=== PATIENT | female | born 1975 | race Two or more races ===

== ENCOUNTER 2020-09-28 00:28 | Emergency (ER) | payer MEDICAID, OTHER, SELFPAY ==
[2020-09-28 00:32] VITALS: BP 135/81; PULSE 57; RESP 18; TEMP 36; O2SAT 100; BMI 37.4
--- NOTE | 2020-09-28 00:41 | ED.ABDPAIN ---
HPI - Abdominal Pain General Chief Complaint: Abdominal Pain Stated Complaint: Abd pain Time Seen by Provider: 09/28/20 00:29 Source: patient Mode of arrival: ambulatory Limitations: no limitations History of Present Illness MD elicited complaint: abdominal pain Pertinent past history: none Onset (ago): day(s) (started yesterday) Location: epigastric Severity: severe Quality: stabbing Radiation: none Migration to: no migration Exacerbating factors: eating Relieving factors: nothing Associated symptoms: nausea Related Data Previous Rx's Medication Instructions Recorded dicyclomine 20 mg PO TID PRN #30 tab 09/28/20 famotidine [Pepcid] 20 mg PO DAILY PRN #30 tab 09/28/20 Allergies Allergy/AdvReac Type Severity Reaction Status Date / Time No Known Allergies Allergy Verified 09/28/20 00:32 [No Known Allergies*] Review of Systems Review of Systems Constitutional : No Weight loss, No Fever, No Chills ENT/Mouth : No sore throat, No Rhinorrhea Eyes: No Swelling, No Redness Cardiovascular : No Chest Pain, No SOB, NoEdema Respiratory : No Cough, No Sputum, No Wheezing Gastrointestinal : Positive Nausea, no Vomiting, no Diarrhea, positive abdominal Pain, No Hematochezia, No Melena Genitourinary : No Dysuria, No Urinary Frequency, No Hematuria, No Urgency Musculoskeletal : No joint pain, No Myalgias, No Joint Swelling Skin : No Skin Lesions, No rash Neuro : No Weakness, No Numbness, No Dizziness, No Headache Psych : No Anxiety/Panic, No Depression All other systems reviewed and are negative. Physical Exam Vital Signs: Vital Signs: Last Vital Signs Temp 96.8 F 09/28/20 00:32 Pulse 68 09/28/20 02:39 Resp 16 09/28/20 02:39 BP 105/50 L 09/28/20 02:39 Pulse Ox 100 09/28/20 02:39 Body Mass Index 37.4 Appearance: Alert. Oriented X3. No acute distress. Eyes: Pupils equal, round and reactive to light. ENT: Pharynx normal. Neck: Normal inspection. Neck supple. CVS: Normal heart rate and rhythm. Pulses normal. Respiratory: No respiratory distress. Breath sounds normal. Abdomen: Soft and moderate epigastric pain, neg Wong's sign, no rebound or guarding Skin: Skin warm and dry. Normal skin color. Normal skin turgor. Extremities: No lower extremity edema. No calf ttp Neuro: Oriented X 3. No motor deficit. No sensory deficit. Course Course Course Narrative: labs unremarkable, CT scan negative, at this time no acute findings stable for DC MDM - Abdominal Pain MDM Narrative Medical decision making narrative: 44 yo femle with HTN, migraines, palpitations comes in with 1 day of epigastric pain and nausea - no prior surgeries, at this time will need labs, CT scan to evaluate pancreas, has no wong's sign, IVF, IV Toradol and morphine for pain Lab Data Result diagrams: 09/28/20 00:53 09/28/20 00:53 Labs: Lab Results 09/28/20 09/28/20 09/28/20 Range/Units 00:52 00:53 00:53 WBC 7.0 (4.8-10.8) X10*3/uL RBC 3.81 L (4.20-5.50) X10*6/uL Hgb 11.1 L (12.0-16.0) g/dl Hct 33.6 L (37-47) % MCV 88.2 (80-98) fL MCH 29.1 (27.0-33.0) pg MCHC 33.0 (31.0-35.0) g/dl RDW 13.5 (11.0-16.0) % Plt Count 177 (160-400) X10*3/uL MPV 11.1 (9.4-12.3) fL Immature Gran % (Auto) 0.1 (0.0-0.4) % Neut % (Auto) 32.9 L (45-73) % Lymph % (Auto) 57.8 H (20-40) % [place] % (Auto) 7.3 (2-11) % Eos % (Auto) 1.6 (0-4) % Baso % (Auto) 0.3 (0-2) % Lymph # (Auto) 4.1 (1.2-4.9) X10*3/uL [place] # (Auto) 0.5 (0.1-1.2) X10*3/uL Eos # (Auto) 0.1 (0.0-0.4) X10*3/uL Baso # (Auto) 0.0 (0.0-0.2) X10*3/uL Abs Immat Gran (auto) 0.01 (0.00-0.03) X10*3/uL Absolute Neuts (auto) 2.3 (2.0-8.3) X10*3/uL Absolute Nucleated RBC 0.000 (0.0-0.012) X10*3/uL Nucleated RBC % (auto) 0.0 (0.0-0.2) /100WBC Hold Blue Top SEE NOTE Sodium (135-145) mmol/L Potassium (3.3-5.1) mmol/l Chloride (96-108) mmol/L Carbon Dioxide (22-29) mmol/L Anion Gap (12-20) BUN (9-16) mg/dL Creatinine (0.5-1.4) mg/dL Estim Creat Clear Calc Estimated GFR Random Glucose (60-115) mg/dL Calcium (8.4-10.2) mg/dL Total Bilirubin (0.0-1.0) mg/dL Direct Bilirubin (0.0-0.5) mg/dL AST (5-31) U/L ALT (0-31) U/L Alkaline Phosphatase (39-117) U/L Total Protein (6.5-8.0) g/dL Albumin (3.5-5.0) g/dL Lipase (8-78) U/L Urine Color YELLOW Urine Appearance CLEAR Urine pH 6.0 (5.0-8.0) Ur Specific [place] >= 1.030 H (1.005-1.025) Urine Protein NEG (NEG-TRACE) MG/DL Urine Glucose (UA) NEG (NEG) MG/DL Urine Ketones NEG (NEG) MG/DL Urine Blood 1+ H (NEG) Urine Nitrite NEG (NEG) Ur Leukocyte Esterase NEG (NEG) Urine RBC 1-4 (0) /HPF Urine WBC 1-4 (0-4) /HPF Ur Squamous Epith Cells 2+ /LPF Urine Bacteria 3+ /LPF Urine Test NEGATIVE (NEGATIVE) 09/28/20 09/28/20 Range/Units 00:53 00:53 WBC (4.8-10.8) X10*3/uL RBC (4.20-5.50) X10*6/uL Hgb (12.0-16.0) g/dl Hct (37-47) % MCV (80-98) fL MCH (27.0-33.0) pg MCHC (31.0-35.0) g/dl RDW (11.0-16.0) % Plt Count (160-400) X10*3/uL MPV (9.4-12.3) fL Immature Gran % (Auto) (0.0-0.4) % Neut % (Auto) (45-73) % Lymph % (Auto) (20-40) % [place] % (Auto) (2-11) % Eos % (Auto) (0-4) % Baso % (Auto) (0-2) % Lymph # (Auto) (1.2-4.9) X10*3/uL [place] # (Auto) (0.1-1.2) X10*3/uL Eos # (Auto) (0.0-0.4) X10*3/uL Baso # (Auto) (0.0-0.2) X10*3/uL Abs Immat Gran (auto) (0.00-0.03) X10*3/uL Absolute Neuts (auto) (2.0-8.3) X10*3/uL Absolute Nucleated RBC (0.0-0.012) X10*3/uL Nucleated RBC % (auto) (0.0-0.2) /100WBC Hold Blue Top Sodium 139 (135-145) mmol/L Potassium 4.4 (3.3-5.1) mmol/l Chloride 108 (96-108) mmol/L Carbon Dioxide 23 (22-29) mmol/L Anion Gap 12 (12-20) BUN 15 (9-16) mg/dL Creatinine 0.71 (0.5-1.4) mg/dL Estim Creat Clear Calc 114.2 Estimated GFR > 60 Random Glucose 100 (60-115) mg/dL Calcium 8.8 (8.4-10.2) mg/dL Total Bilirubin < 0.2 (0.0-1.0) mg/dL Direct Bilirubin < 0.2 (0.0-0.5) mg/dL AST 23 (5-31) U/L ALT 19 (0-31) U/L Alkaline Phosphatase 95 (39-117) U/L Total Protein 6.8 (6.5-8.0) g/dL Albumin 3.8 (3.5-5.0) g/dL Lipase 64 (8-78) U/L Urine Color Urine Appearance Urine pH (5.0-8.0) Ur Specific [place] (1.005-1.025) Urine Protein (NEG-TRACE) MG/DL Urine Glucose (UA) (NEG) MG/DL Urine Ketones (NEG) MG/DL Urine Blood (NEG) Urine Nitrite (NEG) Ur Leukocyte Esterase (NEG) Urine RBC (0) /HPF Urine WBC (0-4) /HPF Ur Squamous Epith Cells /LPF Urine Bacteria /LPF Urine Test (NEGATIVE) Discharge Plan Discharge Clinical Impression: Abdominal pain Qualifiers: Abdominal location: epigastric Qualified Code(s): R10.13 - Epigastric pain Patient Disposition: Home, Self-Care Instructions: Abdominal Pain (ED) Additional Instructions: return to ED for any worsening symptoms or concerns Prescriptions: New famotidine [Pepcid] 20 mg tablet 20 mg PO DAILY PRN (Reason: pain, moderate) Qty: 30 RF: 0 dicyclomine 20 mg tablet 20 mg PO TID PRN (Reason: pain, moderate) Qty: 30 RF: 0 Referrals: Zoe Cabrera DO [Primary Care Provider] - 2 days (if not better) Print Language: Micronesian [facility] Past Medical History Attestation statement: The following information was validated with the patient. Medical History Heart problem HTN (hypertension) Migraine Vertigo Social History Social History (Updated 09/28/20 @ 00:54 by Catrina Correa DO) Alcohol intake: never Smoking Status: Never smoker Advance Directives: No Advance Directives Information Provided: No
--- NOTE | 2020-09-28 00:51 | CT_ITS ---
EXAMINATION: CT ABDOMEN AND PELVIS WITH CONTRAST CLINICAL INFORMATION: Epigastric pain COMPARISON: 10/13/2019 TECHNIQUE: Multidetector volumetric images were obtained from the superior aspect of the liver through the pubic symphysis following administration 85 mL of Omnipaque 350 intravenous contrast. Sagittal and coronal reformatted images were obtained on the technologist's workstation. Oral contrast: No This CT examination was performed using dose optimization techniques as appropriate, variously including the following: *Automated exposure control *Adjustment of mA and/or kV according to patient size (this includes techniques or standardized protocols for targeted exams where dose is matched to indication/reason for exam; i.e. extremities or head) *Use of iterative reconstruction technique DLP: 902 mGy-cm FINDINGS: Suboptimal assessment due to patient motion artifact. LUNG BASES: The visualized lung bases are unremarkable. LIVER, GALLBLADDER, AND BILIARY TREE: The liver is normal in size, shape, and attenuation. No focal hepatic lesion or biliary ductal dilatation is present. The gallbladder is unremarkable. PANCREAS: Unremarkable. SPLEEN: Unremarkable. ADRENAL GLANDS: Unremarkable. KIDNEYS AND URETERS: The kidneys are normal in size, shape, and attenuation. No hydronephrosis, hydroureter, or obstructing calculi seen. No perinephric stranding. BLADDER: Unremarkable. GASTROINTESTINAL TRACT: The small and large bowel are unremarkable. The appendix is unremarkable. No free fluid or free air is seen. ABDOMINAL WALL: No significant hernia is appreciated. LYMPH NODES: Normal. VASCULAR: Unremarkable. PELVIC VISCERA: Unremarkable. OSSEOUS STRUCTURES: There is degenerative disc disease of the lower lumbar spine. CT/CT abdomen pelvis w con IMPRESSION: No acute findings identified in the abdomen/pelvis. Partially limited assessment due to patient motion artifact.
[2020-09-28] MEDS: Morphine Sulfate 4 MG/ML CARTRIDGE IVPUSH (00:55)
[2020-09-28] MEDS: ondansetron HCL 4 MG/2 ML VIAL IVPUSH (00:55)
[2020-09-28] MEDS: 0.9 % Sodium Chloride 1,000 ML 999 ML IVCONT (00:56)
[2020-09-28] MEDS: Ketorolac Tromethamine 30 MG/ML VIAL IVPUSH (00:56)
[2020-09-28 01:03] LABS: Basophils Percent Auto 0.3 % (0-2); Eosinophils Absolute Auto 0.1 X10*3/uL (0.0-0.4); Eosinophils Percent Auto 1.6 % (0-4); Hematocrit 33.6 % (37-47); Hemoglobin 11.1 g/dl (12.0-16.0); Imm Gran Abs Auto 0.01 X10*3/uL (0.00-0.03); Imm Gran Pct Auto 0.1 % (0.0-0.4); Lymphocytes Absolute Auto 4.1 X10*3/uL (1.2-4.9); Lymphocytes Percent Auto 57.8 % (20-40); Mean Corpuscular Hemoglobin 29.1 pg (27.0-33.0); Mean Corpuscular Volume 88.2 fL (80-98); Mean Platelet Volume 11.1 fL (9.4-12.3); Monocytes Absolute Auto 0.5 X10*3/uL (0.1-1.2); Monocytes Percent Auto 7.3 % (2-11); Neutrophils Absolute Auto 2.3 X10*3/uL (2.0-8.3); Neutrophils Percent Auto 32.9 % (45-73); Platelet Count 177 X10*3/uL (160-400); Red Blood Count 3.81 X10*6/uL (4.20-5.50); Red Cell Distribution Width 13.5 % (11.0-16.0)
--- NOTE | 2020-09-28 01:05 | PC.NURSE ---
Pt ambulating from the waiting room into room 17 with a suarez/steady gait. MD at bedside for primary eval. IV established, labs and UA obtained and sent. Pt medicated per EMAR, aware of plan of care, awaiting CT. Continue to monitor.
[2020-09-28 01:06] LABS: MANUAL DIFF FLAG NO
[2020-09-28 01:27] LABS: Anion Gap 12 (12-20); Blood Urea Nitrogen 15 mg/dL (9-16); Calcium 8.8 mg/dL (8.4-10.2); Carbon Dioxide 23 mmol/L (22-29); Chloride 108 mmol/L (96-108); Creatinine Clr Calc Pharmacy 114.2; Estimated Glomerular Filt Rate > 60; Glucose Random 100 mg/dL (60-115); Lipase 64 U/L (8-78); Potassium 4.4 mmol/l (3.3-5.1); Sodium 139 mmol/L (135-145)
[2020-09-28 01:31] LABS: Alanine Aminotransferase 19 U/L (0-31); Albumin Level 3.8 g/dL (3.5-5.0); Alkaline Phosphatase 95 U/L (39-117); Aspartate Amino Transferase 23 U/L (5-31); Bilirubin Direct < 0.2 mg/dL (0.0-0.5); Bilirubin Total < 0.2 mg/dL (0.0-1.0); Total Protein 6.8 g/dL (6.5-8.0)
--- NOTE | 2020-09-28 01:41 | PC.NURSE ---
Pt sleeping in bed at this time, IVF infusing per EMAR. Pt awaiting CT. This RN calling the lab inquiring about the UA that was sent, per lab, urine was received and is processing.
[2020-09-28 01:55] LABS: UPreg QC Valid YES; Urine Pregnancy NEGATIVE (NEGATIVE)
[2020-09-28 01:56] LABS: Appearance Urine CLEAR; Color Urine YELLOW; Glucose Urine UA NEG (NEG); Leukocyte Esterase Urine NEG (NEG); Nitrite Urine NEG (NEG); Specific Gravity - Urine >= 1.030 (1.005-1.025); Urine Blood 1+ (NEG); Urine Ketones NEG (NEG); Urine Protein NEG (NEG-TRACE)
[2020-09-28 02:00] LABS: Bacteria Urine 3+ /LPF; Squamous Epithelial Cell Urine 2+ /LPF
--- NOTE | 2020-09-28 02:03 | PC.NURSE ---
Pt off to CT on hospital bed.
--- NOTE | 2020-09-28 02:36 | PC.NURSE ---
Pt returns from CT on hospital bed without incident.
[2020-09-28] MEDS: iohexoL 350 MG/ML 100 ML INFUS..BTL IV (02:38)
[2020-09-28 02:39] VITALS: BP 105/50; PULSE 68; RESP 16; O2SAT 100
[2020-09-28] MEDS: Magnesium Hydrox/Alum Hydrox 30 ML ORAL.SUSP 15 ML PO (02:53)
[2020-09-28] MEDS: Lidocaine HCl Viscous 2 % 15 ML SOLUTION MUCOUS MEM (02:53)
--- NOTE | 2020-09-28 02:54 | PC.NURSE ---
Pt medicated per EMAR. Awaiting CT results.
--- NOTE | 2020-09-28 03:06 | PC.NURSE ---
MD at bedside explaining results and plan of care.
== END 2020-09-28 03:14 | disposition home or self-care (01) ==
PROVIDERS: Emergency Provider Emergency Medicine; PCP Family Medicine
DX: R10.13 Epigastric pain (principal); Z79.899 Other long term (current) drug therapy
CPT/HCPCS: 36415; 74177; 80048; 80076; 81001; 81025; 83690; 85025; 96361; 96374; 96375; 99284; J1885; J2270; J2405; Q9967

== ENCOUNTER 2020-11-08 22:36 | Emergency (ER) | payer MEDICAID, OTHER, SELFPAY ==
--- NOTE | 2020-11-08 | ECG_ITS ---
Test Reason : CHEST PAIN Blood Pressure : / mmHG Vent. Rate : 094 BPM Atrial Rate : 094 BPM P-R Int : 142 ms QRS Dur : 080 ms QT Int : 356 ms P-R-T Axes : 028 000 020 degrees QTc Int : 445 ms Normal sinus rhythm Normal ECG No significant changes when compared with the previous EKG of 24 mar 2019 Referred By: Generic ED Physician Electronically Signed By:EHSAN TMEPLE
[2020-11-08 22:39] VITALS: BMI 36.0
--- NOTE | 2020-11-08 22:47 | XR_ITS ---
EXAMINATION: XR CHEST CLINICAL INFORMATION: Chest pain. COMPARISON: Most recent chest radiograph dated 03/24/2019. TECHNIQUE: Frontal view of the chest was obtained. FINDINGS: The lungs are clear. The cardiomediastinal silhouette is normal in size. There is no pleural effusion or pneumothorax. No acute osseous abnormality. XR/XR chest 1V IMPRESSION: No acute cardiopulmonary findings.
--- NOTE | 2020-11-08 23:02 | ED_ITS ---
HPI - Chest Pain General Stated Complaint: Chest pain Time Seen by Provider: 11/08/20 22:47 Source: patient Mode of arrival: ambulatory Limitations: no limitations History of Present Illness MD complaint: chest pain and other (out of her metoprolol and fleicanide for 3 days very anxious about it the [facility] pharmacy is closed) Pertinent past history: other (dysrhythmia, has had frequent bouts of chest pain ) Onset (ago): day(s) (3) Timing of current episode: constant Onset: during rest Pain location: left chest Pain radiation: left arm Severity: moderate Quality: tightness and heaviness Relieving factors: nothing Exacerbating factors: other (out of her medications) Associated symptoms: dyspnea Treatment prior to arrival: none Related Data Previous Rx's Medication Instructions Recorded dicyclomine 20 mg PO TID PRN #30 tab 09/28/20 famotidine [Pepcid] 20 mg PO DAILY PRN #30 tab 09/28/20 Allergies Allergy/AdvReac Type Severity Reaction Status Date / Time No Known Allergies Allergy Verified 09/28/20 00:32 [No Known Allergies*] Review of Systems Review of Systems: Constitutional : No Weight loss, No Fever, No Chills ENT/Mouth : No sore throat, No Rhinorrhea Eyes: No Eye Pain, No Swelling Cardiovascular : pos Chest Pain, pos SOB, no Dyspnea on Exertion, No Orthopnea, No Edema, No Palpitations Respiratory : No Cough, No Sputum Gastrointestinal : no Nausea, No Vomiting, No Diarrhea, No abdominal Pain, No Hematochezia, No Melena Genitourinary : No Dysuria, No Urinary Frequency Musculoskeletal : No joint pain, No Myalgias, No Joint Swelling Skin : No Skin Lesions, No rash Neuro : No Weakness, No Numbness, No Dizziness, No Headache Psych : pos Anxiety/Panic, No Depression Heme/Lymph: No Bruising, No Lymphadenopathy Endocrine : No Polyuria, No Polydipsia All other systems reviewed and are negative [facility] Past Medical History Attestation statement: The following information was validated with the patient. Medical History Heart problem HTN (hypertension) Migraine Vertigo Social History Social History Alcohol intake: never Smoking Status: Never smoker Smoked in Last 30 Days: No Use of substances other than those prescribed or required for medical reasons: No Advance Directives: No Advance Directives Information Provided: No Physical Exam Vital Signs: Vital Signs: Last Vital Signs Temp 98.1 F 11/09/20 00:00 Pulse 87 11/09/20 00:00 Resp 20 11/09/20 00:00 BP 144/82 H 11/09/20 00:00 Pulse Ox 98 11/09/20 00:00 Body Mass Index 87.0 Appearance: Alert. Oriented X3. No acute distress. Anxious Eyes: Pupils equal, round and reactive to light. ENT: Pharynx normal. Neck: Normal inspection. Neck supple. CVS: Normal heart rate and rhythm. Pulses normal. Respiratory: No respiratory distress. Breath sounds normal. Abdomen: Soft and non-tender. Skin: Skin warm and dry. Normal skin color. Normal skin turgor. Extremities: No lower extremity edema. No calf ttp Neuro: Oriented X 3. No motor deficit. No sensory deficit. Course Course Course Narrative: negative EKG given her medications unfortunately I cannot dispense her the medications, she has had a negative troponin with 3 days of symptoms, hx of frequent visits for the same, stable for DC MDM - Chest Pain MDM Narrative Medical decision making narrative: 45 yo femald with hx of arrhythmia on flecainie and metoprolol but out of it x 3 days here with anxiety and chest pain - her chest pain has been present for 3 days, she is PERC negative, it seems related to her medications, will dose with metoprolol and her fleicanide obtain troponin x 1, labs, CXR, EKG dispo per results and findings. Lab Data Result diagrams: 11/09/20 00:12 11/09/20 00:13 Labs: Lab Results 11/09/20 11/09/20 11/09/20 Range/Units 00:12 00:12 00:12 WBC 6.6 (4.8-10.8) X10*3/uL RBC 4.01 L (4.20-5.50) X10*6/uL Hgb 11.7 L (12.0-16.0) g/dl Hct 35.4 L (37-47) % MCV 88.3 (80-98) fL MCH 29.2 (27.0-33.0) pg MCHC 33.1 (31.0-35.0) g/dl RDW 13.2 (11.0-16.0) % Plt Count 173 (160-400) X10*3/uL MPV 11.0 (9.4-12.3) fL Immature Gran % (Auto) 0.2 (0.0-0.4) % Neut % (Auto) 48.1 (45-73) % Lymph % (Auto) 42.9 H (20-40) % [place] % (Auto) 6.6 (2-11) % Eos % (Auto) 2.0 (0-4) % Baso % (Auto) 0.2 (0-2) % Lymph # (Auto) 2.8 (1.2-4.9) X10*3/uL [place] # (Auto) 0.4 (0.1-1.2) X10*3/uL Eos # (Auto) 0.1 (0.0-0.4) X10*3/uL Baso # (Auto) 0.0 (0.0-0.2) X10*3/uL Abs Immat Gran (auto) 0.01 (0.00-0.03) X10*3/uL Absolute Neuts (auto) 3.2 (2.0-8.3) X10*3/uL Absolute Nucleated RBC 0.000 (0.0-0.012) X10*3/uL Nucleated RBC % (auto) 0.0 (0.0-0.2) /100WBC Hold Blue Top SEE NOTE Sodium (135-145) mmol/L Potassium (3.3-5.1) mmol/l Chloride (96-108) mmol/L Carbon Dioxide (22-29) mmol/L Anion Gap (12-20) BUN (9-16) mg/dL Creatinine (0.5-1.4) mg/dL Estim Creat Clear Calc Estimated GFR Random Glucose (60-115) mg/dL Calcium (8.4-10.2) mg/dL Magnesium (1.6-2.6) mg/dL Total Bilirubin (0.0-1.0) mg/dL Direct Bilirubin (0.0-0.5) mg/dL AST (5-31) U/L ALT (0-31) U/L Alkaline Phosphatase (39-117) U/L Troponin I High Sens < 3.5 (<3.5-17.0) ng/L Total Protein (6.5-8.0) g/dL Albumin (3.5-5.0) g/dL Lipase (8-78) U/L 11/09/20 11/09/20 Range/Units 00:13 00:13 WBC (4.8-10.8) X10*3/uL RBC (4.20-5.50) X10*6/uL Hgb (12.0-16.0) g/dl Hct (37-47) % MCV (80-98) fL MCH (27.0-33.0) pg MCHC (31.0-35.0) g/dl RDW (11.0-16.0) % Plt Count (160-400) X10*3/uL MPV (9.4-12.3) fL Immature Gran % (Auto) (0.0-0.4) % Neut % (Auto) (45-73) % Lymph % (Auto) (20-40) % [place] % (Auto) (2-11) % Eos % (Auto) (0-4) % Baso % (Auto) (0-2) % Lymph # (Auto) (1.2-4.9) X10*3/uL [place] # (Auto) (0.1-1.2) X10*3/uL Eos # (Auto) (0.0-0.4) X10*3/uL Baso # (Auto) (0.0-0.2) X10*3/uL Abs Immat Gran (auto) (0.00-0.03) X10*3/uL Absolute Neuts (auto) (2.0-8.3) X10*3/uL Absolute Nucleated RBC (0.0-0.012) X10*3/uL Nucleated RBC % (auto) (0.0-0.2) /100WBC Hold Blue Top Sodium 138 (135-145) mmol/L Potassium 4.0 (3.3-5.1) mmol/l Chloride 107 (96-108) mmol/L Carbon Dioxide 24 (22-29) mmol/L Anion Gap 11 L (12-20) BUN 17 H (9-16) mg/dL Creatinine 0.78 (0.5-1.4) mg/dL Estim Creat Clear Calc 177.6 Estimated GFR > 60 Random Glucose 111 (60-115) mg/dL Calcium 8.3 L (8.4-10.2) mg/dL Magnesium 2.0 Cancelled (1.6-2.6) mg/dL Total Bilirubin < 0.2 Cancelled (0.0-1.0) mg/dL Direct Bilirubin < 0.2 Cancelled (0.0-0.5) mg/dL AST 22 Cancelled (5-31) U/L ALT 20 Cancelled (0-31) U/L Alkaline Phosphatase 113 Cancelled (39-117) U/L Troponin I High Sens (<3.5-17.0) ng/L Total Protein 6.8 Cancelled (6.5-8.0) g/dL Albumin 3.9 Cancelled (3.5-5.0) g/dL Lipase 74 Cancelled (8-78) U/L ECG Data ECG #1: Attestation: I personally reviewed and interpreted this ECG as follows: ECG interpretation date: 11/08/20 ECG interpretation time: 23:53 Interpretation: Rate: 94 Rhythm: NSR [place]: normal Normal P waves. Normal [place]AR[place]. Normal QRS complex. ST T wave : normal no JAMARCUS qTC: normal prior studies: no acute ischemia The study has been interpreted contemporaneously by me. . Discharge Plan Discharge Clinical Impression: Atypical chest pain Patient Disposition: Home, Self-Care Instructions: Chest Pain (ED) Additional Instructions: return to ED for any worsening symptoms or concerns Prescriptions: No Action famotidine [Pepcid] 20 mg tablet 20 mg PO DAILY PRN (Reason: pain, moderate) Qty: 30 RF: 0 dicyclomine 20 mg tablet 20 mg PO TID PRN (Reason: pain, moderate) Qty: 30 RF: 0 Referrals: Zoe Cabrera DO [Primary Care Provider] - 2 days (if not better)
[2020-11-08 23:08] VITALS: BP 166/99; PULSE 86; RESP 22; TEMP 36.8; O2SAT 100; BMI 87.0
[2020-11-08 23:14] VITALS: PULSE 80
[2020-11-08 23:24] VITALS: BP 134/57; PULSE 80
[2020-11-08] MEDS: Metoprolol Tartrate 50 MG TABLET PO (23:24)
[2020-11-08 23:57] VITALS: BP 144/82; PULSE 80
[2020-11-08] MEDS: Flecainide Acetate 50 MG TABLET PO (23:57)
[2020-11-09] VITALS: BP 144/82; PULSE 87; RESP 20; TEMP 36.7; O2SAT 98
--- NOTE | 2020-11-09 00:03 | PC.NURSE ---
Medicated with missed medications. Pending EKG. Pt states pain radiating down left arm. NSR 80's on tele
[2020-11-09 00:23] LABS: MANUAL DIFF FLAG NO
[2020-11-09 00:25] LABS: Basophils Percent Auto 0.2 % (0-2); Eosinophils Absolute Auto 0.1 X10*3/uL (0.0-0.4); Hematocrit 35.4 % (37-47); Hemoglobin 11.7 g/dl (12.0-16.0); Imm Gran Abs Auto 0.01 X10*3/uL (0.00-0.03); Imm Gran Pct Auto 0.2 % (0.0-0.4); Lymphocytes Absolute Auto 2.8 X10*3/uL (1.2-4.9); Lymphocytes Percent Auto 42.9 % (20-40); Mean Corpuscular HGB Conc 33.1 g/dl (31.0-35.0); Mean Corpuscular Hemoglobin 29.2 pg (27.0-33.0); Mean Corpuscular Volume 88.3 fL (80-98); Monocytes Absolute Auto 0.4 X10*3/uL (0.1-1.2); Monocytes Percent Auto 6.6 % (2-11); Neutrophils Absolute Auto 3.2 X10*3/uL (2.0-8.3); Neutrophils Percent Auto 48.1 % (45-73); Platelet Count 173 X10*3/uL (160-400); Red Blood Count 4.01 X10*6/uL (4.20-5.50); Red Cell Distribution Width 13.2 % (11.0-16.0); White Blood Count 6.6 X10*3/uL (4.8-10.8)
[2020-11-09 00:59] LABS: Alanine Aminotransferase 20 U/L (0-31); Albumin Level 3.9 g/dL (3.5-5.0); Alkaline Phosphatase 113 U/L (39-117); Anion Gap 11 (12-20); Aspartate Amino Transferase 22 U/L (5-31); Bilirubin Direct < 0.2 mg/dL (0.0-0.5); Bilirubin Total < 0.2 mg/dL (0.0-1.0); Blood Urea Nitrogen 17 mg/dL (9-16); Calcium 8.3 mg/dL (8.4-10.2); Carbon Dioxide 24 mmol/L (22-29); Chloride 107 mmol/L (96-108); Creatinine Clr Calc Pharmacy 177.6; Estimated Glomerular Filt Rate > 60; Glucose Random 111 mg/dL (60-115); Lipase 74 U/L (8-78); Sodium 138 mmol/L (135-145); Total Protein 6.8 g/dL (6.5-8.0)
[2020-11-09 01:17] LABS: Troponin-I High Sensitivity < 3.5 ng/L (<3.5-17.0)
[2020-11-09] MEDS: Morphine Sulfate 4 MG/ML CARTRIDGE IVPUSH (01:33)
[2020-11-09] MEDS: ondansetron HCL 4 MG/2 ML VIAL IVPUSH (01:33)
[2020-11-09 01:46] VITALS: BP 107/51; PULSE 70; RESP 18; TEMP 36.7; O2SAT 100
--- NOTE | 2020-11-09 01:50 | PC.NURSE ---
Patient medicated for pain and nausea via IM per MD arnold. Plan for BP recheck and discharge, pt calling for ride.
[2020-11-09 02:13] LABS: Prothrombin Time 11.3 SEC (10.8-13.0)
[2020-11-09 02:15] LABS: Partial Thromboplastin Time 46.5 SEC (24.1-38.0)
[2020-11-09 02:44] VITALS: BP 117/54
== END 2020-11-09 02:57 | disposition home or self-care (01) ==
PROVIDERS: Emergency Provider Emergency Medicine; PCP Family Medicine
DX: R07.89 Other chest pain (principal); I10 Essential (primary) hypertension
CPT/HCPCS: 36415; 71045; 80048; 80076; 83690; 83735; 84484; 85025; 85610; 85730; 93005; 96374; 96375; 99284; J2270; J2405

== ENCOUNTER 2020-11-22 16:14 | Emergency (ER) | payer MEDICAID, OTHER, SELFPAY ==
[2020-11-22 17:25] VITALS: BP 132/65; PULSE 81; RESP 16; TEMP 36.7; O2SAT 99; BMI 39.4
--- NOTE | 2020-11-22 18:09 | XR_ITS ---
EXAMINATION: XR CERVICAL SPINE CLINICAL INFORMATION: Left-sided neck pain. Cervical radiculopathy. COMPARISON: None TECHNIQUE: 6 views of the cervical spine were obtained. FINDINGS: There is no acute abnormality. There is no fracture. There is no dislocation. The alignment of vertebrae is normal. There is cervical disc height narrowing C3-C4. The remainder of the cervical disc heights are normal. The facet joints are normal. Neural foramina are open bilateral. There is no soft tissue abnormality. XR/XR cervical spine 4V IMPRESSION: 1. No acute abnormality. 2. Degenerative disc height narrowing C3-C4.
--- NOTE | 2020-11-22 18:37 | ED.EXTPRO ---
HPI - Extremity Problem General Chief complaint: Extremity Injury, Upper Stated complaint: neck, upper backpain Time Seen by Provider: 11/22/20 18:04 Source: patient Mode of arrival: ambulatory Limitations: language barrier History of Present Illness HPI Narrative: 46 y/o female with history of cardiac arrhythmia, atypical chest pain who presents with 2 weeks of non-traumatic neck pain that radiates down to her left posterior shoulder and down her left arm. She states there is some tingling sensation at times. Worse with movement and palpation. Has not been taking anything for the pain. She denies numbness, weakness, chest pain, SOB. MD Complaint: extremity pain and other (neck pain) Onset (ago): week(s) (2) Pain Consistency: constant Location: left Severity scale (1-10): 8 Quality: burning, sharp and constant Radiation: distal Relieving factors: nothing Exacerbating factors: range of motion and palpation Associated symptoms: denies other symptoms Related Data Previous Rx's Medication Instructions Recorded dicyclomine 20 mg PO TID PRN #30 tab 09/28/20 famotidine [Pepcid] 20 mg PO DAILY PRN #30 tab 09/28/20 cyclobenzaprine 10 mg PO TID PRN #12 tab 11/22/20 lidocaine [Lidoderm] 1 patch TOPICAL DAILY #15 ea 11/22/20 naproxen 500 mg PO BID PRN #20 tab 11/22/20 Allergies Allergy/AdvReac Type Severity Reaction Status Date / Time No Known Allergies Allergy Verified 09/28/20 00:32 [No Known Allergies*] Review of Systems Review of Systems: Constitutional: No Fever, No Chills ENT/Mouth: No sore throat Cardiovascular: No Chest Pain, No SOB Respiratory: No Cough, No Sputum, No Wheezing, No dyspnea Gastrointestinal: No Nausea, No Vomiting, No Diarrhea, No abdominal Pain Musculoskeletal: + joint pain, + Myalgias Skin: No Skin Lesions, No rash Neuro: No Weakness, No Numbness, No Dizziness, +Headache Heme/Lymph: No Bruising, No Lymphadenopathy PMFSH Past Medical History Attestation statement: The following information was validated with the patient. Medical History Heart problem HTN (hypertension) Migraine Vertigo Social History Social History Alcohol intake: never Smoking Status: Never smoker Advance Directives: No Advance Directives Information Provided: No Physical Exam Vital Signs: Vital Signs: Last Vital Signs Temp 98.0 F 11/22/20 17:25 Pulse 81 11/22/20 17:25 Resp 16 11/22/20 17:25 BP 132/65 11/22/20 17:25 Pulse Ox 99 11/22/20 17:25 Body Mass Index 39.4 Appearance: Alert. Oriented X3. No acute distress. HEENT: normal inspection. cervical spinal tenderness throughout with left sided soft tissue tenderness, worse when turning head to the left CVS: Normal heart rate and rhythm. Pulses normal. Respiratory: No respiratory distress. Skin: Skin warm and dry. Normal skin color. Normal skin turgor. No rashes. Extremities: left shoulder soft tissue tenderness of upper trapezius and medial to scapula, palpable spasm. normal ROM or shoulder, elbow. Normal strength. Neuro: Oriented X 3. No motor deficit. No sensory deficit. Course Course Course Narrative: 45 y/o female presenting with neck, shoulder and arm pain x2 weeks. No deficits on exam. Worse with axial loading consistent with cervical radiculopathy. XR neck showing disc height narrowing at C3-C4. Will treat with muscle relaxer and NSAID. Used hourly sign language interpreter to discuss results and further management. She will f/u with her doctor next week. Discharge Plan Discharge Clinical Impression: Cervical disc disorder with radiculopathy Patient Disposition: Home, Self-Care Instructions: Cervical Radiculopathy (ED) Additional Instructions: Your x-ray today showed a disc in your neck is narrowing, it may be related to your pain. Your muscles are very tight and in spasm. Recommend using a heating pad for 20 minutes at a time several times per day. You can try gentle massage. Take Tylenol every 6 hours for pain. You should follow up with your doctor for follow up and possibly further imaging in the future. Take the prescribed medications for pain. If you develop worsening pain, numbness, tingling or loss of function of your arm come back to the ER for further evaluation. Prescriptions: New cyclobenzaprine 10 mg tablet 10 mg PO TID PRN (Reason: muscle spasm) Qty: 12 RF: 0 lidocaine [Lidoderm] 5 % adhesive patch,medicated 1 patch topical DAILY Qty: 15 RF: 0 naproxen 500 mg tablet 500 mg PO BID PRN (Reason: pain) Qty: 20 RF: 0 No Action famotidine [Pepcid] 20 mg tablet 20 mg PO DAILY PRN (Reason: pain, moderate) Qty: 30 RF: 0 dicyclomine 20 mg tablet 20 mg PO TID PRN (Reason: pain, moderate) Qty: 30 RF: 0
[2020-11-22] MEDS: Ketorolac Tromethamine 30 MG/ML VIAL IM (18:59)
[2020-11-22] MEDS: Cyclobenzaprine HCl 10 MG TABLET PO (19:01)
== END 2020-11-22 19:48 | disposition home or self-care (01) ==
PROVIDERS: Emergency Provider Emergency Medicine; PCP Family Medicine
DX: M54.12 Radiculopathy, cervical region (principal); M54.2 Cervicalgia; M54.5 Low back pain; Z79.899 Other long term (current) drug therapy
CPT/HCPCS: 72050; 96372; 99284; J1885

== ENCOUNTER 2020-12-31 08:09 | Outpatient (REF) | payer MEDICAID, OTHER, SELFPAY ==
[2020-12-31 08:59] LABS: Urine Cytology See Pathology rpt
[2020-12-31 09:08] LABS: Glucose Urine UA NEG (NEG); Leukocyte Esterase Urine NEG (NEG); Nitrite Urine NEG (NEG); Urine Blood NEG (NEG); Urine Ketones NEG (NEG); Urine Protein NEG (NEG-TRACE)
[2020-12-31 09:10] LABS: Appearance Urine CLEAR; Color Urine YELLOW
== END 2020-12-31 08:10 | disposition home or self-care (01) ==
LOC: HO.LAB 08:09
PROVIDERS: PCP Family Medicine; Visit Provider Family Medicine
DX: R31.29 Other microscopic hematuria (principal)
CPT/HCPCS: 81003; 88112

== ENCOUNTER 2021-01-01 15:23 | Emergency (ER) | payer MEDICAID, OTHER, SELFPAY ==
--- NOTE | ~2021-01-01 | US_ITS ---
EXAMINATION: PELVIC ULTRASOUND CLINICAL INFORMATION: Pelvic pain with question of ovarian torsion COMPARISON: CT abdomen pelvis 09/28/2020 and pelvic ultrasound 03/30/2016 TECHNIQUE: Both transabdominal and endovaginal scanning was performed. FINDINGS: An anteverted anteflexed uterus is present measuring 6.9 x 4.9 x 5.8 cm. A small 6 mm intramural fibroid is noted near the fundus. The endometrium appears normal measuring 0.7 cm. A tiny echogenic focus is noted in the cervix. The right ovary measures 2.1 x 1.7 x 1.3 cm for a volume of 2.4 mL and appears unremarkable. Left ovary measures 2.6 x 1.7 x 2.0 cm for a volume of 4.6 mL and appears normal. Bilateral ovarian arterial and venous Doppler flow is seen. US/US transvaginal IMPRESSION: 1. No evidence of ovarian torsion. 2. Tiny uterine fibroid
--- NOTE | ~2021-01-01 | CT_ITS ---
EXAMINATION: CT ABDOMEN AND PELVIS WITH CONTRAST CLINICAL INFORMATION: Right lower quadrant and pelvic pain COMPARISON: CT abdomen pelvis 10/12/2019 and 09/28/2020 TECHNIQUE: Multidetector volumetric images were obtained from the superior aspect of the liver through the pubic symphysis following administration 85 mL of Omnipaque 350 intravenous contrast. Sagittal and coronal reformatted images were obtained on the technologist's workstation. Oral contrast: No This CT examination was performed using dose optimization techniques as appropriate, variously including the following: *Automated exposure control *Adjustment of mA and/or kV according to patient size (this includes techniques or standardized protocols for targeted exams where dose is matched to indication/reason for exam; i.e. extremities or head) *Use of iterative reconstruction technique DLP: 854 mGy-cm FINDINGS: LUNG BASES: The visualized lung bases are unremarkable. No significant lung masses or pleural effusions are seen. LIVER, GALLBLADDER, AND BILIARY TREE: The liver is normal in size, shape, and attenuation. No focal hepatic lesion or biliary ductal dilatation is present. The gallbladder is contracted but otherwise unremarkable with no evidence of radiopaque gallstones, gallbladder wall thickening, or obvious pericholecystic inflammatory changes. PANCREAS: Unremarkable. SPLEEN: Unremarkable. ADRENAL GLANDS: Unremarkable. KIDNEYS AND URETERS: The kidneys are normal in size, shape, and attenuation. No hydronephrosis, hydroureter, or calculi seen. No perinephric stranding. BLADDER: Unremarkable. GASTROINTESTINAL TRACT: The small and large bowel are unremarkable. The appendix is unremarkable. ABDOMINAL WALL: No significant hernia is appreciated. LYMPH NODES: No retroperitoneal lymphadenopathy. VASCULAR: Unremarkable. PELVIC VISCERA: An anteverted uterus is present. An abnormal adnexal mass or free intraperitoneal fluid is not seen. OSSEOUS STRUCTURES: Degenerative changes present in the spine most marked from L3 through L5. CT/CT abdomen pelvis w con IMPRESSION: A cause for the patient's right lower quadrant and pelvic pain has not been found. A significant abnormality is not detected.
--- NOTE | ~2021-01-01 | US_ITS ---
EXAMINATION: PELVIC ULTRASOUND CLINICAL INFORMATION: Pelvic pain with question of ovarian torsion COMPARISON: CT abdomen pelvis 09/28/2020 and pelvic ultrasound 03/30/2016 TECHNIQUE: Both transabdominal and endovaginal scanning was performed. FINDINGS: An anteverted anteflexed uterus is present measuring 6.9 x 4.9 x 5.8 cm. A small 6 mm intramural fibroid is noted near the fundus. The endometrium appears normal measuring 0.7 cm. A tiny echogenic focus is noted in the cervix. The right ovary measures 2.1 x 1.7 x 1.3 cm for a volume of 2.4 mL and appears unremarkable. Left ovary measures 2.6 x 1.7 x 2.0 cm for a volume of 4.6 mL and appears normal. Bilateral ovarian arterial and venous Doppler flow is seen. US/US pelvic complete IMPRESSION: 1. No evidence of ovarian torsion. 2. Tiny uterine fibroid
--- NOTE | ~2021-01-01 | US_ITS ---
EXAMINATION: PELVIC ULTRASOUND CLINICAL INFORMATION: Pelvic pain with question of ovarian torsion COMPARISON: CT abdomen pelvis 09/28/2020 and pelvic ultrasound 03/30/2016 TECHNIQUE: Both transabdominal and endovaginal scanning was performed. FINDINGS: An anteverted anteflexed uterus is present measuring 6.9 x 4.9 x 5.8 cm. A small 6 mm intramural fibroid is noted near the fundus. The endometrium appears normal measuring 0.7 cm. A tiny echogenic focus is noted in the cervix. The right ovary measures 2.1 x 1.7 x 1.3 cm for a volume of 2.4 mL and appears unremarkable. Left ovary measures 2.6 x 1.7 x 2.0 cm for a volume of 4.6 mL and appears normal. Bilateral ovarian arterial and venous Doppler flow is seen. US/US pelvic ovarian doppler IMPRESSION: 1. No evidence of ovarian torsion. 2. Tiny uterine fibroid
[2021-01-01 15:34] VITALS: BP 128/75; PULSE 68; RESP 18; TEMP 37; O2SAT 99; BMI 41.1
[2021-01-01 16:18] LABS: Glucose Urine UA NEG (NEG); Leukocyte Esterase Urine NEG (NEG); Nitrite Urine NEG (NEG); Specific Gravity - Urine >= 1.030 (1.005-1.025); Urine Blood NEG (NEG); Urine Ketones NEG (NEG); Urine Protein NEG (NEG-TRACE)
[2021-01-01 16:23] LABS: Appearance Urine CLEAR; Color Urine YELLOW
[2021-01-01 16:37] LABS: MANUAL DIFF FLAG NO
[2021-01-01 16:40] LABS: Basophils Percent Auto 0.3 % (0-2); Eosinophils Absolute Auto 0.2 X10*3/uL (0.0-0.4); Eosinophils Percent Auto 2.4 % (0-4); Hematocrit 35.3 % (37-47); Hemoglobin 11.6 g/dl (12.0-16.0); Imm Gran Abs Auto 0.02 X10*3/uL (0.00-0.03); Imm Gran Pct Auto 0.3 % (0.0-0.4); Lymphocytes Percent Auto 42.6 % (20-40); Mean Corpuscular HGB Conc 32.9 g/dl (31.0-35.0); Mean Corpuscular Hemoglobin 28.6 pg (27.0-33.0); Mean Corpuscular Volume 87.2 fL (80-98); Monocytes Absolute Auto 0.4 X10*3/uL (0.1-1.2); Monocytes Percent Auto 5.5 % (2-11); Neutrophils Absolute Auto 3.5 X10*3/uL (2.0-8.3); Neutrophils Percent Auto 48.9 % (45-73); Platelet Count 190 X10*3/uL (160-400); Red Blood Count 4.05 X10*6/uL (4.20-5.50); Red Cell Distribution Width 13.6 % (11.0-16.0); White Blood Count 7.1 X10*3/uL (4.8-10.8)
[2021-01-01 17:04] LABS: Anion Gap 14 (12-20); Blood Urea Nitrogen 17 mg/dL (9-16); Calcium 9.1 mg/dL (8.4-10.2); Carbon Dioxide 23 mmol/L (22-29); Chloride 106 mmol/L (96-108); Estimated Glomerular Filt Rate > 60; Glucose Random 126 mg/dL (60-115); Potassium 3.8 mmol/L (3.3-5.1); Sodium 139 mmol/L (135-145)
--- NOTE | 2021-01-01 18:38 | ED.FEMALEGU ---
HPI - Female Genitourinary General Chief complaint: Urogenital-Female Stated complaint: ?Uti/?kidney stones Time Seen by Provider: 01/01/21 18:38 Source: patient Mode of arrival: ambulatory Limitations: language barrier (swimming instructor present for all interactions) History of Present Illness HPI Narrative: Pleasant primarily [place]-speaking female with history of cardiac arrhythmia, hypertension, migraine headache and vertigo who denies any surgical history presents ambulatory via triage with complaint of right-sided pelvic/suprapubic abdominal pain ongoing for past two days states that she saw her primary care thought to be UTI she was given antibiotics 2 days ago and had a serious of imagings order which she is to have next week however given the continued and progression of pain on the right lower quadrant/suprapubic area she was advised by her primary care doctor today to come to emergency room for further evaluation. She denies any vaginal discharge or dysuria. No fever. No vaginal rash. Does report some mild right-sided flank pain which she is not sure is any relation. There is some associated nausea but no vomiting. No fever. She denies any concern for STI. MD elicited complaint: pelvic pain Onset (ago): day(s) Location of symptoms: RLQ and pelvis Severity: moderate Exacerbating factors: none Relieving factors: none Treatment prior to arrival: other (Started on antibiotic by her primary care doctor) Sexual activity: Yes Patient : No Related Data Previous Rx's Medication Instructions Recorded dicyclomine 20 mg PO TID PRN #30 tab 09/28/20 famotidine [Pepcid] 20 mg PO DAILY PRN #30 tab 09/28/20 cyclobenzaprine 10 mg PO TID PRN #12 tab 11/22/20 lidocaine [Lidoderm] 1 patch TOPICAL DAILY #15 ea 11/22/20 naproxen 500 mg PO BID PRN #20 tab 11/22/20 Allergies Allergy/AdvReac Type Severity Reaction Status Date / Time No Known Allergies Allergy Verified 09/28/20 00:32 [No Known Allergies*] Review of Systems Review of Systems: Constitutional: No Weight loss, No Fever, No Chills, No Night Sweats, No Fatigue, No Malaise ENT/Mouth: No Hearing loss, No Ear Pain, No Nasal Congestion, No Sinus Pain, No Hoarseness, No sore throat, No Rhinorrhea, No Swallowing Difficulty Eyes: No Eye Pain, No Swelling, No Redness, No Foreign Body, No Discharge, No Vision Changes Cardiovascular: No Chest Pain, No SOB, No Dyspnea on Exertion, No Orthopnea, No Edema, No Palpitations Respiratory: No Cough, No Sputum, No Wheezing, No Dyspnea Gastrointestinal: No Nausea, No Vomiting, No Diarrhea, No Constipation, + abdominal Pain, No Hematochezia, No Melena Genitourinary: no irregular bleeding, No Dysuria, No Urinary Frequency, No Hematuria, No Urinary Incontinence, No Urgency, No Flank Pain, No Urinary Flow Changes, No Hesitancy Musculoskeletal: No joint pain, No Myalgias, No Joint Swelling Skin: No Skin Lesions, No rash Neuro: No Weakness, No Numbness, No Paresthesias, No Loss of Consciousness, No Dizziness, No Headache Psych: No Social Issues Heme/Lymph: No Bruising, No Bleeding,No Lymphadenopathy Endocrine: No Polyuria, No Polydipsia, No Temperature Intolerance Yes all other systems are reviewed and are negative [facility] Past Medical History Medical History Heart problem HTN (hypertension) Migraine Vertigo Social History Social History Alcohol intake: never Smoking Status: Never smoker Use of substances other than those prescribed or required for medical reasons: No Advance Directives: No Advance Directives Information Provided: Yes Physical Exam Vital Signs: Vital Signs: Last Vital Signs Temp 98 F 01/01/21 21:12 Pulse 66 01/01/21 21:12 Resp 18 01/01/21 21:12 BP 132/55 L 01/01/21 21:12 Pulse Ox 99 01/01/21 21:12 Body Mass Index 41.1 Reviewed Const: General: cooperative and healthy appearing; No acute distress or intoxicated appearing Nutritional Appearance: average body habitus Orientation/consciousness: patient oriented x3 HENMT: Head: Yes normal to inspection Ears: hearing grossly normal bilaterally Eyes: General: appearance normal, both eyes and all related structures Visual Farias: normal visual farias by confrontation Neck: Neck: Yes normal visual inspection, No positive Brudzinski's sign, No positive Kernig's sign and No tender Thyroid: Thyroid normal Chest: Chest palpation & inspection: normal inspection of the chest Resp: Effort & Inspection: normal respiratory effort Auscultation: clear to auscultation bilaterally Cardio: Jugular venous distension: no JVD Rhythm: regular rhythm Heart sounds: S1 normal heart sound present and S2 normal heart sound present GI: Inspection: Yes normal to inspection Palpation (GI): Soft to palpation and Tenderness to palpation present (GI) in the RLQ and suprapubicly Percussion: Yes normal to percussion Auscultation: normal bowel sounds : Other: Tech present for unscrambler Zoe General: Yes Bimanual renal exam normal bilaterally and Yes no CVA tenderness External Female Exam: normal external appearance Speculum Exam - Vagina: normal appearance of the vagina, normal palpation, vaginal discharge abnormal, normal vaginal discharge, no cysts, no foreign bodies, no lesions, No vaginal bleeding, No tissue present in vagina and nontender Speculum Exam - Cervix: normal appearance of the cervix, no masses and nontender Bimanual exam- vagina & uterus: normal palpation and No Cervical tenderness present OB/external & speculum: no foreign bodies, no tissue noted in vagina and vaginal bleeding Back/Spine/Pelvis: Back: no CVA tenderness Skin: General skin exam: no rashes or lesions noted Neuro: General: patient oriented x3 Extrem: General: Yes normal to inspection Course Course Course Narrative: Labs overall stable UA not consistent with UTI however she is on antibiotics so false-negative is a possibility, abdominal/pelvic CT with IV contrast without evidence of appendicitis or calculi or obstructive pathology. Pelvic ultrasound without evidence of ovarian torsion or cyst but there is tiny uterine fibroid. 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 Well nontoxic appearing. Feels comfortable plan. Stable for discharge. MDM - Female Genitourinary MDM Narrative Medical decision making narrative: Labs including UA, pelvic/ovarian ultrasound rule out torsion/cyst, a normal pelvis CT with IV contrast rule out appendicitis. Pelvic exam not suggestive of PID. Differential Diagnosis Differential diagnosis: Likely urinary tract infection (Renal calculi, appendicitis), ovarian cyst and ruptured ovarian cyst; Unlikely bacterial vaginosis, trichomoniasis, cervicitis, vaginitis, cyst of Bartholin's gland, cystitis and dysmenorrhea Medical Records Attestation: I reviewed the patient's medical records. Lab Data Attestation: I reviewed the patient's lab results. Result diagrams: 01/01/21 16:27 01/01/21 16:27 Labs: Lab Results 01/01/21 01/01/21 01/01/21 Range/Units 15:54 15:54 16:27 WBC 7.1 (4.8-10.8) X10*3/uL RBC 4.05 L (4.20-5.50) X10*6/uL Hgb 11.6 L (12.0-16.0) g/dl Hct 35.3 L (37-47) % MCV 87.2 (80-98) fL MCH 28.6 (27.0-33.0) pg MCHC 32.9 (31.0-35.0) g/dl RDW 13.6 (11.0-16.0) % Plt Count 190 (160-400) X10*3/uL MPV 11.0 (9.4-12.3) fL Immature Gran % (Auto) 0.3 (0.0-0.4) % Neut % (Auto) 48.9 (45-73) % Lymph % (Auto) 42.6 H (20-40) % [place] % (Auto) 5.5 (2-11) % Eos % (Auto) 2.4 (0-4) % Baso % (Auto) 0.3 (0-2) % Lymph # (Auto) 3.0 (1.2-4.9) X10*3/uL [place] # (Auto) 0.4 (0.1-1.2) X10*3/uL Eos # (Auto) 0.2 (0.0-0.4) X10*3/uL Baso # (Auto) 0.0 (0.0-0.2) X10*3/uL Abs Immat Gran (auto) 0.02 (0.00-0.03) X10*3/uL Absolute Neuts (auto) 3.5 (2.0-8.3) X10*3/uL Absolute Nucleated RBC 0.000 (0.0-0.012) X10*3/uL Nucleated RBC % (auto) 0.0 (0.0-0.2) /100WBC Hold Blue Top Sodium (135-145) mmol/L Potassium (3.3-5.1) mmol/L Chloride (96-108) mmol/L Carbon Dioxide (22-29) mmol/L Anion Gap (12-20) BUN (9-16) mg/dL Creatinine (0.5-1.4) mg/dL Estim Creat Clear Calc Estimated GFR Random Glucose (60-115) mg/dL Calcium (8.4-10.2) mg/dL Urine Color YELLOW Urine Appearance CLEAR Urine pH 6.0 (5.0-8.0) Ur Specific [place] >= 1.030 H (1.005-1.025) Urine Protein NEG (NEG-TRACE) MG/DL Urine Glucose (UA) NEG (NEG) MG/DL Urine Ketones NEG (NEG) MG/DL Urine Blood NEG (NEG) Urine Nitrite NEG (NEG) Ur Leukocyte Esterase NEG (NEG) Urine RBC 0-2 (0) /HPF Urine WBC 0 (0-4) /HPF Ur Squamous Epith Cells 1+ /LPF Urine Bacteria TRACE /LPF Waxy Casts 0-2 /LPF Urine Mucus TRACE /LPF Urine Test NEGATIVE (NEGATIVE) 01/01/21 01/01/21 Range/Units 16:27 16:27 WBC (4.8-10.8) X10*3/uL RBC (4.20-5.50) X10*6/uL Hgb (12.0-16.0) g/dl Hct (37-47) % MCV (80-98) fL MCH (27.0-33.0) pg MCHC (31.0-35.0) g/dl RDW (11.0-16.0) % Plt Count (160-400) X10*3/uL MPV (9.4-12.3) fL Immature Gran % (Auto) (0.0-0.4) % Neut % (Auto) (45-73) % Lymph % (Auto) (20-40) % [place] % (Auto) (2-11) % Eos % (Auto) (0-4) % Baso % (Auto) (0-2) % Lymph # (Auto) (1.2-4.9) X10*3/uL [place] # (Auto) (0.1-1.2) X10*3/uL Eos # (Auto) (0.0-0.4) X10*3/uL Baso # (Auto) (0.0-0.2) X10*3/uL Abs Immat Gran (auto) (0.00-0.03) X10*3/uL Absolute Neuts (auto) (2.0-8.3) X10*3/uL Absolute Nucleated RBC (0.0-0.012) X10*3/uL Nucleated RBC % (auto) (0.0-0.2) /100WBC Hold Blue Top SEE NOTE Sodium 139 (135-145) mmol/L Potassium 3.8 (3.3-5.1) mmol/L Chloride 106 (96-108) mmol/L Carbon Dioxide 23 (22-29) mmol/L Anion Gap 14 (12-20) BUN 17 H (9-16) mg/dL Creatinine 0.73 (0.5-1.4) mg/dL Estim Creat Clear Calc 116.0 Estimated GFR > 60 Random Glucose 126 H (60-115) mg/dL Calcium 9.1 D (8.4-10.2) mg/dL Urine Color Urine Appearance Urine pH (5.0-8.0) Ur Specific [place] (1.005-1.025) Urine Protein (NEG-TRACE) MG/DL Urine Glucose (UA) (NEG) MG/DL Urine Ketones (NEG) MG/DL Urine Blood (NEG) Urine Nitrite (NEG) Ur Leukocyte Esterase (NEG) Urine RBC (0) /HPF Urine WBC (0-4) /HPF Ur Squamous Epith Cells /LPF Urine Bacteria /LPF Waxy Casts /LPF Urine Mucus /LPF Urine Test (NEGATIVE) Imaging Data Pelvic ultrasound/Doppler study: Radiologist's impression: [address] [id number] ReportSigned Patient: Radha MartinezMR#: [id number]: [id number]:[id number]/Sex: 45 / FADM Date: 01/01/21Loc: [address] Dr: Ordering Physician: Demar Lozada NP Date of Service: 01/01/21 Procedure(s): US transvaginal Accession Number(s): [id number] cc: Demar Lozada UPHOLSTERY CLEANER~ EXAMINATION: PELVIC ULTRASOUND CLINICAL INFORMATION: Pelvic pain with question of ovarian torsion COMPARISON: CT abdomen pelvis 09/28/2020 and pelvic ultrasound 03/30/2016 TECHNIQUE: Both transabdominal and endovaginal scanning was performed. FINDINGS: An anteverted anteflexed uterus is present measuring 6.9 x 4.9 x 5.8 cm. A small 6 mm intramural fibroid is noted near the fundus. The endometrium appears normal measuring 0.7 cm. A tiny echogenic focus is noted in the cervix. The right ovary measures 2.1 x 1.7 x 1.3 cm for a volume of 2.4 mL and appears unremarkable. Left ovary measures 2.6 x 1.7 x 2.0 cm for a volume of 4.6 mL and appears normal. Bilateral ovarian arterial and venous Doppler flow is seen. US/US transvaginal IMPRESSION: 1. No evidence of ovarian torsion. 2. Tiny uterine fibroid Dictated By:JENNIFER WOODARD MDSigned By:<Electronically signed by JENNIFER WOODARD MD in OV>01/01/212035 DD/ 51TD/TT: Shovel Handle Assembler: Discharge Plan Discharge Clinical Impression: Abdominal pain Patient Disposition: Home, Self-Care Instructions: Abdominal Pain (ED) Additional Instructions: Finish the course of medications prescribed by her doctor The exact cause of the right-sided lower pelvic/abdominal pain has not been identified Your blood work as well as the ultrasound of your ovaries and pelvic was within normal limits CT scan of your abdomen pelvis did not show any signs of infection specifically appendicitis or obstruction Urine test signs of overt infection however this can be altered given the fact that you are antibiotics Please follow-up with your primary care doctor at the [facility] and inspector water pollution control as discussed Return if any concerns or worsening symptoms Thank you Prescriptions: No Action famotidine [Pepcid] 20 mg tablet 20 mg PO DAILY PRN (Reason: pain, moderate) Qty: 30 RF: 0 dicyclomine 20 mg tablet 20 mg PO TID PRN (Reason: pain, moderate) Qty: 30 RF: 0 cyclobenzaprine 10 mg tablet 10 mg PO TID PRN (Reason: muscle spasm) Qty: 12 RF: 0 lidocaine [Lidoderm] 5 % adhesive patch,medicated 1 patch topical DAILY Qty: 15 RF: 0 naproxen 500 mg tablet 500 mg PO BID PRN (Reason: pain) Qty: 20 RF: 0 Referrals: ED Physician,Generic [Physician] - 2 days ([facility]) Stand Alone Forms: Work/School Release Interventions: ED Discharge Assessment Last Done: 01/01/21 22:17 Discharge Date/Time: 01/01/21 22:19
[2021-01-01 18:47] VITALS: BP 126/56; PULSE 61; RESP 16; O2SAT 97
[2021-01-01 18:59] LABS: UPreg QC Valid YES; Urine Pregnancy NEGATIVE (NEGATIVE)
[2021-01-01] MEDS: iohexoL 350 MG/ML 100 ML INFUS..BTL IV (20:11)
[2021-01-01 21:12] VITALS: BP 132/55; PULSE 66; RESP 18; TEMP 36.6; O2SAT 99
[2021-01-01 21:33] LABS: Bacteria Urine TRACE /LPF; RBC Urine 0-2 /HPF (0); Squamous Epithelial Cell Urine 1+ /LPF; WBC Urine 0 /HPF (0-4)
[2021-01-01 21:34] LABS: Mucus Urine TRACE /LPF; Waxy Casts Urine 0-2 /LPF
== END 2021-01-01 22:19 | disposition home or self-care (01) ==
PROVIDERS: Nurse Practitioner Primary Care; Emergency Provider Internal Medicine
DX: R10.31 Right lower quadrant pain (principal); I10 Essential (primary) hypertension
CPT/HCPCS: 36415; 74177; 76830; 76856; 80048; 81003; 81025; 85025; 93975; 99284; Q9967

== ENCOUNTER 2021-07-16 16:59 | Emergency (ER) | payer MEDICAID, OTHER, SELFPAY ==
--- NOTE | ~2021-07-16 | XR_ITS ---
EXAMINATION: XR CHEST CLINICAL INFORMATION: Chest pain. COMPARISON: Chest 11/08/2020 TECHNIQUE: Frontal view of the chest was obtained. FINDINGS: The lungs are well-expanded and clear. The heart size and pulmonary vascularity is normal. No gross bony abnormality seen. XR/XR chest 1V IMPRESSION: Unremarkable chest exam.
[2021-07-16 17:42] VITALS: BP 160/73; PULSE 60; RESP 16; TEMP 37.1; O2SAT 98; BMI 42.4
--- NOTE | 2021-07-16 17:47 | ECG_ITS ---
Test Reason : CHEST PAIN Blood Pressure : / mmHG Vent. Rate : 055 BPM Atrial Rate : 055 BPM P-R Int : 152 ms QRS Dur : 080 ms QT Int : 448 ms P-R-T Axes : 027 001 005 degrees QTc Int : 428 ms Sinus bradycardia Possible Inferior infarct , age undetermined Abnormal ECG When compared with ECG of 08-NOV-2020 22:46, Heart rate has decreased Referred By: Generic ED Physician Electronically Signed By:UMESH SMITH
--- NOTE | 2021-07-16 20:14 | ED_ITS ---
HPI - Headache General Chief Complaint: Headache Stated Complaint: migraine Time Seen by Provider: 07/16/21 20:06 Source: patient and old records reviewed History of Present Illness HPI Narrative: Patient states for the past 3 days she has had a migraine headache. She has a history of migraines and this is the same. She has been taking [id number] medications without effect. Positive nausea without vomiting. Positive photophobia. She states she has been to the emergency department in the past for migraines like this. They gave her injections and she feels better and goes home. No weakness numbness paresthesias. No fevers or chills. She states she had a cough last week but denies exposure to COVID-19. She has been vaccinated against COVID-19 Related Data Previous Rx's Medication Instructions Recorded dicyclomine 20 mg tablet 20 mg PO TID PRN #30 tab 09/28/20 famotidine 20 mg tablet (Pepcid) 20 mg PO DAILY PRN #30 tab 09/28/20 cyclobenzaprine 10 mg tablet 10 mg PO TID PRN #12 tab 11/22/20 lidocaine 5 % topical patch 1 patch TOPICAL DAILY #15 ea 11/22/20 (Lidoderm) naproxen 500 mg tablet 500 mg PO BID PRN #20 tab 11/22/20 metoclopramide HCl 10 mg tablet 10 mg PO Q6H PRN #10 tab 07/16/21 Allergies Allergy/AdvReac Type Severity Reaction Status Date / Time No Known Allergies Allergy Verified 09/28/20 00:32 [No Known Allergies*] Review of Systems Constitutional: Constitutional: Denies fever(s) Eyes: Comments: Photophobia Cardiovascular: Cardiovascular: Reports chest pain Comments: Sharp anterior chest pain with coughing. Respiratory: Comments: Recent cough which is improved. She states this is secondary to allergies and has a chronically Gastrointestinal: Comments: No abdominal pain. Positive nausea without vomiting Neurologic: Comments: No weakness numbness or paresthesias PMFSH Past Medical History Medical History Heart problem HTN (hypertension) Migraine Vertigo Social History Social History Alcohol intake: never Advance Directives: No Advance Directives Information Provided: No Physical Exam Vital Signs: Vital Signs: Last Vital Signs Temp 97.6 F 07/16/21 21:51 Pulse 70 07/16/21 21:51 Resp 17 07/16/21 21:51 BP 103/37 L 07/16/21 21:51 Pulse Ox 100 07/16/21 21:51 Body Mass Index 42.4 Const: Other: Patient ambulating in the room upon arrival General: cooperative and healthy appearing Orientation/consciousness: patient oriented x3 HENMT: Other: Normocephalic atraumatic Eyes: Other: Pupils equal round reactive to light normal funduscopic exam. Some photophobia vision appears grossly intact per patient Neck: Other: No meningismus Resp: Other: Clear and equal bilaterally Cardio: Other: Regular rate and rhythm without murmurs rubs or gallops GI: Other: Abdomen soft nontender nondistended normoactive bowel sounds Skin: Other: Warm pink and dry Neuro: Other: Ambulates without difficulty. Periodontist equal bilaterally. No facial droop. No aphasia General: patient oriented x3 Course Course Course Narrative: Migraine headache No evidence of intracranial hemorrhage or infection. Will treat with IV fluids, IV Toradol, IV Reglan. 10:01 p.m.. Chest x-ray is unremarkable. Patient is feeling much better and requesting discharge home. Will discharge home with metoclopramide Discharge Plan Discharge Clinical Impression: Migraine Patient Disposition: Home, Self-Care Instructions: Migraine Headache (ED) Prescriptions: New metoclopramide HCl 10 mg tablet 10 mg PO Q6H PRN (Reason: headache) Qty: 10 RF: 0 No Action famotidine [Pepcid] 20 mg tablet 20 mg PO DAILY PRN (Reason: pain, moderate) Qty: 30 RF: 0 dicyclomine 20 mg tablet 20 mg PO TID PRN (Reason: pain, moderate) Qty: 30 RF: 0 cyclobenzaprine 10 mg tablet 10 mg PO TID PRN (Reason: muscle spasm) Qty: 12 RF: 0 lidocaine [Lidoderm] 5 % adhesive patch,medicated 1 patch topical DAILY Qty: 15 RF: 0 naproxen 500 mg tablet 500 mg PO BID PRN (Reason: pain) Qty: 20 RF: 0
[2021-07-16 20:15] VITALS: BP 123/54; PULSE 60; RESP 18; TEMP 36.4; O2SAT 100
[2021-07-16] MEDS: Ketorolac Tromethamine 15 MG/ML VIAL 30 MG IVPUSH (20:37)
[2021-07-16] MEDS: Metoclopramide HCl 10 MG/2 ML VIAL IVPUSH (20:37)
[2021-07-16] MEDS: 0.9 % Sodium Chloride 1,000 ML 999 ML IV (20:38)
--- NOTE | 2021-07-16 20:54 | PC.NURSE ---
Pt resting on stretcher in NAD, breathing with ease on RA, speaking in full complete clear sentences. Pt aaox4, reports 08/16 headache. This RN medicates pt for pain per JAN. Pt tolerating meds well at this time. Pt offers no additional complaints at this time. Stretcher in low locked position, rails raised, call deluna and personal belongings within reach of pt.
[2021-07-16 21:51] VITALS: BP 103/37; PULSE 70; RESP 17; TEMP 36.4; O2SAT 100
--- NOTE | 2021-07-16 21:53 | PC.NURSE ---
Pt reports 0/10 pain, requesting DC home. This RN to notify provider. Pt stretcher remains in lowest locked position, rails raised, call deluna within reach.
== END 2021-07-16 22:32 | disposition home or self-care (01) ==
PROVIDERS: Emergency Provider Emergency Medicine; PCP Family Medicine
DX: G43.909 Migraine, unspecified, not intractable, without status migrainosus (principal); I10 Essential (primary) hypertension
CPT/HCPCS: 71045; 93005; 96361; 96374; 96375; 99284; J1885; J2765

== ENCOUNTER 2021-10-07 18:39 | Emergency (ER) | payer MEDICAID, OTHER, SELFPAY ==
--- NOTE | ~2021-10-07 | US_ITS ---
EXAMINATION: US ABDOMEN LIMITED CLINICAL INFORMATION: Right upper quadrant epigastric pain. COMPARISON: CT 01/01/2021 TECHNIQUE: Real-time imaging of the right upper quadrant abdominal viscera. FINDINGS: PANCREAS: Normal. LIVER: Normal. The liver is normal in size. The liver contour is normal. Parenchymal echogenicity is normal. No focal hepatic lesion. There is no intrahepatic biliary duct dilatation seen. GALLBLADDER: Normal. The gallbladder is physiologically distended without evidence of stones, sludge, polyps, wall thickening or pericholecystic fluid. COMMON BILE DUCT: Normal in caliber measuring 0.3 cm in diameter. RIGHT KIDNEY: Normal. No hydronephrosis. No renal calculi or focal parenchymal lesions. The kidney measures 10.3 cm in maximum dimension. FREE FLUID: None. US/US abdomen limited IMPRESSION: Normal ultrasound. No etiology for right upper quadrant or epigastric pain identified.
[2021-10-07 20:38] VITALS: BP 142/66; PULSE 68; RESP 14; TEMP 36.9; O2SAT 99; BMI 40.3
--- NOTE | 2021-10-07 20:56 | ED.ABDPAIN ---
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 Mode of arrival: ambulatory Limitations: no limitations History of Present Illness MD elicited complaint: abdominal pain Pertinent past history: gastritis Onset (ago): day(s) (since 10/02) Pain Consistency: constant Location: epigastric Severity: moderate Quality: stabbing Radiation: none Migration to: no migration Exacerbating factors: eating Relieving factors: nothing Context: history of similar episodes Associated symptoms: nausea and vomiting Related Data Previous Rx's Medication Instructions Recorded dicyclomine 20 mg tablet 20 mg PO TID PRN #30 tab 09/28/20 famotidine 20 mg tablet (Pepcid) 20 mg PO DAILY PRN #30 tab 09/28/20 cyclobenzaprine 10 mg tablet 10 mg PO TID PRN #12 tab 11/22/20 lidocaine 5 % topical patch 1 patch TOPICAL DAILY #15 ea 11/22/20 (Lidoderm) naproxen 500 mg tablet 500 mg PO BID PRN #20 tab 11/22/20 metoclopramide HCl 10 mg tablet 10 mg PO Q6H PRN #10 tab 07/16/21 omeprazole 20 mg capsule,delayed 20 mg PO DAILY 14 Days #14 cap 10/07/21 release ondansetron 4 mg disintegrating 4 mg PO Q8H PRN #20 tab 10/07/21 tablet Allergies Allergy/AdvReac Type Severity Reaction Status Date / Time No Known Allergies Allergy Verified 09/28/20 00:32 [No Known Allergies*] Review of Systems Review of Systems Constitutional : No Weight loss, No Fever, No Chills ENT/Mouth : No sore throat, No Rhinorrhea Eyes: No Swelling, No Redness Cardiovascular : No Chest Pain, No SOB, NoEdema Respiratory : No Cough, No Sputum, No Wheezing Gastrointestinal : Positive Nausea, Positive Vomiting, no Diarrhea, positive abdominal Pain, No Hematochezia, No Melena Genitourinary : No Dysuria, No Urinary Frequency, No Hematuria, No Urgency Musculoskeletal : No joint pain, No Myalgias, No Joint Swelling Skin : No Skin Lesions, No rash Neuro : No Weakness, No Numbness, No Dizziness, No Headache Psych : No Anxiety/Panic, No Depression Heme/Lymph: No Bruising, No Lymphadenopathy Endocrine : No Polyuria, No Polydipsia All other systems reviewed and are negative. Physical Exam Vital Signs: Vital Signs: Last Vital Signs Temp 98.4 F 10/07/21 20:38 Pulse 68 10/07/21 20:38 Resp 14 10/07/21 20:38 BP 142/66 H 10/07/21 20:38 Pulse Ox 99 10/07/21 20:38 BMI result Body Mass Index 40.3 Appearance: Alert. Oriented X3. No acute distress. Eyes: Pupils equal, round and reactive to light. ENT: Pharynx normal. Neck: Normal inspection. Neck supple. CVS: Normal heart rate and rhythm. Pulses normal. Respiratory: No respiratory distress. Breath sounds normal. Abdomen: Soft and mild RUQ and epigastric pain no rebound Skin: Skin warm and dry. Normal skin color. Normal skin turgor. Extremities: No lower extremity edema. No calf ttp Neuro: Oriented X 3. No motor deficit. No sensory deficit. Course Course Course Narrative: patient feels much better - hx of gastritis in past not on any medications will trial PPI for 2 weeks MDM - Abdominal Pain MDM Narrative Medical decision making narrative: 46 yo female with hx of epigastric pain HTN tachycardia comes to ED with vomiting and epigastric pain since 10/02 at this time labs, US to evaluate GB ordered - has had [address] scans in the past x 2 years. Dispo per results and findings. Differential Diagnosis Differential diagnosis: Likely abdominal pain, gastritis and pancreatitis; Unlikely acute appendicitis, bowel perforation, calculus of kidney, constipation, diverticulitis, mesenteric ischemia, renal colic or small bowel obstruction Lab Data Result diagrams: 10/07/21 21:22 10/07/21 21:22 Labs: Lab Results 10/07/21 10/07/21 10/07/21 Range/Units 20:55 20:55 21:22 WBC 6.1 (4.8-10.8) X10*3/uL RBC 4.03 L (4.20-5.50) X10*6/uL Hgb 11.5 L (12.0-16.0) g/dl Hct 35.4 L (37.0-47.0) % MCV 87.8 (80.0-98.0) fL MCH 28.5 (27.0-33.0) pg MCHC 32.5 (31.0-35.0) g/dl RDW 13.5 (11.0-16.0) % Plt Count 170 (160-400) X10*3/uL MPV 11.3 (9.4-12.3) fL Immature Gran % (Auto) 0.2 (0.0-0.4) % Neut % (Auto) 37.6 L (45-73) % Lymph % (Auto) 51.5 H (20-40) % Hockley % (Auto) 7.4 (2-11) % Eos % (Auto) 3.0 (0-4) % Baso % (Auto) 0.3 (0-2) % Lymph # (Auto) 3.1 (1.2-4.9) X10*3/uL Hockley # (Auto) 0.5 (0.1-1.2) X10*3/uL Eos # (Auto) 0.2 (0.0-0.4) X10*3/uL Baso # (Auto) 0.0 (0.0-0.2) X10*3/uL Abs Immat Gran (auto) 0.01 (0.00-0.03) X10*3/uL Absolute Neuts (auto) 2.3 (2.0-8.3) x10*3/uL Absolute Nucleated RBC 0.000 (0.0-0.012) X10*3/uL Nucleated RBC % (auto) 0.0 (0.0-0.2) /100WBC Sodium (135-145) mmol/L Potassium (3.3-5.1) mmol/L Chloride (96-108) mmol/L Carbon Dioxide (22-29) mmol/L Anion Gap (12-20) BUN (9-16) mg/dL Creatinine (0.5-1.4) mg/dL Estim Creat Clear Calc Estimated GFR Random Glucose (60-115) mg/dL Calcium (8.4-10.2) mg/dL Magnesium (1.6-2.6) mg/dL Total Bilirubin (0.0-1.0) mg/dL Direct Bilirubin (0.0-0.5) mg/dL AST (5-31) U/L ALT (0-31) U/L Alkaline Phosphatase (39-117) U/L Total Protein (6.5-8.0) g/dL Albumin (3.5-5.0) g/dL Lipase (8-78) U/L Urine Color YELLOW Urine Appearance HAZY Urine pH 6.0 (5.0-8.0) Ur Specific Gilliam >= 1.030 H (1.005-1.025) Urine Protein NEG (NEG-TRACE) MG/DL Urine Glucose (UA) NEG (NEG) MG/DL Urine Ketones NEG (NEG) MG/DL Urine Blood NEG (NEG) Urine Nitrite NEG (NEG) Ur Leukocyte Esterase NEG (NEG) Urine Test NEGATIVE (NEGATIVE) COVID-19 (NICOLE) (Negative) COVID-19 Clin Com 10/07/21 10/07/21 Range/Units 21:22 21:22 WBC (4.8-10.8) X10*3/uL RBC (4.20-5.50) X10*6/uL Hgb (12.0-16.0) g/dl Hct (37.0-47.0) % MCV (80.0-98.0) fL MCH (27.0-33.0) pg MCHC (31.0-35.0) g/dl RDW (11.0-16.0) % Plt Count (160-400) X10*3/uL MPV (9.4-12.3) fL Immature Gran % (Auto) (0.0-0.4) % Neut % (Auto) (45-73) % Lymph % (Auto) (20-40) % Hockley % (Auto) (2-11) % Eos % (Auto) (0-4) % Baso % (Auto) (0-2) % Lymph # (Auto) (1.2-4.9) X10*3/uL [place] # (Auto) (0.1-1.2) X10*3/uL Eos # (Auto) (0.0-0.4) X10*3/uL Baso # (Auto) (0.0-0.2) X10*3/uL Abs Immat Gran (auto) (0.00-0.03) X10*3/uL Absolute Neuts (auto) (2.0-8.3) x10*3/uL Absolute Nucleated RBC (0.0-0.012) X10*3/uL Nucleated RBC % (auto) (0.0-0.2) /100WBC Sodium 139 (135-145) mmol/L Potassium 4.0 (3.3-5.1) mmol/L Chloride 107 (96-108) mmol/L Carbon Dioxide 28 (22-29) mmol/L Anion Gap 8 L (12-20) BUN 8 L (9-16) mg/dL Creatinine 0.72 (0.5-1.4) mg/dL Estim Creat Clear Calc 115.0 Estimated GFR > 60 Random Glucose 103 (60-115) mg/dL Calcium 9.0 (8.4-10.2) mg/dL Magnesium 1.9 (1.6-2.6) mg/dL Total Bilirubin 0.2 (0.0-1.0) mg/dL Direct Bilirubin < 0.2 (0.0-0.5) mg/dL AST 20 (5-31) U/L ALT 18 (0-31) U/L Alkaline Phosphatase 97 (39-117) U/L Total Protein 6.8 (6.5-8.0) g/dL Albumin 3.9 (3.5-5.0) g/dL Lipase 48 (8-78) U/L Urine Color Urine Appearance Urine pH (5.0-8.0) Ur Specific Gilliam (1.005-1.025) Urine Protein (NEG-TRACE) MG/DL Urine Glucose (UA) (NEG) MG/DL Urine Ketones (NEG) MG/DL Urine Blood (NEG) Urine Nitrite (NEG) Ur Leukocyte Esterase (NEG) Urine Test (NEGATIVE) COVID-19 (NICOLE) Negative (Negative) COVID-19 Clin Com See Note Discharge Plan Discharge Clinical Impression: Gastritis Qualifiers: Gastritis type: unspecified gastritis Chronicity: acute Gastritis bleeding: without bleeding Qualified Code(s): K29.00 - Acute gastritis without bleeding Patient Disposition: Home, Self-Care Instructions: Gastritis (ED) Additional Instructions: return to ED for any worsening symptoms or concerns Prescriptions: New omeprazole 20 mg capsule,delayed release(DR/EC) 20 mg PO DAILY 14 Days Qty: 14 RF: 0 ondansetron 4 mg tablet,disintegrating 4 mg PO Q8H PRN (Reason: nausea and vomiting) Qty: 20 RF: 0 No Action famotidine [Pepcid] 20 mg tablet 20 mg PO DAILY PRN (Reason: pain, moderate) Qty: 30 RF: 0 dicyclomine 20 mg tablet 20 mg PO TID PRN (Reason: pain, moderate) Qty: 30 RF: 0 cyclobenzaprine 10 mg tablet 10 mg PO TID PRN (Reason: muscle spasm) Qty: 12 RF: 0 lidocaine [Lidoderm] 5 % adhesive patch,medicated 1 patch topical DAILY Qty: 15 RF: 0 naproxen 500 mg tablet 500 mg PO BID PRN (Reason: pain) Qty: 20 RF: 0 metoclopramide HCl 10 mg tablet 10 mg PO Q6H PRN (Reason: headache) Qty: 10 RF: 0 Referrals: Zoe Cabrera DO [Primary Care Provider] - 2 days (if not better) Print Language: Yakut [facility] Past Medical History Attestation statement: The following information was validated with the patient. Medical History Heart problem HTN (hypertension) Migraine Vertigo Social History Social History Alcohol intake: current Alcohol intake frequency: holidays/special occasions only Patient Tobacco Use Status: Never used Tobacco Use of substances other than those prescribed or required for medical reasons: No Advance Directives: No Advance Directives Information Provided: Yes
[2021-10-07 21:05] LABS: Appearance Urine HAZY; Color Urine YELLOW; Glucose Urine UA NEG (NEG); Leukocyte Esterase Urine NEG (NEG); Nitrite Urine NEG (NEG); Specific Gravity - Urine >= 1.030 (1.005-1.025); UPreg QC Valid YES; Urine Blood NEG (NEG); Urine Ketones NEG (NEG); Urine Pregnancy NEGATIVE (NEGATIVE); Urine Protein NEG (NEG-TRACE)
[2021-10-07 21:27] LABS: MANUAL DIFF FLAG NO
[2021-10-07] MEDS: Morphine Sulfate 4 MG/ML CARTRIDGE IVPUSH (21:28)
[2021-10-07 21:30] LABS: Basophils Percent Auto 0.3 % (0-2); Eosinophils Absolute Auto 0.2 X10*3/uL (0.0-0.4); Hematocrit 35.4 % (37.0-47.0); Hemoglobin 11.5 g/dl (12.0-16.0); Imm Gran Abs Auto 0.01 X10*3/uL (0.00-0.03); Imm Gran Pct Auto 0.2 % (0.0-0.4); Lymphocytes Absolute Auto 3.1 X10*3/uL (1.2-4.9); Lymphocytes Percent Auto 51.5 % (20-40); Mean Corpuscular HGB Conc 32.5 g/dl (31.0-35.0); Mean Corpuscular Hemoglobin 28.5 pg (27.0-33.0); Mean Corpuscular Volume 87.8 fL (80.0-98.0); Mean Platelet Volume 11.3 fL (9.4-12.3); Monocytes Absolute Auto 0.5 X10*3/uL (0.1-1.2); Monocytes Percent Auto 7.4 % (2-11); Neutrophils Absolute Auto 2.3 x10*3/uL (2.0-8.3); Neutrophils Percent Auto 37.6 % (45-73); Platelet Count 170 X10*3/uL (160-400); Red Blood Count 4.03 X10*6/uL (4.20-5.50); Red Cell Distribution Width 13.5 % (11.0-16.0); White Blood Count 6.1 X10*3/uL (4.8-10.8)
[2021-10-07] MEDS: ondansetron HCL 4 MG/2 ML VIAL IVPUSH (21:31)
[2021-10-07] MEDS: 0.9 % Sodium Chloride 1,000 ML 999 ML IVCONT (21:31)
[2021-10-07 21:46] LABS: COVID-19 Test Negative (Negative)
[2021-10-07 21:54] LABS: Alanine Aminotransferase 18 U/L (0-31); Albumin Level 3.9 g/dL (3.5-5.0); Alkaline Phosphatase 97 U/L (39-117); Anion Gap 8 (12-20); Aspartate Amino Transferase 20 U/L (5-31); Bilirubin Direct < 0.2 mg/dL (0.0-0.5); Bilirubin Total 0.2 mg/dL (0.0-1.0); Blood Urea Nitrogen 8 mg/dL (9-16); Carbon Dioxide 28 mmol/L (22-29); Chloride 107 mmol/L (96-108); Estimated Glomerular Filt Rate > 60; Glucose Random 103 mg/dL (60-115); Lipase 48 U/L (8-78); Magnesium 1.9 mg/dL (1.6-2.6); Sodium 139 mmol/L (135-145); Total Protein 6.8 g/dL (6.5-8.0)
== END 2021-10-07 22:30 | disposition home or self-care (01) ==
PROVIDERS: Emergency Provider Emergency Medicine; PCP Family Medicine
DX: K29.00 Acute gastritis without bleeding (principal); Z79.899 Other long term (current) drug therapy; Z20.822 Contact with and (suspected) exposure to COVID-19
CPT/HCPCS: 36415; 76705; 80048; 80076; 81003; 81025; 83690; 83735; 85025; 87635; 96361; 96374; 96375; 99284; J2270; J2405

== ENCOUNTER 2021-12-25 12:00 | Emergency (ER) | payer MEDICAID, OTHER, SELFPAY ==
[2021-12-25 12:08] VITALS: BP 152/59; PULSE 63; RESP 18; TEMP 36.3; O2SAT 99; BMI 35.2
--- NOTE | 2021-12-25 17:12 | ED_ITS ---
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 Mode of arrival: ambulatory Limitations: no limitations History of Present Illness MD elicited complaint: headache and migraine Pertinent past history: migraines Onset (ago): day(s) (6) Onset description: gradually Location: right, frontal, temporal and facial Severity: moderate Quality & Timing: throbbing, constant, pressure, progressively worsening and similar to previous headaches Exacerbating factors: light and noise Relieving factors: NSAIDs, dark room and sleep Context: occurred at rest Associated symptoms: nausea, photophobia and other (R sinus pressure and feels face is swollen) Treatments prior to arrival: other (advil 9am) Related Data Previous Rx's Medication Instructions Recorded dicyclomine 20 mg tablet 20 mg PO TID PRN #30 tab 09/28/20 famotidine 20 mg tablet (Pepcid) 20 mg PO DAILY PRN #30 tab 09/28/20 cyclobenzaprine 10 mg tablet 10 mg PO TID PRN #12 tab 11/22/20 lidocaine 5 % topical patch 1 patch TOPICAL DAILY #15 ea 11/22/20 (Lidoderm) naproxen 500 mg tablet 500 mg PO BID PRN #20 tab 11/22/20 metoclopramide HCl 10 mg tablet 10 mg PO Q6H PRN #10 tab 07/16/21 omeprazole 20 mg capsule,delayed 20 mg PO DAILY 14 Days #14 cap 10/07/21 release ondansetron 4 mg disintegrating 4 mg PO Q8H PRN #20 tab 10/07/21 tablet amoxicillin 875 mg-potassium 1 tab PO BID #14 tab 12/25/21 clavulanate 125 mg tablet Allergies Allergy/AdvReac Type Severity Reaction Status Date / Time No Known Allergies Allergy Verified 09/28/20 00:32 [No Known Allergies*] Review of Systems Review of Systems: Constitutional : No Fever, No Chills, No Fatigue ENT/Mouth : No sore throat, No Rhinorrhea, pos nasal congestion, pos sinus pressure Eyes: No Eye Pain, No Swelling, No Redness Cardiovascular : No Chest Pain, No SOB, No Dyspnea on Exertion Respiratory : No Cough, No Sputum Gastrointestinal : pos Nausea, No Vomiting, No Diarrhea, No abdominal Pain Genitourinary : No Dysuria, No Urinary Frequency, No Hematuria, Musculoskeletal : No joint pain, No Myalgias, No Joint Swelling Skin : No Skin Lesions, No rash Neuro : No Weakness, No Numbness, No Dizziness, positive Headache Psych : No Anxiety/Panic, No Depression Heme/Lymph: No Bruising, No Bleeding,No Lymphadenopathy Endocrine : No Polyuria, No Polydipsia All other systems reviewed and are negative [facility] Past Medical History Attestation statement: The following information was validated with the patient. Medical History Heart problem HTN (hypertension) Migraine Vertigo Social History Social History Alcohol intake: current Alcohol intake frequency: holidays/special occasions only Patient Tobacco Use Status: Never used Tobacco Physical Exam Vital Signs: Vital Signs: Last Vital Signs Temp 97.4 F 12/25/21 17:46 Pulse 60 12/25/21 17:46 Resp 16 12/25/21 17:46 BP 149/76 H 12/25/21 17:46 Pulse Ox 100 12/25/21 17:46 BMI result Body Mass Index 35.2 Appearance: Alert. Oriented X3. No acute distress. Eyes: Pupils equal, round and reactive to light. ENT: Pharynx normal. R sinus ttp mild swelling Neck: Normal inspection. Neck supple. no meningeal signs CVS: Normal heart rate and rhythm. Pulses normal. Respiratory: No respiratory distress. Breath sounds normal. Abdomen: Soft and non-tender. Skin: Skin warm and dry. Normal skin color. Normal skin turgor. Extremities: No lower extremity edema. No calf ttp Neuro: Oriented X 3. No motor deficit. No sensory deficit. Course Course Course Narrative: feels better stable for DC MDM - Headache MDM Narrative Medical decision making narrative: 46 yo female with hx of migraines no oral anticoagulants here with c/o typical migraine no fevers, normal neuro exam - gradual onset. I do not suspect SAH or [employer] infection. Will treat migraine symptoms. She also likely has a sinus infection - will start on augmentin Discharge Plan Discharge Clinical Impression: Migraine Qualifiers: Migraine type: without aura Status migrainosus presence: without status migrainosus Intractability: not intractable Qualified Code(s): G43.009 - Migraine without aura, not intractable, without status migrainosus Sinusitis Qualifiers: Sinusitis location: maxillary Chronicity: acute Recurrence: non-recurrent Qualified Code(s): J01.00 - Acute maxillary sinusitis, unspecified Patient Disposition: Home, Self-Care Instructions: Sinusitis (ED), Migraine Headache (ED) Additional Instructions: return to ED for any worsening symptoms or concerns Prescriptions: New amoxicillin-pot clavulanate 875-125 mg tablet 1 tab PO BID Qty: 14 0RF No Action famotidine [Pepcid] 20 mg tablet 20 mg PO DAILY PRN (Reason: pain, moderate) Qty: 30 0RF dicyclomine 20 mg tablet 20 mg PO TID PRN (Reason: pain, moderate) Qty: 30 0RF cyclobenzaprine 10 mg tablet 10 mg PO TID PRN (Reason: muscle spasm) Qty: 12 0RF lidocaine [Lidoderm] 5 % adhesive patch,medicated 1 patch topical DAILY Qty: 15 0RF Rx Instructions: leave on most painful area for up to 12 hrs naproxen 500 mg tablet 500 mg PO BID PRN (Reason: pain) Qty: 20 0RF metoclopramide HCl 10 mg tablet 10 mg PO Q6H PRN (Reason: headache) Qty: 10 0RF omeprazole 20 mg capsule,delayed release(DR/EC) 20 mg PO DAILY 14 Days Qty: 14 0RF ondansetron 4 mg tablet,disintegrating 4 mg PO Q8H PRN (Reason: nausea and vomiting) Qty: 20 0RF Stand Alone Forms: Work/School Release
[2021-12-25 17:46] VITALS: BP 149/76; PULSE 60; RESP 16; TEMP 36.3; O2SAT 100
[2021-12-25] MEDS: Ketorolac Tromethamine 30 MG/ML VIAL IVPUSH (17:52)
[2021-12-25] MEDS: diphenhydrAMINE HCL 50 MG/ML VIAL 25 MG IVPUSH (17:52)
[2021-12-25] MEDS: Metoclopramide HCl 10 MG/2 ML VIAL 5 MG IVPUSH (17:52)
[2021-12-25] MEDS: dexAMETHasone sod phosphate 4 MG/ML VIAL 6 MG IVPUSH (17:52)
[2021-12-25] MEDS: Amoxicillin/Potassium Clav 875 MG TABLET PO (17:53)
[2021-12-25] MEDS: Magnesium Sulfate/H2O 2 GM/50 ML PIGGYBACK IV (17:53)
[2021-12-25 18:33] VITALS: BP 126/58; PULSE 59; RESP 19; O2SAT 100
[2021-12-25 20:23] VITALS: BP 149/82; PULSE 69; RESP 18; TEMP 36.9; O2SAT 99
== END 2021-12-25 20:40 | disposition home or self-care (01) ==
PROVIDERS: Emergency Provider Emergency Medicine; PCP Family Medicine
DX: G43.009 Migraine without aura, not intractable, without status migrainosus (principal); J01.00 Acute maxillary sinusitis, unspecified; I10 Essential (primary) hypertension
CPT/HCPCS: 96365; 96366; 96375; 99284; J1100; J1200; J1885; J2765; J3475

== ENCOUNTER 2022-02-20 22:52 | Emergency (ER) | payer MEDICAID, OTHER, SELFPAY ==
--- NOTE | 2022-02-20 | ECG_ITS ---
Test Reason : chest pain Blood Pressure : / mmHG Vent. Rate : 073 BPM Atrial Rate : 073 BPM P-R Int : 168 ms QRS Dur : 080 ms QT Int : 384 ms P-R-T Axes : 042 011 017 degrees QTc Int : 423 ms Normal sinus rhythm Normal ECG When compared with ECG of 16-JUL-2021 19:10, Nonspecific T wave abnormality no longer evident in Anterior leads Referred By: Generic ED Physician Electronically Signed By:Claus Hennessy
--- NOTE | ~2022-02-20 | XR_ITS ---
EXAMINATION: XR CHEST CLINICAL INFORMATION: Chest pain COMPARISON: 07/16/2021 TECHNIQUE: 2 views of the chest were obtained. FINDINGS: No significant abnormality is noted involving the heart, lungs, mediastinum, bony thorax or soft tissues. XR/XR chest 2V IMPRESSION: Unremarkable examination.
[2022-02-20 23:00] VITALS: BP 156/86; PULSE 104; RESP 16; TEMP 36.7; O2SAT 99; BMI 40.3
[2022-02-20 23:49] LABS: Basophils Percent Auto 0.1 % (0-2); Eosinophils Absolute Auto 0.2 X10*3/uL (0.0-0.4); Eosinophils Percent Auto 2.4 % (0-4); Hematocrit 37.3 % (37.0-47.0); Imm Gran Abs Auto 0.02 X10*3/uL (0.00-0.03); Imm Gran Pct Auto 0.3 % (0.0-0.4); Lymphocytes Absolute Auto 3.8 X10*3/uL (1.2-4.9); Lymphocytes Percent Auto 48.5 % (20-40); MANUAL DIFF FLAG NO; Mean Corpuscular HGB Conc 32.2 g/dl (31.0-35.0); Mean Corpuscular Hemoglobin 28.3 pg (27.0-33.0); Mean Platelet Volume 11.1 fL (9.4-12.3); Monocytes Absolute Auto 0.7 X10*3/uL (0.1-1.2); Monocytes Percent Auto 8.6 % (2-11); Neutrophils Absolute Auto 3.2 x10*3/uL (2.0-8.3); Neutrophils Percent Auto 40.1 % (45-73); Platelet Count 198 X10*3/uL (160-400); Red Blood Count 4.24 X10*6/uL (4.20-5.50); White Blood Count 7.9 X10*3/uL (4.8-10.8)
[2022-02-20 23:51] VITALS: BP 146/69; PULSE 62; RESP 18; O2SAT 98
[2022-02-21 00:05] LABS: Alanine Aminotransferase 21 U/L (0-31); Alkaline Phosphatase 113 U/L (39-117); Anion Gap 13 (12-20); Aspartate Amino Transferase 23 U/L (5-31); Bilirubin Total 0.3 mg/dL (0.0-1.0); Blood Urea Nitrogen 14 mg/dL (9-16); Calcium 9.1 mg/dL (8.4-10.2); Carbon Dioxide 21 mmol/L (22-29); Chloride 107 mmol/L (96-108); Creatinine Clr Calc Pharmacy 118.3; Estimated Glomerular Filt Rate > 60; Glucose Random 105 mg/dL (60-115); Potassium 4.2 mmol/L (3.3-5.1); Sodium 137 mmol/L (135-145); Total Protein 7.2 g/dL (6.5-8.0)
--- NOTE | 2022-02-21 00:05 | PC.NURSE ---
Patient assessment done with assistance of Press Brake Operator
[2022-02-21 00:09] LABS: Troponin-I High Sensitivity < 3.5 ng/L (<3.5-17.0)
--- NOTE | 2022-02-21 00:21 | ED.CHESTPAIN ---
HPI - Chest Pain General Chief Complaint: Chest Pain Stated Complaint: chest pain Time Seen by Provider: 02/21/22 00:04 Source: patient Mode of arrival: ambulatory Limitations: language barrier ( Malay speaking only, government relations director used) History of Present Illness HPI narrative: 46-year-old female who presents emergency department for evaluation of chest pain, shortness of breath and fatigue. The patient states that she was in gnosticism when she had a gradual onset of chest pain. She points to her left chest when asked to localize the pain. She describes the pain as a constant,pressure sensation which is constant and is 10/10. The pain started at 20:30 hours ( 3 hours prior to evaluation). she states that she felt short of breath, the pain did not radiate to her neck, jaw or arms. She states that she has had similar pain in the past and was told that she has arrhythmias. She states she has felt very fatigued over the past 2-3 days. she denied fever, chills, chest pain, shortness of breath, nausea, vomiting, abdominal pain, change in bowel movements. Related Data Previous Rx's Medication Instructions Recorded dicyclomine 20 mg tablet 20 mg PO TID PRN #30 tab 09/28/20 famotidine 20 mg tablet (Pepcid) 20 mg PO DAILY PRN #30 tab 09/28/20 cyclobenzaprine 10 mg tablet 10 mg PO TID PRN #12 tab 11/22/20 lidocaine 5 % topical patch 1 patch TOPICAL DAILY #15 ea 11/22/20 (Lidoderm) naproxen 500 mg tablet 500 mg PO BID PRN #20 tab 11/22/20 metoclopramide HCl 10 mg tablet 10 mg PO Q6H PRN #10 tab 07/16/21 omeprazole 20 mg capsule,delayed 20 mg PO DAILY 14 Days #14 cap 10/07/21 release ondansetron 4 mg disintegrating 4 mg PO Q8H PRN #20 tab 10/07/21 tablet amoxicillin 875 mg-potassium 1 tab PO BID #14 tab 12/25/21 clavulanate 125 mg tablet Allergies Allergy/AdvReac Type Severity Reaction Status Date / Time No Known Allergies Allergy Verified 09/28/20 00:32 [No Known Allergies*] Review of Systems Review of Systems: Yes all other systems are reviewed and are negative [facility] Past Medical History [facility] Narrative: past medical history: Heart arrhythmia. Past surgical history: and tonsillectomy. Social history: She denies tobacco alcohol and drug use. Medical History Heart problem HTN (hypertension) Migraine Vertigo Social History Social History Alcohol intake: current Alcohol intake frequency: holidays/special occasions only Patient Tobacco Use Status: Never used Tobacco Advance Directives: No Advance Directives Information Provided: No Physical Exam Vital Signs: Vital Signs: Last Vital Signs Temp 98.1 F 02/20/22 23:00 Pulse 62 02/20/22 23:51 Resp 18 02/20/22 23:51 BP 146/69 H 02/20/22 23:51 Pulse Ox 98 02/20/22 23:51 BMI result Body Mass Index 40.3 Const: Other: Awake, alert, female patient, pleasant cooperative, in no distress, elevated BMI of 40.3. HEENT: Head: Yes normal to inspection, Yes normocephalic and Yes atraumatic Ears: external ears normal General nose exam: Normal external nose present Face and sinus: Yes normal facial exam Mouth: Normal oral and palatal mucosa present Throat: Yes posterior oropharynx normal Eyes: General: appearance normal, both eyes and all related structures Pupils: Equal, round and reactive pupils present Neck: Neck: Yes normal visual inspection, Yes no lymphadenopathy, Yes trachea midline and Yes supple Chest: Chest palpation & inspection: normal inspection of the chest and tenderness costochondral junction ( Left) Resp: Effort & Inspection: normal respiratory effort and able to speak in complete sentences Auscultation: clear to auscultation bilaterally Cardio: Rate: regular rate Rhythm: regular rhythm Heart sounds: S1 normal heart sound present, S2 normal heart sound present and no murmurs GI: Inspection: Yes normal to inspection Palpation (GI): Soft to palpation, nontender and no guarding Auscultation: normal bowel sounds : General: Yes no CVA tenderness Back/Spine/Pelvis: Back: no CVA tenderness Skin: General skin exam: no rashes or lesions noted Neuro: Cranial nerves: Yes CN's II-XII intact bilaterally and Yes Equal, round and reactive pupils present Cognition (Neuro): normal cognition Motor exam (neuro): 5/5 motor strength present throughout Extrem: General: Yes normal to inspection Psych: Appearance: grossly normal Speech and movement: Normal speech and movement present Affect: normal affect Attitude: cooperative Thought process: Normal thought process present Thought content: Normal thought content present Course Course Course Narrative: 46-year-old female who presents emergency department for evaluation of gradual onset of pressure-like anterior chest pain which began at 20:30 hours while she was in gnosticism. The patient vital signs did reveal an elevated blood pressure of 156/86 and tachycardia with a pulse of 104, O2 saturation was normal at 99% on room air. Physical examination did reveal significant left anterior chest wall tenderness over the costochondral joints. laboratory evaluation, chest x-ray and EKG were ordered. Pain was treated with Toradol 15 mg IV, she was also given Ativan 1 mg IV for her anxiety. 0032 : Laboratory evaluation: CBC, CMP and High sensitive troponin were normal. Twelve EKG was unremarkable. Radiology evaluation: Chest x-ray revealed no acute disease and was unremarkable exam with the radiologist. Patient's presentation, laboratory evaluation findings are consistent with acute costochondritis. 0149: The patient states that her chest pain is resolved and she is feeling significantly better after the above treatment. The patient was discharged home. She was advised to take Tylenol and ibuprofen for pain. MDM - Chest Pain Lab Data Result diagrams: 02/20/22 23:44 02/20/22 23:44 Labs: Lab Results 02/20/22 02/20/22 02/20/22 Range/Units 23:44 23:44 23:44 WBC 7.9 (4.8-10.8) X10*3/uL RBC 4.24 (4.20-5.50) X10*6/uL Hgb 12.0 (12.0-16.0) g/dl Hct 37.3 (37.0-47.0) % MCV 88.0 (80.0-98.0) fL MCH 28.3 (27.0-33.0) pg MCHC 32.2 (31.0-35.0) g/dl RDW 14.0 (11.0-16.0) % Plt Count 198 (160-400) X10*3/uL MPV 11.1 (9.4-12.3) fL Immature Gran % (Auto) 0.3 (0.0-0.4) % Neut % (Auto) 40.1 L (45-73) % Lymph % (Auto) 48.5 H (20-40) % [place] % (Auto) 8.6 (2-11) % Eos % (Auto) 2.4 (0-4) % Baso % (Auto) 0.1 (0-2) % Lymph # (Auto) 3.8 (1.2-4.9) X10*3/uL [place] # (Auto) 0.7 (0.1-1.2) X10*3/uL Eos # (Auto) 0.2 (0.0-0.4) X10*3/uL Baso # (Auto) 0.0 (0.0-0.2) X10*3/uL Abs Immat Gran (auto) 0.02 (0.00-0.03) X10*3/uL Absolute Neuts (auto) 3.2 (2.0-8.3) x10*3/uL Absolute Nucleated RBC 0.000 (0.0-0.012) X10*3/uL Nucleated RBC % (auto) 0.0 (0.0-0.2) /100WBC Sodium 137 (135-145) mmol/L Potassium 4.2 (3.3-5.1) mmol/L Chloride 107 (96-108) mmol/L Carbon Dioxide 21 L (22-29) mmol/L Anion Gap 13 (12-20) BUN 14 D (9-16) mg/dL Creatinine 0.70 (0.5-1.4) mg/dL Estim Creat Clear Calc 118.3 Estimated GFR > 60 Random Glucose 105 (60-115) mg/dL Calcium 9.1 (8.4-10.2) mg/dL Total Bilirubin 0.3 (0.0-1.0) mg/dL AST 23 (5-31) U/L ALT 21 (0-31) U/L Alkaline Phosphatase 113 (39-117) U/L Troponin I High Sens < 3.5 (<3.5-17.0) ng/L Total Protein 7.2 (6.5-8.0) g/dL Albumin 4.0 (3.5-5.0) g/dL ECG Data ECG #1: Attestation: I personally reviewed and interpreted this ECG as follows: Interpretation: 2252: Normal sinus rhythm with a rate of 73, normal OR, QRS and QTC intervals, no ST segment elevation, no ST segment depression, inverted T-waves V1, no PACs, no PVCs. This is a normal EKG. Discharge Plan Discharge Clinical Impression: Costalchondritis, Anxiety Patient Disposition: Home, Self-Care Instructions: Costochondritis (ED) Additional Instructions: Your laboratory evaluation was unremarkable. Your EKG was normal. Your chest x-ray was normal. On your exam did have tenderness palpation over the joints of your left chest, this is most likely caused by inflammation of these joints, this is called costochondritis. You were treated with an anti-inflammatory medication called Toradol and antianxiety medicine called Ativan which improved her pain Take ibuprofen 200 mg pills, 3 pills every 6 hours as needed for pain. Take Tylenol (acetaminophen) 500 mg pills, 2 pills every 4 to 6 hours as needed for pain. Follow-up with your doctor in 2 days. Please return to the emergency department if your symptoms get worse or if you develop any symptoms that are concerning to you. Prescriptions: No Action famotidine [Pepcid] 20 mg tablet 20 mg PO DAILY PRN (Reason: pain, moderate) Qty: 30 0RF dicyclomine 20 mg tablet 20 mg PO TID PRN (Reason: pain, moderate) Qty: 30 0RF cyclobenzaprine 10 mg tablet 10 mg PO TID PRN (Reason: muscle spasm) Qty: 12 0RF lidocaine [Lidoderm] 5 % adhesive patch,medicated 1 patch topical DAILY Qty: 15 0RF Rx Instructions: leave on most painful area for up to 12 hrs naproxen 500 mg tablet 500 mg PO BID PRN (Reason: pain) Qty: 20 0RF metoclopramide HCl 10 mg tablet 10 mg PO Q6H PRN (Reason: headache) Qty: 10 0RF omeprazole 20 mg capsule,delayed release(DR/EC) 20 mg PO DAILY 14 Days Qty: 14 0RF ondansetron 4 mg tablet,disintegrating 4 mg PO Q8H PRN (Reason: nausea and vomiting) Qty: 20 0RF amoxicillin-pot clavulanate 875-125 mg tablet 1 tab PO BID Qty: 14 0RF
[2022-02-21] MEDS: Ketorolac Tromethamine 15 MG/ML VIAL IVPUSH (00:31)
[2022-02-21] MEDS: LORazepam 2 MG/ML VIAL 1 MG IVPUSH (00:32)
[2022-02-21 02:00] VITALS: BP 122/52; PULSE 64; RESP 17; O2SAT 97
== END 2022-02-21 02:26 | disposition home or self-care (01) ==
PROVIDERS: Emergency Provider Emergency Medicine Emergency Medical Services; PCP Family Medicine
DX: M94.0 Chondrocostal junction syndrome [Tietze] (principal); F41.9 Anxiety disorder, unspecified; I10 Essential (primary) hypertension
CPT/HCPCS: 36415; 71046; 80053; 84484; 85025; 93005; 96374; 96375; 99284; 99285; J1885; J2060

== ENCOUNTER 2022-04-09 09:21 | Outpatient (REF) | payer MEDICAID, OTHER, SELFPAY ==
--- NOTE | ~2022-04-09 | CT_ITS ---
EXAMINATION: CT HEAD WITHOUT CONTRAST CLINICAL INFORMATION: Amnesia. COMPARISON: None TECHNIQUE: Contiguous axial imaging was performed from the skull base to vertex without intravenous administration of contrast. This CT examination was performed using dose optimization techniques as appropriate, variously including the following: *Automated exposure control *Adjustment of mA and/or kV according to patient size (this includes techniques or standardized protocols for targeted exams where dose is matched to indication/reason for exam; i.e. extremities or head) *Use of iterative reconstruction technique DLP: 843 mGy-cm FINDINGS: There is no evidence of acute intracranial hemorrhage or territorial infarction. No abnormal mass effect or midline shift is seen. Menezes to white matter differentiation is well preserved. No extra-axial fluid collections are identified. The ventricles are normal in size. There is no abnormal attenuation within the brain parenchyma. The osseous structures and soft tissues are normal. The mastoid air cells and visualized portions of the paranasal sinuses are well aerated. CT/CT head/brain wo con IMPRESSION: No acute intracranial process seen.
== END 2022-04-09 09:22 | disposition home or self-care (01) ==
LOC: HO.CT 09:21
PROVIDERS: PCP Family Medicine; Visit Provider Family Medicine
DX: R41.3 Other amnesia (principal); R68.89 Other general symptoms and signs
CPT/HCPCS: 70450

== ENCOUNTER 2022-04-29 08:32 | Emergency (ER) | payer MEDICAID, OTHER, SELFPAY ==
--- NOTE | ~2022-04-29 | CT_ITS ---
EXAMINATION: CT ABDOMEN AND PELVIS WITHOUT CONTRAST CLINICAL INFORMATION: Abdominal pain. COMPARISON: 01/01/2021 CT scan of the abdomen and pelvis. TECHNIQUE: Multidetector volumetric imaging was performed from the superior aspect of the liver through the pubic symphysis. Sagittal and coronal reformatted images were obtained on the technologist's workstation. Lack of intravenous and oral contrast limits visceral evaluation. This CT examination was performed using dose optimization techniques as appropriate, variously including the following: *Automated exposure control *Adjustment of mA and/or kV according to patient size (this includes techniques or standardized protocols for targeted exams where dose is matched to indication/reason for exam; i.e. extremities or head) *Use of iterative reconstruction technique DLP: 1041 mGy-cm FINDINGS: LUNG BASES: The visualized lung bases are unremarkable. LIVER, GALLBLADDER, AND BILIARY TREE: Unremarkable. PANCREAS: Unremarkable. SPLEEN: Unremarkable. ADRENAL GLANDS: Unremarkable. KIDNEYS AND URETERS: The kidneys are normal in size, shape, and attenuation. No hydronephrosis, hydroureter, or calculi seen. No perinephric stranding. BLADDER: Mildly distended showing mild diffuse mural thickening without focal abnormality or significant perivesicular infiltrative changes. No intraluminal abnormality. GASTROINTESTINAL TRACT: The stomach, small bowel and appendix are unremarkable. The colon and rectum are unremarkable. ABDOMINAL WALL: No significant hernia is appreciated. LYMPH NODES: No lymphadenopathy. VASCULAR: Unremarkable. PELVIC VISCERA: Unremarkable. OSSEOUS STRUCTURES: Mild to moderate degenerative disc disease at L4-L5 and L5-S1. No acute abnormality. CT/CT abdomen pelvis wo con IMPRESSION: 1. Mild mural thickening and urinary bladder may be secondary to incomplete distention, but increased from the previous study. This could be secondary to chronic changes. A mild infectious/inflammatory cystitis cannot be completely excluded given the interval change. Correlate with urine output and symptoms. If the patient is experiencing urinary symptoms, pre and post void urinary bladder ultrasound may be of value. No other significant intra-abdominal/pelvic abnormality. Fleischner guidelines were followed.
[2022-04-29 09:17] VITALS: BP 110/90; PULSE 55; RESP 18; TEMP 36.4; O2SAT 98; BMI 42.4
--- NOTE | 2022-04-29 10:03 | ED.GENADULT ---
HPI - General Adult General Chief complaint: Abdominal Pain Stated complaint: lower abd pain Time Seen by Provider: 04/29/22 10:03 Source: patient and spanish medical interpreter Mode of arrival: ambulatory Limitations: language barrier History of Present Illness HPI narrative: Patient is a 46 year old female presenting to the emergency department today with lower abdominal pain. Patient states that since yesterday, she has had right lower quadrant abdominal pain and has been nauseous. Patient states that she still has her appendix. Patient denies any dizziness, lightheadedness, vomiting, fever, chills, blurry vision, double vision, loss of vision, chest pain, difficulty breathing, shortness of breath, back pain, night sweats, pain with urination, increased urinary frequency, increased urinary urgency, blood in her urine or stool, vaginal bleeding, vaginal discharge, syncope or a near syncopal episode, recent trauma or falls, bowel incontinence, bladder incontinence, bowel retention, bladder retention, or any other complaints at this time. Onset (ago): day(s) (1) Radiation: non-radiation Severity: mild Severity scale (1-10): 3 Quality: dull Pain Consistency: constant Relieving factors: none Exacerbating factors: none Associated symptoms: nausea/vomiting Treatments prior to arrival: none Related Data Previous Rx's Medication Instructions Recorded dicyclomine 20 mg tablet 20 mg PO TID PRN pain, moderate 09/28/20 #30 tabs famotidine 20 mg tablet (Pepcid) 20 mg PO DAILY PRN pain, moderate 09/28/20 #30 tabs cyclobenzaprine 10 mg tablet 10 mg PO TID PRN muscle spasm #12 11/22/20 tabs lidocaine 5 % topical patch 1 patch topical DAILY #15 ea 11/22/20 (Lidoderm) naproxen 500 mg tablet 500 mg PO BID PRN pain #20 tabs 11/22/20 metoclopramide HCl 10 mg tablet 10 mg PO Q6H PRN headache #10 tabs 07/16/21 omeprazole 20 mg capsule,delayed 20 mg PO DAILY 14 days #14 caps 10/07/21 release ondansetron 4 mg disintegrating 4 mg PO Q8H PRN nausea and 10/07/21 tablet vomiting #20 tabs amoxicillin 875 mg-potassium 1 tab PO BID #14 tabs 12/25/21 clavulanate 125 mg tablet Allergies Allergy/AdvReac Type Severity Reaction Status Date / Time No Known Allergies Allergy Verified 09/28/20 00:32 [No Known Allergies*] Review of Systems Constitutional: Constitutional: Reports no additional constitutional complaints, Denies chills, Denies fever(s) and Denies night sweats Eyes: Eyes: Reports no additional eye complaints, Denies blurry vision, Denies change in vision, Denies diplopia, Denies eye discharge, Denies loss of vision and Denies eye pain ENT: Denies dizziness Cardiovascular: Cardiovascular: Reports no additional cardiovascular complaints, Denies chest pain, Denies lightheadedness, Denies Loss of Consciousness and Denies dyspnea Respiratory: Respiratory: Reports no additional respiratory complaints and Denies dyspnea Gastrointestinal: Gastrointestinal: Reports no additional gastrointestinal complaints, Reports abdominal pain, Denies melena, Denies hematochezia, Denies change in bowel habits, Denies change in stool character and Reports nausea Genitourinary: Genitourinary: Denies hematuria, Denies urinary frequency, Denies dysuria, Denies urinary incontinence, Denies urinary hesitancy and Denies urinary urgency Musculoskeletal: Musculoskeletal: Reports no additional musculoskeletal complaints, Denies numbness and Denies tingling Neurologic: Denies dizziness, Denies loss of vision, Denies numbness and Denies tingling Psychiatric: Psychiatric: Reports no additional psychiatric complaints Endocrine: Endocrine: Reports no additional endocrine complaints Hematologic/Lymphatic: Hematologic/Lymphatic: Reports no additional hematologic/lymphatic complaints Allergic/Immunologic: Allergic/Immunologic: Reports no additional allergic/immunologic complaints PMFSH Past Medical History Attestation statement: The following information was validated with the patient. Source: old records reviewed Medical History Heart problem HTN (hypertension) Migraine Vertigo Social History Social History Alcohol intake: current Alcohol intake frequency: holidays/special occasions only Patient Tobacco Use Status: Never used Tobacco Advance Directives: No Advance Directives Information Provided: Yes Physical Exam ED Vital Signs: Vital Signs - 24 hr 04/29/22 09:17 04/29/22 10:20 04/29/22 11:09 Temperature 97.6 F Pulse Rate 55 56 63 Respiratory Rate 18 16 16 Blood Pressure 110/90 H 137/64 144/79 H Pulse Oximetry 98 100 100 Oxygen Delivery Method Room Air Room Air Room Air 04/29/22 14:10 Temperature Pulse Rate 52 Respiratory Rate 14 Blood Pressure 121/51 L Pulse Oximetry 97 Oxygen Delivery Method Room Air BMI result Body Mass Index 42.4 Const General: cooperative, no acute distress, alert and awake Nutritional Appearance: well nourished Orientation/consciousness: patient oriented x3 Limitations: no limitations HENMT Head: Yes normal to inspection and Yes atraumatic Ears: hearing grossly normal bilaterally and external ears normal General nose exam: Normal external nose present, no nasal discharge noted and no epistaxis Face and sinus: Yes normal facial exam, No abrasion and No laceration Mouth: Normal oral and palatal mucosa present, no drooling and no muffled voice Eyes General: appearance normal, both eyes and all related structures Periorbital: periorbital findings normal Eyelids: Yes eyelids normal Conjunctivae: conjunctivae normal Pupils: Equal, round and reactive pupils present EOM: EOMs intact bilaterally Neck Neck: Yes normal visual inspection, Yes full ROM and Yes no lymphadenopathy Chest Chest palpation & inspection: normal inspection of the chest Resp Effort & Inspection: normal respiratory effort and able to speak in complete sentences Auscultation: clear to auscultation bilaterally Cardio Rate: regular rate Rhythm: regular rhythm GI Inspection: Yes normal to inspection Palpation (GI): Soft to palpation, not firm, nontender and no guarding Neuro General: patient oriented x3 and moves all extremities Cranial nerves: Yes Equal, round and reactive pupils present Cognition (Neuro): normal cognition Motor exam (neuro): 5/5 motor strength present throughout Sensory Exam: Normal double simultaneous stimulation for sensation Coordination: [id number] test normal Extrem General: Yes normal to inspection, Yes full ROM and Yes capillary refill normal Psych Appearance: grossly normal Mental Status: mental status grossly normal Affect: normal affect Attitude: cooperative Thought process: Normal thought process present Thought content: Normal thought content present Insight: Good insight present (Psych) Medical Decision Making MDM Narrative Medical decision making narrative: Patient is a 46 year old female presenting to the emergency department today with abdominal pain. Patient's physical exam was unremarkable. Patient's blood work was unremarkable. Patient's urine showed no acute process. Patient's abdominal CT showed no acute process. I explained my physical exam findings as well as all test results to the patient. I answered all questions asked by the patient. I stressed the importance of the patient taking her medication as prescribed. I stressed the importance of the patient following up with her primary care provider and a urologist. I stressed the importance of the patient returning to the emergency department immediately if her symptoms were to worsen or if she were to develop any dizziness, shortness of breath, difficulty breathing, chest pain, blurry vision, loss of vision, nausea, vomiting, abdominal pain, fever, chills, back pain, or any other complaints. Patient verbalized agreement and understanding with this treatment plan and discharge. Differential Diagnosis Differential Diagnosis: abdominal pain Medical Records Medical records reviewed: Yes I reviewed the patient's medical records. Lab Data Lab results reviewed: Yes I reviewed the patient's lab results. Result diagrams: 04/29/22 10:35 04/29/22 Unknown Labs: Lab Results 04/29/22 04/29/22 04/29/22 Range/Units 10:35 10:35 10:35 WBC 4.8 (4.8-10.8) X10*3/uL RBC 4.37 (4.20-5.50) X10*6/uL Hgb 12.5 (12.0-16.0) g/dl Hct 37.8 (37.0-47.0) % MCV 86.5 (80.0-98.0) fL MCH 28.6 (27.0-33.0) pg MCHC 33.1 (31.0-35.0) g/dl RDW 13.3 (11.0-16.0) % Plt Count 202 (160-400) X10*3/uL MPV 11.3 (9.4-12.3) fL Immature Gran % (Auto) 0.4 (0.0-0.4) % Neut % (Auto) 36.9 L (45-73) % Lymph % (Auto) 52.0 H (20-40) % [place] % (Auto) 6.5 (2-11) % Eos % (Auto) 3.8 (0-4) % Baso % (Auto) 0.4 (0-2) % Lymph # (Auto) 2.5 (1.2-4.9) X10*3/uL [place] # (Auto) 0.3 (0.1-1.2) X10*3/uL Eos # (Auto) 0.2 (0.0-0.4) X10*3/uL Baso # (Auto) 0.0 (0.0-0.2) X10*3/uL Abs Immat Gran (auto) 0.02 (0.00-0.03) X10*3/uL Absolute Neuts (auto) 1.8 L (2.0-8.3) x10*3/uL Absolute Nucleated RBC 0.000 (0.0-0.012) X10*3/uL Nucleated RBC % (auto) 0.0 (0.0-0.2) /100WBC Sodium (135-145) mmol/L Potassium (3.3-5.1) mmol/L Chloride (96-108) mmol/L Carbon Dioxide (22-29) mmol/L Anion Gap (12-20) BUN (9-16) mg/dL Creatinine (0.5-1.4) mg/dL Estim Creat Clear Calc Estimated GFR Random Glucose (60-115) mg/dL Calcium (8.4-10.2) mg/dL Magnesium (1.6-2.6) mg/dL Total Bilirubin (0.0-1.0) mg/dL AST (5-31) U/L ALT (0-31) U/L Alkaline Phosphatase (39-117) U/L Troponin I High Sens < 3.5 (<3.5-17.0) ng/L Total Protein (6.5-8.0) g/dL Albumin (3.5-5.0) g/dL Urine Color Urine Appearance Urine pH (5.0-8.0) Ur Specific [place] (1.005-1.025) Urine Protein (NEG-TRACE) MG/DL Urine Glucose (UA) (NEG) MG/DL Urine Ketones (NEG) MG/DL Urine Blood (NEG) Urine Nitrite (NEG) Ur Leukocyte Esterase (NEG) COVID-19 (NICOLE) (Negative) COVID-19 Clin Com Influenza Type A (MELY) Negative (Negative) Influenza Type B (MELY) Negative (Negative) Influenza A & B Note See Note 04/29/22 04/29/22 04/29/22 Range/Units 10:35 Unknown Unknown WBC (4.8-10.8) X10*3/uL RBC (4.20-5.50) X10*6/uL Hgb (12.0-16.0) g/dl Hct (37.0-47.0) % MCV (80.0-98.0) fL MCH (27.0-33.0) pg MCHC (31.0-35.0) g/dl RDW (11.0-16.0) % Plt Count (160-400) X10*3/uL MPV (9.4-12.3) fL Immature Gran % (Auto) (0.0-0.4) % Neut % (Auto) (45-73) % Lymph % (Auto) (20-40) % [place] % (Auto) (2-11) % Eos % (Auto) (0-4) % Baso % (Auto) (0-2) % Lymph # (Auto) (1.2-4.9) X10*3/uL [place] # (Auto) (0.1-1.2) X10*3/uL Eos # (Auto) (0.0-0.4) X10*3/uL Baso # (Auto) (0.0-0.2) X10*3/uL Abs Immat Gran (auto) (0.00-0.03) X10*3/uL Absolute Neuts (auto) (2.0-8.3) x10*3/uL Absolute Nucleated RBC (0.0-0.012) X10*3/uL Nucleated RBC % (auto) (0.0-0.2) /100WBC Sodium 137 (135-145) mmol/L Potassium 4.2 (3.3-5.1) mmol/L Chloride 108 (96-108) mmol/L Carbon Dioxide 22 (22-29) mmol/L Anion Gap 11 L (12-20) BUN 10 (9-16) mg/dL Creatinine 0.72 (0.5-1.4) mg/dL Estim Creat Clear Calc 118.3 Estimated GFR > 60 Random Glucose 81 (60-115) mg/dL Calcium 8.7 (8.4-10.2) mg/dL Magnesium 2.1 (1.6-2.6) mg/dL Total Bilirubin 0.3 (0.0-1.0) mg/dL AST 21 (5-31) U/L ALT 16 (0-31) U/L Alkaline Phosphatase 93 (39-117) U/L Troponin I High Sens (<3.5-17.0) ng/L Total Protein 6.8 (6.5-8.0) g/dL Albumin 3.8 (3.5-5.0) g/dL Urine Color YELLOW Urine Appearance CLEAR Urine pH 7.5 (5.0-8.0) Ur Specific [place] 1.010 (1.005-1.025) Urine Protein NEG (NEG-TRACE) MG/DL Urine Glucose (UA) NEG (NEG) MG/DL Urine Ketones NEG (NEG) MG/DL Urine Blood NEG (NEG) Urine Nitrite NEG (NEG) Ur Leukocyte Esterase NEG (NEG) COVID-19 (NICOLE) Negative (Negative) COVID-19 Clin Com See Note Influenza Type A (MELY) (Negative) Influenza Type B (MELY) (Negative) Influenza A & B Note Imaging Data CT scan - abdomen: Attestation: I personally reviewed and interpreted this imaging study as follows: My impression: No acute process. Radiologist's impression: EXAMINATION: CT ABDOMEN AND PELVIS WITHOUT CONTRAST? CLINICAL INFORMATION: Abdominal pain.? COMPARISON: 01/01/2021 CT scan of the abdomen and pelvis.? TECHNIQUE: Multidetector volumetric imaging was performed from the superior aspect of the liver through the pubic symphysis. Sagittal and coronal reformatted images were obtained on the technologist's workstation. Lack of intravenous and oral contrast limits visceral evaluation. This CT examination was performed using dose optimization techniques as appropriate, variously including the following: *Automated exposure control *Adjustment of mA and/or kV according to patient size (this includes techniques or standardized protocols for targeted exams where dose is matched to indication/reason for exam; i.e. extremities or head) *Use of iterative reconstruction technique DLP: 1041 mGy-cm FINDINGS: LUNG BASES: The visualized lung bases are unremarkable.? LIVER, GALLBLADDER, AND BILIARY TREE: Unremarkable. PANCREAS: Unremarkable.? SPLEEN: Unremarkable.? ADRENAL GLANDS: Unremarkable.? KIDNEYS AND URETERS: The kidneys are normal in size, shape, and attenuation. No hydronephrosis, hydroureter, or calculi seen. No perinephric stranding. ? BLADDER: Mildly distended showing mild diffuse mural thickening without focal abnormality or significant perivesicular infiltrative changes. No intraluminal abnormality.? GASTROINTESTINAL TRACT: The stomach, small bowel and appendix are unremarkable. The colon and rectum are unremarkable.? ABDOMINAL WALL: No significant hernia is appreciated.? LYMPH NODES: No lymphadenopathy. VASCULAR: Unremarkable. PELVIC VISCERA: Unremarkable.? OSSEOUS STRUCTURES: Mild to moderate degenerative disc disease at L4-L5 and L5-S1. No acute abnormality.? CT/CT abdomen pelvis wo con IMPRESSION: 1. Mild mural thickening and urinary bladder may be secondary to incomplete distention, but increased from the previous study. This could be secondary to chronic changes. A mild infectious/inflammatory cystitis cannot be completely excluded given the interval change. Correlate with urine output and symptoms. If the patient is experiencing urinary symptoms, pre and post void urinary bladder ultrasound may be of value. No other significant intra-abdominal/pelvic abnormality. ? Fleischner guidelines were followed. Dictated By: Ld Silva MD Signed By: Electronically signed by Ld Silva MD 04/29/22 1213 ECG Data Attestation: I personally reviewed and interpreted this ECG as follows: Prior ECG tracings: available for review Interpretation: Vent. Rate: 055 BPM ? ? Atrial Rate: 055 BPM P-R Int: 164 ms? QRS Dur: 080 ms QT Int: 430 ms ? ? P-R-T Axes: 032 018 018 degrees QTc Int: 411 ms ? Sinus bradycardia with sinus arrhythmia Low voltage QRS Borderline ECG When compared with ECG of 20-FEB-2022 22:52, No significant change was found ? Referred By: Chelita Nichols ? Electronically Signed By:WILL MOULTON MD Dictated By: Will Moulton MD Signed By: Electronically signed by Will Moulton MD 04/29/22 1526 Discharge Plan Discharge Clinical Impression: Abdominal pain, Acute urinary retention Patient Disposition: Home, Self-Care Instructions: Acute Urinary Retention in Women (ED), Abdominal Pain (ED) Additional Instructions: Follow up with your primary care provider. Return to the emergency department immediately if your symptoms worsen or if you develop any dizziness, shortness of breath, difficulty breathing, chest pain, blurry vision, loss of vision, nausea, vomiting, abdominal pain, fever, chills, back pain, or any other complaints. Prescriptions: No Action famotidine [Pepcid] 20 mg tablet 20 mg PO DAILY PRN (Reason: pain, moderate) Qty: 30 0RF dicyclomine 20 mg tablet 20 mg PO TID PRN (Reason: pain, moderate) Qty: 30 0RF cyclobenzaprine 10 mg tablet 10 mg PO TID PRN (Reason: muscle spasm) Qty: 12 0RF lidocaine [Lidoderm] 5 % adhesive patch,medicated 1 patch topical DAILY Qty: 15 0RF Rx Instructions: leave on most painful area for up to 12 hrs naproxen 500 mg tablet 500 mg PO BID PRN (Reason: pain) Qty: 20 0RF metoclopramide HCl 10 mg tablet 10 mg PO Q6H PRN (Reason: headache) Qty: 10 0RF omeprazole 20 mg capsule,delayed release(DR/EC) 20 mg PO DAILY 14 Days Qty: 14 0RF ondansetron 4 mg tablet,disintegrating 4 mg PO Q8H PRN (Reason: nausea and vomiting) Qty: 20 0RF amoxicillin-pot clavulanate 875-125 mg tablet 1 tab PO BID Qty: 14 0RF Referrals: Anil Skinner MD [Physician] - Zoe Cabrera DO [Primary Care Provider] - Interventions: ED Discharge Assessment Last Done: 04/29/22 14:41 Discharge Date/Time: 04/29/22 14:42 Print Language: Bengali
--- NOTE | 2022-04-29 10:15 | ECG_ITS ---
Test Reason : abd pain Blood Pressure : / mmHG Vent. Rate : 055 BPM Atrial Rate : 055 BPM P-R Int : 164 ms QRS Dur : 080 ms QT Int : 430 ms P-R-T Axes : 032 018 018 degrees QTc Int : 411 ms Sinus bradycardia with sinus arrhythmia Low voltage QRS Borderline ECG When compared with ECG of 20-FEB-2022 22:52, No significant change was found Referred By: Chelita Nichols Electronically Signed By:BRETT MOULTON MD
[2022-04-29 10:20] VITALS: BP 137/64; PULSE 56; RESP 16; O2SAT 100
[2022-04-29 10:41] LABS: MANUAL DIFF FLAG NO
[2022-04-29 10:46] LABS: Basophils Percent Auto 0.4 % (0-2); Eosinophils Absolute Auto 0.2 X10*3/uL (0.0-0.4); Eosinophils Percent Auto 3.8 % (0-4); Hematocrit 37.8 % (37.0-47.0); Hemoglobin 12.5 g/dl (12.0-16.0); Imm Gran Abs Auto 0.02 X10*3/uL (0.00-0.03); Imm Gran Pct Auto 0.4 % (0.0-0.4); Lymphocytes Absolute Auto 2.5 X10*3/uL (1.2-4.9); Mean Corpuscular HGB Conc 33.1 g/dl (31.0-35.0); Mean Corpuscular Hemoglobin 28.6 pg (27.0-33.0); Mean Corpuscular Volume 86.5 fL (80.0-98.0); Mean Platelet Volume 11.3 fL (9.4-12.3); Monocytes Absolute Auto 0.3 X10*3/uL (0.1-1.2); Monocytes Percent Auto 6.5 % (2-11); Neutrophils Absolute Auto 1.8 x10*3/uL (2.0-8.3); Neutrophils Percent Auto 36.9 % (45-73); Platelet Count 202 X10*3/uL (160-400); Red Blood Count 4.37 X10*6/uL (4.20-5.50); Red Cell Distribution Width 13.3 % (11.0-16.0); White Blood Count 4.8 X10*3/uL (4.8-10.8)
[2022-04-29 11:05] LABS: Troponin-I High Sensitivity < 3.5 ng/L (<3.5-17.0)
[2022-04-29] MEDS: ondansetron HCL 4 MG/2 ML VIAL IVPUSH (11:05)
[2022-04-29] MEDS: Morphine Sulfate 4 MG/ML CARTRIDGE IVPUSH (11:07)
[2022-04-29 11:09] VITALS: BP 144/79; PULSE 63; RESP 16; O2SAT 100
[2022-04-29 11:10] LABS: Influenza A Negative (Negative); Influenza B2 Negative (Negative)
[2022-04-29 11:11] LABS: COVID-19 Test Negative (Negative); IDNOW Serial# 16C4AD1C
[2022-04-29 11:49] LABS: Appearance Urine CLEAR; Color Urine YELLOW; Glucose Urine UA NEG (NEG); Leukocyte Esterase Urine NEG (NEG); Nitrite Urine NEG (NEG); PH 7.5 (5.0-8.0); Urine Blood NEG (NEG); Urine Ketones NEG (NEG); Urine Protein NEG (NEG-TRACE)
[2022-04-29 12:08] LABS: Alanine Aminotransferase 16 U/L (0-31); Albumin Level 3.8 g/dL (3.5-5.0); Alkaline Phosphatase 93 U/L (39-117); Anion Gap 11 (12-20); Aspartate Amino Transferase 21 U/L (5-31); Bilirubin Total 0.3 mg/dL (0.0-1.0); Blood Urea Nitrogen 10 mg/dL (9-16); Calcium 8.7 mg/dL (8.4-10.2); Carbon Dioxide 22 mmol/L (22-29); Chloride 108 mmol/L (96-108); Creatinine Clr Calc Pharmacy 118.3; Estimated Glomerular Filt Rate > 60; Glucose Random 81 mg/dL (60-115); Magnesium 2.1 mg/dL (1.6-2.6); Potassium 4.2 mmol/L (3.3-5.1); Sodium 137 mmol/L (135-145); Total Protein 6.8 g/dL (6.5-8.0)
[2022-04-29 14:10] VITALS: BP 121/51; PULSE 52; RESP 14; O2SAT 97
== END 2022-04-29 14:42 | disposition home or self-care (01) ==
PROVIDERS: Physician Assistant Medical; Emergency Provider Student in an Organized Health Care Education/Training Program; PCP Family Medicine
DX: R10.31 Right lower quadrant pain (principal); R33.9 Retention of urine, unspecified; Z20.822 Contact with and (suspected) exposure to COVID-19; I10 Essential (primary) hypertension
CPT/HCPCS: 51798; 74176; 80053; 81003; 83735; 84484; 85025; 87502; 87635; 93005; 96374; 96375; 99284; J2270; J2405

== ENCOUNTER 2022-09-11 08:48 | Emergency (ER) | payer MEDICAID, OTHER, SELFPAY ==
--- NOTE | ~2022-09-11 | CT_ITS ---
EXAMINATION: CT HEAD WITHOUT CONTRAST CLINICAL INFORMATION: Dizziness. COMPARISON: Head CT's dating between 06/14/2020 and 02/13/2016. TECHNIQUE: Contiguous axial imaging was performed from the skull base to vertex without intravenous administration of contrast. This CT examination was performed using dose optimization techniques as appropriate, variously including the following: *Automated exposure control *Adjustment of mA and/or kV according to patient size (this includes techniques or standardized protocols for targeted exams where dose is matched to indication/reason for exam; i.e. extremities or head) *Use of iterative reconstruction technique DLP: 717 mGy-cm FINDINGS: No intracranial hemorrhage, large infarction, or mass lesion is seen. No extra-axial collection is appreciated. The ventricles are normal in size and configuration without evidence of hydrocephalus. The visualized paranasal sinuses and mastoid air cells are clear. CT/CT head/brain wo IV con IMPRESSION: No acute intracranial finding.
[2022-09-11 09:03] VITALS: BP 124/68; PULSE 70; RESP 20; TEMP 35.9; O2SAT 98; BMI 48.9
--- NOTE | 2022-09-11 09:16 | ECG_ITS ---
Test Reason : DIZZINESS Blood Pressure : / mmHG Vent. Rate : 063 BPM Atrial Rate : 063 BPM P-R Int : 168 ms QRS Dur : 078 ms QT Int : 398 ms P-R-T Axes : 026 004 009 degrees QTc Int : 407 ms Normal sinus rhythm Normal ECG When compared with ECG of 29-APR-2022 10:34, No significant change was found Referred By: Generic ED Physician Electronically Signed By:MIGUEL CHEN MD
[2022-09-11 09:42] LABS: MANUAL DIFF FLAG NO
[2022-09-11 09:44] LABS: Basophils Percent Auto 0.4 % (0-2); Eosinophils Absolute Auto 0.1 X10*3/uL (0.0-0.4); Eosinophils Percent Auto 1.8 % (0-4); Hematocrit 37.5 % (37.0-47.0); Hemoglobin 12.4 g/dl (12.0-16.0); Imm Gran Abs Auto 0.01 X10*3/uL (0.00-0.03); Imm Gran Pct Auto 0.2 % (0.0-0.4); Lymphocytes Absolute Auto 2.6 X10*3/uL (1.2-4.9); Lymphocytes Percent Auto 44.8 % (20-40); Mean Corpuscular HGB Conc 33.1 g/dl (31.0-35.0); Mean Corpuscular Hemoglobin 28.2 pg (27.0-33.0); Mean Corpuscular Volume 85.2 fL (80.0-98.0); Mean Platelet Volume 10.9 fL (9.4-12.3); Monocytes Absolute Auto 0.4 X10*3/uL (0.1-1.2); Monocytes Percent Auto 6.3 % (2-11); Neutrophils Absolute Auto 2.7 x10*3/uL (2.0-8.3); Neutrophils Percent Auto 46.5 % (45-73); Platelet Count 190 X10*3/uL (160-400); Red Cell Distribution Width 13.5 % (11.0-16.0); White Blood Count 5.7 X10*3/uL (4.8-10.8)
[2022-09-11 10:02] LABS: Alanine Aminotransferase 18 U/L (0-31); Albumin Level 4.2 g/dL (3.5-5.0); Alkaline Phosphatase 104 U/L (39-117); Anion Gap 16 (12-20); Aspartate Amino Transferase 20 U/L (5-31); Bilirubin Direct < 0.2 mg/dL (0.0-0.5); Bilirubin Total 0.4 mg/dL (0.0-1.0); Blood Urea Nitrogen 13 mg/dL (9-16); Calcium 9.5 mg/dL (8.4-10.2); Carbon Dioxide 23 mmol/L (22-29); Chloride 105 mmol/L (96-108); Creatinine Clr Calc Pharmacy 122.1; Estimated Glomerular Filt Rate > 60; Glucose Random 124 mg/dL (60-115); Lipase 51 U/L (8-78); Potassium 3.8 mmol/L (3.3-5.1); Sodium 140 mmol/L (135-145); Total Protein 7.4 g/dL (6.5-8.0)
--- NOTE | 2022-09-11 10:40 | ED_ITS ---
HPI - Dizziness General Chief Complaint: Dizziness Stated Complaint: vertigo Time Seen by Provider: 09/11/22 10:16 Source: patient Mode of arrival: ambulatory Limitations: no limitations History of Present Illness HPI Narrative: This is a 46 years old female presented with a chief complaint of dizziness at x2 days also complaining of ears pain. The patient is fully ambulatory to the emergency department. She denies any chest pain shortness of breath, also denies fever vomiting. She states that she had vertigo in the past. MD elicited complaint: dizziness Onset (ago): day(s) (2) Description: sense of movement History of similar symptoms: Yes Exacerbating factors: movement/ambulation Relieving factors: nothing Associated symptoms: denies other symptoms Related Data Previous Rx's Medication Instructions Recorded dicyclomine 20 mg tablet 20 mg PO TID PRN pain, moderate 09/28/20 #30 tabs famotidine 20 mg tablet (Pepcid) 20 mg PO DAILY PRN pain, moderate 09/28/20 #30 tabs cyclobenzaprine 10 mg tablet 10 mg PO TID PRN muscle spasm #12 11/22/20 tabs lidocaine 5 % topical patch 1 patch topical DAILY #15 ea 11/22/20 (Lidoderm) naproxen 500 mg tablet 500 mg PO BID PRN pain #20 tabs 11/22/20 metoclopramide HCl 10 mg tablet 10 mg PO Q6H PRN headache #10 tabs 07/16/21 omeprazole 20 mg capsule,delayed 20 mg PO DAILY 14 days #14 caps 10/07/21 release ondansetron 4 mg disintegrating 4 mg PO Q8H PRN nausea and 10/07/21 tablet vomiting #20 tabs amoxicillin 875 mg-potassium 1 tab PO BID #14 tabs 12/25/21 clavulanate 125 mg tablet amoxicillin 500 mg capsule 500 mg PO TID #30 caps 09/11/22 meclizine 25 mg tablet 25 mg PO TID PRN dizziness #15 tabs 09/11/22 Allergies Allergy/AdvReac Type Severity Reaction Status Date / Time No Known Allergies Allergy Verified 09/28/20 00:32 [No Known Allergies*] Review of Systems Constitutional: Constitutional: Reports no additional constitutional compla ints ENT: Reports system reviewed and no additional complaints, except as documented Respiratory: Respiratory: Reports no additional respiratory complaints Gastrointestinal: Gastrointestinal: Reports no additional gastrointestinal complaints [facility] Past Medical History Medical History Heart problem HTN (hypertension) Migraine Vertigo Social History Social History Alcohol intake: current Alcohol intake frequency: does not drink Patient Tobacco Use Status: Never used Tobacco Smoked in Last 30 Days: No Use of substances other than those prescribed or required for medical reasons: No Advance Directives: No Advance Directives Information Provided: Yes Patient : No Physical Exam Vital Signs: Vital Signs: Last Vital Signs Temp 96.7 F L 09/11/22 09:03 Pulse 51 09/11/22 13:36 Resp 16 09/11/22 13:36 BP 148/75 H 09/11/22 13:36 Pulse Ox 98 09/11/22 13:36 O2 Del Method 09/11/22 13:36 BMI result Body Mass Index 48.9 Const: General: cooperative Nutritional Appearance: well nourished Orientation/consciousness: patient oriented x3 HEENT: Head: Yes normal to inspection Ears: hearing grossly normal bilaterally and other (Left TM red) Face and sinus: Yes normal facial exam Mouth: Normal oral and palatal mucosa present Throat: Yes posterior oropharynx normal Neck: Neck: Yes normal visual inspection and Yes full ROM Chest: Chest palpation & inspection: normal inspection of the chest Resp: Effort & Inspection: normal respiratory effort Auscultation: clear to auscultation bilaterally Cardio: Jugular venous distension: no JVD Rate: regular rate Rhythm: regular rhythm GI: Inspection: Yes normal to inspection Palpation (GI): Soft to palpation, not firm and nontender Percussion: Yes normal to percussion Skin: General skin exam: no rashes or lesions noted and elasticity normal Neuro: General: patient oriented x3 Gait exam (Neuro): Normal gait present Course Reevaluation(s) Reevaluation #1: Dizzness gone feels much better w/u negative MDM - Dizziness Lab Data Result diagrams: 09/11/22 09:36 09/11/22 09:36 Labs: Lab Results 09/11/22 09/11/22 Range/Units 09:36 09:36 WBC 5.7 (4.8-10.8) X10*3/uL RBC 4.40 (4.20-5.50) X10*6/uL Hgb 12.4 (12.0-16.0) g/dl Hct 37.5 (37.0-47.0) % MCV 85.2 (80.0-98.0) fL MCH 28.2 (27.0-33.0) pg MCHC 33.1 (31.0-35.0) g/dl RDW 13.5 (11.0-16.0) % Plt Count 190 (160-400) X10*3/uL MPV 10.9 (9.4-12.3) fL Immature Gran % (Auto) 0.2 (0.0-0.4) % Neut % (Auto) 46.5 (45-73) % Lymph % (Auto) 44.8 H (20-40) % [place] % (Auto) 6.3 (2-11) % Eos % (Auto) 1.8 (0-4) % Baso % (Auto) 0.4 (0-2) % Lymph # (Auto) 2.6 (1.2-4.9) X10*3/uL [place] # (Auto) 0.4 (0.1-1.2) X10*3/uL Eos # (Auto) 0.1 (0.0-0.4) X10*3/uL Baso # (Auto) 0.0 (0.0-0.2) X10*3/uL Abs Immat Gran (auto) 0.01 (0.00-0.03) X10*3/uL Absolute Neuts (auto) 2.7 (2.0-8.3) x10*3/uL Absolute Nucleated RBC 0.000 (0.0-0.012) X10*3/uL Nucleated RBC % (auto) 0.0 (0.0-0.2) /100WBC Sodium 140 (135-145) mmol/L Potassium 3.8 (3.3-5.1) mmol/L Chloride 105 (96-108) mmol/L Carbon Dioxide 23 (22-29) mmol/L Anion Gap 16 (12-20) BUN 13 (9-16) mg/dL Creatinine 0.76 (0.5-1.4) mg/dL Estim Creat Clear Calc 122.1 Estimated GFR > 60 Random Glucose 124 H (60-115) mg/dL Calcium 9.5 D (8.4-10.2) mg/dL Total Bilirubin 0.4 (0.0-1.0) mg/dL Direct Bilirubin < 0.2 (0.0-0.5) mg/dL AST 20 (5-31) U/L ALT 18 (0-31) U/L Alkaline Phosphatase 104 (39-117) U/L Total Protein 7.4 (6.5-8.0) g/dL Albumin 4.2 (3.5-5.0) g/dL Lipase 51 (8-78) U/L Discharge Plan Discharge Clinical Impression: Dizziness, Otitis media Patient Disposition: Home, Self-Care Instructions: Dizziness (ED) Prescriptions: New meclizine 25 mg tablet 25 mg PO TID PRN (Reason: dizziness) Qty: 15 0RF amoxicillin 500 mg capsule 500 mg PO TID Qty: 30 0RF No Action famotidine [Pepcid] 20 mg tablet 20 mg PO DAILY PRN (Reason: pain, moderate) Qty: 30 0RF dicyclomine 20 mg tablet 20 mg PO TID PRN (Reason: pain, moderate) Qty: 30 0RF cyclobenzaprine 10 mg tablet 10 mg PO TID PRN (Reason: muscle spasm) Qty: 12 0RF lidocaine [Lidoderm] 5 % adhesive patch,medicated 1 patch topical DAILY Qty: 15 0RF Rx Instructions: leave on most painful area for up to 12 hrs naproxen 500 mg tablet 500 mg PO BID PRN (Reason: pain) Qty: 20 0RF metoclopramide HCl 10 mg tablet 10 mg PO Q6H PRN (Reason: headache) Qty: 10 0RF omeprazole 20 mg capsule,delayed release(DR/EC) 20 mg PO DAILY 14 Days Qty: 14 0RF ondansetron 4 mg tablet,disintegrating 4 mg PO Q8H PRN (Reason: nausea and vomiting) Qty: 20 0RF amoxicillin-pot clavulanate 875-125 mg tablet 1 tab PO BID Qty: 14 0RF Referrals: Zoe Cabrera DO [Primary Care Provider] - 09/11/22 2:26 pm Interventions: ED Discharge Assessment Last Done: 09/11/22 14:43 Discharge Date/Time: 09/11/22 14:44
[2022-09-11 10:55] VITALS: BP 153/88; PULSE 62; RESP 18; O2SAT 99
[2022-09-11] MEDS: oxyCODONE HCl Immed Release 5 MG TABLET PO (11:17)
[2022-09-11] MEDS: Meclizine HCl 25 MG TABLET PO (13:34)
[2022-09-11] MEDS: diazePAM 2 MG TABLET PO (13:34)
[2022-09-11 13:36] VITALS: BP 148/75; PULSE 51; RESP 16; O2SAT 98
== END 2022-09-11 14:44 | disposition home or self-care (01) ==
PROVIDERS: Emergency Provider Emergency Medicine; PCP Family Medicine
DX: R42 Dizziness and giddiness (principal); H66.92 Otitis media, unspecified, left ear; I10 Essential (primary) hypertension; Z79.899 Other long term (current) drug therapy
CPT/HCPCS: 36415; 70450; 80048; 80076; 83690; 85025; 93005; 99284

== ENCOUNTER 2023-03-30 08:06 | Outpatient (REF) | payer MEDICAID, OTHER, SELFPAY ==
--- NOTE | ~2023-03-30 | MM_ITS ---
EXAMINATION: MM SCREENING DIGITAL BREAST TOMOSYNTHESIS, BILATERAL CLINICAL INFORMATION: Screening. Asymptomatic. The lifetime risk of breast cancer based on the Tyrer-Cuzick Model is 10.5%. COMPARISON: Mammography: September 16, 2018 and studies dating back to January 27, 2015 TECHNIQUE: Digital breast tomosynthesis is performed in both the craniocaudal and mediolateral oblique views along with computer-aided detection (CAD). Synthesized 2D images are generated from the tomosynthesis. FINDINGS: There are scattered areas of fibroglandular density (ACR BI-RADS breast composition Category b). There are no new significant masses, abnormal calcifications, or other abnormalities. MM/MM tomosynthesis screening BI IMPRESSION: No significant changes ASSESSMENT: BI-RADS 1: Negative RECOMMENDATION: Routine annual mammography screening. This patient's information was entered into a reminder system with a target due date for their next mammogram.
== END 2023-03-30 08:07 | disposition home or self-care (01) ==
LOC: HO.MAMMO 08:06
PROVIDERS: PCP Family Medicine; Visit Provider Family Medicine
DX: Z12.31 Encounter for screening mammogram for malignant neoplasm of breast (principal)
CPT/HCPCS: 77063; 77067

== ENCOUNTER 2023-05-23 02:26 | Emergency (ER) | payer MEDICAID, OTHER, SELFPAY ==
--- NOTE | ~2023-05-23 | XR_ITS ---
EXAMINATION: XR CHEST CLINICAL INFORMATION: Question allergic reaction COMPARISON: 02/21/2022 TECHNIQUE: Frontal view of the chest was obtained. FINDINGS: Lung volumes are symmetric. No focal consolidation is seen. No evidence of pneumothorax, significant pleural effusion, or overt pulmonary edema. The cardiomediastinal contour is unremarkable. No acute osseous findings are seen. XR/XR chest 1V IMPRESSION: No acute cardiopulmonary findings.
[2023-05-23 02:39] VITALS: BP 132/76; PULSE 70; RESP 20; TEMP 36.3; O2SAT 97; BMI 40.7
[2023-05-23 03:20] VITALS: BP 132/72; PULSE 62
[2023-05-23] MEDS: EPINEPHrine 1 MG/ML VIAL 0.3 MG IM (03:20)
[2023-05-23] MEDS: methylPREDNISolone Sod Succ 125 MG/2 ML VIAL IVPUSH (03:23)
[2023-05-23] MEDS: diphenhydrAMINE HCL 50 MG/ML VIAL IVPUSH (03:23)
[2023-05-23] MEDS: Famotidine/PF 20 MG/2 ML VIAL IVPUSH (03:23)
--- NOTE | 2023-05-23 03:25 | ED_ITS ---
HPI - Allergic Reaction General Chief complaint: Allergic Reaction Stated complaint: allergic reaction Time Seen by Provider: 05/23/23 03:15 Source: patient Mode of arrival: ambulatory Limitations: no limitations History of Present Illness HPI narrative: Patient comes to the emergency room complaining of a possible allergic reaction. Patient states that she was sleeping, suddenly in the middle of the night she w sushil up with significant shortness of breath, cough, chest tightness and burning sensation in her throat with itchiness feeling like her throat was closing. Patient states that she feels burning sensation in her skin on the chest, no rash. Patient denies any known allergies. Patient states that approximately 7 hours ago she ate [place] but has never had any issue with seafood in the past Related Data Previous Rx's Medication Instructions Recorded dicyclomine 20 mg tablet 20 mg PO TID PRN pain, moderate 09/28/20 #30 tabs famotidine 20 mg tablet (Pepcid) 20 mg PO DAILY PRN pain, moderate 09/28/20 #30 tabs cyclobenzaprine 10 mg tablet 10 mg PO TID PRN muscle spasm #12 11/22/20 tabs lidocaine 5 % topical patch 1 patch topical DAILY #15 ea 11/22/20 (Lidoderm) naproxen 500 mg tablet 500 mg PO BID PRN pain #20 tabs 11/22/20 metoclopramide HCl 10 mg tablet 10 mg PO Q6H PRN headache #10 tabs 07/16/21 omeprazole 20 mg capsule,delayed 20 mg PO DAILY 14 days #14 caps 10/07/21 release ondansetron 4 mg disintegrating 4 mg PO Q8H PRN nausea and 10/07/21 tablet vomiting #20 tabs amoxicillin 875 mg-potassium 1 tab PO BID #14 tabs 12/25/21 clavulanate 125 mg tablet amoxicillin 500 mg capsule 500 mg PO TID #30 caps 09/11/22 meclizine 25 mg tablet 25 mg PO TID PRN dizziness #15 tabs 09/11/22 epinephrine 0.3 mg/0.3 mL 0.3 mg (0.3 mL) IM Q4H PRN 05/23/23 injection, auto-injector (EpiPen) anaphylaxis #2 ea Allergies Allergy/AdvReac Type Severity Reaction Status Date / Time No Known Allergies Allergy Verified 09/28/20 00:32 [No Known Allergies*] Review of Systems Review of Systems: Constitutional : No Weight loss, No Fever, No Chills, No Night Sweats, No Fatigue, No Malaise ENT/Mouth : No Hearing loss, No Ear Pain, No Nasal Congestion, No Sinus Pain, No Hoarseness, No sore throat, No Rhinorrhea, No Swallowing Difficulty Eyes: No Eye Pain, No Swelling, No Redness, No Foreign Body, No Discharge, No Vision Changes Cardiovascular : No Chest Pain, No SOB, No Dyspnea on Exertion, No Orthopnea, No Edema, No Palpitations Respiratory : Complaining of cough, wheezing, shortness of breath Gastrointestinal : No Nausea, No Vomiting, No Diarrhea, No Constipation, No abdominal Pain, No Hematochezia, No Melena Genitourinary : no irregular bleeding, No Dysuria, No Urinary Frequency, No Hematuria, No Urinary Incontinence, No Urgency, No Flank Pain, No Urinary Flow Changes, No Hesitancy Musculoskeletal : No joint pain, No Myalgias, No Joint Swelling Skin : No Skin Lesions, No rash Neuro : No Weakness, No Numbness, No Paresthesias, No Loss of Consciousness, No Dizziness, No Headache Psych : No Anxiety/Panic, No Depression, No SI/HI/AH/VH, No Social Issues, Heme/Lymph: No Bruising, No Bleeding,No Lymphadenopathy Endocrine : No Polyuria, No Polydipsia, No Temperature Intolerance [facility] Past Medical History Medical History Heart problem HTN (hypertension) Migraine Vertigo Social History Social History Alcohol intake: current Alcohol intake frequency: does not drink Patient Tobacco Use Status: Never used Tobacco Advance Directives: No Advance Directives Information Provided: No Physical Exam ED Vital Signs: Vital Signs - 24 hr 05/23/23 02:39 05/23/23 03:20 05/23/23 03:28 Temperature 97.3 F Pulse Rate 70 62 70 Respiratory Rate 20 22 H Blood Pressure 132/76 132/72 Pulse Oximetry 97 Oxygen Delivery Method Room Air 05/23/23 05:54 Temperature Pulse Rate 78 Respiratory Rate 16 Blood Pressure Pulse Oximetry 100 Oxygen Delivery Method Room Air BMI result Body Mass Index 40.7 Const Other: Appearance: Alert. Oriented X3. No acute distress. Eyes: Pupils equal, round and reactive to light. ENT: Pharynx normal. Neck: Normal inspection. Neck supple. No lymph nodes noted. No crepitus CVS: Normal heart rate and rhythm. Pulses normal. Normal S1 and S2 Respiratory: No respiratory distress, bilateral wheezing, no crackles or rales, oxygen saturation 97% on room air Abdomen: Soft and nontender. No rigidity. No distention. Skin: Skin warm and dry. Normal skin color. Normal skin turgor. Extremities: No lower extremity edema. No Lacerations. No Rash Neuro: Oriented X 3. No motor deficit. No sensory deficit. Moving all extremities. No slurred speech. CN 2 through 12 grossly intact Psych: calm, cooperative, normal affect Course Course Course Narrative: -patient states that she has history of childhood asthma but has never had an exacerbation as an adult. Patient has a known history of allergens. -patient complaining of itchy throat sensation that is closing. Patient does not have any angioedema or oropharyngeal swelling. Patient given IM epinephrine, Solu-Medrol, Pepcid and Benadryl. Also, patient receiving an albuterol treatment. Medications Administered Discontinued Medications Generic Name Dose Route Start Last Admin Trade Name Freq PRN Reason Stop Dose Admin Albuterol Sulfate 10 mg 05/23/23 03:15 05/23/23 03:26 Albuterol Sulfate (0.083%) 2.5 Mg/3 Ml Vial.Neb INHALE 05/23/23 03:16 10 mg ONCE ONE Administration Diphenhydramine HCl 50 mg 05/23/23 03:14 05/23/23 03:23 Diphenhydramine Hcl 50 Mg/Ml Vial IVPUSH 05/23/23 03:15 50 mg ONCE ONE Administration Epinephrine 0.3 mg 05/23/23 03:14 05/23/23 03:20 Epinephrine 1 Mg/Ml Vial IM 05/23/23 03:15 0.3 mg STAT STA Administration Famotidine 20 mg 05/23/23 03:14 05/23/23 03:23 Famotidine/Pf 20 Mg/2 Ml Vial IVPUSH 05/23/23 03:15 20 mg ONCE ONE Administration Methylprednisolone Sodium Succinate 125 mg 05/23/23 03:14 05/23/23 03:23 Methylprednisolone Sod Succ 125 Mg/2 Ml Vial IVPUSH 05/23/23 03:15 125 mg ONCE ONE Administration Medical Decision Making Medical Decision Making [facility] Narrative: -patient came in wheezing, having an allergic reaction versus asthma exacerbation, admission was considered -my interpretation of chest x-ray, no acute abnormalities -after the IV treatment, patient asymptomatic, no angioedema, no foreign body sensation in throat, no shortness of breath, no wheezing Differential Diagnosis Differential Diagnoses: The differential diagnosis associated with the presentation includes (Allergic reaction, asthma exacerbation, anxiety) Admission/Observation Consideration of admission/observation: Escalation of care including admission/observation considered Independent Interpretation I performed an independent interpretation of an: Plain X-Ray Radiology Impression Discussion of test interpretation with radiology: I have reviewed the radiologist's reading. Radiologist Impression: FINDINGS: Lung volumes are symmetric. No focal consolidation is seen. No evidence of pneumothorax, significant pleural effusion, or overt pulmonary edema. The cardiomediastinal contour is unremarkable. No acute osseous findings are seen. XR/XR chest 1V IMPRESSION: No acute cardiopulmonary findings. Independent Historian Clinical information obtained from an independent historian. History obtained from or confirmed by: Spouse Critical Care Time Critical Care Time Critical Care Time: Yes Total Critical Care Time: 60 Attestation: I have personally provided critical care time. Time includes review of lab data, radiology results, discussion with consultants, and monitoring for potential decompensation. Intervention performed as documented. Discharge Plan Discharge Clinical Impression: Allergic reaction Patient Disposition: Home, Self-Care Instructions: General Allergic Reaction (ED) Additional Instructions: Please follow-up with your primary care physician tomorrow. If you have any worsening or new symptoms, please return to the emergency room or call 911 Prescriptions: New epinephrine [EpiPen] 0.3 mg/0.3 mL auto-injector 0.3 mg IM Q4H PRN (Reason: anaphylaxis) Qty: 2 0RF No Action famotidine [Pepcid] 20 mg tablet 20 mg PO DAILY PRN (Reason: pain, moderate) Qty: 30 0RF dicyclomine 20 mg tablet 20 mg PO TID PRN (Reason: pain, moderate) Qty: 30 0RF cyclobenzaprine 10 mg tablet 10 mg PO TID PRN (Reason: muscle spasm) Qty: 12 0RF lidocaine [Lidoderm] 5 % adhesive patch,medicated 1 patch topical DAILY Qty: 15 0RF Rx Instructions: leave on most painful area for up to 12 hrs naproxen 500 mg tablet 500 mg PO BID PRN (Reason: pain) Qty: 20 0RF metoclopramide HCl 10 mg tablet 10 mg PO Q6H PRN (Reason: headache) Qty: 10 0RF meclizine 25 mg tablet 25 mg PO TID PRN (Reason: dizziness) Qty: 15 0RF amoxicillin 500 mg capsule 500 mg PO TID Qty: 30 0RF omeprazole 20 mg capsule,delayed release(DR/EC) 20 mg PO DAILY 14 Days Qty: 14 0RF ondansetron 4 mg tablet,disintegrating 4 mg PO Q8H PRN (Reason: nausea and vomiting) Qty: 20 0RF amoxicillin-pot clavulanate 875-125 mg tablet 1 tab PO BID Qty: 14 0RF
[2023-05-23] MEDS: Albuterol Sulfate (0.083%) 2.5 MG/3 ML VIAL.NEB 10 MG INHALE (03:26)
[2023-05-23 03:28] VITALS: PULSE 70; RESP 22; O2SAT 98
--- NOTE | 2023-05-23 05:00 | PC.NURSE ---
pt ambulatory to and from bathroom with steady gait no apparent distress
[2023-05-23 05:54] VITALS: PULSE 78; RESP 16; O2SAT 100
--- NOTE | 2023-05-23 05:54 | PC.NURSE ---
pt looks and sounds much better than when she came in - no audible wheezing, no respiratory distress and no cough. vital signs stable O2 100% RA. pt able to speak clear full sentences with no apparent distress. pt states she is ready to go home. provider aware
== END 2023-05-23 06:31 | disposition home or self-care (01) ==
PROVIDERS: Emergency Provider Emergency Medicine
DX: R06.02 Shortness of breath (principal); T78.40XA Allergy, unspecified, initial encounter; X58.XXXA Exposure to other specified factors, initial encounter
CPT/HCPCS: 71045; 94640; 96372; 96374; 96375; 99283; 99284; J0171; J1200; J2930

== ENCOUNTER 2023-07-26 09:44 | Outpatient (REF) | payer MEDICAID, OTHER, SELFPAY ==
[2023-07-26 11:17] LABS: MANUAL DIFF FLAG NO
[2023-07-26 11:43] LABS: Basophils Percent Auto 0.4 % (0-2); Eosinophils Absolute Auto 0.1 X10*3/uL (0.0-0.4); Eosinophils Percent Auto 2.1 % (0-4); Hematocrit 36.9 % (37.0-47.0); Imm Gran Abs Auto 0.01 X10*3/uL (0.00-0.03); Imm Gran Pct Auto 0.2 % (0.0-0.4); Lymphocytes Absolute Auto 2.5 X10*3/uL (1.2-4.9); Lymphocytes Percent Auto 44.6 % (20-40); Mean Corpuscular HGB Conc 32.5 g/dl (31.0-35.0); Mean Corpuscular Hemoglobin 28.2 pg (27.0-33.0); Mean Corpuscular Volume 86.8 fL (80.0-98.0); Monocytes Absolute Auto 0.4 X10*3/uL (0.1-1.2); Monocytes Percent Auto 7.9 % (2-11); Neutrophils Absolute Auto 2.5 x10*3/uL (2.0-8.3); Neutrophils Percent Auto 44.8 % (45-73); Platelet Count 195 X10*3/uL (160-400); Red Blood Count 4.25 X10*6/uL (4.20-5.50); Red Cell Distribution Width 13.9 % (11.0-16.0); White Blood Count 5.6 X10*3/uL (4.8-10.8)
[2023-07-26 12:06] LABS: Alanine Aminotransferase 19 U/L (0-31); Albumin Level 3.8 g/dL (3.5-5.0); Alkaline Phosphatase 94 U/L (39-117); Anion Gap 12 (12-20); Aspartate Amino Transferase 22 U/L (5-31); Bilirubin Direct < 0.2 mg/dL (0.0-0.5); Bilirubin Total 0.2 mg/dL (0.0-1.0); Blood Urea Nitrogen 13 mg/dL (9-16); Carbon Dioxide 27 mmol/L (22-29); Chloride 105 mmol/L (96-108); Cholesterol 182 mg/dL (<200); Estimated Glomerular Filt Rate > 60; Glucose Random 99 mg/dL (60-115); HDL Cholesterol 42 mg/dL (>40); LDL Cholesterol Calculated 121 mg/dL (<100); Potassium 3.8 mmol/L (3.3-5.1); Sodium 140 mmol/L (135-145); Triglycerides 95 mg/dL (<150)
[2023-07-26 12:10] LABS: Free T4 (Free Thyroxine) 0.88 ng/dL (0.71-1.85); Thyroid Stimulating Hormone 1.33 uIU/mL (0.32-4.0)
[2023-07-26 12:11] LABS: Estimated Average Glucose 105 mg/dL; Hemoglobin A1c % 5.3 % (<6.0)
== END 2023-07-26 09:45 | disposition home or self-care (01) ==
LOC: HO.HHCL 09:44
PROVIDERS: Visit Provider Family Medicine
DX: I10 Essential (primary) hypertension (principal)
CPT/HCPCS: 36415; 80048; 80061; 80076; 82306; 83036; 84439; 84443; 85025

== ENCOUNTER 2024-02-02 20:14 | Emergency (ER) | payer MEDICAID, OTHER, SELFPAY ==
--- NOTE | 2024-02-02 20:19 | ECG_ITS ---
Test Reason : CHEST PAIN Blood Pressure : / mmHG Vent. Rate : 067 BPM Atrial Rate : 067 BPM P-R Int : 160 ms QRS Dur : 078 ms QT Int : 402 ms P-R-T Axes : 033 007 016 degrees QTc Int : 424 ms Normal sinus rhythm Normal ECG When compared with ECG of 11-SEP-2022 09:27, No significant change was found Referred By: Pearl Jensen Electronically Signed By:Claus Hennessy
[2024-02-02 20:29] VITALS: BP 119/62; PULSE 62; RESP 18; TEMP 36.6; O2SAT 100; BMI 42.5
--- NOTE | 2024-02-02 20:34 | ED_ITS ---
HPI - General Adult General Chief complaint: Chest Pain Stated complaint: chest pain, numbness L Body Time Seen by Provider: 02/03/24 04:17 Source: patient Mode of arrival: ambulatory Limitations: no limitations History of Present Illness HPI narrative: Patient comes to the emergency room complaining of an episode of vertigo today. Patient states that she was in spiritism, had an episode of vertigo. Patient states that she has had this before. According to the patient, usually she gets migraines before and then she gets vertigo. Patient states that a few days ago she had a migraine and she was expecting to get vertigo which it happened. Patient states she takes meclizine with minimal relief. Patient denies any chest pain or shortness of breath. Patient states that earlier today she had whole-body discomfort along with the vertigo. At this time, patient feeling better. Related Data Previous Rx's Medication Instructions Recorded dicyclomine 20 mg tablet 20 mg PO TID PRN pain, moderate 09/28/20 #30 tabs famotidine 20 mg tablet (Pepcid) 20 mg PO DAILY PRN pain, moderate 09/28/20 #30 tabs cyclobenzaprine 10 mg tablet 10 mg PO TID PRN muscle spasm #12 11/22/20 tabs lidocaine 5 % topical patch 1 patch topical DAILY #15 ea 11/22/20 (Lidoderm) naproxen 500 mg tablet 500 mg PO BID PRN pain #20 tabs 11/22/20 metoclopramide HCl 10 mg tablet 10 mg PO Q6H PRN headache #10 tabs 07/16/21 omeprazole 20 mg capsule,delayed 20 mg PO DAILY 14 days #14 caps 10/07/21 release ondansetron 4 mg disintegrating 4 mg PO Q8H PRN nausea and 10/07/21 tablet vomiting #20 tabs amoxicillin 875 mg-potassium 1 tab PO BID #14 tabs 12/25/21 clavulanate 125 mg tablet amoxicillin 500 mg capsule 500 mg PO TID #30 caps 09/11/22 meclizine 25 mg tablet 25 mg PO TID PRN dizziness #15 tabs 09/11/22 epinephrine 0.3 mg/0.3 mL 0.3 mg (0.3 mL) IM Q4H PRN 05/23/23 injection, auto-injector (EpiPen) anaphylaxis #2 ea Allergies Allergy/AdvReac Type Severity Reaction Status Date / Time No Known Allergies Allergy Verified 09/28/20 00:32 [No Known Allergies*] Review of Systems 2 Review of Systems: Constitutional : No Weight loss, No Fever, No Chills, No Night Sweats, No Fatigue, No Malaise ENT/Mouth : No Hearing loss, No Ear Pain, No Nasal Congestion, No Sinus Pain, No Hoarseness, No sore throat, No Rhinorrhea, No Swallowing Difficulty Eyes: No Eye Pain, No Swelling, No Redness, No Foreign Body, No Discharge, No Vision Changes Cardiovascular : No Chest Pain, No SOB, No Dyspnea on Exertion, No Orthopnea, No Edema, No Palpitations Respiratory : No Cough, No Sputum, No Wheezing, No Smoke Exposure, No Dyspnea Gastrointestinal : No Nausea, No Vomiting, No Diarrhea, No Constipation, No abdominal Pain, No Hematochezia, No Melena Genitourinary : no irregular bleeding, No Dysuria, No Urinary Frequency, No Hematuria, No Urinary Incontinence, No Urgency, No Flank Pain, No Urinary Flow Changes, No Hesitancy Musculoskeletal : No joint pain, No Myalgias, No Joint Swelling Skin : No Skin Lesions, No rash Neuro : No Weakness, No Numbness, No Paresthesias, No Loss of Consciousness, complaining of vertigo, no headache at this time Psych : No Anxiety/Panic, No Depression, No SI/HI/AH/VH, No Social Issues, Heme/Lymph: No Bruising, No Bleeding,No Lymphadenopathy Endocrine : No Polyuria, No Polydipsia, No Temperature Intolerance PMFSH Past Medical History Medical History Migraine Vertigo HTN (hypertension) Heart problem Social History Social History Alcohol intake: current Alcohol intake frequency: does not drink Patient Tobacco Use Status: Never used Tobacco Smoked in Last 30 Days: No Use of substances other than those prescribed or required for medical reasons: No Advance Directives: No Advance Directives Information Provided: No Patient : No Physical Exam ED Vital Signs: Vital Signs - 24 hr 02/02/24 20:29 02/03/24 00:48 02/03/24 05:37 Temperature 97.9 F 97.5 F 98.7 F Pulse Rate 62 60 56 Respiratory Rate 18 18 16 Blood Pressure 119/62 129/52 L 130/69 Pulse Oximetry 100 100 100 Oxygen Delivery Method Room Air Room Air Room Air BMI result Body Mass Index 42.5 Const Other: Appearance: Alert. Oriented X3. No acute distress. Eyes: Pupils equal, round and reactive to light. No nystagmus ENT: Pharynx normal. Neck: Normal inspection. Neck supple. No lymph nodes noted. No crepitus CVS: Normal heart rate and rhythm. Pulses normal. Normal S1 and S2 Respiratory: No respiratory distress. Breath sounds normal. No Wheezing. No rales Abdomen: Soft and nontender. No rigidity. No distention. Skin: Skin warm and dry. Normal skin color. Normal skin turgor. Extremities: No lower extremity edema. No Lacerations. No Rash Neuro: Oriented X 3. No motor deficit. No sensory deficit. Moving all extremities. No slurred speech. CN 2 through 12 grossly intact Psych: calm, cooperative, normal affect Course Course Course Narrative: RME:?48 yo greek speaking female hx of HTN here for eval of bilateral LE numbness, tongue numbness, and chest pain that began acutely while at spiritism 2 hours ago. no trauma/injury. no hx of VTE. she is wondering if this could be her vertigo. vitals wnl. exam nonfocal. ambulating w/ steady gait. no pronator drift. no facial droop. ambulating w/ steady gait. rrr. lungs cta b/l. strength intact throughout. labs, ekg, trop ordered +/- head imaging Full HPI, ROS and PE to be performed by the primary ED provider. Medications Administered Discontinued Medications Generic Name Dose Route Start Last Admin Trade Name Arashq PRN Reason Stop Dose Admin Diazepam 2 mg 02/03/24 04:25 02/03/24 04:40 Diazepam 2 Mg Tablet PO 02/03/24 04:26 2 mg ONCE ONE Administration Meclizine HCl 50 mg 02/03/24 04:25 02/03/24 04:40 Meclizine Hcl 25 Mg Tablet PO 02/03/24 04:26 50 mg ONCE ONE Administration Metoclopramide HCl 10 mg 02/03/24 04:25 02/03/24 04:40 Metoclopramide Hcl 10 Mg Tablet PO 02/03/24 04:26 10 mg ONCE ONE Administration Medical Decision Making Medical Decision Making [facility] Narrative: -my interpretation of labs: Normal hematology, chemistry and trop -patient denies headache at this time, patient states she has still a bit dizzy, room spinning. Patient reports steady gait if needed to walk. Patient given p.o. lorazepam, meclizine, Reglan -patient states she feels much better, steady gait, no longer dizzy My interpretation of EKG: Normal sinus rhythm, heart rate 67, no ST segment depression or elevation, nonspecific T-wave inversion in lead 3, QTC 424 -patient has good truncal stability, normal gait, CVA not suspected. Differential Diagnosis Differential Diagnoses: The differential diagnosis associated with the presentation includes (Vertigo, BPPV) Lab Data [facility] Lab Attestation statement: I reviewed the patient's lab results. 02/02/24 21:17 02/02/24 21:17 Labs: Lab Results 02/02/24 Range/Units 21:17 WBC 6.7 (4.8-10.8) X10*3/uL RBC 4.11 L (4.20-5.50) X10*6/uL Hgb 11.9 L (12.0-16.0) g/dl Hct 35.9 L (37.0-47.0) % MCV 87.3 (80.0-98.0) fL MCH 29.0 (27.0-33.0) pg MCHC 33.1 (31.0-35.0) g/dl RDW 13.3 (11.0-16.0) % Plt Count 169 (160-400) X10*3/uL MPV 10.8 (9.4-12.3) fL Immature Gran % (Auto) 0.3 (0.0-0.4) % Neut % (Auto) 37.1 L (45-73) % Lymph % (Auto) 50.8 H (20-40) % [place] % (Auto) 8.2 (2-11) % Eos % (Auto) 3.3 (0-4) % Baso % (Auto) 0.3 (0-2) % Lymph # (Auto) 3.4 (1.2-4.9) X10*3/uL [place] # (Auto) 0.6 (0.1-1.2) X10*3/uL Eos # (Auto) 0.2 (0.0-0.4) X10*3/uL Baso # (Auto) 0.0 (0.0-0.2) X10*3/uL Abs Immat Gran (auto) 0.02 (0.00-0.03) X10*3/uL Absolute Neuts (auto) 2.5 (2.0-8.3) x10*3/uL Absolute Nucleated RBC 0.000 (0.0-0.012) X10*3/uL Nucleated RBC % (auto) 0.0 (0.0-0.2) /100WBC Sodium 137 (135-145) mmol/L Potassium 3.9 (3.3-5.1) mmol/L Chloride 105 (96-108) mmol/L Carbon Dioxide 22 (22-29) mmol/L Anion Gap 14 (12-20) BUN 16 (9-16) mg/dL Creatinine 0.64 (0.5-1.4) mg/dL Estim Creat Clear Calc 130.5 Estimated GFR > 60 Random Glucose 113 (60-115) mg/dL Calcium 9.1 (8.4-10.2) mg/dL Total Bilirubin 0.2 (0.0-1.0) mg/dL AST 22 (5-31) U/L ALT 21 (0-31) U/L Alkaline Phosphatase 103 (39-117) U/L Troponin I High Sens < 2.7 (<3.5-17.0) ng/L Total Protein 7.3 (6.5-8.0) g/dL Albumin 3.9 (3.5-5.0) g/dL Independent Interpretation I performed an independent interpretation of an: EKG Discharge Plan Discharge Clinical Impression: Vertigo Patient Disposition: Home, Self-Care Instructions: Vertigo (ED) Additional Instructions: Please follow-up with your primary care physician tomorrow. If you have any worsening or new symptoms, please return to the emergency room or call 911 Prescriptions: No Action famotidine [Pepcid] 20 mg tablet 20 mg PO DAILY PRN (Reason: pain, moderate) Qty: 30 0RF dicyclomine 20 mg tablet 20 mg PO TID PRN (Reason: pain, moderate) Qty: 30 0RF cyclobenzaprine 10 mg tablet 10 mg PO TID PRN (Reason: muscle spasm) Qty: 12 0RF lidocaine [Lidoderm] 5 % adhesive patch,medicated 1 patch topical DAILY Qty: 15 0RF Rx Instructions: leave on most painful area for up to 12 hrs naproxen 500 mg tablet 500 mg PO BID PRN (Reason: pain) Qty: 20 0RF metoclopramide HCl 10 mg tablet 10 mg PO Q6H PRN (Reason: headache) Qty: 10 0RF meclizine 25 mg tablet 25 mg PO TID PRN (Reason: dizziness) Qty: 15 0RF amoxicillin 500 mg capsule 500 mg PO TID Qty: 30 0RF omeprazole 20 mg capsule,delayed release(DR/EC) 20 mg PO DAILY 14 Days Qty: 14 0RF ondansetron 4 mg tablet,disintegrating 4 mg PO Q8H PRN (Reason: nausea and vomiting) Qty: 20 0RF amoxicillin-pot clavulanate 875-125 mg tablet 1 tab PO BID Qty: 14 0RF epinephrine [EpiPen] 0.3 mg/0.3 mL auto-injector 0.3 mg IM Q4H PRN (Reason: anaphylaxis) Qty: 2 0RF
[2024-02-02 21:22] LABS: MANUAL DIFF FLAG NO
[2024-02-02 21:27] LABS: Basophils Percent Auto 0.3 % (0-2); Eosinophils Absolute Auto 0.2 X10*3/uL (0.0-0.4); Eosinophils Percent Auto 3.3 % (0-4); Hematocrit 35.9 % (37.0-47.0); Hemoglobin 11.9 g/dl (12.0-16.0); Imm Gran Abs Auto 0.02 X10*3/uL (0.00-0.03); Imm Gran Pct Auto 0.3 % (0.0-0.4); Lymphocytes Absolute Auto 3.4 X10*3/uL (1.2-4.9); Lymphocytes Percent Auto 50.8 % (20-40); Mean Corpuscular HGB Conc 33.1 g/dl (31.0-35.0); Mean Corpuscular Volume 87.3 fL (80.0-98.0); Mean Platelet Volume 10.8 fL (9.4-12.3); Monocytes Absolute Auto 0.6 X10*3/uL (0.1-1.2); Monocytes Percent Auto 8.2 % (2-11); Neutrophils Absolute Auto 2.5 x10*3/uL (2.0-8.3); Neutrophils Percent Auto 37.1 % (45-73); Platelet Count 169 X10*3/uL (160-400); Red Blood Count 4.11 X10*6/uL (4.20-5.50); Red Cell Distribution Width 13.3 % (11.0-16.0); White Blood Count 6.7 X10*3/uL (4.8-10.8)
[2024-02-02 21:43] LABS: Alanine Aminotransferase 21 U/L (0-31); Albumin Level 3.9 g/dL (3.5-5.0); Alkaline Phosphatase 103 U/L (39-117); Anion Gap 14 (12-20); Aspartate Amino Transferase 22 U/L (5-31); Bilirubin Total 0.2 mg/dL (0.0-1.0); Blood Urea Nitrogen 16 mg/dL (9-16); Calcium 9.1 mg/dL (8.4-10.2); Carbon Dioxide 22 mmol/L (22-29); Chloride 105 mmol/L (96-108); Creatinine Clr Calc Pharmacy 130.5; Estimated Glomerular Filt Rate > 60; Glucose Random 113 mg/dL (60-115); Potassium 3.9 mmol/L (3.3-5.1); Sodium 137 mmol/L (135-145); Total Protein 7.3 g/dL (6.5-8.0)
[2024-02-02 21:50] LABS: Troponin-I High Sensitivity < 2.7 ng/L (<3.5-17.0)
[2024-02-03 00:48] VITALS: BP 129/52; PULSE 60; RESP 18; TEMP 36.4; O2SAT 100
[2024-02-03] MEDS: Metoclopramide HCl 10 MG TABLET PO (04:40)
[2024-02-03] MEDS: Meclizine HCl 25 MG TABLET 50 MG PO (04:40)
[2024-02-03] MEDS: diazePAM 2 MG TABLET PO (04:40)
[2024-02-03 05:37] VITALS: BP 130/69; PULSE 56; RESP 16; TEMP 37.1; O2SAT 100
[2024-02-03 06:50] VITALS: BP 123/72; PULSE 67; RESP 16; TEMP 36.1
== END 2024-02-03 06:51 | disposition home or self-care (01) ==
PROVIDERS: Physician Assistant Medical; Emergency Provider Emergency Medicine; PCP Family Medicine
DX: R42 Dizziness and giddiness (principal); I10 Essential (primary) hypertension; R07.9 Chest pain, unspecified; R20.0 Anesthesia of skin
CPT/HCPCS: 36415; 80053; 84484; 85025; 93005; 99284; 99285

== ENCOUNTER → 2024-02-02 20:19 | Outpatient (BNV) | payer MEDICAID, SELFPAY | PROVIDERS: Emergency Provider Emergency Medicine; PCP Family Medicine; Visit Provider Internal Medicine Cardiovascular Disease | DX: R07.9 Chest pain, unspecified (principal) | CPT/HCPCS: 93010 ==

== ENCOUNTER 2024-02-06 18:28 | Emergency (ER) | payer MEDICAID, OTHER, SELFPAY ==
--- NOTE | ~2024-02-06 | CT_ITS ---
EXAMINATION: CT HEAD WITHOUT CONTRAST CLINICAL INFORMATION: Altered mental status. COMPARISON: Head CT dated 09/11/2022. TECHNIQUE: Contiguous axial imaging was performed from the skullbase to vertex without intravenous administration of contrast. This CT examination was performed using dose optimization techniques as appropriate, variously including the following: *Automated exposure control *Adjustment of mA and/or kV according to patient size (this includes techniques or standardized protocols for targeted exams where dose is matched to indication/reason for exam; i.e. extremities or head) *Use of iterative reconstruction technique DLP: 723 mGy-cm. FINDINGS: There is no evidence of acute intracranial hemorrhage or territorial infarction. No abnormal mass effect or midline shift is seen. Menezes to white matter differentiation is well preserved. No extra-axial fluid collections are identified. The ventricles are normal in size. There is no abnormal attenuation within the brain parenchyma. The osseous structures and soft tissues are normal. The mastoid air cells and visualized portions of the paranasal sinuses are well aerated. CT/CT head/brain wo IV con IMPRESSION: No acute intracranial pathology.
[2024-02-06] MEDS: LORazepam 2 MG/ML VIAL 1 MG IVPUSH (18:36)
[2024-02-06 18:39] LABS: Glucose, Whole Blood 94 mg/dL (60-115)
--- NOTE | 2024-02-06 18:40 | ECG_ITS ---
Test Reason : WEAKNESS Blood Pressure : / mmHG Vent. Rate : 078 BPM Atrial Rate : 078 BPM P-R Int : 146 ms QRS Dur : 078 ms QT Int : 408 ms P-R-T Axes : 042 018 041 degrees QTc Int : 465 ms Normal sinus rhythm Normal ECG When compared with ECG of 02-FEB-2024 20:19, No significant change was found Referred By: Sarah Ny Electronically Signed By:BRETT MOULTON MD
[2024-02-06 18:41] VITALS: BP 132/77; PULSE 63; RESP 20; O2SAT 99; BMI 34.3
[2024-02-06] MEDS: 0.9 % Sodium Chloride 1,000 ML 999 ML IV (18:47)
--- NOTE | 2024-02-06 18:50 | ED.GENADULT ---
HPI - General Adult General Chief complaint: General Medical Stated complaint: loss of consiousness Time Seen by Provider: 02/06/24 18:36 History of Present Illness HPI narrative: Patient is a 48-year-old female presented today with having an acute episode of altered mental status. Became unresponsive. Has a history of dizziness. History of palpitations. History of hypertension. Lots of stressors in life patient's father 2 days ago. Patient is from home. There has no fever no chills. No coughing or congestion or upper respiratory symptoms. No diaphoresis. Patient is from home. Related Data Previous Rx's Medication Instructions Recorded dicyclomine 20 mg tablet 20 mg PO TID PRN pain, moderate 09/28/20 #30 tabs famotidine 20 mg tablet (Pepcid) 20 mg PO DAILY PRN pain, moderate 09/28/20 #30 tabs cyclobenzaprine 10 mg tablet 10 mg PO TID PRN muscle spasm #12 11/22/20 tabs lidocaine 5 % topical patch 1 patch topical DAILY #15 ea 11/22/20 (Lidoderm) naproxen 500 mg tablet 500 mg PO BID PRN pain #20 tabs 11/22/20 metoclopramide HCl 10 mg tablet 10 mg PO Q6H PRN headache #10 tabs 07/16/21 omeprazole 20 mg capsule,delayed 20 mg PO DAILY 14 days #14 caps 10/07/21 release ondansetron 4 mg disintegrating 4 mg PO Q8H PRN nausea and 10/07/21 tablet vomiting #20 tabs amoxicillin 875 mg-potassium 1 tab PO BID #14 tabs 12/25/21 clavulanate 125 mg tablet amoxicillin 500 mg capsule 500 mg PO TID #30 caps 09/11/22 meclizine 25 mg tablet 25 mg PO TID PRN dizziness #15 tabs 09/11/22 epinephrine 0.3 mg/0.3 mL 0.3 mg (0.3 mL) IM Q4H PRN 05/23/23 injection, auto-injector (EpiPen) anaphylaxis #2 ea Allergies Allergy/AdvReac Type Severity Reaction Status Date / Time No Known Allergies Allergy Verified 09/28/20 00:32 [No Known Allergies*] Review of Systems Review of Systems: Unable to obtain patient's review of systems secondary to mental status Yes Unobtainable due to mental status PMFSH Past Medical History Source: unable to obtain Medical History Migraine Vertigo HTN (hypertension) Heart problem Social History Social History Alcohol intake: current Alcohol intake frequency: does not drink Patient Tobacco Use Status: Never used Tobacco Advance Directives: No Advance Directives Information Provided: No Physical Exam ED Vital Signs: Vital Signs - 24 hr 02/06/24 18:41 02/06/24 21:13 Temperature 97.8 F Pulse Rate 63 72 Respiratory Rate 20 16 Blood Pressure 132/77 111/51 L Pulse Oximetry 99 96 Oxygen Delivery Method Room Air Room Air BMI result Body Mass Index 34.3 Appearance: Extremely lethargic grimaces to pain localizes the pain. Mumbles Eyes: Pupils equal, round and reactive to light. ENT: Pharynx normal. Neck: Normal inspection. Neck supple. No lymph nodes noted. No crepitus CVS: Normal heart rate and rhythm. Pulses normal. Normal S1 and S2 Respiratory: No respiratory distress. Breath sounds normal. No Wheezing. No rales Abdomen: Soft and nontender. No rigidity. No distention. good BS x4 Skin: Skin warm and dry. Normal skin color. Normal skin turgor. Extremities: No lower extremity edema. Neurovascular intact to all extremities. No Lacerations. No Rash Neuro: Able to move extremities on painful stimuli Medications Administered Discontinued Medications Generic Name Dose Route Start Last Admin Trade Name Freq PRN Reason Stop Dose Admin Sodium Chloride 1,000 mls @ 999 mls/hr 02/06/24 18:45 02/06/24 18:47 Ns IV 02/06/24 19:45 999 mls/hr .Q1H1M DOROTHEA Administration Lorazepam 1 mg 02/06/24 18:39 02/06/24 18:36 Lorazepam 2 Mg/Ml Vial IVPUSH 02/06/24 18:40 1 mg ONCE ONE Administration Medical Decision Making Medical Decision Making [facility] Narrative: Patient's sugar is running 100 there has no evidence for hypoglycemia. Pupils are equal reactive patient's breathing with an elevated respiratory rate not consistent with having an opiate overdose. An EKG was done my interpretation showed a sinus rhythm heart rate is 78 NV QRS QTC normal there is no acute ST segment elevation there is diffuse T-wave flattening noted. No signs of STEMI. Patient was given a non-rebreather mass along with Ativan which made her more awake alert. Symptomatically feels much improved patient is now able to speak. She is able to recall her name. Will monitor carefully. Additional labs and radiology was ordered. Patient's electrolytes are unremarkable. Sugar was over 100 there is no evidence of hypoglycemia. Patient's symptoms not consistent with having narcotic overdose. VBG showed no CO2 retention. Patient was given a dose of Ativan for possible anxiety. Symptomatically improved after sleeping. Patient's CT scan of the head was grossly negative for any acute evidence of bleeding. No fracture. Patient's hCG did come back at 5. Patient did not report any risk for . With nevertheless have patient follow-up with urogynaecologist on an outpatient basis. Currently in stable condition. Will also have patient follow-up with her primary. Reaction question secondary to stress. Differential Diagnosis Differential Diagnoses: The differential diagnosis associated with the presentation includes Hypoglycemia, intracranial bleed, anxiety, CO2 retention, anemia, narcotic use Admission/Observation Consideration of admission/observation: Escalation of care including admission/observation considered However patient's symptom improved dramatically Consult Healthcare Provider Management of the patient was discussed with: Power Shovel Operator Helper (XANDER) Lab Data MDM Lab Attestation statement: I reviewed the patient's lab results. 02/06/24 18:45 02/06/24 18:45 Labs: Lab Results 02/06/24 02/06/24 02/06/24 Range/Units 18:33 18:45 18:45 WBC 10.1 (4.8-10.8) X10*3/uL RBC 4.34 (4.20-5.50) X10*6/uL Hgb 12.6 (12.0-16.0) g/dl Hct 37.8 (37.0-47.0) % MCV 87.1 (80.0-98.0) fL MCH 29.0 (27.0-33.0) pg MCHC 33.3 (31.0-35.0) g/dl RDW 13.2 (11.0-16.0) % Plt Count 210 (160-400) X10*3/uL MPV 11.6 (9.4-12.3) fL Immature Gran % (Auto) 0.2 (0.0-0.4) % Neut % (Auto) 29.8 L (45-73) % Lymph % (Auto) 61.3 H (20-40) % Whiteside % (Auto) 6.2 (2-11) % Eos % (Auto) 2.1 (0-4) % Baso % (Auto) 0.4 (0-2) % Lymph # (Auto) 6.2 H (1.2-4.9) X10*3/uL Whiteside # (Auto) 0.6 (0.1-1.2) X10*3/uL Eos # (Auto) 0.2 (0.0-0.4) X10*3/uL Baso # (Auto) 0.0 (0.0-0.2) X10*3/uL Abs Immat Gran (auto) 0.02 (0.00-0.03) X10*3/uL Absolute Neuts (auto) 3.0 (2.0-8.3) x10*3/uL Absolute Nucleated RBC 0.000 (0.0-0.012) X10*3/uL Nucleated RBC % (auto) 0.0 (0.0-0.2) /100WBC Smear Tech's Comments VERIFIED Hold Purple Top SEE NOTE VBG pH (7.32-7.43) VBG pCO2 mmHg VBG pO2 mmHg VBG HCO3 (22-26) mmol/L VBG O2 Saturation % VBG Base Excess mmol/L Sodium Cancelled 139 Potassium Cancelled Chloride Carbon Dioxide Anion Gap BUN Creatinine Estim Creat Clear Calc Estimated GFR POC Glucose 94 (60-115) mg/dL Random Glucose Calcium Total Bilirubin Direct Bilirubin AST ALT Alkaline Phosphatase Troponin I High Sens (<3.5-17.0) ng/L Total Protein Albumin Beta HCG, Quant mIU/mL Urine Opiates Screen (Not Detect) Urine Fentanyl Screen (Not Detect) Ur Barbiturates Screen (Not Detect) Ur Phencyclidine Scrn (Not Detect) Ur Amphetamines Screen (Not Detect) U Benzodiazepines Scrn (Not Detect) Urine Cocaine Screen (Not Detect) U Marijuana (THC) Screen (Not Detect) Ethyl Alcohol 02/06/24 02/06/24 02/06/24 Range/Units 18:45 18:45 18:45 WBC (4.8-10.8) X10*3/uL RBC (4.20-5.50) X10*6/uL Hgb (12.0-16.0) g/dl Hct (37.0-47.0) % MCV (80.0-98.0) fL MCH (27.0-33.0) pg MCHC (31.0-35.0) g/dl RDW (11.0-16.0) % Plt Count (160-400) X10*3/uL MPV (9.4-12.3) fL Immature Gran % (Auto) (0.0-0.4) % Neut % (Auto) (45-73) % Lymph % (Auto) (20-40) % Whiteside % (Auto) (2-11) % Eos % (Auto) (0-4) % Baso % (Auto) (0-2) % Lymph # (Auto) (1.2-4.9) X10*3/uL Whiteside # (Auto) (0.1-1.2) X10*3/uL Eos # (Auto) (0.0-0.4) X10*3/uL Baso # (Auto) (0.0-0.2) X10*3/uL Abs Immat Gran (auto) (0.00-0.03) X10*3/uL Absolute Neuts (auto) (2.0-8.3) x10*3/uL Absolute Nucleated RBC (0.0-0.012) X10*3/uL Nucleated RBC % (auto) (0.0-0.2) /100WBC Smear Tech's Comments Hold Purple Top VBG pH (7.32-7.43) VBG pCO2 mmHg VBG pO2 mmHg VBG HCO3 (22-26) mmol/L VBG O2 Saturation % VBG Base Excess mmol/L Sodium Potassium 3.9 Chloride Cancelled 107 Carbon Dioxide Cancelled 17 L Anion Gap Cancelled BUN Creatinine Estim Creat Clear Calc Estimated GFR POC Glucose (60-115) mg/dL Random Glucose Calcium Total Bilirubin Direct Bilirubin AST ALT Alkaline Phosphatase Troponin I High Sens (<3.5-17.0) ng/L Total Protein Albumin Beta HCG, Quant mIU/mL Urine Opiates Screen (Not Detect) Urine Fentanyl Screen (Not Detect) Ur Barbiturates Screen (Not Detect) Ur Phencyclidine Scrn (Not Detect) Ur Amphetamines Screen (Not Detect) U Benzodiazepines Scrn (Not Detect) Urine Cocaine Screen (Not Detect) U Marijuana (THC) Screen (Not Detect) Ethyl Alcohol 02/06/24 02/06/24 02/06/24 Range/Units 18:45 18:45 18:45 WBC (4.8-10.8) X10*3/uL RBC (4.20-5.50) X10*6/uL Hgb (12.0-16.0) g/dl Hct (37.0-47.0) % MCV (80.0-98.0) fL MCH (27.0-33.0) pg MCHC (31.0-35.0) g/dl RDW (11.0-16.0) % Plt Count (160-400) X10*3/uL MPV (9.4-12.3) fL Immature Gran % (Auto) (0.0-0.4) % Neut % (Auto) (45-73) % Lymph % (Auto) (20-40) % Whiteside % (Auto) (2-11) % Eos % (Auto) (0-4) % Baso % (Auto) (0-2) % Lymph # (Auto) (1.2-4.9) X10*3/uL Whiteside # (Auto) (0.1-1.2) X10*3/uL Eos # (Auto) (0.0-0.4) X10*3/uL Baso # (Auto) (0.0-0.2) X10*3/uL Abs Immat Gran (auto) (0.00-0.03) X10*3/uL Absolute Neuts (auto) (2.0-8.3) x10*3/uL Absolute Nucleated RBC (0.0-0.012) X10*3/uL Nucleated RBC % (auto) (0.0-0.2) /100WBC Smear Tech's Comments Hold Purple Top VBG pH (7.32-7.43) VBG pCO2 mmHg VBG pO2 mmHg VBG HCO3 (22-26) mmol/L VBG O2 Saturation % VBG Base Excess mmol/L Sodium Potassium Chloride Carbon Dioxide Anion Gap 19 BUN Cancelled 11 Creatinine Cancelled 0.79 Estim Creat Clear Calc Cancelled Estimated GFR POC Glucose (60-115) mg/dL Random Glucose Calcium Total Bilirubin Direct Bilirubin AST ALT Alkaline Phosphatase Troponin I High Sens (<3.5-17.0) ng/L Total Protein Albumin Beta HCG, Quant mIU/mL Urine Opiates Screen (Not Detect) Urine Fentanyl Screen (Not Detect) Ur Barbiturates Screen (Not Detect) Ur Phencyclidine Scrn (Not Detect) Ur Amphetamines Screen (Not Detect) U Benzodiazepines Scrn (Not Detect) Urine Cocaine Screen (Not Detect) U Marijuana (THC) Screen (Not Detect) Ethyl Alcohol 02/06/24 02/06/24 02/06/24 Range/Units 18:45 18:45 18:45 WBC (4.8-10.8) X10*3/uL RBC (4.20-5.50) X10*6/uL Hgb (12.0-16.0) g/dl Hct (37.0-47.0) % MCV (80.0-98.0) fL MCH (27.0-33.0) pg MCHC (31.0-35.0) g/dl RDW (11.0-16.0) % Plt Count (160-400) X10*3/uL MPV (9.4-12.3) fL Immature Gran % (Auto) (0.0-0.4) % Neut % (Auto) (45-73) % Lymph % (Auto) (20-40) % Whiteside % (Auto) (2-11) % Eos % (Auto) (0-4) % Baso % (Auto) (0-2) % Lymph # (Auto) (1.2-4.9) X10*3/uL Whiteside # (Auto) (0.1-1.2) X10*3/uL Eos # (Auto) (0.0-0.4) X10*3/uL Baso # (Auto) (0.0-0.2) X10*3/uL Abs Immat Gran (auto) (0.00-0.03) X10*3/uL Absolute Neuts (auto) (2.0-8.3) x10*3/uL Absolute Nucleated RBC (0.0-0.012) X10*3/uL Nucleated RBC % (auto) (0.0-0.2) /100WBC Smear Tech's Comments Hold Purple Top VBG pH (7.32-7.43) VBG pCO2 mmHg VBG pO2 mmHg VBG HCO3 (22-26) mmol/L VBG O2 Saturation % VBG Base Excess mmol/L Sodium Potassium Chloride Carbon Dioxide Anion Gap BUN Creatinine Estim Creat Clear Calc 93.9 Estimated GFR Cancelled > 60 POC Glucose (60-115) mg/dL Random Glucose Cancelled 102 Calcium Cancelled Total Bilirubin Direct Bilirubin AST ALT Alkaline Phosphatase Troponin I High Sens (<3.5-17.0) ng/L Total Protein Albumin Beta HCG, Quant mIU/mL Urine Opiates Screen (Not Detect) Urine Fentanyl Screen (Not Detect) Ur Barbiturates Screen (Not Detect) Ur Phencyclidine Scrn (Not Detect) Ur Amphetamines Screen (Not Detect) U Benzodiazepines Scrn (Not Detect) Urine Cocaine Screen (Not Detect) U Marijuana (THC) Screen (Not Detect) Ethyl Alcohol 02/06/24 02/06/24 02/06/24 Range/Units 18:45 18:45 18:45 WBC (4.8-10.8) X10*3/uL RBC (4.20-5.50) X10*6/uL Hgb (12.0-16.0) g/dl Hct (37.0-47.0) % MCV (80.0-98.0) fL MCH (27.0-33.0) pg MCHC (31.0-35.0) g/dl RDW (11.0-16.0) % Plt Count (160-400) X10*3/uL MPV (9.4-12.3) fL Immature Gran % (Auto) (0.0-0.4) % Neut % (Auto) (45-73) % Lymph % (Auto) (20-40) % Whiteside % (Auto) (2-11) % Eos % (Auto) (0-4) % Baso % (Auto) (0-2) % Lymph # (Auto) (1.2-4.9) X10*3/uL Whiteside # (Auto) (0.1-1.2) X10*3/uL Eos # (Auto) (0.0-0.4) X10*3/uL Baso # (Auto) (0.0-0.2) X10*3/uL Abs Immat Gran (auto) (0.00-0.03) X10*3/uL Absolute Neuts (auto) (2.0-8.3) x10*3/uL Absolute Nucleated RBC (0.0-0.012) X10*3/uL Nucleated RBC % (auto) (0.0-0.2) /100WBC Smear Tech's Comments Hold Purple Top VBG pH (7.32-7.43) VBG pCO2 mmHg VBG pO2 mmHg VBG HCO3 (22-26) mmol/L VBG O2 Saturation % VBG Base Excess mmol/L Sodium Potassium Chloride Carbon Dioxide Anion Gap BUN Creatinine Estim Creat Clear Calc Estimated GFR POC Glucose (60-115) mg/dL Random Glucose Calcium 9.8 D Total Bilirubin Cancelled 0.3 Direct Bilirubin Cancelled 0.1 AST Cancelled ALT Alkaline Phosphatase Troponin I High Sens (<3.5-17.0) ng/L Total Protein Albumin Beta HCG, Quant mIU/mL Urine Opiates Screen (Not Detect) Urine Fentanyl Screen (Not Detect) Ur Barbiturates Screen (Not Detect) Ur Phencyclidine Scrn (Not Detect) Ur Amphetamines Screen (Not Detect) U Benzodiazepines Scrn (Not Detect) Urine Cocaine Screen (Not Detect) U Marijuana (THC) Screen (Not Detect) Ethyl Alcohol 02/06/24 02/06/24 02/06/24 Range/Units 18:45 18:45 18:45 WBC (4.8-10.8) X10*3/uL RBC (4.20-5.50) X10*6/uL Hgb (12.0-16.0) g/dl Hct (37.0-47.0) % MCV (80.0-98.0) fL MCH (27.0-33.0) pg MCHC (31.0-35.0) g/dl RDW (11.0-16.0) % Plt Count (160-400) X10*3/uL MPV (9.4-12.3) fL Immature Gran % (Auto) (0.0-0.4) % Neut % (Auto) (45-73) % Lymph % (Auto) (20-40) % Whiteside % (Auto) (2-11) % Eos % (Auto) (0-4) % Baso % (Auto) (0-2) % Lymph # (Auto) (1.2-4.9) X10*3/uL Whiteside # (Auto) (0.1-1.2) X10*3/uL Eos # (Auto) (0.0-0.4) X10*3/uL Baso # (Auto) (0.0-0.2) X10*3/uL Abs Immat Gran (auto) (0.00-0.03) X10*3/uL Absolute Neuts (auto) (2.0-8.3) x10*3/uL Absolute Nucleated RBC (0.0-0.012) X10*3/uL Nucleated RBC % (auto) (0.0-0.2) /100WBC Smear Tech's Comments Hold Purple Top VBG pH (7.32-7.43) VBG pCO2 mmHg VBG pO2 mmHg VBG HCO3 (22-26) mmol/L VBG O2 Saturation % VBG Base Excess mmol/L Sodium Potassium Chloride Carbon Dioxide Anion Gap BUN Creatinine Estim Creat Clear Calc Estimated GFR POC Glucose (60-115) mg/dL Random Glucose Calcium Total Bilirubin Direct Bilirubin AST 29 ALT Cancelled 20 Alkaline Phosphatase Cancelled 107 Troponin I High Sens < 2.7 (<3.5-17.0) ng/L Total Protein Cancelled Albumin Beta HCG, Quant mIU/mL Urine Opiates Screen (Not Detect) Urine Fentanyl Screen (Not Detect) Ur Barbiturates Screen (Not Detect) Ur Phencyclidine Scrn (Not Detect) Ur Amphetamines Screen (Not Detect) U Benzodiazepines Scrn (Not Detect) Urine Cocaine Screen (Not Detect) U Marijuana (THC) Screen (Not Detect) Ethyl Alcohol 02/06/24 02/06/24 02/06/24 Range/Units 18:45 18:45 18:45 WBC (4.8-10.8) X10*3/uL RBC (4.20-5.50) X10*6/uL Hgb (12.0-16.0) g/dl Hct (37.0-47.0) % MCV (80.0-98.0) fL MCH (27.0-33.0) pg MCHC (31.0-35.0) g/dl RDW (11.0-16.0) % Plt Count (160-400) X10*3/uL MPV (9.4-12.3) fL Immature Gran % (Auto) (0.0-0.4) % Neut % (Auto) (45-73) % Lymph % (Auto) (20-40) % Whiteside % (Auto) (2-11) % Eos % (Auto) (0-4) % Baso % (Auto) (0-2) % Lymph # (Auto) (1.2-4.9) X10*3/uL Whiteside # (Auto) (0.1-1.2) X10*3/uL Eos # (Auto) (0.0-0.4) X10*3/uL Baso # (Auto) (0.0-0.2) X10*3/uL Abs Immat Gran (auto) (0.00-0.03) X10*3/uL Absolute Neuts (auto) (2.0-8.3) x10*3/uL Absolute Nucleated RBC (0.0-0.012) X10*3/uL Nucleated RBC % (auto) (0.0-0.2) /100WBC Smear Tech's Comments Hold Purple Top VBG pH (7.32-7.43) VBG pCO2 mmHg VBG pO2 mmHg VBG HCO3 (22-26) mmol/L VBG O2 Saturation % VBG Base Excess mmol/L Sodium Potassium Chloride Carbon Dioxide Anion Gap BUN Creatinine Estim Creat Clear Calc Estimated GFR POC Glucose (60-115) mg/dL Random Glucose Calcium Total Bilirubin Direct Bilirubin AST ALT Alkaline Phosphatase Troponin I High Sens (<3.5-17.0) ng/L Total Protein 8.5 H Albumin Cancelled 4.2 Beta HCG, Quant 5 mIU/mL Urine Opiates Screen (Not Detect) Urine Fentanyl Screen (Not Detect) Ur Barbiturates Screen (Not Detect) Ur Phencyclidine Scrn (Not Detect) Ur Amphetamines Screen (Not Detect) U Benzodiazepines Scrn (Not Detect) Urine Cocaine Screen (Not Detect) U Marijuana (THC) Screen (Not Detect) Ethyl Alcohol Cancelled 45 02/06/24 02/06/24 Range/Units 18:59 20:10 WBC (4.8-10.8) X10*3/uL RBC (4.20-5.50) X10*6/uL Hgb (12.0-16.0) g/dl Hct (37.0-47.0) % MCV (80.0-98.0) fL MCH (27.0-33.0) pg MCHC (31.0-35.0) g/dl RDW (11.0-16.0) % Plt Count (160-400) X10*3/uL MPV (9.4-12.3) fL Immature Gran % (Auto) (0.0-0.4) % Neut % (Auto) (45-73) % Lymph % (Auto) (20-40) % Whiteside % (Auto) (2-11) % Eos % (Auto) (0-4) % Baso % (Auto) (0-2) % Lymph # (Auto) (1.2-4.9) X10*3/uL Whiteside # (Auto) (0.1-1.2) X10*3/uL Eos # (Auto) (0.0-0.4) X10*3/uL Baso # (Auto) (0.0-0.2) X10*3/uL Abs Immat Gran (auto) (0.00-0.03) X10*3/uL Absolute Neuts (auto) (2.0-8.3) x10*3/uL Absolute Nucleated RBC (0.0-0.012) X10*3/uL Nucleated RBC % (auto) (0.0-0.2) /100WBC Smear Tech's Comments Hold Purple Top VBG pH 7.41 (7.32-7.43) VBG pCO2 34 mmHg VBG pO2 32 mmHg VBG HCO3 22 (22-26) mmol/L VBG O2 Saturation 48.0 % VBG Base Excess -1.5 mmol/L Sodium Potassium Chloride Carbon Dioxide Anion Gap BUN Creatinine Estim Creat Clear Calc Estimated GFR POC Glucose (60-115) mg/dL Random Glucose Calcium Total Bilirubin Direct Bilirubin AST ALT Alkaline Phosphatase Troponin I High Sens (<3.5-17.0) ng/L Total Protein Albumin Beta HCG, Quant mIU/mL Urine Opiates Screen Not Detected (Not Detect) Urine Fentanyl Screen Not Detected (Not Detect) Ur Barbiturates Screen Not Detected (Not Detect) Ur Phencyclidine Scrn Not Detected (Not Detect) Ur Amphetamines Screen Not Detected (Not Detect) U Benzodiazepines Scrn Not Detected (Not Detect) Urine Cocaine Screen Not Detected (Not Detect) U Marijuana (THC) Screen Not Detected (Not Detect) Ethyl Alcohol ABG Data Attestation ABG: I personally reviewed and interpreted this ABG as follows: Interpretation: Normal pH no CO2 retention Independent Interpretation I performed an independent interpretation of an: EKG (My interpretation of patient's EKG showed a sinus rhythm heart rate is 80 NV QRS QTC normal there is no acute ST segment elevation noted.) and CT Scan (No gross evidence of bleeding) Radiology Impression Discussion of test interpretation with radiology: I have reviewed the radiologist's reading. Independent Historian Clinical information obtained from an independent historian. History obtained from or confirmed by: Other (Amylase) Chronic Conditions Anxiety Social Determinants Patient?s care significantly limited by Social Determinants of Health including: Problems related to primary support group Critical Care Time Critical Care Time Critical Care Time: Yes Total Critical Care Time: 40 Attestation: I have personally provided 40 minutes of critical care time exclusive of time spent on separately billable procedures. ?Time includes review of lab data, radiology results, discussion with consultants, and monitoring for potential decompensation. ?Interventions were performed as documented above Discharge Plan Discharge Clinical Impression: Anxiety Patient Disposition: Home, Self-Care Instructions: Anxiety (ED) Prescriptions: No Action famotidine [Pepcid] 20 mg tablet 20 mg PO DAILY PRN (Reason: pain, moderate) Qty: 30 0RF dicyclomine 20 mg tablet 20 mg PO TID PRN (Reason: pain, moderate) Qty: 30 0RF cyclobenzaprine 10 mg tablet 10 mg PO TID PRN (Reason: muscle spasm) Qty: 12 0RF lidocaine [Lidoderm] 5 % adhesive patch,medicated 1 patch topical DAILY Qty: 15 0RF Rx Instructions: leave on most painful area for up to 12 hrs naproxen 500 mg tablet 500 mg PO BID PRN (Reason: pain) Qty: 20 0RF metoclopramide HCl 10 mg tablet 10 mg PO Q6H PRN (Reason: headache) Qty: 10 0RF meclizine 25 mg tablet 25 mg PO TID PRN (Reason: dizziness) Qty: 15 0RF amoxicillin 500 mg capsule 500 mg PO TID Qty: 30 0RF omeprazole 20 mg capsule,delayed release(DR/EC) 20 mg PO DAILY 14 Days Qty: 14 0RF ondansetron 4 mg tablet,disintegrating 4 mg PO Q8H PRN (Reason: nausea and vomiting) Qty: 20 0RF amoxicillin-pot clavulanate 875-125 mg tablet 1 tab PO BID Qty: 14 0RF epinephrine [EpiPen] 0.3 mg/0.3 mL auto-injector 0.3 mg IM Q4H PRN (Reason: anaphylaxis) Qty: 2 0RF Referrals: Mariaa Galindo [Emergency Nurse] - 02/08/24 Dhruv Smith MD [Physician] - 2 days (Your quantitative test came back barely positive. Will need follow-up on an outpatient basis with OBGYN.)
[2024-02-06 19:01] LABS: Basophils Percent Auto 0.4 % (0-2); Eosinophils Absolute Auto 0.2 X10*3/uL (0.0-0.4); Eosinophils Percent Auto 2.1 % (0-4); Hematocrit 37.8 % (37.0-47.0); Hemoglobin 12.6 g/dl (12.0-16.0); Imm Gran Abs Auto 0.02 X10*3/uL (0.00-0.03); Imm Gran Pct Auto 0.2 % (0.0-0.4); Lymphocytes Percent Auto 61.3 % (20-40); MANUAL DIFF FLAG SCAN; Mean Corpuscular HGB Conc 33.3 g/dl (31.0-35.0); Mean Corpuscular Volume 87.1 fL (80.0-98.0); Mean Platelet Volume 11.6 fL (9.4-12.3); Monocytes Absolute Auto 0.6 X10*3/uL (0.1-1.2); Monocytes Percent Auto 6.2 % (2-11); Neutrophils Percent Auto 29.8 % (45-73); Platelet Count 210 X10*3/uL (160-400); Red Blood Count 4.34 X10*6/uL (4.20-5.50); Red Cell Distribution Width 13.2 % (11.0-16.0); SCAN SMEAR FLAG 1; White Blood Count 10.1 X10*3/uL (4.8-10.8)
[2024-02-06 19:06] LABS: VBG Base Excess -1.5 mmol/L; VBG HCO3 22 mmol/L (22-26); VBG pCO2 34 mmHg; VBG pH 7.41 (7.32-7.43); VBG pO2 32 mmHg
[2024-02-06 19:06] LABS: Venous Blood Gas Refer to POC result
[2024-02-06 19:24] LABS: Alanine Aminotransferase 20 U/L (0-31); Albumin Level 4.2 g/dL (3.5-5.0); Alkaline Phosphatase 107 U/L (39-117); Anion Gap 19 (12-20); Aspartate Amino Transferase 29 U/L (5-31); Bilirubin Direct 0.1 mg/dL (0.0-0.5); Bilirubin Total 0.3 mg/dL (0.0-1.0); Blood Urea Nitrogen 11 mg/dL (9-16); Calcium 9.8 mg/dL (8.4-10.2); Carbon Dioxide 17 mmol/L (22-29); Chloride 107 mmol/L (96-108); Creatinine Clr Calc Pharmacy 93.9; Estimated Glomerular Filt Rate > 60; Ethanol 45 mg/dL; Glucose Random 102 mg/dL (60-115); HCG Quantitative 5 mIU/mL; Potassium 3.9 mmol/L (3.3-5.1); Sodium 139 mmol/L (135-145); Total Protein 8.5 g/dL (6.5-8.0); Troponin-I High Sensitivity < 2.7 ng/L (<3.5-17.0)
[2024-02-06 19:28] LABS: Lymphocytes Absolute Auto 6.2 X10*3/uL (1.2-4.9)
[2024-02-06 19:29] LABS: SLIDE REVIEW VERIFIED
[2024-02-06 20:24] LABS: Amphetamine Screen Urine Not Detected (Not Detect); Barbiturates, Urine Not Detected (Not Detect); Benzodiazepines Screen Urine Not Detected (Not Detect); Cannabinoid Screen Urine Not Detected (Not Detect); Cocaine Screen Urine Not Detected (Not Detect); Fentanyl, urine Not Detected (Not Detect); Opiate Screen Urine Not Detected (Not Detect); Phencyclidine Screen Urine Not Detected (Not Detect)
[2024-02-06 21:13] VITALS: BP 111/51; PULSE 72; RESP 16; TEMP 36.6; O2SAT 96
[2024-02-06 22:46] VITALS: BP 111/57; PULSE 72; RESP 16; TEMP 36.6; O2SAT 96
== END 2024-02-06 22:47 | disposition home or self-care (01) ==
PROVIDERS: Emergency Provider Emergency Medicine Emergency Medical Services
DX: F41.1 Generalized anxiety disorder (principal); F43.0 Acute stress reaction; R55 Syncope and collapse; R42 Dizziness and giddiness; R00.2 Palpitations; Z79.899 Other long term (current) drug therapy
CPT/HCPCS: 36415; 70450; 80048; 80076; 80307; 82803; 82947; 84484; 84702; 85025; 93005; 96361; 96374; 99285; J2060

== ENCOUNTER → 2024-02-06 18:40 | Outpatient (BNV) | payer SELFPAY | PROVIDERS: Emergency Provider Emergency Medicine Emergency Medical Services; Visit Provider Internal Medicine Cardiovascular Disease | DX: R53.1 Weakness (principal) | CPT/HCPCS: 93010 ==

== ENCOUNTER 2024-02-09 08:10 | Outpatient (REF) | payer MEDICAID, OTHER, SELFPAY ==
[2024-02-09 08:45] LABS: HCG Quantitative 5 mIU/mL
== END 2024-02-09 08:11 | disposition home or self-care (01) ==
LOC: HO.LAB 08:10
PROVIDERS: PCP Family Medicine; Visit Provider Obstetrics & Gynecology
DX: R79.89 Other specified abnormal findings of blood chemistry (principal); N91.2 Amenorrhea, unspecified
CPT/HCPCS: 36415; 84702; 99202

== ENCOUNTER 2024-02-09 09:52 | Outpatient (AMB) | payer SELFPAY ==
[2024-02-09 10:21] VITALS: BP 118/74; BMI 42.0
--- NOTE | 2024-02-09 10:21 | A.OFFVIS_ITS ---
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 The patient has amenorrhea for the last 5 years. HCG repeated today still 5 PFSH Medical History Migraine Vertigo HTN (hypertension) Heart problem Surgical History Hx of section Hx of tonsillectomy Family History Mother Diabetes Father HTN (hypertension) Heart disease Sister Diabetes Social History Housing: Apartment Alcohol intake: current Alcohol intake frequency: does not drink Patient Tobacco Use Status: Never used Tobacco Current occupational status: unemployed Sexual orientation: Straight/Heterosexual Gender identity: Female Female Reproductive History Menstrual Menopause type: natural Total pregnancies: 1 Full term: 1 Number of Living Children: 1 Review of Systems Const All systems reviewed & are unremarkable except as noted in HPI and below Reports as per HPI and Reports no additional complaints GI Reports no additional complaints Reports no additional complaints Physical Exam Vital Signs: BMI result Body Mass Index 42.0 Assessment & Plan Assessment & Plan (1) Elevated serum hCG: Code(s): R79.89 - Other specified abnormal findings of blood chemistry Plan: discussed with the patient the possible cause of elevated hCG including elevated but not limited to LH related to menopause. Will repeat hCG, FSH/ LH in a week. Instructions given the patient to call in case of pelvic pain and or bleeding and schedule a 1 week follow-up appointment. All questions answered, the patient verbalized understanding Orders: Orders Follicle Stimulating Hormone Today N91.2 - Amenorrhea, unspecified HCG Quantitative Today N91.2 - Amenorrhea, unspecified Lutenizing Hormone Today N91.2 - Amenorrhea, unspecified Medications: Discontinued dicyclomine Discontinued Reason: Stopped on Transfer 20 mg PO TID PRN 30 tabs 0RF pain, moderate cyclobenzaprine Discontinued Reason: Patient no longer taking 10 mg PO TID PRN 12 tabs 0RF muscle spasm naproxen Discontinued Reason: Patient no longer taking 500 mg PO BID PRN 20 tabs 0RF pain metoclopramide HCl Discontinued Reason: Patient Completed Course 10 mg PO Q6H PRN 10 tabs 0RF headache famotidine (Pepcid) Discontinued Reason: Patient no longer taking 20 mg PO DAILY PRN 30 tabs 0RF pain, moderate lidocaine 5% (Lidoderm) leave on most painful area for up to 12 hrs Discontinued Reason: Patient no longer taking 1 patch topical DAILY 15 ea 0RF amoxicillin Discontinued Reason: Patient Completed Course 500 mg PO TID 30 caps 0RF amoxicillin-pot clavulanate 875-125 mg Discontinued Reason: Patient Completed Course 1 tab PO BID 14 tabs 0RF Coding Level of Care Code New Pt Level 3 (96944) Diagnoses Elevated serum hCG R79.89
== END 2024-02-09 11:18 | disposition home or self-care (01) ==
PROVIDERS: Visit Provider Obstetrics & Gynecology
DX: R79.89 Other specified abnormal findings of blood chemistry (principal)
CPT/HCPCS: 99203

== ENCOUNTER 2024-02-17 13:25 | Outpatient (REF) | payer MEDICAID, OTHER, SELFPAY ==
[2024-02-17 14:06] LABS: HCG Quantitative 4 mIU/mL
[2024-02-18 07:48] LABS: Follicle Stimulating Hormone 80.3 mIU/mL; Lutenizing Hormone 28.9 mIU/mL
== END 2024-02-17 13:26 | disposition home or self-care (01) ==
LOC: HO.LAB 13:25
PROVIDERS: PCP Family Medicine; Visit Provider Obstetrics & Gynecology
DX: N91.2 Amenorrhea, unspecified (principal)
CPT/HCPCS: 36415; 83001; 83002; 84702

== ENCOUNTER 2024-02-21 11:32 | Outpatient (AMB) | payer SELFPAY ==
--- NOTE | 2024-02-21 11:33 | A.OFFVIS_ITS ---
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 HCG on 02/08 was 5, repeated in 02/16 was 4, FSH/LH on 02/16 was 80.3/28.9 PFSH Medical History Migraine Vertigo HTN (hypertension) Heart problem Surgical History Hx of section Hx of tonsillectomy Family History Mother Diabetes Father HTN (hypertension) Heart disease Sister Diabetes Social History Housing: Apartment Alcohol intake: current Alcohol intake frequency: does not drink Patient Tobacco Use Status: Never used Tobacco Current occupational status: unemployed Sexual orientation: Straight/Heterosexual Gender identity: Female Review of Systems Const All systems reviewed & are unremarkable except as noted in HPI and below Reports as per HPI and Reports no additional complaints GI Reports no additional complaints Reports no additional complaints Assessment & Plan Assessment & Plan (1) Elevated serum hCG: Code(s): R79.89 - Other specified abnormal findings of blood chemistry Plan: Discussed with the patient the results of hCG at 4 without evidence of significant increase associated with elevated LH, the elevated hCG is explained by elevated LH due to menopause. Instructions given the patient to call in case of vaginal bleeding. All questions answered, the patient verbalized understanding. I spent a total of 20 minutes reviewing the chart, talking to the patient via video and documenting in the medical record. Telehealth Telehealth Location of provider rendering services: practice address Location of patient: address on file Patient Identification confirmed using: Name, : Yes Telehealth method: video Patient verbally consented to treatment: Yes Patient verbally consented to billing insurance company: Yes Patient informed of any privacy concerns related to visit: Yes Coding Level of Care Code Tele Est Pt Level 1 (00592) Diagnoses Elevated serum hCG R79.89
== END 2024-02-21 18:19 ==
PROVIDERS: PCP Family Medicine; Visit Provider Obstetrics & Gynecology
DX: R79.89 Other specified abnormal findings of blood chemistry (principal)
CPT/HCPCS: 99211

== ENCOUNTER → 2024-02-21 11:32 | Outpatient (BNVA) | payer MEDICAID, OTHER, SELFPAY | PROVIDERS: PCP Family Medicine; Visit Provider Obstetrics & Gynecology ==

== ENCOUNTER 2024-04-04 08:21 | Outpatient (REF) | payer MEDICAID, OTHER, SELFPAY | END 2024-04-04 08:22 | disposition home or self-care (01) | LOC: HO.MAMMO 08:21 | PROVIDERS: PCP Family Medicine; Visit Provider Family Medicine | DX: Z12.31 Encounter for screening mammogram for malignant neoplasm of breast (principal) | CPT/HCPCS: 77063; 77067 ==

== ENCOUNTER → 2024-04-04 08:30 | Outpatient (BNV) | payer SELFPAY | PROVIDERS: PCP Family Medicine; Visit Provider Radiology Diagnostic Radiology | DX: Z12.31 Encounter for screening mammogram for malignant neoplasm of breast (principal) | CPT/HCPCS: 77063; 77067 ==

== ENCOUNTER 2024-06-22 12:32 | Outpatient (REF) | payer SELFPAY ==
[2024-06-22 13:38] LABS: Hematocrit 39.4 % (37.0-47.0); Hemoglobin 13.1 g/dl (12.0-16.0); Mean Corpuscular HGB Conc 33.2 g/dl (31.0-35.0); Mean Corpuscular Hemoglobin 28.6 pg (27.0-33.0); Mean Platelet Volume 11.3 fL (9.4-12.3); Platelet Count 207 X10*3/uL (160-400); Red Blood Count 4.58 X10*6/uL (4.20-5.50); Red Cell Distribution Width 14.1 % (11.0-16.0); White Blood Count 6.4 X10*3/uL (4.8-10.8)
[2024-06-22 14:14] LABS: Estimated Average Glucose 108 mg/dL; Hemoglobin A1c % 5.4 % (<6.0)
[2024-06-22 14:29] LABS: Alanine Aminotransferase 18 U/L (0-31); Alkaline Phosphatase 109 U/L (39-117); Anion Gap 12 (12-20); Aspartate Amino Transferase 23 U/L (5-31); Bilirubin Direct 0.1 mg/dL (0.0-0.5); Bilirubin Total 0.3 mg/dL (0.0-1.0); Blood Urea Nitrogen 16 mg/dL (9-16); Calcium 9.5 mg/dL (8.4-10.2); Carbon Dioxide 25 mmol/L (22-29); Chloride 105 mmol/L (96-108); Cholesterol 215 mg/dL (<200); Estimated Glomerular Filt Rate > 60; Glucose Random 87 mg/dL (60-115); HDL Cholesterol 51 mg/dL (>40); LDL Cholesterol Calculated 139 mg/dL (<100); Potassium 4.2 mmol/L (3.3-5.1); Sodium 138 mmol/L (135-145); Total Protein 7.6 g/dL (6.5-8.0); Triglycerides 128 mg/dL (<150)
[2024-06-22 14:32] LABS: Creatinine Urine 80.33 mg/dL; Microalbumin Urine < 5.0 mg/L
[2024-06-22 14:46] LABS: Free T4 (Free Thyroxine) 0.85 ng/dL (0.71-1.85); Vitamin D 25-OH Total 34.9 ng/mL (>30)
[2024-06-22 14:51] LABS: CT PCR NOT DETECTED (Not Detect.); NG PCR NOT DETECTED (Not Detect.)
[2024-06-23 04:36] LABS: HBS Num1 > 1000.00 mIU/mL (0-7.99); HBsAGNum1 0.26 S/CO (0.00-0.99); HIV AB/AG Nonreactive (Nonreactive); HIV Num 1 0.05 S/CO (0.00-0.99); Hepatitis B Surface Antigen Negative (Negative); ~Hepatitis B Surface Antibody REACTIVE (Nonreactive); ~Hepatitis C Antibody Nonreactive (Nonreactive)
[2024-06-25 09:44] LABS: RPR Rapid Plasma Reagin NON-REACTIVE (NON-REACTIVE)
== END 2024-06-22 12:33 | disposition home or self-care (01) ==
LOC: HO.HHCL 12:32
PROVIDERS: Visit Provider Family Medicine
DX: Z00.00 Encounter for general adult medical examination without abnormal findings (principal); I10 Essential (primary) hypertension; I48.0 Paroxysmal atrial fibrillation; R73.03 Prediabetes; J45.20 Mild intermittent asthma, uncomplicated; K21.9 Gastro-esophageal reflux disease without esophagitis; G43.909 Migraine, unspecified, not intractable, without status migrainosus; R31.29 Other microscopic hematuria; R23.2 Flushing; G47.00 Insomnia, unspecified
CPT/HCPCS: 36415; 80048; 80061; 80076; 82043; 82306; 82570; 83036; 84439; 84443; 85027; 86592; 86706; 86803; 87340; 87389; 87491; 87591

== ENCOUNTER 2024-07-19 15:57 | Outpatient (REF) | payer MEDICAID, OTHER, SELFPAY ==
--- NOTE | ~2024-07-19 | US_ITS ---
EXAMINATION: US RETROPERITONEAL COMPLETE (RENAL) CLINICAL INFORMATION: Microscopic hematuria. COMPARISON: CT abdomen and pelvis 04/29/2022. Ultrasound abdomen limited 10/07/2021. TECHNIQUE: Real-time imaging of the kidneys and bladder. FINDINGS: RIGHT KIDNEY: 11.1 x 4.5 x 4.3 cm (SAG x AP x TRV). The kidney is normal in size, contour, and echogenicity. Renal cortical thickness is normal. No calculi or focal parenchymal lesions. No hydronephrosis. LEFT KIDNEY: 10.7 x 4.8 x 4.6 cm (SAG x AP x TRV). The kidney is normal in size, contour, and echogenicity. Renal cortical thickness is normal. No calculi or focal parenchymal lesions. No hydronephrosis. BLADDER: Well distended and normal. Bilateral ureteral jets are demonstrated. Prevoid bladder volume is 276 mL. Postvoid bladder volume is 76 mL. US/US retroperitoneal comp IMPRESSION: Normal-appearing kidneys. A 76 mL post void residual is present. Electronically signed by: Logan Ferrer MD 07/25/2024 03:09 PM EDT
== END 2024-07-19 15:58 | disposition home or self-care (01) ==
LOC: HO.US 15:57
PROVIDERS: PCP Family Medicine; Visit Provider Family Medicine
DX: R31.29 Other microscopic hematuria (principal)
CPT/HCPCS: 76770

== ENCOUNTER 2024-08-23 09:57 | Emergency (ER) | payer MEDICAID, OTHER, SELFPAY ==
[2024-08-23 10:26] VITALS: BP 95/61; PULSE 75; RESP 16; TEMP 36.4; O2SAT 95; BMI 42.0
--- NOTE | 2024-08-23 12:12 | ED_ITS ---
HPI - Ear Problem General Chief complaint: Ear Problems Stated complaint: ear pain Time Seen by Provider: 08/23/24 12:03 Source: patient Mode of arrival: ambulatory Limitations: no limitations History of Present Illness ED Provider: GERDA JOSEPH PA-C HPI Narrative: 48 year old female presents to the ED today for evaluation of bilateral ear pain x7 days. She was seen at for this 2 days ago and was told I have a hole in my right ear . She was prescribed an antibiotic that she has been taking as prescribed without improvement in pain. Denies recent swimming or plane flight. Denies hearing changes, drainage from the ear, fever/chills, jaw pain, ear swelling, neck pain. Denies FB. Related Data Home Medications ?Medication ?Instructions ?Recorded ?Confirmed dulaglutide 0.75 mg/0.5 mL mg subcut QWEEK 02/09/24 subcutaneous pen injector (Trulicity) flecainide 50 mg tablet 50 mg PO Q12H 02/09/24 fluticasone propionate 50 2 spray intranasal QAM 02/09/24 mcg/actuation nasal spray,suspension metoprolol tartrate 50 mg tablet 50 mg PO BID 02/09/24 sumatriptan succinate 25 mg tablet mg PO 02/09/24 topiramate 25 mg tablet 25 mg PO BEDTIME 02/09/24 venlafaxine 75 mg capsule,extended 75 mg PO QAM 02/09/24 release 24 hr Previous Rx's ?Medication ?Instructions ?Recorded omeprazole 20 mg capsule,delayed 20 mg PO DAILY 14 days #14 caps 10/07/21 release ondansetron 4 mg disintegrating 4 mg PO Q8H PRN nausea and 10/07/21 tablet vomiting #20 tabs meclizine 25 mg tablet 25 mg PO TID PRN dizziness #15 tabs 09/11/22 epinephrine 0.3 mg/0.3 mL 0.3 mg (0.3 mL) IM Q4H PRN 05/23/23 injection, auto-injector (EpiPen) anaphylaxis #2 ea ciprofloxacin 0.3 %-dexamethasone 4 drp otic (ears) BID 7 days #7.5 08/23/24 0.1 % ear drops,suspension mL naproxen 500 mg tablet 500 mg PO Q12H PRN pain (scale 08/23/24 score 4-6) #20 tabs Allergies Allergy/AdvReac Type Severity Reaction Status Date / Time No Known Allergies Allergy Verified 08/23/24 10:28 [No Known Allergies*] Review of Systems Review of Systems: Constitutional: No fever, chills, fatigue, night sweats, weight changes ENT/Mouth: No hearing loss, nasal congestion, sinus pain, rhinorrhea, sore throat, +ear pain Eyes: No eye pain, swelling, redness, vision changes, discharge Cardio: No chest pain, palpitations, DESAI, orthopnea, peripheral edema Pulm: No SOB, cough, sputum, wheezing, dyspnea, hemoptysis GI: No nausea, vomiting, hematemesis, abdominal pain, diarrhea, constipation, hematochezia, melena : No irregular bleeding, dysuria, frequency, urgency, hesitancy, hematuria, flank pain, urinary flow changes, urinary incontinence or retention MSK: No back pain, neck pain, joint pain, myalgias Skin: No lesions, rashes Neuro: No weakness, numbness, paresthesias, LOC, dizziness, headache Psych: No anxiety/panic, depression, SI/HI, AH/VH All other systems reviewed and are negative. [facility] Past Medical History Attestation statement: The following information was validated with the patient. Source: old records reviewed and nursing notes reviewed Medical History Migraine Vertigo HTN (hypertension) Heart problem Surgical History Hx of section Hx of tonsillectomy Family History Family History Mother Diabetes Father HTN (hypertension) Heart disease Sister Diabetes Social History Social History Housing: Apartment Alcohol intake: current Alcohol intake frequency: does not drink Patient Tobacco Use Status: Never used Tobacco Advance Directives: No Do you have a plan to hurt others: No Plan Current occupational status: unemployed Sexual orientation: Straight/Heterosexual Gender identity: Female Physical Exam Vital Signs: Vital Signs: Last Vital Signs Temp 97.5 F 08/23/24 12:46 Pulse 75 08/23/24 12:46 Resp 16 08/23/24 12:46 BP 95/61 08/23/24 12:46 Pulse Ox 95 08/23/24 12:46 O2 Del Method Room Air 08/23/24 12:46 BMI result Body Mass Index 42.0 vital signs stable, afebrile General: Well appearing, in no acute distress. Skin: Warm, dry, intact. No rashes or lesions. Head: Normocephalic, atraumatic. EENT: Hearing is intact b/l. reports pain with manipulation of both right and left pinna. no mastoid tenderness/ fluctuance b/l, no protrusion of the auricle. b/l EACs erythematous and edematous without discharge. TMs intact b/l without effusion, erythema or buldging Neck: Supple without LAD Cardiac: Chest wall symmetric. RRR Lungs: Normal respiratory effort without accessory muscle use. CTA bilaterally Neuro: AOx3. Normal speech Psych: Appropriate mood and affect. Responds appropriately to questions. Course Course Course Narrative: 1245 -- Physical exam is consistent with otitis externa, not otitis media/ tm perforation for which patient is currently being treated for. I did discuss this with patient. Will send ciprodex to pharmacy for treatment. she was provided with a dose of toradol in ED. Advised to take tylenol/ motrin at home for pain/ discomfort. Patient has remained stable throughout ED visit today. Discussed worrisome signs and symptoms and when to return to the ED. All questions answered at this time. Patient is agreeable with disposition and stable for discharge. Medications Administered Discontinued Medications Generic Name Dose Route Start Last Admin Trade Name Freq PRN Reason Stop Dose Admin Ketorolac Tromethamine 30 mg 08/23/24 12:20 08/23/24 12:25 Ketorolac Tromethamine 30 Mg/Ml Vial IM 08/23/24 12:21 30 mg ONCE ONE Administration Medical Decision Making Medical Decision Making MDM Narrative: 48 year old female presents to the ED today for evaluation of bilateral ear pain x7 days. Vital signs stable. afebrile. she is nontoxic appearing and in NAD. reports pain with manipulation of both right and left pinna. no mastoid tenderness/ fluctuance b/l, no protrusion of the auricle. b/l EACs erythematous and edematous without discharge. TMs intact b/l without effusion, erythema or buldging. i do not appreciate any perforation. no cervical LAD. posterior oropharynx wnl. Differential diagnosis includes otitis media, otitis externa. Unlikely mastoiditis, malignant otitis externa. Plan for disposition. Differential Diagnosis Differential Diagnoses: The differential diagnosis associated with the presentation includes as above. Admission/Observation Not indicated External Record Review External record reviewed: Inpatient record Tests considered The following testing was considered but not selected: I considered obtaining imaging however no suspicion for deep tissue infection, not warranted at this time Prescription Management I considered prescription management with: Antibiotic (ciprodex) Social Determinants Patient?s care significantly limited by Social Determinants of Health including: Other Social Determinant of Health Critical Care Time Critical Care Time Critical Care Time: No Discharge Plan Discharge Clinical Impression: Otitis externa Patient Disposition: Home, Self-Care Instructions: Otitis Externa (ED) Additional Instructions: You were evaluated in the ED today for ear pain. You have an external ear infection. Ciprodex ear drops have been sent to your pharmacy. These are a combination steroid/ antibiotic drop. Use as prescribed. Continue your oral antibiotic (augmentin) as prescribed. On Augmentin, softer bowel movements are to be expected. Call your provider if you move your bowels more than 4 times a day, your bowel movements are almost all liquid, or you get a rash.? Naproxen is an anti-inflammatory pain medication that has been sent to your pharmacy for you to take as needed for pain. Do not take this with other NSAIDs such as ibuprofen or Aleve as this can cause increased risk of GI bleeding. Follow up with PCP as needed. Return with new or worsening symptoms. In the case of an emergency call 911. Prescriptions: New ciprofloxacin-dexamethasone 0.3-0.1 % drops,suspension 4 drp otic (ears) BID 7 Days Qty: 7.5 0RF naproxen 500 mg tablet 500 mg PO Q12H PRN (Reason: pain (scale score 4-6)) Qty: 20 0RF No Action meclizine 25 mg tablet 25 mg PO TID PRN (Reason: dizziness) Qty: 15 0RF omeprazole 20 mg capsule,delayed release(DR/EC) 20 mg PO DAILY 14 Days Qty: 14 0RF ondansetron 4 mg tablet,disintegrating 4 mg PO Q8H PRN (Reason: nausea and vomiting) Qty: 20 0RF epinephrine [EpiPen] 0.3 mg/0.3 mL auto-injector 0.3 mg IM Q4H PRN (Reason: anaphylaxis) Qty: 2 0RF venlafaxine 75 mg capsule,extended release 24hr 75 mg PO QAM Trulicity 0.75 mg/0.5 mL pen injector subcut QWEEK fluticasone propionate 50 mcg/actuation spray,suspension 2 spray intranasal QAM metoprolol tartrate 50 mg tablet 50 mg PO BID flecainide 50 mg tablet 50 mg PO Q12H topiramate 25 mg tablet 25 mg PO BEDTIME sumatriptan succinate 25 mg tablet PO Interventions: ED Discharge Assessment Last Done: 08/23/24 12:46 Discharge Date/Time: 08/23/24 12:52 Print Language: Jamaican
[2024-08-23] MEDS: Ketorolac Tromethamine 30 MG/ML VIAL IM (12:25)
[2024-08-23 12:46] VITALS: BP 95/61; PULSE 75; RESP 16; TEMP 36.4; O2SAT 95
== END 2024-08-23 12:52 | disposition home or self-care (01) ==
PROVIDERS: Emergency Provider Emergency Medicine
DX: H60.93 Unspecified otitis externa, bilateral (principal); H92.03 Otalgia, bilateral; Z79.899 Other long term (current) drug therapy
CPT/HCPCS: 96372; 99284; J1885

== ENCOUNTER 2024-09-27 09:43 | Outpatient (REF) | payer MEDICAID, OTHER, SELFPAY ==
--- NOTE | ~2024-09-27 | US_ITS ---
EXAMINATION: US EXTRACRANIAL CAROTID DUPLEX, BILATERAL CLINICAL INFORMATION: Syncope. COMPARISON: None available. TECHNIQUE: Real-time ultrasound and Doppler techniques (integrating B-mode 2-D vascular images, Doppler spectral analysis and color-flow Doppler imaging) were utilized to interrogate the extracranial carotid arteries, the vertebral arteries and proximal subclavian arteries bilaterally. The degree of stenosis is determined by criteria similar to NASCET. FINDINGS: Right Side: 1. There is no significant atherosclerotic plaque seen in the bifurcation/proximal ICA region. 2. The common carotid artery PSV proximally is 150 cm/s and distally 116 cm/s. 3. The proximal internal carotid artery velocities are 99 cm/s systolic and 21 cm/s diastolic. 4. The proximal external carotid artery PSV is 134 cm/s. 5. The vertebral artery shows antegrade flow. 6. The subclavian artery waveforms are normal. Left Side: 1. There is mild atherosclerotic plaque seen in the bifurcation/proximal ICA region. 2. The common carotid artery PSV proximally is 132 cm/s and distally 105 cm/s. 3. The proximal internal carotid artery velocities are 98 cm/s systolic and 17 cm/s diastolic. 4. The proximal external carotid artery PSV is 84 cm/s. 5. The vertebral artery shows antegrade flow. 6. The subclavian artery waveforms are normal. US/US carotid duplex BI IMPRESSION: 1. RIGHT: Normal right internal carotid artery without atherosclerotic plaque or hemodynamically significant stenosis. 2. LEFT: Minimal, non-hemodynamically significant stenosis of the proximal left internal carotid artery corresponding to a 0-49% stenosis by velocity criteria. Electronically signed by: Logan Ferrer MD 10/01/2024 11:46 PM EST
--- NOTE | 2024-09-27 10:29 | HM_ITS ---
* Total monitoring time 1 day. * Underlying rhythm is sinus with an average rate of 72/Min. * Rare supraventricular ectopy. * Rare ventricular ectopy. * No significant pauses or high-grade AV blocks. * No patient markers or diary events. MTDD
== END 2024-09-27 09:44 | disposition home or self-care (01) ==
LOC: HO.US 09:43
PROVIDERS: PCP Family Medicine; Visit Provider Family Medicine
DX: R55 Syncope and collapse (principal); R42 Dizziness and giddiness
CPT/HCPCS: 93225; 93880

== ENCOUNTER → 2024-09-27 10:29 | Outpatient (BNV) | payer MEDICAID, SELFPAY | PROVIDERS: PCP Family Medicine; Visit Provider Internal Medicine | DX: I47.10 Supraventricular tachycardia, unspecified (principal) | CPT/HCPCS: 93227 ==

== ENCOUNTER 2024-11-02 16:12 | Observation (INO) | payer MEDICAID, OTHER, SELFPAY ==
[2024-11-02] VITALS (10 sets, daily range): BP systolic 118–142; BP diastolic 63–105; PULSE 89–113; RESP 18–20; TEMP 37–37.1; O2SAT 87–99; BMI 43.9
--- NOTE | ~2024-11-02 | XR_ITS ---
CLINICAL HISTORY: sob 1 view chest x-ray Comparison: 11/08/2020 11:24 PM EST: CR: XR CHEST 1V 03/24/2019 07:51 PM EDT: SR: CHEST 2 VIEWS Findings: Portions of the exam is obscured by overlying material. No consolidation or effusion. Heart size is normal. No acute fracture. IMPRESSION: 1. No acute findings. This document has been electronically signed by: Rafiq Wolff MD on 11/02/2024 17:22:19
--- NOTE | 2024-11-02 16:21 | ED.GENADULT ---
HPI - General Adult General Chief complaint: Upper Respiratory Symptoms Stated complaint: cough/covid symptoms Time Seen by Provider: 11/02/24 16:35 Source: patient and family Limitations: language barrier History of Present Illness ED Provider: Marianela Encarnacion PA-C HPI narrative: 49-year-old female with a history of asthma presents with cough and cold symptoms x2 days. Associated wheezing and shortness of breath with chest tightness, especially with coughing. Patient indicates via her who acts as stranding supervisor, that their son is sick with a virus. Subjective fevers at home. Related Data Home Medications ?Medication ?Instructions ?Recorded ?Confirmed dulaglutide 0.75 mg/0.5 mL mg subcut QWEEK 02/09/24 subcutaneous pen injector (Trulicity) flecainide 50 mg tablet 50 mg PO Q12H 02/09/24 fluticasone propionate 50 2 spray intranasal QAM 02/09/24 mcg/actuation nasal spray,suspension metoprolol tartrate 50 mg tablet 50 mg PO BID 02/09/24 sumatriptan succinate 25 mg tablet mg PO 02/09/24 topiramate 25 mg tablet 25 mg PO BEDTIME 02/09/24 venlafaxine 75 mg capsule,extended 75 mg PO QAM 02/09/24 release 24 hr Previous Rx's ?Medication ?Instructions ?Recorded omeprazole 20 mg capsule,delayed 20 mg PO DAILY 14 days #14 caps 10/07/21 release ondansetron 4 mg disintegrating 4 mg PO Q8H PRN nausea and 10/07/21 tablet vomiting #20 tabs meclizine 25 mg tablet 25 mg PO TID PRN dizziness #15 tabs 09/11/22 epinephrine 0.3 mg/0.3 mL 0.3 mg (0.3 mL) IM Q4H PRN 05/23/23 injection, auto-injector (EpiPen) anaphylaxis #2 ea ciprofloxacin 0.3 %-dexamethasone 4 drp otic (ears) BID 7 days #7.5 08/23/24 0.1 % ear drops,suspension mL naproxen 500 mg tablet 500 mg PO Q12H PRN pain (scale 08/23/24 score 4-6) #20 tabs Allergies Allergy/AdvReac Type Severity Reaction Status Date / Time No Known Allergies Allergy Verified 11/02/24 16:22 [No Known Allergies*] Review of Systems Review of Systems: Yes all other systems are reviewed and are negative Constitutional: Constitutional: Denies fatigue and Reports fever(s) Cardiovascular: Cardiovascular: Reports chest pain and Reports dyspnea Respiratory: Respiratory: Reports cough, Reports dyspnea and Reports wheezing Gastrointestinal: Gastrointestinal: Denies abdominal pain, Denies nausea and Denies vomiting Endocrine: Endocrine: Denies fatigue Allergic/Immunologic: Allergic/Immunologic: Reports wheezing PMFSH Past Medical History Attestation statement: The following information was validated with the patient. Medical History Migraine Vertigo HTN (hypertension) Heart problem Surgical History Hx of section Hx of tonsillectomy Family History Family History Mother Diabetes Father HTN (hypertension) Heart disease Sister Diabetes Social History Social History Housing: Apartment Alcohol intake: current Alcohol intake frequency: does not drink Patient Tobacco Use Status: Never used Tobacco Smoked in Last 30 Days: No Use of substances other than those prescribed or required for medical reasons: No Advance Directives: No Advance Directives Information Provided: No Do you have a plan to hurt others: No Plan Current occupational status: unemployed Sexual orientation: Straight/Heterosexual Gender identity: Female Physical Exam ED Vital Signs: Vital Signs - 24 hr 11/02/24 16:19 11/02/24 16:47 11/02/24 18:04 Temperature 98.8 F Pulse Rate 112 H 101 H 95 Respiratory Rate 19 20 18 Blood Pressure 142/105 H Pulse Oximetry 98 Oxygen Delivery Method Room Air 11/02/24 18:28 11/02/24 18:29 11/02/24 19:53 Temperature Pulse Rate 102 H 89 Respiratory Rate 20 18 Blood Pressure 128/63 Pulse Oximetry 97 99 Oxygen Delivery Method Room Air Room Air BMI result Body Mass Index 43.9 Const Other: Alert, well-appearing Orientation/consciousness: patient oriented x3 Resp Other: Active bronchospasm type cough, patient is tachypneic, faint expiratory wheezes noted posterior brooks Cardio Other: Normal peripheral perfusion Skin Other: Warm dry no rash Neuro General: patient oriented x3, no focal motor deficits and CN's II-XI intact bilaterally Psych Other: Calm cooperative Course Course Course Narrative: RME performed by Chelita Nichols PA-C. Patient is a 49 year old assigned female at presenting to the emergency department with a cough and wheezing. Detailed physical exam and review of systems are deferred to the team primary care physician. Labs, imaging, and swabs ordered. Patient placed back in the waiting room pending room availability and results. Reevaluation(s) Reevaluation #1: Increased expiratory wheezes, having the patient have another updraft Reevaluation #2: We ambulated the patient after her 2nd updraft, she desaturated to 87% on room air, we will give another breathing treatment Reevaluation #3: Patient is still not significantly improved, we will be admitting her to the hospital Time: 20:18 Medications Administered Discontinued Medications Generic Name Dose Route Start Last Admin Trade Name Freq PRN Reason Stop Dose Admin Albuterol/Ipratropium 3 ml 11/02/24 19:49 11/02/24 19:51 Albuterol/Iprat 2.5/0.5mg 3 Ml Ampul.Neb INHALE 11/02/24 19:50 3 ml ONCE ONE Administration Albuterol Sulfate 5 mg/ 0 mg 11/02/24 16:35 11/02/24 16:47 Albuterol/Ipratropium 3 ml INHALE 11/02/24 16:36 1 each ONCE ONE Administration Albuterol Sulfate 2.5 mg/ 0 mg 11/02/24 17:57 11/02/24 18:02 Albuterol/Ipratropium 3 ml INHALE 11/02/24 17:58 1 dose ONCE ONE Administration Guaifenesin/Codeine Phosphate 10 ml 11/02/24 19:42 11/02/24 20:06 Guaifen/Codeine Sf 200/20/10ml 10 Ml Liquid PO 11/02/24 19:43 10 ml ONCE ONE Administration Magnesium Sulfate 2 gm in 50 mls @ 25 mls/hr 11/02/24 16:42 11/02/24 18:31 Magnesium Sulfate/H2o IV 11/02/24 18:41 Infused ONCE ONE Infusion Ketorolac Tromethamine 15 mg 11/02/24 17:52 11/02/24 18:31 Ketorolac Tromethamine 15 Mg/Ml Vial IVPUSH 11/02/24 17:53 15 mg ONCE ONE Administration Methylprednisolone Sodium Succinate 125 mg 11/02/24 16:42 11/02/24 16:48 Methylprednisolone Sod Succ 125 Mg/2 Ml Vial IVPUSH 11/02/24 16:43 125 mg ONCE ONE Administration Medical Decision Making Medical Decision Making [facility] Narrative: 49-year-old female with a history of asthma presents with cough and cold symptoms x2 days. Associated wheezing and shortness of breath with chest tightness, especially with coughing. Patient indicates via her who acts as stranding supervisor, that their son is sick with a virus. Subjective fevers at home. Problem: Asthma History: Per patient I have considered the following differential diagnoses: Asthma exacerbation, bronchitis, pneumonia, viral syndrome Plan: Patient here with asthma exacerbation likely induced by viral syndrome as her son is sick with same symptoms. Screening labs including a viral panel we will be obtained, and a chest x-ray. We will be giving updrafts, Solu-Medrol and magnesium, we will be giving Toradol for her discomfort. I have independently reviewed the following tests: Labs: No leukocytosis, not anemic, no electrolyte abnormality, viral panel negative Chest x-ray:Findings: Portions of the exam is obscured by overlying material. No consolidation or effusion. Heart size is normal. No acute fracture. IMPRESSION: 1. No acute findings. This document has been electronically signed by: Rafiq Wolff MD on 11/02/2024 17:22:19 Lab Data 11/02/24 16:50 11/02/24 17:36 Labs: Lab Results 11/02/24 11/02/24 11/02/24 Range/Units 16:50 17:36 18:20 WBC 9.4 (4.8-10.8) X10*3/uL RBC 4.35 (4.20-5.50) X10*6/uL Hgb 12.6 (12.0-16.0) g/dl Hct 37.9 (37.0-47.0) % MCV 87.1 (80.0-98.0) fL MCH 29.0 (27.0-33.0) pg MCHC 33.2 (31.0-35.0) g/dl RDW 13.4 (11.0-16.0) % Plt Count 205 (160-400) X10*3/uL MPV 11.3 (9.4-12.3) fL Immature Gran % (Auto) 0.2 (0.0-0.4) % Neut % (Auto) 47.3 (45-73) % Lymph % (Auto) 42.3 H (20-40) % [place] % (Auto) 7.2 (2-11) % Eos % (Auto) 2.7 (0-4) % Baso % (Auto) 0.3 (0-2) % Lymph # (Auto) 4.0 (1.2-4.9) X10*3/uL [place] # (Auto) 0.7 (0.1-1.2) X10*3/uL Eos # (Auto) 0.3 (0.0-0.4) X10*3/uL Baso # (Auto) 0.0 (0.0-0.2) X10*3/uL Abs Immat Gran (auto) 0.02 (0.00-0.03) X10*3/uL Absolute Neuts (auto) 4.5 (2.0-8.3) x10*3/uL Absolute Nucleated RBC 0.000 (0.0-0.012) X10*3/uL Nucleated RBC % (auto) 0.0 (0.0-0.2) /100WBC Hold Blue Top SEE NOTE Sodium 140 (135-145) mmol/L Potassium 4.2 (3.3-5.1) mmol/L Chloride 105 (96-108) mmol/L Carbon Dioxide 22 (22-29) mmol/L Anion Gap 17 (12-20) BUN 14 (9-16) mg/dL Creatinine 0.65 (0.5-1.4) mg/dL Estim Creat Clear Calc 129.5 Estimated GFR > 60 Random Glucose 134 H (60-115) mg/dL Calcium 8.6 D (8.4-10.2) mg/dL Magnesium 2.8 H (1.6-2.6) mg/dL Total Bilirubin 0.2 (0.0-1.0) mg/dL AST 33 H (5-31) U/L ALT 22 (0-31) U/L Alkaline Phosphatase 96 (39-117) U/L Total Protein 7.7 (6.5-8.0) g/dL Albumin 3.7 (3.5-5.0) g/dL Urine Color Urine Appearance Urine pH (5.0-9.0) Ur Specific [place] (1.005-1.025) Urine Protein (Neg-Trace) mg/dL Urine Glucose (UA) (Negative) mg/dL Urine Ketones (Negative) mg/dL Urine Blood (Negative) Urine Nitrite (Negative) Ur Leukocyte Esterase (Negative) Influenza Type A (PCR) NEGATIVE (Negative) Influenza Type B (PCR) NEGATIVE (Negative) RSV RNA Qual (PCR) NEGATIVE (Negative) SARS-CoV-2 RNA (RT-PCR) NEGATIVE (Negative) 11/02/24 Range/Units 19:33 WBC (4.8-10.8) X10*3/uL RBC (4.20-5.50) X10*6/uL Hgb (12.0-16.0) g/dl Hct (37.0-47.0) % MCV (80.0-98.0) fL MCH (27.0-33.0) pg MCHC (31.0-35.0) g/dl RDW (11.0-16.0) % Plt Count (160-400) X10*3/uL MPV (9.4-12.3) fL Immature Gran % (Auto) (0.0-0.4) % Neut % (Auto) (45-73) % Lymph % (Auto) (20-40) % [place] % (Auto) (2-11) % Eos % (Auto) (0-4) % Baso % (Auto) (0-2) % Lymph # (Auto) (1.2-4.9) X10*3/uL [place] # (Auto) (0.1-1.2) X10*3/uL Eos # (Auto) (0.0-0.4) X10*3/uL Baso # (Auto) (0.0-0.2) X10*3/uL Abs Immat Gran (auto) (0.00-0.03) X10*3/uL Absolute Neuts (auto) (2.0-8.3) x10*3/uL Absolute Nucleated RBC (0.0-0.012) X10*3/uL Nucleated RBC % (auto) (0.0-0.2) /100WBC Hold Blue Top Sodium (135-145) mmol/L Potassium (3.3-5.1) mmol/L Chloride (96-108) mmol/L Carbon Dioxide (22-29) mmol/L Anion Gap (12-20) BUN (9-16) mg/dL Creatinine (0.5-1.4) mg/dL Estim Creat Clear Calc Estimated GFR Random Glucose (60-115) mg/dL Calcium (8.4-10.2) mg/dL Magnesium (1.6-2.6) mg/dL Total Bilirubin (0.0-1.0) mg/dL AST (5-31) U/L ALT (0-31) U/L Alkaline Phosphatase (39-117) U/L Total Protein (6.5-8.0) g/dL Albumin (3.5-5.0) g/dL Urine Color Yellow Urine Appearance Clear Urine pH 7.5 (5.0-9.0) Ur Specific [place] 1.015 (1.005-1.025) Urine Protein Negative (Neg-Trace) mg/dL Urine Glucose (UA) Negative (Negative) mg/dL Urine Ketones Negative (Negative) mg/dL Urine Blood Negative (Negative) Urine Nitrite Negative (Negative) Ur Leukocyte Esterase Negative (Negative) Influenza Type A (PCR) (Negative) Influenza Type B (PCR) (Negative) RSV RNA Qual (PCR) (Negative) SARS-CoV-2 RNA (RT-PCR) (Negative) Discharge Plan Discharge Clinical Impression: Asthma exacerbation Patient Disposition: Admitted As Inpatient Prescriptions: No Action meclizine 25 mg tablet 25 mg PO TID PRN (Reason: dizziness) Qty: 15 0RF omeprazole 20 mg capsule,delayed release(DR/EC) 20 mg PO DAILY 14 Days Qty: 14 0RF ondansetron 4 mg tablet,disintegrating 4 mg PO Q8H PRN (Reason: nausea and vomiting) Qty: 20 0RF ciprofloxacin-dexamethasone 0.3-0.1 % drops,suspension 4 drp otic (ears) BID 7 Days Qty: 7.5 0RF naproxen 500 mg tablet 500 mg PO Q12H PRN (Reason: pain (scale score 4-6)) Qty: 20 0RF epinephrine [EpiPen] 0.3 mg/0.3 mL auto-injector 0.3 mg IM Q4H PRN (Reason: anaphylaxis) Qty: 2 0RF venlafaxine 75 mg capsule,extended release 24hr 75 mg PO QAM Trulicity 0.75 mg/0.5 mL pen injector subcut QWEEK fluticasone propionate 50 mcg/actuation spray,suspension 2 spray intranasal QAM metoprolol tartrate 50 mg tablet 50 mg PO BID flecainide 50 mg tablet 50 mg PO Q12H topiramate 25 mg tablet 25 mg PO BEDTIME sumatriptan succinate 25 mg tablet PO Print Language: Filipino
[2024-11-02] MEDS: Albuterol Sulfate 5 MG, Albuterol/Iprat 2.5/0.5MG 3 ML 3 ML INHALE (16:47)
[2024-11-02] MEDS: Magnesium Sulfate/H2O 2 GM/50 ML PIGGYBACK IV (16:48)
[2024-11-02] MEDS: methylPREDNISolone Sod Succ 125 MG/2 ML VIAL IVPUSH (16:48)
[2024-11-02 16:59] LABS: MANUAL DIFF FLAG NO
[2024-11-02 17:11] LABS: Basophils Percent Auto 0.3 % (0-2); Eosinophils Absolute Auto 0.3 X10*3/uL (0.0-0.4); Eosinophils Percent Auto 2.7 % (0-4); Hematocrit 37.9 % (37.0-47.0); Hemoglobin 12.6 g/dl (12.0-16.0); Imm Gran Abs Auto 0.02 X10*3/uL (0.00-0.03); Imm Gran Pct Auto 0.2 % (0.0-0.4); Lymphocytes Percent Auto 42.3 % (20-40); Mean Corpuscular HGB Conc 33.2 g/dl (31.0-35.0); Mean Corpuscular Volume 87.1 fL (80.0-98.0); Mean Platelet Volume 11.3 fL (9.4-12.3); Monocytes Absolute Auto 0.7 X10*3/uL (0.1-1.2); Monocytes Percent Auto 7.2 % (2-11); Neutrophils Absolute Auto 4.5 x10*3/uL (2.0-8.3); Neutrophils Percent Auto 47.3 % (45-73); Platelet Count 205 X10*3/uL (160-400); Red Blood Count 4.35 X10*6/uL (4.20-5.50); Red Cell Distribution Width 13.4 % (11.0-16.0); White Blood Count 9.4 X10*3/uL (4.8-10.8)
[2024-11-02] MEDS: Albuterol Sulfate 2.5 MG, Albuterol/Iprat 2.5/0.5MG 3 ML 3 ML INHALE (18:02)
[2024-11-02 18:03] LABS: Alanine Aminotransferase 22 U/L (0-31); Albumin Level 3.7 g/dL (3.5-5.0); Alkaline Phosphatase 96 U/L (39-117); Anion Gap 17 (12-20); Aspartate Amino Transferase 33 U/L (5-31); Bilirubin Total 0.2 mg/dL (0.0-1.0); Blood Urea Nitrogen 14 mg/dL (9-16); Calcium 8.6 mg/dL (8.4-10.2); Carbon Dioxide 22 mmol/L (22-29); Chloride 105 mmol/L (96-108); Creatinine Clr Calc Pharmacy 129.5; Estimated Glomerular Filt Rate > 60; Glucose Random 134 mg/dL (60-115); Magnesium 2.8 mg/dL (1.6-2.6); Potassium 4.2 mmol/L (3.3-5.1); Sodium 140 mmol/L (135-145); Total Protein 7.7 g/dL (6.5-8.0)
[2024-11-02] MEDS: Ketorolac Tromethamine 15 MG/ML VIAL IVPUSH (18:31)
[2024-11-02 19:02] LABS: Influenza A PCR NEGATIVE (Negative); Influenza B PCR NEGATIVE (Negative); Resp Syncy Virus RNA Qual PCR NEGATIVE (Negative); SARS COV2 PCR INHOUSE NEGATIVE (Negative)
[2024-11-02 19:39] LABS: Appearance Urine Clear; Color Urine Yellow; Glucose Urine UA Negative (Negative); Leukocyte Esterase Urine Negative (Negative); Nitrite Urine Negative (Negative); PH 7.5 (5.0-9.0); Specific Gravity - Urine 1.015 (1.005-1.025); Urine Blood Negative (Negative); Urine Ketones Negative (Negative); Urine Protein Negative (Neg-Trace)
[2024-11-02] MEDS: Albuterol/Iprat 2.5/0.5MG 3 ML AMPUL.NEB INHALE (19:51)
--- NOTE | 2024-11-02 20:05 | ECG_ITS ---
Test Reason : CHEST PAIN Blood Pressure : / mmHG Vent. Rate : 102 BPM Atrial Rate : 102 BPM P-R Int : 164 ms QRS Dur : 080 ms QT Int : 374 ms P-R-T Axes : 035 005 020 degrees QTc Int : 487 ms Sinus tachycardia Otherwise normal ECG When compared with ECG of 06-FEB-2024 18:32, No significant change was found Referred By: Marianela Encarnacion Electronically Signed By:Claus Hennessy
[2024-11-02] MEDS: guaiFEN/Codeine SF 200/20/10ML 10 ML LIQUID PO (20:06)
--- NOTE | 2024-11-02 20:15 | PC.NURSE ---
Patient now complaining of chest pain / palpitations. No ectopy noted on joint filler, EKG ordered, provider made aware. Walking O2 sat attempted patient walked length of ED x 1, visible WOB / coughing, desat to 86- 87% w/ good pleth during coughing but otherwise satting 94 - 98% Alicia provider aware.
--- NOTE | 2024-11-02 20:44 | P.HPHOSP_ITS ---
History of Present Illness Date of Service: 11/02/24 Chief Complaint: cough, sob 49F PMH mild intermittent asthma, migraines, unspecified arrhythmia, mood disorder, morbid obesity, presented with cough, sob. Patient reports symptoms began about 2 weeks ago. Has been having dry cough with shortness breath, worse on exertion associated with wheezing. Reports she had asthma as a child but has been okay in the interim. Reports having a grandchild with viral illness and similar symptoms. Also reporting subjective fevers at home. And coughing fits leading to lightheadedness, ?syncope. In ED chest x-ray unremarkable, patient noted to be hypoxic on exertion to 89% on room air, recovers at rest and 99%. Review of Systems 2 Review of Systems: Yes all other systems are reviewed and are negative [facility] Medical History Migraine Vertigo HTN (hypertension) Heart problem Family History Mother Diabetes Father HTN (hypertension) Heart disease Sister Diabetes Surgical History Hx of section Hx of tonsillectomy Social History Housing: Apartment Alcohol intake: current Alcohol intake frequency: does not drink Patient Tobacco Use Status: Never used Tobacco Smoked in Last 30 Days: No Use of substances other than those prescribed or required for medical reasons: No Advance Directives: No Advance Directives Information Provided: No Do you have a plan to hurt others: No Plan Current occupational status: unemployed Sexual orientation: Straight/Heterosexual Gender identity: Female Meds Allergies Allergy/AdvReac Type Severity Reaction Status Date / Time No Known Allergies Allergy Verified 11/02/24 16:22 [No Known Allergies*] Active Medications: Current Medications Acetaminophen (Acetaminophen 325 Mg Tablet) 650 mg PO Q6H PRN PRN Reason: Pain, Mild 1-3,fever,headache Albuterol/Ipratropium (Albuterol/Iprat 2.5/0.5mg 3 Ml Ampul.Neb) 3 ml INHALE RQ4H WHILE AWAKE DOROTHEA Calcium Carbonate (Calcium Carbonate 750 Mg Tab.Chew) 750 mg PO Q4H PRN PRN Reason: Heartburn Enoxaparin Sodium (Enoxaparin Sodium 40 Mg/0.4 Ml Syringe) 40 mg SUBCUT Q24H [facility] Guaifenesin/Codeine Phosphate (Guaifen/Codeine Sf 200/20/10ml 10 Ml Liquid) 5 ml PO Q4H PRN PRN Reason: Cough Magnesium Hydroxide (Milk Of Magnesia 30 Ml Oral.Susp) 30 ml PO DAILY PRN PRN Reason: Constipation Melatonin (Melatonin 3 Mg Tablet) 6 mg PO BEDTIME PRN PRN Reason: Insomnia Prednisone (Prednisone 20 Mg Tablet) 40 mg PO DAILY [facility] Sodium Chloride (0.9 % Sodium Chloride Flush 3 Ml Syringe) 3 ml IVFLUSH QSHIFT [facility] Home Medications ?Medication ?Instructions ?Recorded ?Confirmed ?Last Taken ?Type dulaglutide 0.75 mg/0.5 mL mg subcut QWEEK 02/09/24 Unknown History subcutaneous pen injector (Trulicity) flecainide 50 mg tablet 50 mg PO Q12H 02/09/24 Unknown History fluticasone propionate 50 2 spray intranasal QAM 02/09/24 Unknown History mcg/actuation nasal spray,suspension metoprolol tartrate 50 mg tablet 50 mg PO BID 02/09/24 Unknown History sumatriptan succinate 25 mg tablet mg PO 02/09/24 Unknown History topiramate 25 mg tablet 25 mg PO BEDTIME 02/09/24 Unknown History venlafaxine 75 mg capsule,extended 75 mg PO QAM 02/09/24 Unknown History release 24 hr Physical Exam 2 Vital Signs and Narrative: Vital Signs: Last Vital Signs Temp 98.8 F 11/02/24 16:19 Pulse 89 11/02/24 19:53 Resp 18 11/02/24 19:53 BP 128/63 11/02/24 18:28 Pulse Ox 87 L 11/02/24 19:30 O2 Del Method Room Air 11/02/24 19:30 BMI result Body Mass Index 43.9 General: AO X 3, anxious appearing, dry cough paroxysms Resp: Poor air entry, mild wheezes bilateral, no accessory muscles used CVS: S1,S2, regular and rapid GI: soft, non tender, non distended Neuro: motor grossly intact, alert Psych: appropriate affect, appropriate insight Results Labs 11/02/24 16:50 11/02/24 17:36 Labs: Laboratory Results - last 24 hr 11/02/24 11/02/24 11/02/24 16:50 17:36 18:20 MCV 87.1 MCH 29.0 MCHC 33.2 RDW 13.4 Plt Count 205 MPV 11.3 Immature Gran % (Auto) 0.2 Neut % (Auto) 47.3 Lymph % (Auto) 42.3 H [place] % (Auto) 7.2 Eos % (Auto) 2.7 Baso % (Auto) 0.3 Lymph # (Auto) 4.0 [place] # (Auto) 0.7 Eos # (Auto) 0.3 Baso # (Auto) 0.0 Abs Immat Gran (auto) 0.02 Absolute Neuts (auto) 4.5 Absolute Nucleated RBC 0.000 Nucleated RBC % (auto) 0.0 Hold Blue Top SEE NOTE Anion Gap 17 Estim Creat Clear Calc 129.5 Estimated GFR > 60 Random Glucose 134 H Calcium 8.6 D Magnesium 2.8 H Total Bilirubin 0.2 AST 33 H ALT 22 Alkaline Phosphatase 96 Total Protein 7.7 Albumin 3.7 Urine Color Urine Appearance Urine pH Ur Specific [place] Urine Protein Urine Glucose (UA) Urine Ketones Urine Blood Urine Nitrite Ur Leukocyte Esterase Influenza Type A (PCR) NEGATIVE Influenza Type B (PCR) NEGATIVE RSV RNA Qual (PCR) NEGATIVE SARS-CoV-2 RNA (RT-PCR) NEGATIVE 11/02/24 19:33 MCV MCH MCHC RDW Plt Count MPV Immature Gran % (Auto) Neut % (Auto) Lymph % (Auto) [place] % (Auto) Eos % (Auto) Baso % (Auto) Lymph # (Auto) [place] # (Auto) Eos # (Auto) Baso # (Auto) Abs Immat Gran (auto) Absolute Neuts (auto) Absolute Nucleated RBC Nucleated RBC % (auto) Hold Blue Top Anion Gap Estim Creat Clear Calc Estimated GFR Random Glucose Calcium Magnesium Total Bilirubin AST ALT Alkaline Phosphatase Total Protein Albumin Urine Color Yellow Urine Appearance Clear Urine pH 7.5 Ur Specific [place] 1.015 Urine Protein Negative Urine Glucose (UA) Negative Urine Ketones Negative Urine Blood Negative Urine Nitrite Negative Ur Leukocyte Esterase Negative Influenza Type A (PCR) Influenza Type B (PCR) RSV RNA Qual (PCR) SARS-CoV-2 RNA (RT-PCR) Assessment and Plan (1) Asthma exacerbation: Status: Acute Plan 49F PMH mild intermittent asthma, migraines, unspecified arrhythmia, mood disorder, morbid obesity, presented with cough, sob Exertional acute hypoxia due to mild intermittent asthma with acute decompensation likely due to viral illness Overnight observation, Steroids, DuoNebs, cough suppressants Unspecified arrhythmia Recent Holter was essentially normal Continue flecainide and metoprolol Migraines Continue Topamax, p.r.n. sumatriptan Mood disorder Continue Effexor Morbid obesity Weight loss recommended DVT prophylaxis with Lovenox Full Code Quality Stroke Does the patient have a stroke diagnosis?: No VTE Prior VTE?: No VTE Risk Level:: Medical - moderate - high VTE Device Contraindication: Treatment Not Indicated VTE Drug Contraindication: N/A - Med Ordered
--- NOTE | 2024-11-02 21:04 | PC.NURSE ---
Report given to Jacquelyn THOMPSON in overflow, patient to be transferred over when transport available.
[2024-11-02] MEDS: traZODone HCL 50 MG TABLET PO (21:08)
[2024-11-02] MEDS: Metoprolol Tartrate 50 MG TABLET PO (21:08)
[2024-11-02] MEDS: Flecainide Acetate 50 MG TABLET PO (21:09)
[2024-11-02] MEDS: Topiramate 25 MG TABLET PO (21:09)
[2024-11-02] MEDS: Enoxaparin Sodium 40 MG/0.4 ML SYRINGE SUBCUT (21:09)
--- NOTE | 2024-11-02 22:15 | PHA.MEDREC ---
Pharmacy Consult ? Medication Reconciliation Pharmacy has completed the medication reconciliation. Spoke to patient at bedside with help from return agent services to confirm meds
--- NOTE | 2024-11-02 22:26 | PC.NURSE ---
Report taken from Ana RN, pt moved to overflow rm 4, assumed care of pt at 2200. Pt A&Ox3 skin pwd respirations even unlabored. VSS. Endorsing dizziness and intermittent chest pain worse on inspiration or cough. Up to bedside commode without difficulty. Call deluna within reach, will continue to monitor.
[2024-11-03] VITALS (8 sets, daily range): BP systolic 122–128; BP diastolic 61–99; PULSE 62–109; RESP 12–20; TEMP 36.5–36.9; O2SAT 96–99
[2024-11-03] MEDS: 0.9 % Sodium Chloride Flush 3 ML SYRINGE IVFLUSH ×3 (01:33→17:15)
[2024-11-03] MEDS: Meclizine HCl 25 MG TABLET PO ×2 (02:25→21:04)
[2024-11-03] MEDS: Melatonin 3 MG TABLET 6 MG PO (02:25)
[2024-11-03 05:25] LABS: Hematocrit 34.4 % (37.0-47.0); Hemoglobin 11.1 g/dl (12.0-16.0); Mean Corpuscular HGB Conc 32.3 g/dl (31.0-35.0); Mean Corpuscular Hemoglobin 28.2 pg (27.0-33.0); Mean Corpuscular Volume 87.3 fL (80.0-98.0); Mean Platelet Volume 11.3 fL (9.4-12.3); Platelet Count 182 X10*3/uL (160-400); Red Blood Count 3.94 X10*6/uL (4.20-5.50); Red Cell Distribution Width 13.3 % (11.0-16.0); White Blood Count 8.6 X10*3/uL (4.8-10.8)
[2024-11-03 05:45] LABS: Anion Gap 11 (12-20); Blood Urea Nitrogen 11 mg/dL (9-16); Calcium 8.7 mg/dL (8.4-10.2); Carbon Dioxide 21 mmol/L (22-29); Chloride 108 mmol/L (96-108); Creatinine Clr Calc Pharmacy 112.3; Estimated Glomerular Filt Rate > 60; Glucose Random 205 mg/dL (60-115); Sodium 136 mmol/L (135-145)
--- NOTE | 2024-11-03 06:39 | PC.NURSE ---
Assumed care at 2300. Patient c/o dizziness. Physician notified and Meclizine continued from med rec.. Administered with good effect. Patient resting comfortably. Call deluna within reach.
[2024-11-03] MEDS: Albuterol/Iprat 2.5/0.5MG 3 ML AMPUL.NEB INHALE ×4 (08:31→19:36)
[2024-11-03] MEDS: Venlafaxine HCl ER 75 MG CAP.ER.24H PO (08:39)
[2024-11-03] MEDS: predniSONE 20 MG TABLET 40 MG PO (08:39)
[2024-11-03] MEDS: Vitamin E (Dl,Tocopheryl Acet) 180 MG (400 UNIT) CAPSULE 720 MG PO (08:39)
[2024-11-03] MEDS: Metoprolol Tartrate 50 MG TABLET PO ×2 (08:39→21:04)
[2024-11-03] MEDS: Cholecalciferol (Vitamin D3) 25 MCG TABLET PO (08:39)
[2024-11-03] MEDS: Flecainide Acetate 50 MG TABLET PO ×2 (08:39→21:04)
--- NOTE | 2024-11-03 10:09 | MHC.EDTECH ---
pt ambulated to bedside commode with a steady gait and no complaints were made of dizziness or sob. bed linens were changed as requested
--- NOTE | 2024-11-03 13:45 | HO.PM.IMPN ---
Subjective Subjective Date of Service: 11/03/24 Interval History: seen and examined this morning Follow-up for asthma exacerbation Breathing improving, still with cough Review of Systems Review of Systems: Yes all other systems are reviewed and are negative Constitutional Constitutional: Denies chills and Denies fever(s) Cardiovascular Cardiovascular: Denies chest pain and Denies palpitations Respiratory Respiratory: Reports cough Gastrointestinal Gastrointestinal: Denies abdominal pain, Denies nausea and Denies vomiting Endocrine Endocrine: Denies palpitations Physical Exam Vital Signs: Vital Signs: Last Vital Signs Temp 98.5 F 11/03/24 12:37 Pulse 81 11/03/24 12:37 Resp 12 11/03/24 12:37 BP 128/99 H 11/03/24 12:37 Pulse Ox 99 11/03/24 12:37 O2 Del Method Room Air 11/03/24 12:37 BMI result Body Mass Index 43.9 Const: General: cooperative, comfortable, no acute distress, alert and awake Nutritional Appearance: obese Orientation/consciousness: patient oriented x3 Resp: Other: minimal wheeze Effort & Inspection: normal respiratory effort, able to speak in complete sentences, no respiratory distress and no use of accessory muscles Cardio: Rate: regular rate GI: Inspection: No distended Palpation (GI): Soft to palpation and nontender Neuro: General: patient oriented x3, moves all extremities and CN's II-XI intact bilaterally Extrem: General: Yes no pedal edema Objective Data Active Medications Acetaminophen (Acetaminophen 325 Mg Tablet) 650 mg PO Q6H PRN PRN Reason: Pain, Mild 1-3,fever,headache Albuterol/Ipratropium (Albuterol/Iprat 2.5/0.5mg 3 Ml Ampul.Neb) 3 ml INHALE RQ4H WHILE AWAKE [facility] Last Admin: 11/03/24 11:22 Dose: 3 ml Documented By: LARISSA Calcium Carbonate (Calcium Carbonate 750 Mg Tab.Chew) 750 mg PO Q4H PRN PRN Reason: Heartburn Enoxaparin Sodium (Enoxaparin Sodium 40 Mg/0.4 Ml Syringe) 40 mg SUBCUT Q24H [facility] Last Admin: 11/02/24 21:09 Dose: 40 mg Documented By: AURORA Flecainide Acetate (Flecainide Acetate 50 Mg Tablet) 50 mg PO BID [facility] Last Admin: 11/03/24 08:39 Dose: 50 mg Documented By: MARY KATE Guaifenesin/Codeine Phosphate (Guaifen/Codeine Sf 200/20/10ml 10 Ml Liquid) 5 ml PO Q4H PRN PRN Reason: Cough Magnesium Hydroxide (Milk Of Magnesia 30 Ml Oral.Susp) 30 ml PO DAILY PRN PRN Reason: Constipation Meclizine HCl (Meclizine Hcl 25 Mg Tablet) 25 mg PO TID PRN PRN Reason: dizziness Last Admin: 11/03/24 02:25 Dose: 25 mg Documented By: HERBERT Melatonin (Melatonin 3 Mg Tablet) 6 mg PO BEDTIME PRN PRN Reason: Insomnia Last Admin: 11/03/24 02:25 Dose: 6 mg Documented By: HERBERT Metoprolol Tartrate (Metoprolol Tartrate 50 Mg Tablet) 50 mg PO BID [facility]; Protocol Last Admin: 11/03/24 08:39 Dose: 50 mg Documented By: MARY KATE Naproxen (Naproxen 500 Mg Tablet) 500 mg PO Q12H PRN PRN Reason: pain (scale score 4-6) Non-Formulary Medication (Dulaglutide [Trulicity]) 0.75 mg SUBCUT FR [facility] Ondansetron HCl (Ondansetron Odt 4 Mg Tab.Rapdis) 4 mg TRANSLINGU Q8H PRN PRN Reason: nausea and vomiting Prednisone (Prednisone 20 Mg Tablet) 40 mg PO DAILY [facility] Last Admin: 11/03/24 08:39 Dose: 40 mg Documented By: MARY KATE Sodium Chloride (0.9 % Sodium Chloride Flush 3 Ml Syringe) 3 ml IVFLUSH QSHIFT [facility] Last Admin: 11/03/24 08:59 Dose: 3 ml Documented By: MARY KATE Sumatriptan Succinate (Sumatriptan Succinate 25 Mg Tablet) 25 mg PO DAILY MRX1 PRN PRN Reason: Migraine Headache Topiramate (Topiramate 25 Mg Tablet) 25 mg PO BEDTIME [facility] Last Admin: 11/02/24 21:09 Dose: 25 mg Documented By: AURORA Trazodone HCl (Trazodone Hcl 50 Mg Tablet) 50 mg PO BEDTIME [facility] Last Admin: 11/02/24 21:08 Dose: 50 mg Documented By: AURORA Venlafaxine HCl (Venlafaxine Hcl Er 75 Mg Cap.Er.24h) 75 mg PO DAILY [facility] Last Admin: 11/03/24 08:39 Dose: 75 mg Documented By: MARY KATE Vitamin D (Cholecalciferol (Vitamin D3) 25 Mcg Tablet) 25 mcg PO DAILY [facility] Last Admin: 11/03/24 08:39 Dose: 25 mcg Documented By: MARY KATE Vitamin E (Vitamin E (Dl,Tocopheryl Acet) 180 Mg (400 Unit) Capsule) 720 mg PO DAILY [facility] Last Admin: 11/03/24 08:39 Dose: 720 mg Documented By: MARY KATE Labs 11/03/24 04:20 11/03/24 04:20 Labs: Laboratory Results - last 24 hr 11/02/24 11/02/24 11/02/24 16:50 17:36 18:20 MCV 87.1 MCH 29.0 MCHC 33.2 RDW 13.4 Plt Count 205 MPV 11.3 Immature Gran % (Auto) 0.2 Neut % (Auto) 47.3 Lymph % (Auto) 42.3 H [place] % (Auto) 7.2 Eos % (Auto) 2.7 Baso % (Auto) 0.3 Lymph # (Auto) 4.0 [place] # (Auto) 0.7 Eos # (Auto) 0.3 Baso # (Auto) 0.0 Abs Immat Gran (auto) 0.02 Absolute Neuts (auto) 4.5 Absolute Nucleated RBC 0.000 Nucleated RBC % (auto) 0.0 Hold Blue Top SEE NOTE Anion Gap 17 Estim Creat Clear Calc 129.5 Estimated GFR > 60 Random Glucose 134 H Calcium 8.6 D Magnesium 2.8 H Total Bilirubin 0.2 AST 33 H ALT 22 Alkaline Phosphatase 96 Total Protein 7.7 Albumin 3.7 Urine Color Urine Appearance Urine pH Ur Specific [place] Urine Protein Urine Glucose (UA) Urine Ketones Urine Blood Urine Nitrite Ur Leukocyte Esterase Influenza Type A (PCR) NEGATIVE Influenza Type B (PCR) NEGATIVE RSV RNA Qual (PCR) NEGATIVE SARS-CoV-2 RNA (RT-PCR) NEGATIVE 11/02/24 11/03/24 19:33 04:20 MCV 87.3 MCH 28.2 MCHC 32.3 RDW 13.3 Plt Count 182 MPV 11.3 Immature Gran % (Auto) Neut % (Auto) Lymph % (Auto) [place] % (Auto) Eos % (Auto) Baso % (Auto) Lymph # (Auto) [place] # (Auto) Eos # (Auto) Baso # (Auto) Abs Immat Gran (auto) Absolute Neuts (auto) Absolute Nucleated RBC 0.000 Nucleated RBC % (auto) 0.0 Hold Blue Top Anion Gap 11 L Estim Creat Clear Calc 112.3 Estimated GFR > 60 Random Glucose 205 H Calcium 8.7 Magnesium Total Bilirubin AST ALT Alkaline Phosphatase Total Protein Albumin Urine Color Yellow Urine Appearance Clear Urine pH 7.5 Ur Specific [place] 1.015 Urine Protein Negative Urine Glucose (UA) Negative Urine Ketones Negative Urine Blood Negative Urine Nitrite Negative Ur Leukocyte Esterase Negative Influenza Type A (PCR) Influenza Type B (PCR) RSV RNA Qual (PCR) SARS-CoV-2 RNA (RT-PCR) Assessment and Plan (1) Asthma exacerbation: Status: Acute Plan This is 49F PMH mild intermittent asthma, migraines, unspecified arrhythmia, mood disorder, morbid obesity, presented with cough, sob Exertional acute hypoxia due to mild intermittent asthma with acute decompensation likely due to viral illness persistent wheezing continue Steroids, DuoNebs, cough suppressants Unspecified arrhythmia Recent Holter was essentially normal Continue flecainide and metoprolol Migraines Continue Topamax, p.r.n. sumatriptan chronic dizziness/vertigo continue meclizine prn Mood disorder Continue Effexor Morbid obesity Weight loss recommended DVT prophylaxis with Lovenox Full Code Quality Stroke Does the patient have a stroke diagnosis?: No VTE Prior VTE?: No VTE Risk Level:: Medical - moderate - high VTE Device Contraindication: Treatment Not Indicated VTE Drug Contraindication: N/A - Med Ordered
--- NOTE | 2024-11-03 19:14 | PC.NURSE ---
Patient transferred back to main ED by overflow RN & tech to ED 15, resting quietly in bed.
[2024-11-03] MEDS: guaiFEN/Codeine SF 200/20/10ML 10 ML LIQUID 5 ML PO (21:04)
[2024-11-03] MEDS: Topiramate 25 MG TABLET PO (21:04)
[2024-11-03] MEDS: traZODone HCL 50 MG TABLET PO (21:04)
[2024-11-03] MEDS: Enoxaparin Sodium 40 MG/0.4 ML SYRINGE SUBCUT (21:05)
[2024-11-04] VITALS (7 sets, daily range): BP systolic 116–123; BP diastolic 58; PULSE 67–94; RESP 18–20; TEMP 36.3; O2SAT 97–98
[2024-11-04] MEDS: 0.9 % Sodium Chloride Flush 3 ML SYRINGE IVFLUSH ×3 (00:45→20:27)
[2024-11-04] MEDS: Albuterol/Iprat 2.5/0.5MG 3 ML AMPUL.NEB INHALE ×4 (07:26→19:52)
[2024-11-04] MEDS: Metoprolol Tartrate 50 MG TABLET PO ×2 (08:39→20:26)
[2024-11-04] MEDS: Vitamin E (Dl,Tocopheryl Acet) 180 MG (400 UNIT) CAPSULE 720 MG PO (08:39)
[2024-11-04] MEDS: predniSONE 20 MG TABLET 40 MG PO (08:39)
[2024-11-04] MEDS: Cholecalciferol (Vitamin D3) 25 MCG TABLET PO (08:39)
[2024-11-04] MEDS: Venlafaxine HCl ER 75 MG CAP.ER.24H PO (08:39)
[2024-11-04] MEDS: Flecainide Acetate 50 MG TABLET PO ×2 (08:39→20:26)
[2024-11-04] MEDS: guaiFEN/Codeine SF 200/20/10ML 10 ML LIQUID 5 ML PO ×3 (08:58→20:26)
[2024-11-04] MEDS: Acetaminophen 325 MG TABLET 650 MG PO ×2 (08:58→16:15)
[2024-11-04] MEDS: methylPREDNISolone Sod Succ 40 MG/ML VIAL 20 MG IVPUSH (09:21)
--- NOTE | 2024-11-04 11:47 | P.PNIM_ITS ---
Subjective Subjective Date of Service: 11/04/24 Interval History: Seen and examined this morning Follow-up for asthma exacerbation History obtained with the assistance of a science education professor and nurse assisting with interpretation No overnight events Patient reports persistent dyspnea with ambulation and ongoing wheezing Review of Systems Review of Systems: Yes all other systems are reviewed and are negative Constitutional Constitutional: Denies chills and Denies fever(s) Cardiovascular Cardiovascular: Denies chest pain, Denies palpitations and Reports dyspnea on exertion Respiratory Respiratory: Reports cough and Reports dyspnea on exertion Gastrointestinal Gastrointestinal: Reports abdominal pain Endocrine Endocrine: Denies palpitations Physical Exam 2 Vital Signs: Vital Signs: Last Vital Signs Temp 97.4 F 11/04/24 03:51 Pulse 84 11/04/24 11:29 Resp 18 11/04/24 11:29 BP 123/58 L 11/04/24 03:51 Pulse Ox 98 11/04/24 03:51 O2 Del Method Room Air 11/04/24 03:51 BMI result Body Mass Index 43.9 Const: General: cooperative, comfortable, no acute distress, alert and awake Nutritional Appearance: obese Orientation/consciousness: patient oriented x3 Resp: Other: b/l wheeze Effort & Inspection: normal respiratory effort, able to speak in complete sentences, no respiratory distress and no use of accessory muscles Cardio: Rate: regular rate GI: Inspection: No distended Palpation (GI): Soft to palpation and nontender Neuro: General: patient oriented x3, moves all extremities and CN's II-XI intact bilaterally Extrem: General: Yes no pedal edema Objective Data Active Medications Acetaminophen (Acetaminophen 325 Mg Tablet) 650 mg PO Q6H PRN PRN Reason: Pain, Mild 1-3,fever,headache Last Admin: 11/04/24 08:58 Dose: 650 mg Documented By: BRIANDA Albuterol/Ipratropium (Albuterol/Iprat 2.5/0.5mg 3 Ml Ampul.Neb) 3 ml INHALE RQ4H WHILE AWAKE [facility] Last Admin: 11/04/24 11:27 Dose: 3 ml Documented By: CATIA Calcium Carbonate (Calcium Carbonate 750 Mg Tab.Chew) 750 mg PO Q4H PRN PRN Reason: Heartburn Enoxaparin Sodium (Enoxaparin Sodium 40 Mg/0.4 Ml Syringe) 40 mg SUBCUT Q24H [facility] Last Admin: 11/03/24 21:05 Dose: 40 mg Documented By: AURORA Flecainide Acetate (Flecainide Acetate 50 Mg Tablet) 50 mg PO BID [facility] Last Admin: 11/04/24 08:39 Dose: 50 mg Documented By: BRIANDA Guaifenesin/Codeine Phosphate (Guaifen/Codeine Sf 200/20/10ml 10 Ml Liquid) 5 ml PO Q4H PRN PRN Reason: Cough Last Admin: 11/04/24 08:58 Dose: 5 ml Documented By: BRIANDA Magnesium Hydroxide (Milk Of Magnesia 30 Ml Oral.Susp) 30 ml PO DAILY PRN PRN Reason: Constipation Meclizine HCl (Meclizine Hcl 25 Mg Tablet) 25 mg PO TID PRN PRN Reason: dizziness Last Admin: 11/03/24 21:04 Dose: 25 mg Documented By: AURORA Melatonin (Melatonin 3 Mg Tablet) 6 mg PO BEDTIME PRN PRN Reason: Insomnia Last Admin: 11/03/24 02:25 Dose: 6 mg Documented By: HERBERT Methylprednisolone Sodium Succinate (Methylprednisolone Sod Succ 40 Mg/Ml Vial) 40 mg IVPUSH Q12H [facility] Metoprolol Tartrate (Metoprolol Tartrate 50 Mg Tablet) 50 mg PO BID [facility]; Protocol Last Admin: 11/04/24 08:39 Dose: 50 mg Documented By: BRIANDA Naproxen (Naproxen 500 Mg Tablet) 500 mg PO Q12H PRN PRN Reason: pain (scale score 4-6) Non-Formulary Medication (Dulaglutide [Trulicity]) 0.75 mg SUBCUT FR [facility] Ondansetron HCl (Ondansetron Odt 4 Mg Tab.Rapdis) 4 mg TRANSLINGU Q8H PRN PRN Reason: nausea and vomiting Sodium Chloride (0.9 % Sodium Chloride Flush 3 Ml Syringe) 3 ml IVFLUSH QSHIFT [facility] Last Admin: 11/04/24 08:43 Dose: Not Given Documented By: BRIANDA Non-Admin Reason: No Access Sumatriptan Succinate (Sumatriptan Succinate 25 Mg Tablet) 25 mg PO DAILY MRX1 PRN PRN Reason: Migraine Headache Topiramate (Topiramate 25 Mg Tablet) 25 mg PO BEDTIME [facility] Last Admin: 11/03/24 21:04 Dose: 25 mg Documented By: AURORA Trazodone HCl (Trazodone Hcl 50 Mg Tablet) 50 mg PO BEDTIME [facility] Last Admin: 11/03/24 21:04 Dose: 50 mg Documented By: AURORA Venlafaxine HCl (Venlafaxine Hcl Er 75 Mg Cap.Er.24h) 75 mg PO DAILY [facility] Last Admin: 11/04/24 08:39 Dose: 75 mg Documented By: MAYRA-RHIANNA Vitamin D (Cholecalciferol (Vitamin D3) 25 Mcg Tablet) 25 mcg PO DAILY [facility] Last Admin: 11/04/24 08:39 Dose: 25 mcg Documented By: MAYRA-RHIANNA Vitamin E (Vitamin E (Dl,Tocopheryl Acet) 180 Mg (400 Unit) Capsule) 720 mg PO DAILY [facility] Last Admin: 11/04/24 08:39 Dose: 720 mg Documented By: BRIANDA Labs 11/03/24 04:20 11/03/24 04:20 Assessment and Plan (1) Asthma exacerbation: Status: Acute Plan This is 49F PMH mild intermittent asthma, migraines, unspecified arrhythmia, mood disorder, morbid obesity, presented with cough, sob Exertional acute hypoxia due to mild intermittent asthma with acute decompensation likely due to viral illness persistent wheezing will transition to IV solu-medrol continue DuoNebs, cough suppressants Unspecified arrhythmia Recent Holter was essentially normal Continue flecainide and metoprolol Migraines Continue Topamax, p.r.n. sumatriptan chronic dizziness/vertigo continue meclizine prn Mood disorder Continue Effexor Morbid obesity Weight loss recommended DVT prophylaxis - lovenox ordered, pt requests for it to be stopped; will order mechanical devices, patient is ambulatory Full Code Quality Stroke Does the patient have a stroke diagnosis?: No VTE Prior VTE?: No VTE Risk Level:: Medical - moderate - high VTE Device Contraindication: Treatment Not Indicated VTE Drug Contraindication: N/A - Med Ordered
--- NOTE | 2024-11-04 15:50 | MHC.CM.PN ---
Farzaneh 11/04/24 Pt is SSO, she lives with her and son, she does not have any home care services or DME. PCP is Zoe Cabrera, family to provide transportation home at DC. HCP to be completed here and added to chart. DCP: home, self care. CM to follow for DC needs.
--- NOTE | 2024-11-04 17:40 | P.DS_ITS ---
DS: Providers Provider Date of Service: 11/05/24 <Patel Caba MD - Last Filed: 11/05/24 09:31> Date of admission: 11/02/24 20:40 <HANK Jacob - Last Filed: 11/08/24 12:27> Date of discharge: 11/05/24 <HANK Jacob - Last Filed: 11/08/24 12:27> Primary care physician: Zoe Cabrera DO <HANK Jacob - Last Filed: 11/08/24 12:27> DS: Diagnosis Discharge Diagnosis (1) Asthma exacerbation: Status: Acute <HANK Jacob Last Filed: 11/08/24 12:27> DS: Summary Hospital Course Hospital Course: From H&P on the day of admission 49F PMH mild intermittent asthma, migraines, unspecified arrhythmia, mood disorder, morbid obesity, presented with cough, sob. Patient reports symptoms began about 2 weeks ago. Has been having dry cough with shortness breath, worse on exertion associated with wheezing. Reports she had asthma as a child but has been okay in the interim. Reports having a grandchild with viral illness and similar symptoms. Also reporting subjective fevers at home. And coughing fits leading to lightheadedness, ?syncope. In ED chest x-ray unremarkable, patient noted to be hypoxic on exertion to 89% on room air, recovers at rest and 99%. Exertional acute hypoxia due to mild intermittent asthma with acute decompensation likely due to viral illness Initially treated with oral prednisone but due to persistent wheezing she was transitioned to IV Solu-Medrol, continued with breathing treatments. Overall her respiratory status and wheezing has improved. Likely due to viral illness as her son was sick. Recommend outpatient follow-up with PCP Unspecified arrhythmia Recent Holter was essentially normal. Continued on baseline flecainide and metoprolol. no arrythemia noted during hospital stay chronic dizziness/vertigo continue meclizine prn. has outpatient CT brain ordered by her PCP <HANK Jacob Last Filed: 11/08/24 12:27> Time Attestation Discharge Coordination Time (in mins): 36 <HANK Jacob Last Filed: 11/08/24 12:27> Quality: Safe Use of Opioids Does Pt have an Active Cancer Diagnosis on the Problem List?: No <HANK Jacob - Last Filed: 11/08/24 12:27> Quality: Stroke Does the patient have a stroke diagnosis?: No <HANK Jacob - Last Filed: 11/08/24 12:27> Physical Exam Vital Signs: Vital Signs: Last Vital Signs Temp 97.4 F 11/04/24 03:51 Pulse 77 11/04/24 15:32 Resp 18 11/04/24 15:32 BP 123/58 L 11/04/24 03:51 Pulse Ox 98 11/04/24 03:51 O2 Del Method Room Air 11/04/24 03:51 BMI result Body Mass Index 43.9 <HANK Jacob - Last Filed: 11/08/24 12:27> Discharge Plan Discharge Anticipated Discharge Date/Time: 11/05/24 09:29 <HANK Jacob - Last Filed: 11/08/24 12:27> Patient Disposition: Home, Self-Care <HANK Jacob - Last Filed: 11/08/24 12:27> Discharge Diagnosis: Acute asthma exacerbation <HANK Jacob - Last Filed: 11/08/24 12:27> Acute asthma exacerbation <Patel Caba MD - Last Filed: 11/05/24 09:31> Referrals: Zoe Cabrera, [Primary Care Provider] - 1 Week <HANK Jacob - Last Filed: 11/08/24 12:27> Discharge Medications: New prednisone 20 mg tablet 40 mg PO DAILY 5 Days Qty: 10 0RF albuterol sulfate 90 mcg/actuation HFA aerosol inhaler 2 inh inhalation Q6H Qty: 8.5 0RF Robitussin Cough-Chest Edi DM 5-50 mg/5 mL liquid 10 ml PO Q4-6H PRN (Reason: cough) Qty: 118 0RF Continued meclizine 25 mg tablet 25 mg PO TID PRN (Reason: dizziness) Qty: 15 0RF ondansetron 4 mg tablet,disintegrating 4 mg PO Q8H PRN (Reason: nausea and vomiting) Qty: 20 0RF naproxen 500 mg tablet 500 mg PO Q12H PRN (Reason: pain (scale score 4-6)) Qty: 20 0RF epinephrine [EpiPen] 0.3 mg/0.3 mL auto-injector 0.3 mg IM Q4H PRN (Reason: anaphylaxis) Qty: 2 0RF multivitamin Tablet 1 tab PO DAILY vitamin E 670 mg (1,000 unit) Capsule 670 mg PO DAILY cholecalciferol (vitamin D3) [Vitamin D3] 25 mcg (1,000 unit) Tablet 25 mcg PO DAILY venlafaxine 75 mg capsule,extended release 24hr 75 mg PO QAM Trulicity 0.75 mg/0.5 mL pen injector 0.75 mg subcut FR fluticasone propionate 50 mcg/actuation spray,suspension 2 spray intranasal QAM metoprolol tartrate 50 mg tablet 50 mg PO BID flecainide 50 mg tablet 50 mg PO Q12H topiramate 25 mg tablet 25 mg PO BEDTIME sumatriptan succinate 25 mg tablet 25 mg PO DAILY PRN (Reason: Migraine Headache) <HANK Jacob - Last Filed: 11/08/24 12:27> Discharge Orders: Discharge Order (Routine); Ordered 11/05/24 Ordered By: Patel Caba <HANK Jacob - Last Filed: 11/08/24 12:27> Activity on Discharge: As tolerated <HANK Jacob Last Filed: 11/08/24 12:27> As tolerated <Patel Caba MD - Last Filed: 11/05/24 09:31> Stand Alone Forms: Patient Portal Discharge page <HANK Jacob Last Filed: 11/08/24 12:27> Print Language: Kinyarwanda <HANK Jacob Last Filed: 11/08/24 12:27> Care Plan Goals: See below <HANK Jacob Last Filed: 11/08/24 12:27> Health Concerns: Acute exacerbation of asthma <HANK Jacob Last Filed: 11/08/24 12:27> Plan of Treatment: Complete course of steroids as prescribed Call to schedule follow-up appointment with PCP <HANK Jacob - Last Filed: 11/08/24 12:27> Assessment: See discharge summary <HANK Jacob - Last Filed: 11/08/24 12:27> Discharge Date/Time: 11/05/24 11:07 <HANK Jacob - Last Filed: 11/08/24 12:27>
[2024-11-04] MEDS: Melatonin 3 MG TABLET 6 MG PO (20:26)
[2024-11-04] MEDS: Topiramate 25 MG TABLET PO (20:26)
[2024-11-04] MEDS: Meclizine HCl 25 MG TABLET PO (20:26)
[2024-11-04] MEDS: traZODone HCL 50 MG TABLET PO (20:27)
[2024-11-04] MEDS: methylPREDNISolone Sod Succ 40 MG/ML VIAL IVPUSH (20:27)
[2024-11-05] VITALS: BP 110/63; PULSE 72; RESP 20; TEMP 36.1; O2SAT 98
[2024-11-05 08:00] VITALS: BP 141/62; PULSE 75; RESP 19; TEMP 36.4; O2SAT 98
[2024-11-05] MEDS: Albuterol/Iprat 2.5/0.5MG 3 ML AMPUL.NEB INHALE (08:07)
[2024-11-05 08:10] VITALS: PULSE 91; RESP 18; O2SAT 99
--- NOTE | 2024-11-05 09:43 | MHC.CM.PN ---
Patient has been medically cleared for dc to home today, self care.
[2024-11-05] MEDS: methylPREDNISolone Sod Succ 40 MG/ML VIAL IVPUSH (10:00)
[2024-11-05] MEDS: 0.9 % Sodium Chloride Flush 3 ML SYRINGE IVFLUSH (10:00)
[2024-11-05 10:01] VITALS: BP 115/60; PULSE 78
[2024-11-05] MEDS: Venlafaxine HCl ER 75 MG CAP.ER.24H PO (10:01)
[2024-11-05] MEDS: Cholecalciferol (Vitamin D3) 25 MCG TABLET PO (10:01)
[2024-11-05] MEDS: Vitamin E (Dl,Tocopheryl Acet) 180 MG (400 UNIT) CAPSULE 720 MG PO (10:01)
[2024-11-05] MEDS: Metoprolol Tartrate 50 MG TABLET PO (10:01)
[2024-11-05] MEDS: Flecainide Acetate 50 MG TABLET PO (10:05)
== END 2024-11-05 11:07 | disposition home or self-care (01) ==
LOC: HO.ED 20:21 → HO.EDOVER 20:45 → HO.IMC 11-03 17:05 → HO.EDOVER 11-03 17:16 → HO.IMC 11-04 01:56
PROVIDERS: Physician Assistant Medical; Admitting Provider Internal Medicine; Emergency Provider Emergency Medicine; PCP Family Medicine; Visit Provider Internal Medicine
DX: J45.901 Unspecified asthma with (acute) exacerbation (principal); I49.9 Cardiac arrhythmia, unspecified; R05.9 Cough, unspecified; F39 Unspecified mood [affective] disorder; G43.909 Migraine, unspecified, not intractable, without status migrainosus; E66.01 Morbid (severe) obesity due to excess calories; Z68.41 Body mass index [BMI] 40.0-44.9, adult; Z03.818 Encounter for observation for suspected exposure to other biological agents ruled out
CPT/HCPCS: 0241U; 36415; 71045; 80048; 80053; 81003; 83735; 85025; 85027; 93005; 94640; 96365; 96366; 96372; 96375; 96376; 99222; 99285; J1650; J1885; J2919; J3475

== ENCOUNTER → 2024-11-02 16:47 | Outpatient (BNV) | payer MEDICAID, SELFPAY | PROVIDERS: Emergency Provider Emergency Medicine; PCP Family Medicine; Visit Provider Specialist | DX: R06.02 Shortness of breath (principal) | CPT/HCPCS: 71045 ==

== ENCOUNTER → 2024-11-02 20:05 | Outpatient (BNV) | payer MEDICAID, SELFPAY | PROVIDERS: Admitting Provider Internal Medicine; Emergency Provider Emergency Medicine; PCP Family Medicine; Visit Provider Internal Medicine Cardiovascular Disease | DX: R07.9 Chest pain, unspecified (principal) | CPT/HCPCS: 93010 ==

== ENCOUNTER → 2024-11-02 20:40 | Outpatient (BNV) | payer MEDICAID, SELFPAY | PROVIDERS: Admitting Provider Internal Medicine; Emergency Provider Emergency Medicine; PCP Family Medicine; Visit Provider Internal Medicine | DX: J45.901 Unspecified asthma with (acute) exacerbation (principal) | CPT/HCPCS: 99222; 99232 ==

== ENCOUNTER 2024-11-05 11:08 | Outpatient (REF) | payer MEDICAID, OTHER, SELFPAY ==
--- NOTE | ~2024-11-05 | CT_ITS ---
CLINICAL HISTORY: lightheadedness with multiple faiting episodes CT head without contrast. COMPARISON: CT head dated 02/06/24 at 19:23 EDT FINDINGS: The visualized paranasal sinuses are clear. The mastoid air cells are clear. No calvarial fracture. No evidence for mass or mass effect. No intracranial hemorrhage or abnormal extra-axial fluid collection. No evidence of hydrocephalus. The basilar cisterns are patent. Posterior fossa appears unremarkable. IMPRESSION: 1. No acute intracranial findings. This document has been electronically signed by: Jovanny Osborn MD on 11/05/2024 15:46:49
== END 2024-11-05 11:09 | disposition home or self-care (01) ==
LOC: HO.CT 11:08
PROVIDERS: PCP Family Medicine; Visit Provider Family Medicine
DX: R55 Syncope and collapse (principal); R42 Dizziness and giddiness
CPT/HCPCS: 70450

== ENCOUNTER → 2024-11-05 11:11 | Outpatient (BNV) | payer MEDICAID, SELFPAY | PROVIDERS: PCP Family Medicine; Visit Provider Radiology Diagnostic Radiology | DX: R42 Dizziness and giddiness (principal); R55 Syncope and collapse | CPT/HCPCS: 70450 ==

== ENCOUNTER 2025-01-08 13:36 | Outpatient (REF) | payer MEDICAID, OTHER, SELFPAY ==
[2025-01-08 13:51] LABS: Urine Cytology See Pathology rpt
--- OUTSIDE RECORDS SUMMARY | 2025-01-08 17:09 | XMS_ITS | Encounter Summary ---
Author Organization [employer] [facility] Address [address] [place] [address] 7 [place] [address] Care Team Providers Care Intake Clerk Name Role Phone GalileoZoe ferraro Primary Care Provider [phone] Reason for Visit * Reason Comments Med Refill Encounter Details Date Type Department Care Team ([facility] Contact Info) Description 02/07/2023 Refill [facility] [address] [place] [address] [phone] Bertrand Dominguez MD [address] [place] [address] [phone] Onychomycosis Social History Tobacco Use Types Packs/Day Years Used Date Smoking Tobacco: Never Passive Smoke Exposure: Never Smokeless Tobacco: Never Alcohol Use Standard Drinks/Week Comments Never 0 (1 standard drink = 0.6 oz pur e alcohol) Comments Unknown Sex and Gender Information Value Date Recorded Sex Assigned at Female 09/06/2022 10:29 AM EDT Legal Sex Female 10:29 AM EDT Gender Identity Choose not to disclose 10:29 AM EDT Sexual Orientation Straight 09/06/2022 10 :29 AM EDT documented as of this encounter Plan of Treatment Upcoming Encounters Date Type Department Care Team ([facility] Contact Info) Description 01/11/2025 1:00 PM EST Office Visit [facility] [address] [place], [place] [phone] Bertrand Dominguez MD [address] [place], [place] [phone] documented as of this encounter Visit Diagnoses Diagnosis Onychomycosis Dermatophytosis of nail documented in this encounter Additional Health Concerns Assessment Noted Time PHQ-9 Depression Total Score: 0 12/03/19 23 8:57 AM EST documented as of this encounter Care Teams Intake Clerk Relationship Specialty Start Date End Date Zoe Cabrera DO [address] [place] [address] PCP - General Family Medicine 12/10/15 documented as of this encounter
--- OUTSIDE RECORDS SUMMARY | 2025-01-08 17:09 | XMS_ITS | Encounter Summary ---
Author Organization [facility] Address [address] [place] [address] [address] [place] [address] Care Team Providers Care Shredder/Granulator Operator Name Role Phone GalileooZe ferraro Primary Care Provider [phone] Reason for Visit * Reason Comments Med Refill Encounter Details Date Type Department Care Team ([facility] Contact Info) Description 02/11/2023 Refill [facility] [address] [place] [address] [phone] Bertrand Dominguez MD [address] [place] [address] [phone] Onychomycosis Social History Tobacco Use Types Packs/Day [...] Upcoming Encounters Date Type Department Care Team ([facility] Contact Info) Description 01/11/2025 1:00 PM EST Office Visit [facility] [address] [place], [place] [phone] Bertrand Dominguez MD [address] [place], [place] [phone] documented as of this encounter Visit Diagnoses Diagnosis Onychomycosis Dermatophytosis of nail documented in this encounter Additional Health Concerns Assessment Noted Time PHQ-9 Depression Total Score: 0 12/03/19 23 8:57 AM EST documented as of this encounter Care Teams Shredder/Granulator Operator Relationship Specialty Start Date End Date Zoe Cabrera DO [address] [place] [address] PCP - General Family Medicine 12/10/15 documented as of this encounter
--- OUTSIDE RECORDS SUMMARY | 2025-01-08 17:10 | XMS_ITS | Encounter Summary ---
Author Organization [employer] Address [address] [facility] [address] [place] [address] Care Team Providers Care Ruffler Name Role Phone DeborahZoe Primary Care Provider [phone] Encounter Details Date Type Department Care Team ([facility] Contact Info) Description 03/30/2023 Abstract [facility] MEDICINE [address] [place] [id number] Talisha Yates RN [address] [place] [address] Social History Tobacco Use Types Packs/Day Years [...] Orientation Straight 09/06/2022 10 :29 AM EDT COVID-19 Exposure Response Date Recorded In the last 10 days, have yo u been in contact with someone who was confirmed or suspected to have Coronavirus/COVID-19? No / Unsure 03/25/2023 9:26 AM EDT documented as of this encounter Plan of Treatment Upcoming Encounters Date Type Department Care Team ([facility] Contact Info) Description 01/11/2025 1:00 PM EST Office Visit [facility] [address] [place] [address] Bertrand Dominguez MD [address] [place] [address] documented as of this encounter Procedures Procedure Name Priority Date/Time Associated Diagnosis Comments PAP/HPV Routine 03/25/2023 documented in this encounter Results * Pap Smear (03/25/2023) Pap smear NIL HPV- us Historical Provider HEALTH MAINTENANCE Final Result documented in this encounter Visit Diagnoses Not on filedocumented in this encounter Additional Health Concerns Assessment Noted Time PHQ-9 Depression Total Score: 0 12/03/19 23 8:57 AM EST documented as of this encounter Care Teams Ruffler Relationship Specialty Start Date End Date Zoe Cabrera DO [address] [place] [address] PCP - General Family Medicine 12/10/15 documented as of this encounter
--- OUTSIDE RECORDS SUMMARY | 2025-01-08 17:10 | XMS_ITS | Encounter Summary ---
Author Organization [employer] [facility] Address [address] [place] [address] [address] [place] [address] Care Team Providers Care Exhibits Coordinator Name Role Phone Zoe Cabrera DO Primary Care Provider [phone] Encounter Details Date Type Department Care Team (Latest Contact Info) Description 12/01/2020 Abstract [facility] CONVERSIONS Dental, Provider, DDS Social History Tobacco Use Types Packs/Day Years Used Date Smoking Tobacco: Never Assessed Comments Unknown Sex and Gender Information Value Date Recorded Sex Assigned at Female 09/06/2022 10:29 AM EDT Legal Sex Female 10:29 AM EDT Gender Identity Choose not to disclose 10:29 AM EDT Sexual Orientation Straight 09/06/2022 10 :29 AM EDT documented as of this encounter Plan of Treatment Upcoming Encounters Date Type Department Care Team (Late st Contact Info) Description 01/11/2025 1:00 PM EST Office Visit [facility] MEDICINE [address] [place] [address] Bertrand Dominguez MD [address] [place] [address] documented as of this encounter Visit Diagnoses Not on filedocumented in this encounter Care Teams Exhibits Coordinator Relationship Specialty Start Date End Date Zoe Cabrera DO [address] [place] [address] PCP - General Family Medicine 12/10/15 documented as of this encounter
--- OUTSIDE RECORDS SUMMARY | 2025-01-08 17:10 | XMS_ITS | Clinical Summary ---
Author Organization [employer] Address [address] [place] [address] Care Team Providers Care Station Jailer Name Role Phone Zoe Cabrera DO Primary Care Provider [phone] Allergies No known active allergies Medications EPINEPHrine (Epipen) 0.3 MG/0.3ML injection syringe INJECT INTRAMUSCULARLY DIRECTED ON PACKAGE AND GO TO EMERGENCY ROOM 05/23/20 23 Active melatonin 5 MG tablet TAKE 2 TABLETS BY MOUTH 2 HOURS BEFORE BEDTIME. 05/23/20 23 Active hydrocortisone 1 % creamIndications :Dermatitis APPLY TO THE AFFECTED AREA(S) TWICE DAILY NEEDED FOR RASH 28 g 2 08/22/20 23 Active estradiol (Estrace) 0.1 MG/GM vaginal cream INSERT 1 GRAM VAGINALLY 3 TIMES A WEEK 42.5 g 2 02/06/20 24 Active metoprolol tartrate (Lopressor) 50 MG tabletIndication s:Essential hypertension TAKE 1 TABLET BY MOUTH TWICE DAILY WITH MEALS 180 tablet 3 02/06/20 24 Active topiramate (Topamax) 25 MG tablet Take 1 tablet (25 mg) by mouth at bedtime. 30 tablet 11 03/09/20 24 025 Active flecainide (Tambocor) 50 MG tablet TAKE 1 TABLET BY MOUTH EVERY 12 HOURS 60 tablet 11 06/15/20 24 Active naproxen (Naprosyn) 500 MG tablet TAKE 1 TABLET BY MOUTH TWICE DAILY IN THE MORNING AND AT BEDTIME NEEDED FOR PAIN 40 tablet 2 06/15/20 24 Active traZODone (Desyrel) 50 MG tabletIndication s:Insomnia, unspecified type Take 1 tablet (50 mg) by mouth at bedtime. 30 tablet 5 06/22/20 24 Active venlafaxine XR (Effexor XR) 75 MG 24 hr capsule Take 1 capsule (75 mg) by mouth Once per day. Do not crush or chew. 30 capsule 5 06/22/20 24 Active SUMAtriptan (Imitrex) 50 MG tablet TAKE 1 TABLET BY MOUTH AT ONSET OF MIGRAINE. MAY REPEAT ONCE AFTER 2 HOURS IF NEEDED DO NOT EXCEED 2 DOSES IN 24 HOURS 9 tablet 3 08/09/20 24 Active loratadine (Claritin) 10 MG tablet Take 1 tablet (10 mg) by mouth Once per day. 30 tablet 3 08/21/20 24 025 Active acetaminophen (Tylenol 8 Hour) 650 MG ER tablet Take 2 tablets (1,300 mg) by mouth every 8 (eight) hours if needed for moderate pain or headaches. Do not crush, chew, or split. 30 tablet 08/21/20 24 Active meclizine (Antivert) 25 MG tabletIndication s:Vertigo Take 1 tablet by mouth three times daily as needed for dizziness 30 tablet 3 09/17/20 24 Active fluticasone (Flonase) 50 MCG/ACT nasal spray INSTILL 2 SPRAYS IN EACH NOSTRIL ONCE DAILY 48 g 11/15/19 25 Active clotrimazole (Lotrimin) 1 % cream APPLY TOPICALLY TO THE AFFECTED AREA(S) TWICE DAILY FOR 28 DAYS 60 g 2 12/04/19 25 Active Ventolin HFA 108 (90 Base) MCG/ACT inhaler Inhale 2 puffs every 6 (six) hours. 11/05/20 24 Active Trulicity 1.5 MG/0.5ML solution auto-injector INJECT ONE PEN (=1.5MG) SUBCUTANEOUSLY ONCE A WEEK DIRECTED 11/12/19 25 Active mineral oil-hydrophil petrolat ointment Topical Ointment APPLY TOPICALLY TO THE AFFECTED AREA(S) EVERY DAY NEEDED FOR DRY SKIN DIRECTED 11/12/19 25 Active lansoprazole (Prevacid) [address] capsule Take 30 mg by mouth 2 times daily. 11/22/19 25 Active sulfamethoxazole -trimethoprim (Bactrim DS) 800-160 MG tablet Take 1 tablet by mouth 2 times daily for 3 days. 6 tablet 01/09/20 25 025 Active metroNIDAZOLE (Flagyl) 500 MG tablet Take 500 mg by mouth 2 times daily. 11/27/19 25 025 amoxicillin (Amoxil) 500 MG capsule Take 1,000 mg by mouth 2 times daily. 11/27/19 25 025 Active Problems Problem Noted Date Diagnosed Date Impacted tooth 04/05/2024 Dental calculus 04/05/2024 Vertigo 03/09/2024 Pre-diabetes 07/26/2023 Fractured dental mormonism with loss of materi al 05/16/2023 BMI 40.0-44.9, adult 03/25/2023 Microscopic hematuria 03/25/2023 Chronic gastroesophageal reflux disease 12/03/19 Chronic migraine 12/03/2022 Seasonal allergic rhinitis 04/17/2018 Essential hypertension 12/10/2015 Mild intermittent asthma 12/10/2015 Paroxysmal atrial fibrillation 12/10/2015 Overview (11/29/2022): Last Assessment & Plan: PAF, remains on metoprolol and flecainide. CHADS VASC risk factors are notable for Htn and female gender Resolved Problems Problem Noted Date Diagnosed Date Resolved Date Persistent migraine aura wit hout cerebral infarction and without status migrainosus, not intractable 03/07/2024 03/09/2024 Assessment & Plan (03/07/2024 9:12 AM EDT): Current episode 3 days. No evidence of increased intracranial pressure. CT head unremarkable 02/06/24. Patient was hoping for IV fluids but we do not provider here. Rx ondansetron and sumatriptan prn. ER precautions discussed. Pt agrees with the plan. Chronic gastroesophageal reflux disease 12/03/2022 12/03/2022 Hyperpigmentation of skin 05/19/2018 Gastroesophageal reflux disease 12/10/2015 12/03/2022 Migraine 12/10/2015 12/03/2022 Obesity (BMI 30-39.9) 12/10/20152022 Encounters Date Type Department Care Team Description 01/08/2025 9:15 AM EST Office Visit [facility] [address] [place] [phone] Zoe Cabrera DO Mild intermittent asthma without complication (Primary Dx); Acute UTI; Pelvic pain; Microscopic hematuria; Vaginal spotting; History of Helicobacter pylori infection 01/08/2025 Travel 12/20/2024 Telephone [facility] [address] [place] [address] Aislinn Mcginnis, OD 12/11/2024 Telephone [facility] [address] [place] [address] Keiko Mejía, JAY Appointment r/s 12/03/2024 Refill [facility] [address] [place] [address] Zoe Cabrera DO 11/12/2024 Refill [facility] [address] [place], [place] [phone] Benjie Boss MD 11/12/2024 Patient Outreach [facility] [address] [place], [place] [phone] Zoe Cabrera DO Transition Of Care (Tcm) (HDF unscheduled. ) 11/12/2024 Telephone [facility] [address] [place] [address] Zoe Cabrera DO Hospital Follow-up 11/02/2024 Orders Only GENERIC EXTERNAL DATA DEPARTMENT Provider, Generic External Data from Last 3 Months Immunizations Name Administration Dates Next Due DTaP 10/03/2018 Influenza injectable quadriv alent IIV4 with preservative 09/25/2018,08/06/2016 Influenza injectable quadriv alent preservative free 07/26/2023,12/03/2022,12/01/2020,2018,09/05/2017,12/10/2015 Moderna Covid-19 Vaccine 12+ 04/22/2021,03/25/20 21 Moderna Covid-19 Vaccine 6+ Bivalent 12/03/2022 Pneumococcal Conjugate PCV 13 08/06/2016 Pneumococcal Conjugate PCV 20 07/26/2023 Tdap 08/06/2016 Social History Tobacco Use Types Packs/Day Years Used Date Smoking Tobacco: Never Passive Smoke Exposure: Never Smokeless Tobacco: Never Tobacco Cessation:Counseling Given: Not Answered Alcohol Use Standard Drinks/Week Comments Never 0 (1 standard drink = 0.6 oz pur e alcohol) Depression Answer Date Recorded Patient Health Questionnaire-9 Score 0 01/08/2025 Patient Health Questionnaire-9 Score 0 01/08/2025 Last PHQ-9: Questionnaire Data Not on file 0 01/08/2025 Housing Stability Answer Date Recorded What is your housing situation today? I have ary breaux 03/09/[address] you li ve. Do you have problems with any of the following? None of the above 03/09/2024 Food Insecurity Answer Date Recorded Within the past 12 months, y ou worried that your food would run out before you got money to buy more: Never True 03/09/2024 Within the past 12 months,th e food you bought just didn't last and you didn't have enough money to get more: Never True 01/2024 Transportation Answer Date Recorded In the past 12 months, has l ack of transportation kept you from medical appts, meetings, work or from getting things needed for daily living? No 03/09/2024 Utilities Answer Date Recorded In the past 12 months, has t he electric, gas, oil or water company threatened to shut off services in your home? No 03/09/2024 Depression Answer Date Recorded Patient Health Questionnaire-2 Score 0 01/08/2025 Internet Access Answer Date Recorded Internet Access Q1 Yes 01/08/2025 Internet Access Q2 Not on file 01/08/2025 Comments Unknown Sex and Gender Information Value Date Recorded Sex Assigned at Female 09/06/2022 10:29 AM EDT Legal Sex Female 10:29 AM EDT Gender Identity Choose not to disclose 10:29 AM EDT Sexual Orientation Straight 09/06/2022 10 :29 AM EDT Last Filed Vital Signs Vital Sign Reading Time Taken Comments Blood Pressure 126/88 01/08/2025 3:02 PM EST Pulse 64 01/08/2025 9:01 AM EST Temperature 36.4 ??C (97.6 ??F) 01/08/2025 9:01 AM ES T Respiratory Rate 20 01/08/2025 9:01 AM EST Oxygen Saturation 98% 01/08/2025 9:01 AM EST Inhaled Oxygen Concentration - - Weight 114 kg (252 lb 6.4 oz) 01/08/2025 9:01 AM EST Height 162.6 cm (5' 4 ) 01/08/2025 9:01 AM EST Body Mass Index 43.32 01/08/2025 9:01 AM EST Plan of Treatment Upcoming Encounters Date Type Department Care Team (Late st Contact Info) Description 01/11/2025 1:00 PM EST Office Visit [facility] [address] [place] [address] Bertrand Dominguez MD [address] [place] [address] Health Maintenance Due Date Last Done Comments CT Colonography 1975 Colonoscopy 1975 FIT 1974 FOBT 1975 Sigmoidoscopy 1975 Family Planning (PISQ) 1989 Hepatitis B Vaccines (1 of 3 - 19+ 3-dose series) 1993 COVID-19 Vaccine ( season) 2024 12/03/2022, 04/22/2021, 03/25/2021 Influenza Vaccine (#1) 2024 , 12/03/2022, 12/01/2020, Additional history exists Zoster Vaccines (1 of 2) 2024 Dental Oral Exam 10/07/2024 04/05/2024, 12/08/2022 Dental Prophylaxis 10/07/2024 04/05/2024, 12/08/2022 Dental X-Ray: Bitewings 04/06/2025 04/05/2024, 12/08 Alcohol/Substance Use Screening 01/08/2026 01/08/2025 Depression Screening 01/08/2026 01/08/2025, 01/09/20 SDOH Screening 01/08/2026 01/08/2025 Tobacco Screening 01/08/2026 01/08/2025 Pap Smear 03/25/2026 03/25/2023, 03/25/2023 Mammogram 04/04/2026 04/04/2024, 03/08, 03/30/2023, Additional history exists Dental X-Ray: Full Mouth 04/06/2027 04/05/2024 Colorectal Cancer Screening 07/03/2027 FIT DNA/Cologuard 07/03/2027 07/03/2024 Cervical Cancer Screening 03/25/2028 HPV/Cotest 03/25/2028 03/25/2023, 04/06/2019 DTaP/Tdap/Td Vaccines (3 - Td or Tdap) 10/03/2028 10/03/2018, 08/06/2016 Lipid Panel 06/22/2029 06/22/2024, 07/08, 03/28/2023, Additional history exists RSV Patients and Patients Aged 60 years or older (1 - 1-dose 75+ series) 2049 Pneumococcal Vaccine: 50+ Years Completed 07/26/2023, 08/06/2016 HIV Screening Completed 06/22/2024, 03/08, 03/28/2023, Additional history exists Hepatitis C Screening Completed 06/22/2024 , 03/28/2023, 03/08/2022, Additional history exists HIB Vaccines Aged Out No longer eligi ble based on patient's age to complete this topic HPV Vaccines Aged Out No longer eligi ble based on patient's age to complete this topic Hepatitis A Vaccines Aged Out No long er eligible based on patient's age to complete this topic IPV Vaccines Aged Out No longer eligi ble based on patient's age to complete this topic Meningococcal Vaccine Aged Out No inga bibiana eligible based on patient's age to complete this topic RSV under 20 months Aged Out No longe r eligible based on patient's age to complete this topic Rotavirus Vaccines Aged Out No longer eligible based on patient's age to complete this topic Procedures Procedure Name Priority Date/Time Associated Diagnosis Comments POCT URINALYSIS DIPSTICK Routine 01/08/2025 10:26 AM EST Acute UTI Microscopic hematuria CT HEAD WO CONTRAST Routine 11/05/2024 3 :46 PM EST Syncope, unspecified syncope type Vertigo URINALYSIS WITH REFLEX MICROSCOPIC Routine 11/02/2024 7:33 PM EST SARS COV2/INFLUENZA A/B AND RSV RNA QL NAAT Routine 11/02/2024 6:20 PM EST MAGNESIUM Routine 11/02/2024 5:36 PM EST COMPREHENSIVE METABOLIC PANEL Routine 11/02/2024 5:36 PM EST XR CHEST 1 VIEW Routine 11/02/2024 5:22 PM EST CBC WITH AUTO DIFFERENTIAL Routine 11/02/2024 4:50 PM EST HOLD LT BLUE - POSSIBLE COAG Routine 11/02/2024 4:50 PM EST LAB COLOGUARD?? COLON CANCER SCREEN Routine 07/03/2024 12:00 PM EDT Encounter for screening for malignant neoplasm of colon HEPATITIS C AB W/REFL TO HCV RNA, QN, PCR Routine 06/22/2024 12:34 PM EDT Essential hypertension Paroxysmal atrial fibrillation (CMS/HCC) Pre-diabetes Mild intermittent asthma without complication Chronic gastroesophageal reflux disease Chronic migraine Microscopic hematuria Hot flashes Healthcare maintenance Insomnia, unspecified type HIV 1/2 ANTIGEN/ANTIBODY, FOURTH GENERATION W/RFL Routine 06/22/2024 12:34 PM EDT Essential hypertension Paroxysmal atrial fibrillation (CMS/HCC) Pre-diabetes Mild intermittent asthma without complication Chronic gastroesophageal reflux disease Chronic migraine Microscopic hematuria Hot flashes Healthcare maintenance Insomnia, unspecified type LIPID PANEL, STANDARD Routine 06/22/2024 12:34 PM EDT Essential hypertension Paroxysmal atrial fibrillation (CMS/HCC) Pre-diabetes Mild intermittent asthma without complication Chronic gastroesophageal reflux disease Chronic migraine Microscopic hematuria Hot flashes Healthcare maintenance Insomnia, unspecified type PROPHYLAXIS - ADULT Routine 04/05/2024 3 :00 PM EDT Dental calculus INTRAORAL - COMPLETE SERIES OF RADIOGRAPHIC IMAGES Routine 04/05/2024 3:00 PM EDT Impacted tooth Dental calculus PERIODIC ORAL EVALUATION - ESTABLISHED PATIENT Routine 04/05/2024 3:00 PM EDT BI MAMMOGRAM SCREENING TOMOSYNTHESIS BILATERAL Routine 04/04/2024 8:45 AM EDT THINPREP PAP, HPV MRNA E6/E7 RFX HPV 16,18/45, CHLAMYDIA/N.GONORRHO EAE Routine 03/25/2023 12:00 AM EDT from Last 3 Months or Most Recently Relevant to Health Maintenance Results * POCT Urinalysis (01/08/2025 10:26 AM EST) Color, UA Yellow Clarity, UA Cloudy Glucose, UA Negative Bilirubin, UA Negative Ketones, UA Negative Spec Grav, UA 1.025 Blood, UA Negative Negative, None Detected pH, UA 7.0 Protein, UA Negative Urobilinogen, UA 0.2 Leukocytes, UA Negative Negative, Rare, Trace Nitrite, UA Negative Negative, None Detected QC Media Lot # [id number] Lot# Expiration Date [id number] Urine 01/08/2025 10:2 6 AM EST Zoe Cabrera DO POINT OF CARE TEST ENTER/RIGOBERTO T ORDERABLES Final Result * CT Head w/o Contrast (11/05/2024 3:46 PM EST) Anatomical Region Laterality Modality Head, Neck Computed Tomogra phy 11/05/2024 3:46 PM EST Narrative 11/05/2024 3:48 PM EST ? [facility] ?[address] ?[place] [address] ? CT Scan Report ? Signed ? Patient: Anshu Craft,Radha ? MR#: [id number] ? : 1975 ?Acct:[id number] ? Age/Sex: 49 / F ?ADM Date: 12/30/24 ? Loc: HO.CT ? Attending Brandie Cabrera DO ? Ordering Physician: Zoe Cabrera DO ?? Date of Service: 11/05/24 ?? Procedure(s): CT head/brain wo IV con ?? Accession Number(s): [id number] ? cc: Yessenia Cabreranifer Alessio DO ? Report Number: ?? [id number]: Total DLP = ??833.00 mGy-cm ? CLINICAL HISTORY: lightheadedness with multiple faiting episodes ? CT head without contrast. ? COMPARISON: CT head dated 02/06/24 at 19:23 EDT ? FINDINGS: ?? The visualized paranasal sinuses are clear. The mastoid air cells are ?? clear. ?? No calvarial fracture. ? No evidence for mass or mass effect. ?? No intracranial hemorrhage or abnormal extra-axial fluid collection. ?? No evidence of hydrocephalus. The basilar cisterns are patent. ?? Posterior fossa appears unremarkable. ? IMPRESSION: ?? 1. No acute intracranial findings. ? This document has been electronically signed by: Jovanny Osborn MD on ?? 11/05/2024 15:46:49 ? Dictated By: ?Jovanny Osborn MD ? Signed By: ?<Electronically signed by Jovanny Osborn MD in OV> ?11/05/24 1547 ? DD/ 1546 ? TD/TT: 11/05/24 1546 ? Manager Agriculture: ? Procedure Note Jane Bryant - 11/05/[address] [place] [address] [address] Scan Report Signed Patient: Radha Martinez MR#: [id number] : 1975Acct:[id number] Age/Sex: 49 / FADM Date: 11/05/24 Loc: HO.CT Attending Dr: Zoe Cabrera DO Ordering Physician: Zoe Cabrera DO Date of Service: 11/05/24 Procedure(s): CT head/brain wo IV con Accession Number(s): [id number] cc: Zoe Cabrera DO Report Number: [id number]: Total DLP = 833.00 mGy-cm CLINICAL HISTORY: lightheadedness with multiple faiting episodes CT head without contrast. COMPARISON: CT head dated 02/06/24 at 19:23 EDT FINDINGS: The visualized paranasal sinuses are clear. The mastoid air cells are clear. No calvarial fracture. No evidence for mass or mass effect. No intracranial hemorrhage or abnormal extra-axial fluid collection. No evidence of hydrocephalus. The basilar cisterns are patent. Posterior fossa appears unremarkable. IMPRESSION: 1. No acute intracranial findings. This document has been electronically signed by: Jovanny Osborn MD on 11/05/2024 15:46:49 Dictated By: Jovanny Osborn MD Signed By: <Electronically signed by Jovanny Osborn MD in OV> 11/05/24 1547 DD/ 1546 TD/TT: 11/05/24 1546 Manager Agriculture: us Zoe Cabrera DO IMG CT PROCEDURES Final Resu lt * Urinalysis w/reflex microscopic (11/02/2024 7:33 PM EST) Color Urine Yellow [facility] Appearance Urine Clear [facility] PH 7.5 5.0 - 9.0 [facility] Glucose Urine UA Negative Negative mg/dL [facility] Urine Blood Negative Negative [facility] Specific [place] - Urine 1.015 1.005 - 1.025 [facility] Urine Protein Negative Neg-Trace mg/dL [facility] Urine Ketones Negative Negative mg/dL [facility] Nitrite Urine Negative Negative [facility] Leukocyte Esterase Urine Negative Negative [facility] 11/02/2024 7:33 PM EST 11/02/2024 7:36 PM EST Narrative [facility] - 11/02/2024 7:42 PM EST [id number], Clean Catch Generic External Data Provider LAB URINE ORDERAB LES Final Result [facility] [address] [place] [phone] * SARS-CoV-2 RNA, Influenza A/B, and RSV RNA, Ql NAAT (11/02/2024 6:20 PM EST) Influenza A PCR NEGATIVE Negative [facility] Influenza B PCR NEGATIVE Negative [facility] Resp Syncy Virus RNA Qual PCR NEGATIVE Negative [facility] SARS COV2 PCR NEGATIVE Negative [facility] Comment:All test results mus t be correlated with clinical findings.Negative results do not preclude SARS-CoV2, influenza Avirus, influenza B virus and/or RSV infectionand should not be used as the sole basis for treatment orother patient management decisions. Negative results must becombined with clinical observations, patient history, andepidemiological information.This test has not been evaluated for monitoring treatment ofinfection.This test has been authorized by the FDA under an EmergencyUse Authorization (EUA) for use by authorized laboratories.Testing performed on the [employer] GeneXpert utilizingreal-time RT-PCR.All SARS CoV2 and positive influenza A/B results arereported to [facility]. 11/02/2024 6:20 PM EST 11/02/2024 6:22 PM EST Generic External Data Provider LAB MICROBIOLOGY - GENERAL ORDERABLES Final Result Performing Organization Address [facility]/ZIP Co de Phone Number [facility] [address] [place] [phone] * (ABNORMAL) Magnesium (11/02/2024 5:36 PM EST) Pathologist [facility] Magnesium 2.8(H) 1.6 - 2.6 mg/dL [facility] 11/02/2024 5:36 PM EST 11/02/2024 5:40 PM EST Generic External Data Provider LAB BLOOD ORDERAB LES Final Result Performing Organization Address [facility] Co de Phone Number [facility] [address] [place] [phone] * (ABNORMAL) Comprehensive Metabolic Panel (11/02/2024 5:36 PM EST) Pathologist [facility] Sodium 140 135 - 145 mmol/L [facility] Potassium 4.2 3.3 - 5.1 mmol/L [facility] Comment:Slight Hemolysis.Int erpret result with caution. Chloride 105 96 - 108 mmol/L [facility] Carbon Dioxide 22 22 - 29 mmol/L [facility] Anion Gap 17 12 - 20 [facility] Urea Nitrogen (BUN) 14 9 - 16 mg/dL [facility] Creatinine, Serum 0.65 0.5 - 1.4 mg/dL [facility] Creatinine Clr Calc Pharmacy 129.5 [facility] Comment:Provided height and weight: 162.56 cm,116.12 kg.eGFR (calculated from the MDRD study equation) and eCrCl(calculated from the Cockcroft-Gault equation) are based ondifferent parameters and may not yield comparable results.If eCrCl result is absurd, please check patient'sheight/weight. Estimated Glomerular Filt Rate >60 [facility] Comment:Chronic Kidney Disea se: Estimated GFR < 60 mL/min/1.05m9Qvwnhb Kidney Disease: Estimated GFR < 15 mL/min/1.73m2 Glucose 134(H) 60 - 115 mg/dL [facility] Calcium 8.6 8.4 - 10.2 mg/dL [facility] Bilirubin, Total 0.2 0.0 - 1.0 mg/dL [facility] Aspartate Amino Transferase 33(H) 5 - 31 U/L [facility] Comment:Slight Hemolysis.Int erpret result with caution. Alanine Aminotransferase 22 0 - 31 U/L [facility] Total Protein 7.7 6.5 - 8.0 g/dL [facility] Albumin Level 3.7 3.5 - 5.0 g/dL [facility] Alkaline Phosphatase 96 39 - 117 U/L [facility] 11/02/2024 5:36 PM EST 11/02/2024 5:40 PM EST us Generic External Data Provider LAB BLOOD ORDERAB LES Final Result [facility] [address] [place] [phone] * XR Chest 1 View (11/02/2024 5:22 PM EST) Anatomical Region Laterality Modality Chest Radiographic Gracia ging 11/02/2024 5:22 PM EST Narrative 11/02/2024 5:24 PM EST ? [facility] ?[address] ?[place] [address] ?XRay Report ? Signed ? Patient: Anshu Craft,Radha ? MR#: [id number] ? : 1975 ?Acct:[id number] ? Age/Sex: 49 / F ?ADM Date: 11/02/24 ? Loc: HO.ED ? Attending Dr: ? Ordering Physician: Marianela Encarnacion ?? Date of Service: 11/02/24 ?? Procedure(s): XR chest 1V ?? Accession Number(s): [id number] ? cc: Marianela Encarnacion; Zoe Cabrera DO ? CLINICAL HISTORY: sob ? 1 view chest x-ray ? Comparison: 11/08/2020 11:24 PM EST: CR: XR CHEST 1V ?? 03/24/2019 07:51 PM EDT: SR: CHEST 2 VIEWS ? Findings: ?? Portions of the exam is obscured by overlying material. ?? No consolidation or effusion. ?? Heart size is normal. ?? No acute fracture. ? IMPRESSION: ?? 1. No acute findings. ? This document has been electronically signed by: Rafiq Wolff MD on ?? 11/02/2024 17:22:19 ? Dictated By: ?Rafiq Wolff MD ? Signed By: ?<Electronically signed by Rafiq Wolff MD in OV> ?11/02/24 1723 ? DD/ 172 ? TD/TT: 11/02/241721 ? Manager Agriculture: ? Procedure Note Jane Bryant - 11/02/[address] [address] XRay Report Signed Patient: Radha Martinez MR#: [id number] : 1975Acct:[id number] Age/Sex: 49 / FADM Date: 11/02/24 Loc: HO.ED Attending Dr: Ordering Physician: Marianela Encarnacion Date of Service: 11/02/24 Procedure(s): XR chest 1V Accession Number(s): [id number] cc: Marianela Encarnacion; Zoe Cabrera DO CLINICAL HISTORY: sob 1 view chest x-ray Comparison: 11/08/2020 11:24 PM EST: CR: XR CHEST 1V 03/24/2019 07:51 PM EDT: SR: CHEST 2 VIEWS Findings: Portions of the exam is obscured by overlying material. No consolidation or effusion. Heart size is normal. No acute fracture. IMPRESSION: 1. No acute findings. This document has been electronically signed by: Rafiq Wolff MD on 11/02/2024 17:22:19 Dictated By: Rafiq Wolff MD Signed By: <Electronically signed by Rafiq Wolff MD in OV> 11/02/241722 DD/ 21 TD/TT: 11/02/241721 Manager Agriculture: [facility] External Provider IMG XR PROCEDURES Final Result * HOLD LT BLUE - POSSIBLE COAG (11/02/2024 4:50 PM EST) Hold Lt Blue - Possible Coag SEE NOTE [facility] Comment:Specimen will be hel d untested for 4 hours. Call Hematologyif testing is desired. 11/02/2024 4:50 PM EST 11/02/2024 4:57 PM EST Generic External Data Provider LAB BLOOD ORDERAB LES Final Result [facility] [address] [place] [address] [phone] * (ABNORMAL) CBC auto differential (11/02/2024 4:50 PM EST) White Blood Count 9.4 4.8 - 10.8 X10*3/uL [facility] Red Blood Count 4.35 4.20 - 5.50 X10*6/uL [facility] Hemoglobin 12.6 12.0 - 16.0 g/dl [facility] Hematocrit 37.9 37.0 - 47.0 % [facility] Mean Corpuscular Volume 87.1 80.0 - 98.0 fL [facility] Mean Corpuscular Hemoglobin 29.0 27.0 - 33.0 pg [facility] Mean Corpuscular HGB Conc 33.2 31.0 - 35.0 g/dl [facility] Red Cell Distribution Width 13.4 11.0 - 16.0 % [facility] Platelet Count 205 160 - 400 X10*3/uL [facility] Mean Platelet Volume 11.3 9.4 - 12.3 fL [facility] Neutrophils Percent Auto 47.3 45 - 73 % [facility] Imm Gran Pct Auto 0.2 0.0 - 0.4 % [facility] Lymphocytes Percent Auto 42.3(H) 20 - 40 % [facility] Monocytes Percent Auto 7.2 2 - 11 % [facility] Eosinophils Percent Auto 2.7 0 - 4 % [facility] Basophils Percent Auto 0.3 0 - 2 % [facility] NRBC Pct Auto 0.0 0.0 - 0.2 /100WBC [facility] Neutrophils Absolute Auto 4.5 2.0 - 8.3 x10*3/uL [facility] Imm Gran Abs Auto 0.02 0.00 - 0.03 X10*3/uL [facility] Lymphocytes Absolute Auto 4.0 1.2 - 4.9 X10*3/uL [facility] Monocytes Absolute Auto 0.7 0.1 - 1.2 X10*3/uL [facility] Eosinophils Absolute Auto 0.3 0.0 - 0.4 X10*3/uL [facility] Basophils Absolute Auto 0.0 0.0 - 0.2 X10*3/uL [facility] NRBC Abs Auto 0.000 0.0 - 0.012 X10*3/uL [facility] 11/02/2024 4:50 PM EST 11/02/2024 4:56 PM EST us Generic External Data Provider LAB BLOOD ORDERAB LES Final Result [facility] [address] [place] [phone] * Cologuard?? colon cancer screening (07/03/2024 12:00 PM EDT) [facility] Signature Cologuard Result Negative Negative 07/08/20 6:12 PM EDT [email or web address] (CLIA #:[id number]) Comment: NEGATIVE TEST RESULT. A negative Cologuard result indicates a low likelihood that a colorectal cancer (CRC) or advanced adenoma (adenomatous polyps with more advanced pre-malignant features) ??is present. The chance that a person with a negative Cologuard test has a colorectal cancer is less than 1 in 1500 (negative predictive value >99.9%) or has an ??advanced adenoma is less than ??5.3% (negative predictive value 94.7%). These data are based on a prospective cross-sectional study of 10,000 individuals at average risk for colorectal cancer who were screened with both Cologuard and colonoscopy. (Elana June al, N Engl J Med 2014;370(14):1286- 1297) The normal value (reference range) for this assay is negative. COLOGUARD RE-SCREENING RECOMMENDATION: Periodic colorectal cancer screening is an important part of preventive healthcare for asymptomatic individuals at average risk for colorectal cancer. ??Following a negative Cologuard result, the [place] Cancer Society and U.S. Multi-Society Task Force screening guidelines recommend a Cologuard re-screening interval of 3 years. References: [place] [employer] Society Guideline for Colorectal Cancer Screening: https://www.cancer.org/cancer/uzgvb-vrmyga-iawmzh/ihnqziaqu-saoipahfn-gugiwii/ac s-rec ommendations.html.; Kentrell DK, Tri CR, Adrianna GarciaK, Colorectal Cancer Screening: Recommendations for Physicians and Patients from the U.S. Multi-Society Task Force on Colorectal Cancer Screening , Am J Gastroenterology 2017; 112:0437-3142. TEST DESCRIPTION: Composite algorithmic analysis of stool DNA-biomarkers with hemoglobin immunoassay. ?? Quantitative values of individual biomarkers are not reportable and are not associated with individual biomarker result reference ranges. Cologuard is intended for colorectal cancer screening of adults of either sex, 45 years or older, who are at average-risk for colorectal cancer (CRC). Cologuard has been approved for use by the U.S. FDA. The performance of Cologuard was established in a cross sectional study of average-risk adults aged 50-84. Cologuard performance in patients ages 45 to 49 years was estimated by sub-group analysis of near-age groups. Colonoscopies performed for a positive result may find as the most clinically significant lesion: colorectal cancer [4.0%], advanced adenoma (including sessile serrated polyps greater than or equal to 1cm diameter) [20%] or non- advanced adenoma [31%]; or no colorectal neoplasia [45%]. These estimates are derived from a prospective cross-sectional screening study of 10,000 individuals at average risk for colorectal cancer who were screened with both Cologuard and colonoscopy. (Elana June al, N Engl J Med 2014;370(14):5295-7172.) Cologuard may produce a false negative or false positive result (no colorectal cancer or precancerous polyp present at colonoscopy follow up). A negative Cologuard test result does not guarantee the absence of CRC or advanced adenoma (pre-cancer). The current Cologuard screening interval is every 3 years. ([place] Cancer Society and U.S. Multi-Society Task Force). Cologuard performance data in a 10,000 patient pivotal study using colonoscopy as the reference method can be accessed at the following location: www.[employer]ze Network/results. Additional description of the Cologuard test process, warnings and precautions can be found at www.[employer].com. Stool specimen (specimen) 07/03/2024 12:00 PM EDT 07/04/2024 4:04 PM EDT us Zoe Cabrera DO LAB MOLECULAR DIAGNOSTICS OR DERABLES Final Result [email or web address] (CLIA #:[id number]) [place] [address], * Hepatitis C Antibody with Reflex to HCV, RNA, Quantitative, Real-Time PCR (06/22/2024 12:34 PM EDT) Hepatitis C Antibody Nonreactive Nonreactive [facility] Comment:Antibodies to HCV no t detected; does not exclude early acuteHCV infection. Blood Venous blood specimen / Unknown 06/22/2024 12:34 PM EDT 06/22/2024 1:24 PM EDT Zoe Cabrera LAB BLOOD ORDERABLES Final R esult Performing Organization Address City/[facility]/ZIP Co de Phone Number [facility] [address] [place] [address] [phone] * HIV-1/2 Antigen and Antibodies, Fourth Generation, with Reflexes (06/22/2024 12:34 PM EDT) HIV AB/AG Nonreactive Nonreactive [facility] Comment:HIV-1 p24 Ag and/or HIV-1/HIV-2 Ab not detected.A test result that is nonreactive does not exclude thepossibility of exposure to or infection with HIV-1 and/orHIV-2. Nonreactive results in this assay for individualswith prior exposure to HIV-1 and/or HIV-2 may be due toantigen and antibody levels that are below the limit ofdetection of this assay.The Mirakl HIV Ag/Ab Combo assay result andsupplemental assay results should be interpreted inconjunction with the patient's clinical presentation,history and other laboratory results. If the results areinconsistent with clinical evidence, additional testing issuggested to confirm the result. Blood Venous blood specimen / Unknown 06/22/2024 12:34 PM EDT 06/22/2024 1:24 PM EDT Zoe Burrowsfelishajasmine Blacklane LAB BLOOD ORDERABLES Final R esult Performing Organization Address City/[facility]/ZIP Co de Phone Number [facility] [address] [place] [phone] * (ABNORMAL) Lipid Panel, Standard (06/22/2024 12:34 PM EDT) Triglycerides 128 <150 mg/dL [facility] Comment:Desirable Triglyceri de: less than 150 mg/dLBorderline High Triglyceride 150-199 mg/dLHigh Triglyceride: 200-499 mg/dLVery High Triglyceride: greater than or equal to 5OO mg/dL Cholesterol 215(H) <200 mg/dL [facility] Comment:Desirable Cholestero l: less than 200 mg/dLBorderline High Cholesterol: 200-239 mg/dLHigh Cholesterol: greater than 239 mg/dL LDL Cholesterol Calculated 139(H) <100 mg/dL [facility] Comment:Desirable LDL: less than 100 mg/dLNear Optimal/Above Optimal LDL: 110- 129 mg/dLBorderline High LDL: 130-159 mg/dLHigh LDL: 160-189 mg/dLVery High LDL: greater than or equal to 190 mg/dL HDL Cholesterol 51 >40 mg/dL [facility] Comment:Desirable HDL: great er than 40 mg/dL Note: This HDL assay may give artificially low results in patients with liver disease. Blood Venous blood specimen / Unknown 06/22/2024 12:34 PM EDT 06/22/2024 1:24 PM EDT us Zoe Cabrera DO LAB BLOOD ORDERABLES Final R esult [facility] [address] [place] [phone] [phone] * BI Mammogram Screening Tomosynthesis Bilateral (04/04/2024 8:45 AM EDT) Anatomical Region Laterality Modality Breast Bilateral Mammography 04/04/2024 8:45 AM EDT Narrative 04/30/2024 3:29 AM EDT ? [facility] [place] ? [address] ?[place] [address] ? Mammography Report ? Signed ? Patient: Anshu Craft,Radha ? MR#: [id number] ? : 1975 ?Acct:[id number] ? Age/Sex: 48 / F ?ADM Date: 05/29/24 ? Loc: HO.MAMMO ? Attending Dr: Zoe Cabrera DO ? Ordering Physician: Zoe Cabrera DO ?Results: 1N ?? egative ? Date of Service: 04/04/24 ?Follow Up: 1 Year From Orig ?? inal Mammogram ? Procedure(s): MM tomosynthesis screening BI ?? Accession Number(s): [id number] ? cc: Zoe Cabrera DO ? EXAMINATION: ?? MM SCREENING DIGITAL BREAST TOMOSYNTHESIS, BILATERAL ? CLINICAL INFORMATION: ? Screening. Asymptomatic. ? COMPARISON: ?? Mammography: This study is compared with prior exams dating back to ?? 2017. ? TECHNIQUE: ?? Digital breast tomosynthesis is performed in both the craniocaudal and ?? mediolateral oblique views along with computer-aided detection (CAD). ?? Synthesized 2D images are generated from the tomosynthesis. ? FINDINGS: ?? There are scattered areas of fibroglandular density (ACR BI-RADS breast ?? composition Category b). ? There are no significant masses, abnormal calcifications, or other ?? abnormalities. ? MM/MM tomosynthesis screening BI ?? IMPRESSION: ?? No mammographic evidence of malignancy. ? ASSESSMENT: ? BI-RADS BI-RADS 1 - Negative ? RECOMMENDATION: ?? Routine annual mammography screening. ? 1 year F/U ? This examination should not preclude the clinical evaluation of a ?? suspicious palpable abnormality. ? This patient's information was entered into a reminder system with a ?? target due date for their next mammogram. ? Dictated By: ?Miya Galvan MD ? Signed By: ?<Electronically signed by Miya Galvan MD in OV> ? 04/30/24 0326 ? DD/ ? TD/TT: ? Manager Agriculture: ? Procedure Note Donjose alejandrovargasaleishater, Image - 04/30/2024 [facility] [address] [place] [address] Mammography Report Signed Patient: Radha Martinez MR#: [id number] : 1975Acct:[id number] Age/Sex: 48 / FADM Date: 04/04/24 Loc: HO.MAMMO Attending Dr: Zoe Cabrera DO Ordering Physician: Zoe Cabreraults: 1N egative Date of Service: 04/04/24Follow Up: 1 Year From Orig inal Mammogram Procedure(s): MM tomosynthesis screening BI Accession Number(s): [id number] cc: Zoe Cabrera DO EXAMINATION: MM SCREENING DIGITAL BREAST TOMOSYNTHESIS, BILATERAL CLINICAL INFORMATION: Screening. Asymptomatic. COMPARISON: Mammography: This study is compared with prior exams dating back to 2017. TECHNIQUE: Digital breast tomosynthesis is performed in both the craniocaudal and mediolateral oblique views along with computer-aided detection (CAD). Synthesized 2D images are generated from the tomosynthesis. FINDINGS: There are scattered areas of fibroglandular density (ACR BI-RADS breast composition Category b). There are no significant masses, abnormal calcifications, or other abnormalities. MM/MM tomosynthesis screening BI IMPRESSION: No mammographic evidence of malignancy. ASSESSMENT: BI-RADS BI-RADS 1 - Negative RECOMMENDATION: Routine annual mammography screening. 1 year F/U This examination should not preclude the clinical evaluation of a suspicious palpable abnormality. This patient's information was entered into a reminder system with a target due date for their next mammogram. Dictated By: Miya Galvan MD Signed By: <Electronically signed by Miya Galvan MD in OV> 04/30/24 0326 DD/ TD/TT: Manager Agriculture: Zoe Cabrera DO IMG BI PROCEDURES Final Resu lt * Thinprep PAP, HPV mRNA E6/E7 RFX HPV 16,18/45, Chlamydia/N. Gonorrhoeae (03/25/2023 12:00 AM EDT) Clinical Information: Postmenopausal [facility] LMP: NONE GIVEN [facility] Prev. PAP: YES [facility] Prev. BX: NO [facility] SOURCE: None given [facility] Statement Of Adequacy: [facility] Comment: Satisfactory for evaluation. Endocervical/transformation zone component absent. Interpretation/Re sult: Negative for intraepithelial lesion or malignancy. [facility] Waste Management Specialist: Carole Qwite Comment: JNA, CT(ASCP) CT screening location: [address] ??[phone] (Always Message) [facility] Comment: EXPLANATORY NOTE: The Pap is a screening test for cervical cancer. It is not a diagnostic test and is subject to false negative and false positive results. It is most reliable when a satisfactory sample, regularly obtained, is submitted with relevant clinical findings and history, and when the Pap result is evaluated along with historic and current clinical information. HPV nRNA E6/E7 Not Detected Not Detected [facility] Comment: Methodology: [employer]-Mediated Amplification This assay detects E6/E7 viral messenger RNA (mRNA) from 14 high-risk HPV types (16,18,31,33,35,39,45,51,52,56,58,59,66,68). Cervical sources are required for HPV testing. If a vaginal source from a patient who has had a total hysterectomy with removal of cervix was submitted, please contact the testing laboratory for alternative testing options. For additional information, please refer to http://education.Ecorithm/faq/VKA275a6 (This link if provided for information/ educational purposes only.) Chlamydia trachomatis RNA, TMA, Urogenital NOT DETECTED NOT DETECTED [facility] [place] [facility] Neisseria gonorrhoeae RNA, TMA, Urogenital NOT DETECTED NOT DETECTED [facility] [place] [facility] (Always Message) [facility] Comment: The analytical performance characteristics of this assay, when used to test SurePath(TM) specimens have been determined by [facility]. The modifications have not been cleared or approved by the FDA. This assay has been validated pursuant to the CLIA regulations and is used for clinical purposes. For additional information, please refer to https://StoryToys.Ecorithm/faq/ZQR531 (This link is being provided for information/ educational purposes only.) 03/25/2023 03/28/2023 10: 00 AM EDT Narrative [facility] - 03/30/2023 11:47 AM EDT FASTING: UNKNOWN Zoe Cabrera DO LAB PATHOLOGY ORDERABLES Fin al Result [facility] [address], [place] [address] [facility] [address] [place] [address] from Last 3 Months or Most Recently Relevant to Health Maintenance Insurance [employer] LIMITED HSN FULL DENTAL-[facility] MEDICAID LIMITED ADULT DENTAL - HSN FULL (MEDICAID) Care Teams Station Jailer Relationship Specialty Start Date End Date Zoe Cabrera DO [address] [place] [address] PCP - General Family Medicine 12/10/15
--- OUTSIDE RECORDS SUMMARY | 2025-01-08 17:10 | XMS_ITS | Encounter Summary ---
Author Organization [employer] Address [address] [facility] 7t [place] [address] Care Team Providers Care Senior Electrical Estimator Name Role Phone Zoe Cabrera DO Primary Care Provider + [phone] Reason for Visit * Reason Onset Date Comments Appointment r/s 12/11/2024 Encounter Details Date Type Department Care Team ([facility] st Contact Info) Description 12/11/2024 Telephone [facility] MEDICINE [address] [place] [address] Keiko Mejía, RN [address] [place] [address] Appointment r/s Social History Tobacco Use Types Packs/Day Years Used Date Smoking Tobacco: Never Passive Smoke Exposure: Never Smokeless Tobacco: Never Alcohol Use Standard Drinks/Week Comments Never 0 (1 standard drink = 0.6 oz pur e alcohol) Depression Answer Date Recorded Patient Health Questionnaire-9 Score 0 07/26/2023 Housing Stability Answer Date Recorded What is [...] Date Recorded Patient Health Questionnaire-2 Score 0 07/26/2023 Comments Unknown Sex and Gender Information Value Date Recorded Sex Assigned at Female 09/06/2022 10:29 AM EDT Legal Sex Female 10:29 AM EDT Gender Identity Choose not to disclose 10:29 AM EDT Sexual Orientation Straight 09/06/2022 10 :29 AM EDT documented as of this encounter Miscellaneous Notes * Telephone Encounter - Keiko Mejía RN - 12/11/2024 9:09 AM EST TC placed to patient [phone] to inform HDF has been cancelled d/t provider being out. RN attempted to r/s with alternative provider however patient refuses to see alternative provider, only wants to see PCP. RN has r/s for 01/08/25 at 9:15am (next available HDF w/ PCP), patient agreed to appointment. documented in this encounter Plan of Treatment Upcoming Encounters Date Type Department Care Team (Late st Contact Info) Description 01/11/2025 1:00 PM EST Office Visit [facility] MEDICINE [address] [place] [address] Bertrand Dominguez MD [address] [place] [address] documented as of this encounter Visit Diagnoses Not on filedocumented in this encounter Additional Health Concerns Assessment Noted Time PHQ-9 Depression Total Score: 0 07/26/20 23 9:04 AM EDT documented as of this encounter Care Teams Senior Electrical Estimator Relationship Specialty Start Date End Date Zoe Cabrera DO [address] [place] [address] PCP - General Family Medicine 12/10/15 documented as of this encounter
--- OUTSIDE RECORDS SUMMARY | 2025-01-08 17:10 | XMS_ITS | Encounter Summary ---
Author Organization [employer] Address [address] [facility] [address] [place] [address] Care Team Providers Care Rf Technician Name Role Phone Deborah Zoe Primary Care Provider + [phone] Encounter Details Date Type Department Care Team (Latest Contact Info) Description 01/08/2025 Travel Social History Tobacco Use Types Packs/Day Years [...] Description 01/11/2025 1:00 PM EST Office Visit [facility] MEDICINE [address] [place] [address] Bertrand Dominguez MD [address] [place] [address] documented as of this encounter Visit Diagnoses Not on filedocumented in this encounter Additional Health Concerns Assessment Noted Time PHQ-9 Depression Total Score: 0 01/09/20 25 9:08 AM EST documented as of this encounter Care Teams Rf Technician Relationship Specialty Start Date End Date Zoe Cabrera DO [address] [place] [phone] PCP - General Family Medicine 12/10/15 documented as of this encounter
--- OUTSIDE RECORDS SUMMARY | 2025-01-08 17:10 | XMS_ITS | Clinical Summary ---
Author Organization [facility] Address [address] [place] [address] Care Team Providers Care Fleet Service Manager Name Role Phone Deborah Zoe Rodríguez Primary Care Provider [phone] Allergies No known active allergies Medications metoprolol tartrate (LOPRESSOR) 25 mg tablet [place] josseline tableta por via oral dos veces al juan Active flecainide (TAMBOCOR) 50 mg tablet TAKE 1 TABLET BY MOUTH EVERY TWELVE HOURS 11 8 Active meclizine (ANTIVERT) 25 mg tablet Take 1 tablet by mouth three times daily as needed for dizziness 4 Active melatonin 5 mg tablet SMARTSI Tablet(s) By Mouth Every Night 3 Active ondansetron (ZOFRAN) 4 mg tablet Take 4 mg by mouth every 8 hours as needed. 4 03/07/20 25 Active cetirizine (ZyrTEC) 10 mg tablet SMARTSI Tablet(s) By Mouth Daily Active Trulicity 1.5 mg/0.5 mL injection dose Inject 1.5 mg under the skin. 4 Active Active Problems Problem Noted Date Diagnosed Date Obesity (BMI 30-39.9) 04/17/2018 Allergic rhinitis 04/17/2018 Paroxysmal atrial fibrillation 03/18/2016 Assessment & Plan (12/15/2020 1:22 PM EST): PAF, remains on metoprolol and flecainide. CHADS VASC risk factors are notable for Htn and female gender Family History Medical History Relation Name Comments Heart disease Father Arthritis Mother Relation Name Status Comments Father Alive Mother Alive Social History Tobacco Use Types Packs/Day Years Used Date Smoking Tobacco: Never Smokeless Tobacco: Never Tobacco Cessation:Counseling Given: Not Answered Comments:: Alcohol Use Standard Drinks/Week Comments Yes 0 (1 standard drink = 0.6 oz pur e alcohol) socially Comments Unknown Sex and Gender Information Value Date Recorded Sex Assigned at Female 10/01/2024 1:53 PM EST Legal Sex Female 7:06 PM EDT Gender Identity Female 10/01/2024 1:53 PM EST Sexual Orientation Not on file 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 file Not on file Not on file Last Filed Vital Signs Vital Sign Reading Time Taken Comments Blood Pressure 131/82 07/17/2024 4:29 PM EDT Pulse 62 07/17/2024 4:29 PM EDT Temperature 36.6 ??C (97.8 ??F) 12/15/2020 11:[address] Respiratory Rate - - Oxygen Saturation 96% 07/17/2024 4:29 PM EDT Inhaled Oxygen Concentration - - Weight 114.3 kg (252 lb) 07/17/2024 4:29 PM EDT Height 162.6 cm (5' 4 ) 03/04/2022 1:23 PM EDT Body Mass Index 43.26 03/04/2022 1:23 PM EDT Plan of Treatment Upcoming Encounters Date Type Department Care Team (Late st Contact Info) Description 01/15/2025 4:00 PM EDT Follow-Up [facility] 4th floor Cardiology Medicine [address] [place] [phone] [employer] Barista: Rajesh Rudd MD [address] [place] [address] Health Maintenance Due Date Last Done Comments Cervical Cancer Screening 1975 Colonoscopy 1975 HPV and Pap Smear 1975 Pap Smear 1975 Sigmoidoscopy 1975 Hepatitis B Vaccines (1 of 3 - 19+ 3-dose series) 1993 Mammogram 09/18/2020 09/18/2018 COVID-19 Vaccine (2023-2 5 season) 2024 12/03/2022, 04/22/2021, 03/25/2021 Influenza Vaccine (#1) 2024 , 12/03/2022, 12/01/2020, Additional history exists Zoster Vaccines (1 of 2) 2024 Alcohol/Substance Use Screening 11/07/2024 Depression Screening and Follow-Up 11/07/2024 Social Drivers of Health Dinora ual Screening 11/07/2024 FOBT / Fit Test 06/22/2025 06/22/2024 Cologuard 07/03/2027 07/03/2024 Colon Cancer Screening 07/03/2027 DTaP,Tdap,and Td Vaccines (3 - Td or Tdap) 10/03/2028 10/03/2018, 08/06/2016 RSV Vaccine (60+ years old a nd patients) (1 - 1-dose 75+ series) 2049 Pneumococcal Vaccine: 50+ Years Completed , 08/06/2016 HIV Screening Completed 06/22/2024 Hepatitis C Screening Completed 06/22/2024 Insurance [facility]/FREE CARE Care Teams Fleet Service Manager Relationship Specialty Start Date End Date Zoe Cabrera [address] [place] [phone] PCP - General Family Medicine 04/11/18
--- OUTSIDE RECORDS SUMMARY | 2025-01-08 17:10 | XMS_ITS | Referral Summary ---
Author Organization [facility] Address [address] [place] [address] Care Team Providers Care Bead Flipper Name Role Phone Deborah Zoe Rodríguez Primary Care Provider +1- [phone] Allergies No known active allergies Medications metoprolol tartrate (LOPRESSOR) 25 mg tablet [place] josseline tableta por via oral dos veces [...] are notable for Htn and female gender Social History Tobacco Use Types Packs/Day Years [...] Info) Description 01/15/2025 4:00 PM EDT Follow-Up [facility] 4th floor Cardiology Medicine [address] [place] [address] Endoscopy Tech: Rajesh Rudd MD [address] [place] [phone] Insurance [employer]up Weekend HSNO/FREE CARE Care Teams Bead Flipper Relationship Specialty Start Date End Date Zoe Cabrera [address] [place] [address] PCP - General Family Medicine 04/11/18
--- OUTSIDE RECORDS SUMMARY | 2025-01-08 17:10 | XMS_ITS | Encounter Summary ---
Author Organization [employer] [facility] Address [address] [place] [address] [address] [place] [address] Care Team Providers Care Coke Wheeler Name Role Phone Zoe Cabrera DO Primary Care Provider [phone] Reason for Referral * Imaging (Routine) - Authorized Specialty Diagnoses / Procedures Referred By Contac t Referred To Contact Radiology Diagnoses Microscopic hematuria Procedures US BLADDER Zoe Cabrera DO [address] [place] [address] Phone: tel: fax: [address] Phone: tel: fax: Referral ID Status Reason Start Date Expiration Date V isits Requested Visits Authorized [id number] Authorized 01/08/2025 01/08/2026 1 1 * Imaging (Routine) - Authorized Specialty Diagnoses / Procedures Referred By Contac t Referred To Contact Radiology Diagnoses Microscopic hematuria Procedures US RENAL BI Zoe Cabrera DO [address] [place] [address] Phone: tel: fax: [address] Phone: tel: fax: Referral ID Status Reason Start Date Expiration Date V isits Requested Visits Authorized [id number] Authorized 01/08/2025 01/08/2026 1 1 * Imaging (Routine) - Authorized Specialty Diagnoses / Procedures Referred By Contac t Referred To Contact Radiology Diagnoses Vaginal spotting Procedures US Pelvis Transvaginal Zoe Cabrera DO [address] [place] [address] Phone: tel: fax: [address] Phone: tel: fax: Referral ID Status Reason Start Date Expiration Date V isits Requested Visits Authorized [id number] Authorized 01/08/2025 01/08/2026 1 1 * Imaging (Routine) - Authorized Specialty Diagnoses / Procedures Referred By Contac t Referred To Contact Radiology Diagnoses Vaginal spotting Procedures Us Pelvis complete Zoe Cabrera, [address] [place] [address] Phone: tel: fax: [address] Phone: tel: fax: Referral ID Status Reason Start Date Expiration Date V isits Requested Visits Authorized [id number] Authorized 01/08/2025 01/08/2026 1 1 * Consultation (Urgent) - Pending Review Specialty Diagnoses / Procedures Referred By Contac t Referred To Contact Obstetrics and Gynecology Diagnoses Vaginal spotting Zoe Cabrera DO [address] [place] [address] Phone: tel: fax: Referral ID Status Reason Start Date Expiration Date Visits Requested Visits Authorized [id number] Pending Review Specialty Services Required 01/08/2025 01/08/2026 1 1 Reason for Visit * Reason Comments Hospital Discharge Encounter Details Date Type Department Care Team (Late st Contact Info) Description 01/08/2025 9:15 AM EST Office Visit [facility] MEDICINE [address] [place] [address] Zoe Cabrera DO [address] [place] [address] Mild intermittent asthma without complication (Primary Dx); Acute UTI; Pelvic pain; Microscopic hematuria; Vaginal spotting; History of Helicobacter pylori infection Social History Tobacco Use Types Packs/Day Years [...] is your housing situation today? I have aryrobert breaux 03/09/[address] you [...] AM EDT documented as of this encounter Last Filed Vital Signs Vital Sign Reading [...] Mass Index 43.32 01/08/2025 9:01 AM EST documented in this encounter Plan of Treatment Upcoming Encounters Date Type Department Care Team (Late st Contact Info) Description 01/11/2025 1:00 PM EST Office Visit [facility] MEDICINE [address] [place] [address] Bertrand Dominguez MD [address] [place] [address] Scheduled Orders Name Type Priority Associated Diagnoses Orde r Schedule Helicobacter pylori??Antigen, EIA, Stool Lab Routine History of Helicobacter pylori infection Expected: 01/08/2025, Expires: 01/08/2026 Bacterial Vaginosis Panel Microbiology Routine Pelvic pain Ordered: 01/08/2025 Chlamydia/N. Gonorrhoeae RNA, TMA, Urogenitial Microbiology Routine Pelvic pain Ordered: 01/08/2025 Culture, Urine, Routine Microbiology Routine Acute UTI Microscopic hematuria Ordered: 01/08/2025 Us Pelvis complete Imaging Routine Vaginal spotting Expected: 01/08/2025, Expires: 01/08/2026 US Pelvis Transvaginal Imaging Routine Vaginal spotting Expected: 01/08/2025, Expires: 01/08/2026 US RENAL BI Imaging Routine Microscopic hematuria Expected: 01/08/2025, Expires: 01/08/2026 US BLADDER Imaging Routine Microscopic hematuria Expected: 01/08/2025, Expires: 01/08/2026 Scheduled Referrals Name Type Priority Associated Diagnoses Order Schedule Referral to Gynecology Outpatient Referral Urgent Vaginal spotting Expected: 01/08/2025 (Approximate), Expires: 01/08/2026 documented as of this encounter Procedures Procedure Name Priority Date/Time Associated Diagnosis Comments POCT URINALYSIS DIPSTICK Routine 01/08/2025 10:26 AM EST Acute UTI Microscopic hematuria documented in this encounter Results * POCT Urinalysis (01/08/2025 10:26 AM EST) Color, UA Yellow Clarity, UA Cloudy Glucose, UA Negative Bilirubin, UA Negative Ketones, UA Negative Spec Grav, UA 1.025 Blood, UA Negative Negative, None Detected pH, UA 7.0 Protein, UA Negative Urobilinogen, UA 0.2 Leukocytes, UA Negative Negative, Rare, Trace Nitrite, UA Negative Negative, None Detected QC Media Lot # [id number] Lot# Expiration Date Urine 01/08/2025 10:2 6 AM EST Zoe Cabrera DO POINT OF CARE TEST ENTER/RIGOBETRO T ORDERABLES Final Result documented in this encounter Visit Diagnoses Diagnosis Mild intermittent asthma without complication- Primary Acute UTI Urinary tract infection, site not specified Pelvic pain Microscopic hematuria Vaginal spotting Other specified noninflammatory disorder of vagina History of Helicobacter pylori infection documented in this encounter Additional Health Concerns Assessment Noted Time PHQ-9 Depression Total Score: 0 01/09/20 25 9:08 AM EST documented as of this encounter Care Teams Coke Wheeler Relationship Specialty Start Date End Date Zoe Cabrera DO [address] [place] [address] PCP - General Family Medicine 12/10/15 documented as of this encounter
--- OUTSIDE RECORDS SUMMARY | 2025-01-08 17:10 | XMS_ITS | Encounter Summary ---
Author Organization [employer] Address [address] [place] [address] Care Team Providers Care Spouter Name Role Phone Zoe Cabrera DO Primary Care Provider [phone] Encounter Details Date Type Department Care Team ([facility] st Contact Info) Description 12/20/2024 Telephone C OPTOMETRY [address] [place] [address] Aislinn Mcginnis, OD [address] [place] [address] Social History Tobacco Use Types Packs/Day Years [...] Description 01/11/2025 1:00 PM EST Office Visit [facility] MEDICINE [address] [place], [place] [id number] Bertrand Dominguez MD [address] [place] [address] documented as of this encounter Visit Diagnoses Not on filedocumented in this encounter Additional Health Concerns Assessment Noted Time PHQ-9 Depression Total Score: 0 07/26/20 23 9:04 AM EDT documented as of this encounter Care Teams Spouter Relationship Specialty Start Date End Date Zoe Cabrera DO [address] [place] [address] PCP - General Family Medicine 12/10/15 documented as of this encounter
--- OUTSIDE RECORDS SUMMARY | 2025-01-08 17:10 | XMS_ITS | Encounter Summary ---
Author Organization [employer] Address [address] [facility] 7t [place] [address] Care Team Providers Care Software Lead Name Role Phone Zoe Cabrera DO Primary Care Provider [phone] Reason for Visit * Reason Onset Date Comments Created In Error 08/23/2024 Encounter Details Date Type Department Care Team ([facility] st Contact Info) Description 08/23/2024 Telephone [facility] MED[facility]INE [address] [place] [address] Zoe Cabrera DO [address] [place] [address] Created In Error Social History Tobacco Use Types Packs/Day Years [...] Description 01/11/2025 1:00 PM EST Office Visit [facility] [address] [place] [address] Bertrand Dominguez MD [address] [place] [address] documented as of this encounter Visit Diagnoses Not on filedocumented in this encounter Additional Health Concerns Assessment Noted Time PHQ-9 Depression Total Score: 0 07/26/20 23 9:04 AM EDT documented as of this encounter Care Teams Software Lead Relationship Specialty Start Date End Date Zoe Cabrera DO [address] [place] [address] PCP - General Family Medicine 12/10/15 documented as of this encounter
[2025-01-08 17:54] LABS: Bacterial Vaginosis PCR NEGATIVE (Negative); Candida Group PCR NOT DETECTED (Not Detect); Candida glab krusei PCR NOT DETECTED (Not Detect); Trichomonas vaginalis PCR NOT DETECTED (Not Detect)
[2025-01-08 18:18] LABS: CT PCR NOT DETECTED (Not Detect.); NG PCR NOT DETECTED (Not Detect.)
== END 2025-01-08 13:37 | disposition home or self-care (01) ==
LOC: HO.HHCLNP 13:36
PROVIDERS: Visit Provider Family Medicine
DX: R10.2 Pelvic and perineal pain (principal); N39.0 Urinary tract infection, site not specified; R31.29 Other microscopic hematuria
CPT/HCPCS: 81515; 87086; 87491; 87591; 88112

== ENCOUNTER 2025-07-26 14:50 | Outpatient (REF) | payer MEDICAID, SELFPAY ==
--- OUTSIDE RECORDS SUMMARY | 2025-07-26 11:15 | XMS_ITS | Encounter Summary ---
Author Organization [facility] [employer] [facility] [employer] Address [address] [place] [address] [place] [address] Care Team Providers Care Cone Classifier Tender Name Role Phone Zoe Cabrera DO Primary Care Provider + [phone] Reason for Referral * Hospital - Outpatient (Routine) - Authorized Specialty Diagnoses / Procedures Referred By Lisa lopez Referred To Contact Diagnoses Snoring Procedures Home sleep test Zoe Cabrera DO [address] [place] [address] Phone: tel: fax: [address] Phone: tel: fax: Referral ID Status Reason Start Date Expiration Date V isits Requested Visits Authorized [id number] Authorized 07/26/2025 07/26/2026 1 1 * Imaging (Routine) - Authorized Specialty Diagnoses / Procedures Referred By Contac t Referred To Contact Radiology Diagnoses Vaginal spotting Procedures Us Pelvis complete Zoe Cabrera DO [address] [place] [address] Phone: tel: fax: [address] Phone: tel: fax: Referral ID Status Reason Start Date Expiration Date V isits Requested Visits Authorized [id number] Authorized 07/26/2025 07/26/2026 1 1 * Imaging (Routine) - Authorized Specialty Diagnoses / Procedures Referred By Contac t Referred To Contact Radiology Diagnoses Vaginal spotting Procedures US Pelvis Transvaginal Zoe Cabrera DO [address] [place] [address] Phone: tel: fax: [address] Phone: tel: fax: Referral ID Status Reason Start Date Expiration Date V isits Requested Visits Authorized [id number] Authorized 07/26/2025 07/26/2026 1 1 * Imaging (Routine) - Authorized Specialty Diagnoses / Procedures Referred By Contac t Referred To Contact Radiology Diagnoses Microscopic hematuria Procedures US BLADDER Zoe Cabrera, [address] [place] [address] Phone: tel: fax: [address] Phone: tel: fax: Referral ID Status Reason Start Date Expiration Date V isits Requested Visits Authorized [id number] Authorized 07/26/2025 07/26/2026 1 1 * Imaging (Routine) - Authorized Specialty Diagnoses / Procedures Referred By Contac t Referred To Contact Radiology Diagnoses Microscopic hematuria Procedures US RENAL BI Zoe Cabrera, [address] [place] [address] Phone: tel: fax: [address] Phone: tel: fax: Referral ID Status Reason Start Date Expiration Date V isits Requested Visits Authorized [id number] Authorized 07/26/2025 07/26/2026 1 1 Encounter Details Date Type Department Care Team (Latest Contact Info) Description 07/26/2025 11:15 AM EDT Office Visit [facility] MEDICINE [address] [place] [address] Zoe Cabrera DO [address] [place] [address] Essential hypertension (Primary Dx); Paroxysmal atrial fibrillation (CMS/HCC); Pre-diabetes; Mild intermittent asthma without complication; Chronic gastroesophageal reflux disease; Chronic migraine; Hot flashes; Snoring; Microscopic hematuria; Chronic allergic rhinitis; Vertigo; Vaginal spotting; Vaginal itching; Impacted cerumen of right ear; BMI 40.0-44.9, adult (CMS/HCC); Healthcare maintenance; Dietary counseling; Exercise counseling Social History Tobacco Use Types Packs/Day Years [...] Access Q2 Not on file 01/08/2025 Comments No Sex and Gender Information Value Date Recorded Sex Assigned at Female 09/06/2022 10:29 AM EDT Legal Sex Female 10:29 AM EDT Gender Identity Choose not to disclose 10:29 AM EDT Sexual Orientation Straight 09/06/2022 10 :29 AM EDT documented as of this encounter Last Filed Vital Signs Vital Sign Reading Time Taken Comments Blood Pressure 118/70 07/26/2025 11:47 AM EDT Pulse 78 07/26/2025 11:47 AM EDT Temperature 36.6 C (97.9 F) 07/26/2025 11:47 AM EDT Respiratory Rate 20 07/26/2025 11:47 AM EDT Oxygen Saturation 98% 07/26/2025 11:47 AM EDT Inhaled Oxygen Concentration - - Weight 116 kg (256 lb) 07/26/2025 11:47 AM EDT Height 162.6 cm (5' 4 ) 07/26/2025 11:47 AM EDT Body Mass Index 43.94 07/26/2025 11:47 AM EDT documented in this encounter Plan of Treatment Upcoming Encounters Date Type Department Care Team (Late st Contact Info) Description 01/03/2026 8:00 AM EST Office Visit [facility] ADULT DENTAL [address] [place] [address] Kimmy, Sandra [address] [place] [address] Scheduled Orders Name Type Priority Associated Diagnoses Orde r Schedule US RENAL BI Imaging Routine Microscopic hematuria Expected: 07/26/2025, Expires: 07/26/2026 US BLADDER Imaging Routine Microscopic hematuria Expected: 07/26/2025, Expires: 07/26/2026 US Pelvis Transvaginal Imaging Routine Vaginal spotting Expected: 07/26/2025, Expires: 07/26/2026 Us Pelvis complete Imaging Routine Vaginal spotting Expected: 07/26/2025, Expires: 07/26/2026 Home sleep test Sleep Center Routine Snoring Expected: 07/26/2025 (Approximate), Expires: 07/26/2026 Bacterial Vaginosis Panel Microbiology Routine Vaginal itching Ordered: 07/26/2025 Chlamydia/N. Gonorrhoeae RNA, TMA, Vaginal Microbiology Routine Vaginal itching Ordered: 07/26/2025 documented as of this encounter Visit Diagnoses Diagnosis Essential hypertension- Primary Unspecified essential hypertension Paroxysmal atrial fibrillation ([facility]) Atrial fibrillation Pre-diabetes Other abnormal glucose Mild intermittent asthma without complication Chronic gastroesophageal reflux disease Chronic migraine Hot flashes Snoring Other dyspnea and respiratory abnormality Microscopic hematuria Chronic allergic rhinitis Vertigo Dizziness and giddiness Vaginal spotting Other specified noninflammatory disorder of vagina Vaginal itching Pruritus of genital organs Impacted cerumen of right ear Impacted cerumen BMI 40.0-44.9, adult ([facility]) Healthcare maintenance Dietary counseling Dietary surveillance and counseling Exercise counseling documented in this encounter Additional Health Concerns Assessment Noted Time PHQ-9 Depression Total Score: 0 01/09/20 25 9:08 AM EST documented as of this encounter Care Teams Cone Classifier Tender Relationship Specialty Start Date End Date Zoe Cabrera DO [address] [place] [address] PCP - General Family Medicine 12/10/15 documented as of this encounter
--- OUTSIDE RECORDS SUMMARY | 2025-07-26 16:07 | XMS_ITS | Encounter Summary ---
Author Organization [employer] Address [address] [place] [address] [address], [place] [address] Care Team Providers Care Manager Rental Name Role Phone StormyZoe cadena Primary Care Provider + [phone] Reason for Visit * Reason Comments Med Refill Encounter Details Date Type Department Care Team (Late Contact Info) Description 02/07/2023 Refill [facility] MEDICINE [address] [place] [address] Bertrand Dominguez MD [address] [place] [address] Onychomycosis Social History Tobacco Use Types Packs/Day [...] Encounters Date Type Department Care Team (Late Contact Info) Description 01/03/2026 8:00 AM EST Office Visit [facility] ADULT DENTAL [address] [place] [address] Sandra Oneal [address] [place] [address] documented as of this encounter Visit Diagnoses Diagnosis Onychomycosis Dermatophytosis of nail documented in this encounter Additional Health Concerns Assessment Noted Time PHQ-9 Depression Total Score: 0 12/03/19 23 8:57 AM EST documented as of this encounter Care Teams Manager Rental Relationship Specialty Start Date End Date Zoe Cabrera DO [address] [place] [address] PCP - General Family Medicine 12/10/15 documented as of this encounter
--- OUTSIDE RECORDS SUMMARY | 2025-07-26 16:07 | XMS_ITS | Encounter Summary ---
Author Organization [employer] Address [address] [place] [address], [place] [address] Care Team Providers Care Atmospheric Chemist Name Role Phone StormyZoe cadena Primary Care Provider + [phone] Reason for Visit * Reason Comments Med Refill Encounter Details Date Type Department Care Team (Late Contact Info) Description 02/11/2023 Refill [facility] MEDICINE [address] [place] [address] Bertrand Dominguez MD [address] [place] [address] Onychomycosis Social History Tobacco Use Types Packs/Day [...] Description 01/03/2026 8:00 AM EST Office Visit [facility] ADULT DENTAL [address] [place] [address] Sandra Oneal [address] [place] [address] documented as of this encounter Visit Diagnoses Diagnosis Onychomycosis Dermatophytosis of nail documented in this encounter Additional Health Concerns Assessment Noted Time PHQ-9 Depression Total Score: 0 12/03/19 23 8:57 AM EST documented as of this encounter Care Teams Atmospheric Chemist Relationship Specialty Start Date End Date Zoe Cabrera DO [address] [place] [address] PCP - General Family Medicine 12/10/15 documented as of this encounter
--- OUTSIDE RECORDS SUMMARY | 2025-07-26 16:07 | XMS_ITS | Encounter Summary ---
Author Organization [email or web address] Address [address] [place] [address] [address] [place] [address] Care Team Providers Care Foot Cutter Name Role Phone Deborah Zoe Primary Care Provider + [phone] Encounter Details Date Type Department Care Team ([facility] Contact Info) Description 03/30/2023 Abstract [facility] MEDICINE [address] [place] [address] Talisha Yates RN [address] [place] [address] Social History Tobacco Use Types Packs/Day Years [...] Upcoming Encounters Date Type Department Care Team ([facility] Contact Info) Description 01/03/2026 8:00 AM EST Office Visit [facility] ADULT DENTAL [address] [place] [address] Sandra Oneal [address] [place] [address] documented as of this encounter Procedures Procedure Name Priority Date/Time Associated Diagnosis Comments PAP/HPV Routine 03/25/2023 documented in this encounter Results * Pap Smear (03/25/2023) Pap smear NIL HPV- us Historical Provider MD HEALTH MAINTENANCE Final Result documented in this encounter Visit Diagnoses Not on filedocumented in this encounter Additional Health Concerns Assessment Noted Time PHQ-9 Depression Total Score: 0 12/03/19 23 8:57 AM EST documented as of this encounter Care Teams Foot Cutter Relationship Specialty Start Date End Date Zoe Cabrera DO [address] [place] [address] PCP - General Family Medicine 12/10/15 documented as of this encounter
--- OUTSIDE RECORDS SUMMARY | 2025-07-26 16:08 | XMS_ITS | Encounter Summary ---
Author Organization [employer] Address [address] [facility] [address] [place] [address] Care Team Providers Care Paster Hat Lining Name Role Phone Zoe Cabrera DO Primary Care Provider + [phone] Reason for Visit * Reason Onset Date Comments Created In Error 08/23/2024 Encounter Details Date Type Department Care Team ([facility] Contact Info) Description 08/23/2024 Telephone [facility] [address] [place] [address] Zoe Cabrera DO [address] [place] [address] Created In Error Social History Tobacco Use [...] Description 01/03/2026 8:00 AM EST Office Visit [facility] D[facility] [address] [place] [address] Kimmy, Sandra [address] [place] [address] documented as of this encounter Visit Diagnoses Not on filedocumented in this encounter Additional Health Concerns Assessment Noted Time PHQ-9 Depression Total Score: 0 07/26/20 23 9:04 AM EDT documented as of this encounter Care Teams Paster Hat Lining Relationship Specialty Start Date End Date Zoe Cabrera DO [address] [place] [address] PCP - General Family Medicine 12/10/15 documented as of this encounter"
--- OUTSIDE RECORDS SUMMARY | 2025-07-26 16:08 | XMS_ITS | Clinical Summary ---
Author Organization [facility] Address [address] [address] Phone Care Team Providers Care Project Developer Name Role Phone Deborah Zoe Primary Care Provider [phone] Allergies No known active allergies Medications metoprolol tartrate (LOPRESSOR) 50 MG tablet Take 50 mg by mouth 2 (two) times a day with meals. Active flecainide (TAMBOCOR) 50 MG tablet Take 50 mg by mouth every 12 (twelve) hours. Active VENTOLIN HFA 90 mcg/actuation inhaler inhale 2 puffs by mouth every 6 hours 11/05/20 24 Active clotrimazole (LOTRIMIN) 1 % cream APPLY TOPICALLY TO THE AFFECTED AREA(S) TWICE DAILY FOR 28 DAYS 11/12/19 25 Active meclizine (ANTIVERT) 25 mg tablet Take 25 mg by mouth 3 (three) times a day as needed for dizziness. 11/12/19 25 Active TRULICITY 1.5 mg/0.5 mL subcutaneous injection INJECT ONE PEN (=1.5MG) SUBCUTANEOUSLY ONCE A WEEK DIRECTED 11/12/19 25 Active fluticasone propionate (FLONASE) 50 mcg/actuation nasal spray INSTILL 2 SPRAYS IN EACH NOSTRIL ONCE DAILY 11/15/19 25 Active naproxen (NAPROSYN) 500 MG tablet TAKE 1 TABLET BY MOUTH EVERY TWELVE HOURS NEEDED FOR PAIN Active SUMAtriptan (IMITREX) 50 MG tablet TAKE 1 TABLET BY MOUTH AT ONSET OF MIGRAINE. MAY REPEAT ONCE AFTER 2 HOURS IF NEEDED. DO NOT EXCEED 2 DOSES IN 24 HOURS 11/12/19 25 Active topiramate (TOPAMAX) 25 MG tablet Take 25 mg by mouth nightly at bedtime. at bedtime. 11/12/19 25 Active traZODone (DESYREL) 50 MG tablet Take 50 mg by mouth nightly at bedtime. at bedtime. 11/12/19 25 Active venlafaxine (EFFEXOR-XR) 75 MG 24 hr capsule TAKE 1 CAPSULE ONCE DAILY. DO NOT BREAK, CRUSH, DISSOLVE OR CHEW 11/12/19 25 Active cholecalciferol (VITAMIN D3) 25 MCG (1,000 unit) tablet Take 1,000 Units by mouth daily. Active magnesium 250 mg Tab Take by mouth. Activ e ascorbic acid,sod/zinc gluc,ox (ZINC AND C ORAL) Take by mouth. Act rajat cyanocobalamin, vitamin B-12, 1000 MCG tablet Take 1,000 mcg by mouth daily. Active vitamin E 400 unit Cap Take by mouth daily. Active amoxicillin (AMOXIL) 500 MG capsule Take 2 capsules (1,000 mg total) by mouth 2 (two) times a day. 28 capsule 07/08/20 25 Active metroNIDAZOLE (FLAGYL) 500 MG tablet Take 1 tablet (500 mg total) by mouth 2 (two) times a day. 28 tablet 07/08/20 25 Active lansoprazole (PREVACID) 30 MG capsule Take 1 capsule (30 mg total) by mouth 2 (two) times a day. 28 capsule 07/08/20 25 Active amoxicillin (AMOXIL) 500 MG capsule Take 2 capsules (1,000 mg total) by mouth 2 (two) times a day. 28 capsule 11/22/19 25 025 Discontin ued(No longer taking) lansoprazole (PREVACID) 30 MG capsule Take 1 capsule (30 mg total) by mouth 2 (two) times a day. 28 capsule 11/22/19 25 025 Discontin ued(No longer taking) metroNIDAZOLE (FLAGYL) 500 MG tablet Take 1 tablet (500 mg total) by mouth 2 (two) times a day. 28 tablet 11/22/19 25 025 Discontin ued(No longer taking) Active Problems Problem Noted Date Diagnosed Date Morbid obesity with BMI of 40.0-44.9, adult /11/2023 Assessment & Plan (07/01/2025 10:53 AM EDT): This is a 49-year-old Estonian-speaking woman who is interested in undergoing laparoscopic sleeve gastrectomy. The patient took a break from the program as she had insurance coverage issues and now she is back. She is exercising regularly. She will restart the eating plan that was given to her at her initial visit. Patient will be scheduled with a visit for behavioral health to have her behavioral health clearance. She will start seeing the dietitian once again and she will be sent the Estonian nutrition classes. The patient will follow-up with me again in 4 weeks timeframe she will see the dietitian in 2 to 3 weeks timeframe. She has already done 2 of the support groups. She will continue current medications as reviewed. I have reordered blood work and the patient will have her H. pylori study rechecked as she completed treatment for H. pylori. She is not stable is considered morbidly obese. Assessment & Plan (11/06/2024 2:28 PM EST): This is a 49 YO patient who is interested in weight loss surgery, specifically the laparoscopic sleeve gastric for weight loss. We have discussed gastric bypass and sleeve gastrectomy surgery in detail including risks, benefits, and alternatives. We have also discussed requirements preop and post op. They understands that they are required to lose about 10 percent of their current weight which is 26 lbs. The goal weight at the time of submission to the insurance company will be 233 pounds. In an effort to help the patient to lose weight I have prescribed an eating plan which will consist of a protein shake or a protein bar or Marshallese yogurt or cottage cheese to be consumed at 9 AM and 3 PM daily. The patient will consume 4 ounces of protein with 6 ounces of vegetable or small salad with a noncreamy salad dressing of not more than 2 tablespoons at 12 PM and 6 PM daily. At the 6 PM meal the patient may have 1/2 cup of carbohydrate. We have ordered required labs and testing. The patient will attend 5 nutrition classes, 2 appointments, and dietitian consultation. The patient will need to obtain a medical clearance letter from the primary care doctor prior to submission to the insurance company. The patient will see the dietitian in 2 and 4 weeks and I will follow up with them again in 6 weeks to ensure compliance with the meal plan. The patient will continue current medications as reviewed. They are not stable and are considered morbidly obese. I spent 68 minutes with this patient which also included documentation. Preoperative examination 11/06/2024 Encounters Date Type Department Care Team Description 07/15/2025 11:30 AM EDT Nutrition [facility] [address] [place] [address] [place] [address] Charito Gregg LDN Morbid obesity with BMI of 40.0-44.9, adult (Primary Dx) 07/08/2025 Orders Only [facility] [address] [place] [address] [place] [address] Chitra Dennis MD H. pylori infection (Primary Dx) 07/05/2025 8:30 AM EDT - 07/05/2025 11:59 PM EDT Hospital Encounter [facility] [address] [place] [address] Chitra Dennis MD Discharge Disposition: Home or Self Care 07/01/2025 10:15 AM EDT Office Visit [facility] [address] [place] [address] [place] [address] Chitra Dennis MD Morbid obesity with BMI of 40.0-44.9, adult (Primary Dx) from Last 3 Months Family History Medical History Relation Comments Heart attack Father Hypertension Father Diabetes type II Mother Relation Status Comments Brother Father Mother Alive Sister Social History Tobacco Use Types Packs/Day Years Used Date Smoking Tobacco: Never Smokeless Tobacco: Never Alcohol Use Standard Drinks/Week Comments Not Currently 0 (1 standard drink = 0.6 oz pur e alcohol) Education Answer Date Recorded Are you interested in more education? Not on santiago e 09/10/2024 Are you concerned about learning? Not on file 09/10/2024 No 09/10/2024 No 09/10/2024 Digital Access Answer Date Recorded No 09/10/2024 No 09/10/2024 Reliable internet access at home? Not on file 09/10/2024 Device with a working camera? Not on file Comments Unknown Sex and Gender Information Value Date Recorded Sex Assigned at Female 11/25/2024 9:35 AM EST Legal Sex Female 2:12 PM EDT Gender Identity Female 11/25/2024 9:35 AM EST Sexual Orientation Straight 11/25/2024 9: 35 AM EST Last Filed Vital Signs Vital Sign Reading Time Taken Comments Blood Pressure 128/80 07/15/2025 11:00 AM EDT Pulse 72 07/15/2025 11:00 AM EDT Temperature 36.6 C (97.8 F) 07/15/2025 11:00 AM EDT Respiratory Rate - - Oxygen Saturation 99% 07/15/2025 11:00 AM EDT Inhaled Oxygen Concentration - - Weight 116.6 kg (257 lb) 07/15/2025 11:00 AM EDT Height 162.6 cm (5' 4.02 ) 07/15/2025 11:00 AM E DT Body Mass Index 44.09 07/15/2025 11:00 AM EDT Plan of Treatment Upcoming Encounters Date Type Department Care Team (Late st Contact Info) Description 07/31/2025 9:00 AM EDT Telemedicine [facility] [address] [place] [address] Ashlie Richardson, HNP- [address] [facility], [address] [place] [address] 08/05/2025 9:30 AM EDT Office Visit [facility] [address] [place] [address] Chitra Dennis MD [address] [facility], 2nd [place] [address] 08/22/2025 8:00 AM EDT Nutrition [facility] [address] [place] [address] Charito Gregg LDN [address] [place] [address] [email or web address] Health Maintenance Due Date Last Done Comments DEPRESSION SCREENING 1986 HEPATITIS C SCREENING 1992 HIV ONE-TIME SCREENING (18-6 5 YEARS) 1992 PAP SMEAR 1995 COLOGUARD 2019 COLONOSCOPY 2019 COLORECTAL CANCER SCREENING 2019 FIT TEST 2019 FOBT 2019 SIGMOIDOSCOPY 2019 VIRTUAL COLONOSCOPY 2019 PNEUMOCOCCAL VACCINES (50+ years) (1 of 1 - PCV) 2024 ZOSTER VACCINES (1 of 2) 2024 MAMMOGRAM 03/30/2025 03/30/2023, 09/18/2018 INFLUENZA VACCINE (#1) 2025 COVID-19 VACCINE (1 - 2023-2 5 season) 2025 Adult Td,Tdap Booster 08/06/2026 08/06/2016 SCREENING FOR DIABETES 07/05/2028 , 07/05/2025 LIPID PANEL 07/05/2030 07/05/2025, 11/20/2024, 06/22/2024 SMOKING STATUS SCREENING (On ce After 26 Yrs) Completed 07/18/2025 HEPATITIS A VACCINES Aged Out No long er eligible based on patient's age to complete this topic HIB VACCINES Aged Out No longer eligi ble based on patient's age to complete this topic MENINGOCOCCAL VACCINES (ACWY) Aged Out No longer eligible based on patient's age to complete this topic MENINGOCOCCAL VACCINES (B) Aged Out N o longer eligible based on patient's age to complete this topic Medical Devices Not on file Procedures Procedure Name Priority Date/Time Associated Diagnosis Comments H PYLORI UREA BREATH TEST Routine 07/05/2025 8:37 AM EDT H. pylori infection CBC Routine 07/05/2025 8:33 AM EDT Morbid obesity with BMI of 40.0-44.9, adult C-REACTIVE PROTEIN Routine 07/05/2025 8: 33 AM EDT Morbid obesity with BMI of 40.0-44.9, adult 25-OH VITAMIN D Routine 07/05/2025 8:33 AM EDT Morbid obesity with BMI of 40.0-44.9, adult COMPREHENSIVE METABOLIC PANEL Routine 07/05/2025 8:33 AM EDT Morbid obesity with BMI of 40.0-44.9, adult HEMOGLOBIN A1C Routine 07/05/2025 8:33 AM EDT Morbid obesity with BMI of 40.0-44.9, adult INSULIN LEVEL Routine 07/05/2025 8:33 AM EDT Morbid obesity with BMI of 40.0-44.9, adult IRON AND IRON BINDING CAPACITY Routine 07/05/2025 8:33 AM EDT Morbid obesity with BMI of 40.0-44.9, adult LIPID PANEL Routine 07/05/2025 8:33 AM EDT Morbid obesity with BMI of 40.0-44.9, adult PARATHYROID HORMONE (PTH) Routine 07/05/2025 8:33 AM EDT Morbid obesity with BMI of 40.0-44.9, adult TSH Routine 07/05/2025 8:33 AM EDT Morbid obesity with BMI of 40.0-44.9, adult VITAMIN A Routine 07/05/2025 8:33 AM EDT Morbid obesity with BMI of 40.0-44.9, adult VITAMIN B12 Routine 07/05/2025 8:33 AM EDT Morbid obesity with BMI of 40.0-44.9, adult VITAMIN B1 (THIAMINE) Routine 07/05/2025 8:33 AM EDT Morbid obesity with BMI of 40.0-44.9, adult ZINC Routine 07/05/2025 8:33 AM EDT Morbid obesity with BMI of 40.0-44.9, adult from Last 3 Months Results * (ABNORMAL) H PYLORI UREA BREATH TEST (07/05/2025 8:37 AM EDT) Pathologist [facility] H.PYLORI C UREA BRTH Positive( A) Negative [facility] Comment: (NOTE) Result indicates the presence of active Helicobacter pylori infection. Blood 07/05/2025 8:37 AM EDT 07/05/2025 8:45 AM EDT Chitra Dennis MD LAB BLOOD ORDERABLES Final Result Performing Organization Address City/[facility]/ZIP Co de Phone Number [facility] LAB MED/PATH [address] [place] [address] * Zinc (07/05/2025 8:33 AM EDT) [facility] Zinc, S 62 60 - 106 mcg/dL [facility] Comment: (NOTE) ADDITIONAL INFORMATION This test was developed and its performance characteristics determined by [facility] in a manner consistent with CLIA requirements. This test has not been cleared or approved by the U.S. Food and Drug Administration. Blood 07/05/2025 8:33 AM EDT 07/05/2025 8:50 AM EDT Chitra Dennsi MD LAB BLOOD ORDERABLES Final Result Performing Organization Address [facility]/ZIP Co de Phone Number [facility] LAB MED/PATH [address] [place] [address] * (ABNORMAL) Comprehensive metabolic panel (07/05/2025 8:33 AM EDT) [facility] SODIUM 137 133 - 146 mmol/L [facility] POTASSIUM 4.1 3.3 - 5.1 mmol/L [facility] CHLORIDE 102 96 - 108 mmol/L [facility] CO2 22 21 - 35 mmol/L [facility] BUN 12 6 - 19 mg/dL [facility] CREATININE 0.70 0.5 - 1.5 mg/dL [facility] GLUCOSE 86 70 - 99 mg/dL [facility] ALBUMIN 4.1 3.9 - 4.8 g/dL [facility] TOTAL PROTEIN 7.6 6.5 - 8.0 g/dL [facility] CALCIUM 9.4 8.4 - 10.3 mg/dL [facility] ALKALINE PHOSPHATASE 119(H) 39 - 117 U/L [facility] TOTAL BILIRUBIN 0.4 0.0 - 1.2 mg/dL [facility] AST 18 0 - 37 U/L [facility] ALT 16 0 - 40 U/L [facility] GLOBULIN 3.5 1 - 4.8 g/dL [facility] EGFR 105 >59 mL/min/1.7 3m2 [facility] Comment:Estimated glomerular filtration rate calculated using the CKD-EPI refit equation. ANION GAP 17 10 - 20 mmol/L [facility] Blood 07/05/2025 8:33 AM EDT 07/05/2025 8:51 AM EDT Chitra Dennis MD LAB BLOOD ORDERABLES Final Result [address] [address] * Iron and iron binding capacity (07/05/2025 8:33 AM EDT) IRON 76 30 - 160 ug/dL [facility] IRON BINDING CAPACITY 287 228 - 428 ug/dL [facility] TRANSFERRIN SATURAT. 26 15 - 50 % [facility] Blood 07/05/2025 8:33 AM EDT 07/05/2025 8:51 AM EDT us Chitra Dennis MD LAB BLOOD ORDERABLES Final Result [address] [address] * Vitamin A (07/05/2025 8:33 AM EDT) VITAMIN A 44.2 32.5 - 78.0 mcg/dL [facility] MED/PATH [facility] Comment: (NOTE) ADDITIONAL INFORMATION This test was developed and its performance characteristics determined by [facility] in a manner consistent with CLIA requirements. This test has not been cleared or approved by the U.S. Food and Drug Administration. Blood 07/05/2025 8:33 AM EDT 07/05/2025 8:50 AM EDT us Chitra Dennis MD LAB BLOOD ORDERABLES Final Result Performing Organization Address City/[facility] Co de Phone Number [facility] LAB MED/PATH [address] [place] [address] * (ABNORMAL) 25-OH vitamin D (07/05/2025 8:33 AM EDT) [facility] 25 OH VIT D (TOTAL) 27(L) 30 - 60 ng/mL [facility] Blood 07/05/2025 8:33 AM EDT 07/05/2025 8:51 AM EDT us Chitra Dennis MD LAB BLOOD ORDERABLES Final Result Performing Organization Address [facility] Co de Phone Number [facility] [address] [place] [address] * Insulin Level (07/05/2025 8:33 AM EDT) [facility] INSULIN 12.0 2.6 - 25.0 uIU/mL [facility] Blood 07/05/2025 8:33 AM EDT 07/05/2025 8:52 AM EDT us Chitra Dennis MD LAB BLOOD ORDERABLES Final Result Performing Organization Address City/[facility] Co de Phone Number [address] [address] * CBC (07/05/2025 8:33 AM EDT) WBC 5.23 4.00 - 11.00 K/uL [facility] RBC 4.54 4.00 - 5.20 M/uL [facility] HGB 12.8 12.0 - 16.0 g/dL [facility] HCT 39.1 36.0 - 46.0 % [facility] PLT 202 150 - 450 K/uL [facility] MCV 86.1 80.0 - 100.0 fL [facility] MCH 28.2 27.0 - 31.0 pg [facility] MCHC 32.7 32.0 - 36.0 g/dL [facility] RDW 13.8 11.5 - 14.5 % [facility] MPV 10.7 8.4 - 12.0 [facility] NRBC 0.00 0.00 /100 WBCs [facility] ABSOLUTE NRBC 0.00 0.00 K/uL [facility] Blood 07/05/2025 8:33 AM EDT 07/05/2025 8:51 AM EDT us Chitra Dennis MD LAB BLOOD ORDERABLES Final Result [address] [address] * (ABNORMAL) C-Reactive Protein (07/05/2025 8:33 AM EDT) Pathologist [facility] C REACTIVE PROTEIN 17.7(H) 0.0 - 4.0 mg/L [facility] Blood 07/05/2025 8:33 AM EDT 07/05/2025 8:51 AM EDT us Chitra Dennis MD LAB BLOOD ORDERABLES Final Result [address] [address] * TSH (07/05/2025 8:33 AM EDT) Pathologist [facility] TSH 2.81 0.27 - 4.20 uIU/mL [facility] Blood 07/05/2025 8:33 AM EDT 07/05/2025 8:51 AM EDT Chitra Dennis MD LAB BLOOD ORDERABLES Final Result Performing Organization Address [facility] Co de Phone Number [address] [address] * Vitamin B1 (thiamine) (07/05/2025 8:33 AM EDT) Pathologist [facility] VITAMIN B1 80 70 - 180 nmol/L [facility] MED/PATH [facility]IOR Comment: (NOTE) ADDITIONAL INFORMATION This test was developed and its performance characteristics determined by [facility] in a manner consistent with CLIA requirements. This test has not been cleared or approved by the U.S. Food and Drug Administration. Blood 07/05/2025 8:33 AM EDT 07/05/2025 8:50 AM EDT us Chitra Dennis MD LAB BLOOD ORDERABLES Final Result Performing Organization Address [facility] de Phone Number [facility] LAB MED/PATH [address] [place] [address] * Parathyroid hormone (PTH) (07/05/2025 8:33 AM EDT) PARATHYROID HORMONE 51 15 - 65 pg/mL [facility] Blood 07/05/2025 8:33 AM EDT 07/05/2025 8:51 AM EDT us Chitra Dennis MD LAB BLOOD ORDERABLES Final Result Performing Organization Address [facility] Co de Phone Number [address] [address] * Hemoglobin A1c (07/05/2025 8:33 AM EDT) HEMOGLOBIN A1C 5.8 4.3 - 5.8 % [facility] Blood 07/05/2025 8:33 AM EDT 07/05/2025 8:52 AM EDT us Chitra Dennis MD LAB BLOOD ORDERABLES Final Result [address] [address] * Vitamin B12 (07/05/2025 8:33 AM EDT) VITAMIN B12 578 232 - 1,245 pg/mL [facility] Blood 07/05/2025 8:33 AM EDT 07/05/2025 8:51 AM EDT Chitra Dennis MD LAB BLOOD ORDERABLES Final Result [address] [address] * (ABNORMAL) Lipid panel (07/05/2025 8:33 AM EDT) HDL 56 mg/dL [facility] Comment: Interpretation <40 mg/dL: Low HDL cholesterol (major risk factor for CHD) Greater than or equal to 60 mg/dL: High HDL cholesterol ( negative risk factor for CHD) HDL - cholesterol is affected by a number of factors, e.g. smoking, excerise, hormones, sex and age. CHOLESTEROL 223 0 - 240 mg/dL [facility] TRIGLYCERIDES 91 30 - 160 mg/dL [facility] LDL 149(H) 50 - 129 mg/dL [facility] Comment: LDL levels in terms of risk for coronary heart disease: <100 mg/dL: Optimal 100-129 mg/dL: Near or above optimal 130-159 mg/dL: Borderline high 160-189 mg/dL: High >190 mg/dL: Very High CARDIAC RISK RATIO 4.0 3.3 - 4.4 [facility] Blood 07/05/2025 8:33 AM EDT 07/05/2025 8:52 AM EDT us Chitra Dennis MD LAB BLOOD ORDERABLES Final Result [facility] [address] [place] [address] from Last 3 Months Insurance [employer] S[employer] NET FULL Member Subscriber Plan / Payer (Ef fective 2024-Present) Name:Radha Martinez Relation to Subscriber:Self Name:Radha Martinez Payer ID:Not on file Group ID:Not on file Type:Medicaid Address: [address] [employer] HE[employer] SAF[employer]Y NET FULL [employer] SAF[employer] NET FULL Member Subscriber Plan / Payer (Ef fective 2024-Present) Name:Radha Martinez Relation to Subscriber:Self Name:Radha Martinez Payer ID:Not on file Group ID:Not on file Type:Medicaid Address: [address] [employer] S[employer] NET FULL Member Subscriber Plan / Payer (Ef fective 2024-Present) Name:Radha Martinez Relation to Subscriber:Self Name:Radha Martinez Payer ID:Not on file Group ID:Not on file Type:Medicaid Address: [address] [employer] S[employer] NET FULL Member Subscriber Plan / Payer (Ef fective 2024-Present) Name:Radha Martinez Relation to Subscriber:Self Name:Radha Martinez Payer ID:Not on file Group ID:Not on file Type:Medicaid Address: [address] [employer] S[employer] NET FULL Member Subscriber Plan / Payer (Ef fective 2024-Present) Name:Geetha Martinezacia Relation to Subscriber:Self Name:Radha Martinez Payer ID:Not on file Group ID:Not on file Type:Medicaid Address: [address] [employer] Care Teams Project Developer Relationship Specialty Start Date End Date Zoe Cabrera DO [address] [place] [id number] PCP - General Family Medicine 08/30/24 Additional Source Comments The information contained in this document represents components of the legal health record. It is not the complete legal health record.[facility]
--- OUTSIDE RECORDS SUMMARY | 2025-07-26 16:08 | XMS_ITS | Encounter Summary ---
Author Organization [employer] Address [address] [facility] 7t [place] [address] Care Team Providers Care Sox Analyst Name Role Phone Zoe Cabrera DO Primary Care Provider + [phone] Reason for Visit * Reason Onset Date Comments Chart Prep 07/25/2025 Encounter Details Date Type Department Care Team ([facility] st Contact Info) Description 07/25/2025 Telephone [facility] MEDICINE [address] [place] [address] Zoe Cabrera DO [address] [place] [address] Chart Prep Social History Tobacco Use Types Packs/Day Years [...] encounter Miscellaneous Notes * Telephone Encounter - Virginia Brown MA - 07/25/2025 1:40 PM EDT Chart Prep Labs: done Images: not done Referrals: appointment pending Vaccines due: Covid, Flu, Hep B, and Zoster Screenings: not applicable Overdue care gaps: PHQ-9, LEROY-7, Oral health screening, and Disability screen documented in this encounter Plan of Treatment Upcoming Encounters Date Type Department Care Team (Late st Contact Info) Description 01/03/2026 8:00 AM EST Office Visit [facility] ADULT DENTAL [address] [place] [address] Kimmy, Sandra [address] [place] [address] documented as of this encounter Visit Diagnoses Not on filedocumented in this encounter Additional Health Concerns Assessment Noted Time PHQ-9 Depression Total Score: 0 01/09/20 25 9:08 AM EST documented as of this encounter Care Teams Sox Analyst Relationship Specialty Start Date End Date Zoe Cabrera DO [address] [place] [address] PCP - General Family Medicine 12/10/15 documented as of this encounter
--- OUTSIDE RECORDS SUMMARY | 2025-07-26 16:08 | XMS_ITS | Encounter Summary ---
Author Organization [employer] Address [address] [facility] 7[address] [place] [address] Care Team Providers Care Unit Manager [employer] Name Role Phone GalileoZoe ferraro Primary Care Provider + [phone] Encounter Details Date Type Department Care Team (Latest Contact Info) Description 07/26/2025 Travel Social History Tobacco Use Types Packs/Day [...] Description 01/03/2026 8:00 AM EST Office Visit [facility] ADULT DENTAL [address] [place] [address] Sandra Oneal [address] [place] [address] documented as of this encounter Visit Diagnoses Not on filedocumented in this encounter Additional Health Concerns Assessment Noted Time PHQ-9 Depression Total Score: 0 01/09/20 25 9:08 AM EST documented as of this encounter Care Teams Unit Manager [employer] Relationship Specialty Start Date End Date Zoe Cabrera DO [address] [place] [address] PCP - General Family Medicine 12/10/15 documented as of this encounter
--- OUTSIDE RECORDS SUMMARY | 2025-07-26 16:08 | XMS_ITS | Encounter Summary ---
Author Organization [email or web address] Address [address] [place] [address] [address] [place] [address] Care Team Providers Care [facility] Experience Strategy Name Role Phone Zoe Cabrera DO Primary Care Provider + [phone] Encounter Details Date Type Department Care Team (Latest Contact Info) Description 12/01/2020 Abstract [facility] CONVERSIONS Dental, Provider, DDS Social History Tobacco [...] Description 01/03/2026 8:00 AM EST Office Visit [facility] ADULT DENTAL [address] [place] [address] Kimmy, Sandra [address] [place] [address] documented as of this encounter Visit Diagnoses Not on filedocumented in this encounter Care Teams [facility] [employer] Experience Strategy Relationship Specialty Start Date End Date Zoe Cabrera DO [address] [place] [address] PCP - General Family Medicine 12/10/15 documented as of this encounter
--- OUTSIDE RECORDS SUMMARY | 2025-07-26 16:08 | XMS_ITS | Encounter Summary ---
Author Organization [facility] Address [address] [place] [address] Care Team Providers Care Film Washer Name Role Phone Zoe Cabrera Primary Care Provider [phone] Reason for Referral * Consultation (Routine) - Authorized Specialty Diagnoses / Procedures Referred By Contkavya t Referred To Contact Obstetrics and Gynecology Diagnoses Vaginal spotting Zoe Cabrera [address] [place] [address] Phone: tel: fax: [facility] Ob[facility]etrics [facility] Gynecology [address] [place] [address] Phone: tel: fax: Referral ID Status Reason Start Date Expiration Date Visits Requested Visits Authorized [id number] Authorized Specialty Services Required 05/20/2025 06/20/2026 6 6 Encounter Details Date Type Department Care Team (Late st Contact Info) Description 05/20/2025 Transcribe Orders [facility] Physician Referral Services [address] [place] [address] Zoe Cabrera [address] [place], [place] [id number] Vaginal spotting (Primary Dx) Social History Tobacco Use Types Packs/Day Years Used Date Smoking Tobacco: Never Smokeless Tobacco: Never Comments:: Alcohol Use Standard Drinks/Week Comments Yes [...] file Not on file Not on file documented as of this encounter Plan of Treatment Scheduled Referrals Name Type Priority Associated Diagnoses Order Schedule Ambulatory referral to Obstetrics / Gynecology Outpatient Referral Routine Vaginal spotting Expected: 05/20/2025, Expires: 06/20/2026 documented as of this encounter Visit Diagnoses Diagnosis Vaginal spotting- Primary Other specified noninflammatory disorder of vagina documented in this encounter Care Teams Film Washer Relationship Specialty Start Date End Date Zoe Cabrera [address] [place] [id number] PCP - General Family Medicine 04/11/18 documented as of this encounter
--- OUTSIDE RECORDS SUMMARY | 2025-07-26 16:08 | XMS_ITS | Clinical Summary ---
Author Organization [employer] Address [address] [facility] [address] [place] [address] Care Team Providers Care Older Adult Social Work Specialist Name Role Phone Deborah Zoe Primary Care Provider + [phone] Allergies No known active allergies Medications EPINEPHrine (Epipen) 0.3 MG/0.3ML injection syringe INJECT INTRAMUSCULARLY DIRECTED ON PACKAGE AND GO TO EMERGENCY ROOM 023 Active melatonin 5 MG tablet TAKE 2 TABLETS BY MOUTH 2 HOURS BEFORE BEDTIME. 023 Active hydrocortisone 1 % creamIndication s:Dermatitis APPLY TO THE AFFECTED AREA(S) TWICE DAILY NEEDED FOR RASH 28 g 2 023 Active estradiol (Estrace) 0.1 MG/GM vaginal cream INSERT 1 GRAM VAGINALLY 3 TIMES A WEEK 42.5 g 2 024 Active acetaminophen (Tylenol 8 Hour) 650 MG ER tablet Take 2 tablets (1,300 mg) by mouth every 8 (eight) hours if needed for moderate pain or headaches. Do not crush, chew, or split. 30 tablet 024 Active clotrimazole (Lotrimin) 1 % cream APPLY TOPICALLY TO THE AFFECTED AREA(S) TWICE DAILY FOR 28 DAYS 60 g 2 025 Active Ventolin HFA 108 (90 Base) MCG/ACT inhaler Inhale 2 puffs every 6 (six) hours. 024 Active lansoprazole (Prevacid) [address] capsule Take 30 mg by mouth 2 times daily. 025 Active meclizine (Antivert) 25 MG tabletIndicatio ns:Vertigo TAKE 1 TABLET BY MOUTH THREE TIMES DAILY NEEDED FOR DIZZINESS 30 tablet 3 Active traZODone (Desyrel) 50 MG tabletIndicatio ns:Insomnia, unspecified type TAKE 1 TABLET AT BEDTIME 30 tablet 5 Active venlafaxine XR (Effexor XR) 75 MG 24 hr capsule TAKE 1 CAPSULE ONCE DAILY. DO NOT BREAK, CRUSH, DISSOLVE OR CHEW 30 capsule 5 Active metoprolol tartrate (Lopressor) 50 MG tabletIndicatio ns:Essential hypertension TAKE 1 TABLET BY MOUTH TWICE DAILY WITH MEALS 180 tablet 3 Active flecainide (Tambocor) 50 MG tablet TAKE 1 TABLET BY MOUTH EVERY 12 HOURS 180 tablet 3 Active fluticasone (Flonase) 50 MCG/ACT nasal spray SPRAY 2 SPRAYS INTO EACH NOSTRIL ONCE DAILY 48 g Active mineral oil-hydrophil petrolat ointment Topical Ointment APPLY TOPICALLY TO THE AFFECTED AREA(S) EVERY DAY NEEDED FOR DRY SKIN DIRECTED 454 g 3 Active naproxen (Naprosyn) 500 MG tablet Take 1 tablet (500 mg) by mouth if needed in the morning and at bedtime for headaches. 40 tablet Active doxycycline (Vibra-Tabs) 100 MG tablet Take 1 tablet (100 mg) by mouth 2 times daily for 10 days. Take with a full glass of water and do not lie down for at least 30 minutes after. 20 tablet 025 2024 Active diphenhydrAMINE (BENADryl) 25 MG tablet Take 1 tablet (25 mg) by mouth every 6 (six) hours if needed for nausea or vomiting. 60 tablet 1 025 2024 Active ondansetron (Zofran) 4 MG tablet Take 1 tablet (4 mg) by mouth every 8 (eight) hours if needed for nausea or vomiting for up to 7 days. 20 tablet 025 2024 Active carbamide peroxide (Debrox) 6.5 % otic solution Administer 5 drops into the right ear 2 times daily for 4 days. 15 mL 025 2024 Active Dulaglutide (Trulicity) 3 MG/0.5ML solution auto-injector Inject 3 mg under the skin 1 (one) time per week. 2 mL 3 Active cetirizine (ZyrTEC) 10 MG tablet Take 1 tablet (10 mg) by mouth Once per day. 90 tablet 3 2025 Active topiramate (Topamax) 25 MG tablet Take 1 tablet (25 mg) by mouth at bedtime. 90 tablet 3 2025 Active SUMAtriptan (Imitrex) 50 MG tablet TAKE 1 TABLET BY MOUTH AT ONSET OF MIGRAINE. MAY REPEAT ONCE AFTER 2 HOURS IF NO RELIEF. DO NOT EXCEED 2 DOSES IN 24 HOURS 9 tablet 3 Active fluconazole (Diflucan) 150 MG tablet Take 1 tablet (150 mg) by mouth 1 (one) time for 1 dose. 1 tablet 2024 Active terconazole (Terazol 7) 0.4 % vaginal cream Insert 1 applicator into the vagina at bedtime for 7 days. 45 g 2024 Active topiramate (Topamax) 25 MG tablet Take 1 tablet (25 mg) by mouth at bedtime. 30 tablet 11 024 2024 Discontinued(R eorder (will not trigger notification to Pharmacy)) flecainide (Tambocor) 50 MG tablet TAKE 1 TABLET BY MOUTH EVERY 12 HOURS 60 tablet 11 024 2024 Discontinued naproxen (Naprosyn) 500 MG tablet TAKE 1 TABLET BY MOUTH TWICE DAILY IN THE MORNING AND AT BEDTIME NEEDED FOR PAIN 40 tablet 2 024 2024 Discontinued(R eorder (will not trigger notification to Pharmacy)) Trulicity 1.5 MG/0.5ML solution auto-injector INJECT ONE PEN (=1.5MG) SUBCUTANEOUSLY ONCE A WEEK DIRECTED 2024 Discontinued mineral oil-hydrophil petrolat ointment Topical Ointment APPLY TOPICALLY TO THE AFFECTED AREA(S) EVERY DAY NEEDED FOR DRY SKIN DIRECTED 454 g 5 Discontinued loratadine (Claritin) 10 MG tablet TAKE 1 TABLET BY MOUTH EVERY DAY 90 tablet 2024 Discontinued SUMAtriptan (Imitrex) 50 MG tablet TAKE 1 TABLET BY MOUTH AT ONSET OF MIGRAINE. MAY REPEAT ONCE AFTER 2 HOURS IF NEEDED. DO NOT EXCEED 2 DOSES IN 24 HOURS 9 tablet 3 2024 Discontinued(R eorder (will not trigger notification to Pharmacy)) fluticasone (Flonase) 50 MCG/ACT nasal spray USE 2 SPRAYS IN EACH NOSTRIL ONCE DAILY 48 g 025 2024 Discontinued(R eorder (will not trigger notification to Pharmacy)) Trulicity 1.5 MG/0.5ML solution auto-injector INJECT ONE PEN (=1.5MG) SUBCUTANEOUSLY ONCE A WEEK DIRECTED 2 mL 11 2024 Discontinued Active Problems Problem Noted Date Diagnosed Date History of Helicobacter pylori infection Missing teeth, acquired 07/01/2025 Vertigo 03/09/2024 Pre-diabetes 07/26/2023 BMI 40.0-44.9, adult 03/25/2023 Microscopic hematuria 03/25/2023 Chronic gastroesophageal reflux disease 12/03/19 Chronic migraine 12/03/2022 Chronic allergic rhinitis 04/17/2018 Essential hypertension 12/10/2015 Mild intermittent asthma 12/10/2015 Paroxysmal atrial fibrillation 12/10/2015 Overview (11/29/2022): Last Assessment & Plan: PAF, remains on metoprolol and flecainide. CHADS VASC risk factors are notable for Htn and female gender Resolved Problems Problem Noted Date Diagnosed Date Resolved Date Impacted tooth 04/05/2024 07/26/2025 Dental calculus 04/05/2024 07/26/2025 Persistent migraine aura wit hout cerebral infarction and without status migrainosus, not intractable 03/07/2024 03/09/2024 Assessment & Plan (03/07/2024 9:12 AM EDT): Current episode 3 days. No evidence of increased intracranial pressure. CT head unremarkable 02/06/24. Patient was hoping for IV fluids but we do not provider here. Rx ondansetron and sumatriptan prn. ER precautions discussed. Pt agrees with the plan. Fractured dental sabianist with loss of material 05/16/2023 07/26/2025 Chronic gastroesophageal reflux disease 12/03/2022 12/03/2022 Hyperpigmentation of skin 05/19/2018 Gastroesophageal reflux disease 12/10/2015 12/03/2022 Migraine 12/10/2015 12/03/2022 Obesity (BMI 30-39.9) 12/10/20152022 Encounters Date Type Department Care Team Description 07/26/2025 11:15 AM EDT Office Visit [facility] [address] [place] [phone] Zoe Cabrera DO Essential hypertension (Primary Dx); Paroxysmal atrial fibrillation ([facility]); Pre-diabetes; Mild intermittent asthma without complication; Chronic gastroesophageal reflux disease; Chronic migraine; Hot flashes; Snoring; Microscopic hematuria; Chronic allergic rhinitis; Vertigo; Vaginal spotting; Vaginal itching; Impacted cerumen of right ear; BMI 40.0-44.9, adult (CMS/HCC); Healthcare maintenance; Dietary counseling; Exercise counseling 07/26/2025 Travel 07/25/2025 Telephone [facility] [address] [place] [phone] Zoe Cabrera DO Chart Prep 07/19/2025 1:40 PM EDT Office Visit [facility] [address] [place] [phone] Name, MD Barrera Nonintractable chronic migraine (Primary Dx); Right otitis media, unspecified otitis media type; Dizziness; Photophobia of both eyes; Phonophobia 07/19/2025 Travel 07/19/2025 Refill [facility] [address] [place] [phone] Zoe Cabrera DO 07/10/2025 Population Health Risk Score [facility] () Department [address] [place] [phone] Provider, Population Health Generic 07/03/2025 Refill [facility] [address] [place] [address] Zoe Cabrera, 07/01/2025 8:00 AM EDT Office Visit [facility] [address] [place] [address] Sandra Oneal Dental calculus (Primary Dx); Impacted tooth; Missing teeth, acquired 06/27/2025 Refill [facility] [address] [place] [address] Zoe Cabrera, 06/26/2025 Travel 06/26/2025 Refill [facility] [address] [place] [address] Zoe Cabrera, 05/01/2025 Orders Only [facility] [address] [place] [address] Zoe Cabrera, Vaginal spotting (Primary Dx); Morbid obesity with BMI of 40.0-44.9, adult ([facility]) from Last 3 Months Immunizations Immunization Administration Dates Next Due DTaP 10/03/2018 Influenza [...] Mass Index 43.94 07/26/2025 11:47 AM EDT Plan of Treatment Upcoming Encounters Date Type Department Care Team (Late st Contact Info) Description 01/03/2026 8:00 AM EST Office Visit [facility] [address] [place] [phone] Sandra Oneal [address] [place] [address] Health Maintenance Due Date Last Done Comments CT Colonography 1975 Colonoscopy 1975 FIT 1975 Sigmoidoscopy 1975 Disability Screening 1975 Family Planning (PISQ) 1989 Hepatitis B Vaccines (1 of 3 - 19+ 3-dose series) 1993 Zoster Vaccines (1 of 2) 2024 FOBT 07/03/2025 07/03/2024 COVID-19 Vaccine ( season) 2025 12/03/2022, 04/22/2021, 03/25/2021 Influenza Vaccine (#1) 2025 , 12/03/2022, 12/01/2020, Additional history exists Dental Oral Exam 01/02/2026 07/01/2025, , 12/08/2022 Dental Prophylaxis 01/02/2026 07/01/2025, 0 04/05/2024, 12/08/2022 Alcohol/Substance Use Screening 01/08/2026 01/08/2025 Depression Screening 01/08/2026 01/08/2025, 01/09/20 SDOH Screening 01/08/2026 01/08/2025 Pap Smear 03/25/2026 03/25/2023, 03/25/2023 Mammogram 04/04/2026 04/04/2024, 03/08, 03/30/2023, Additional history exists Dental X-Ray: Bitewings 07/02/2026 07/01/20, 04/05/2024, 12/08/2022 Diabetes: Hemoglobin A1C 07/05/2026 025, 11/20/2024, 06/22/2024, Additional history exists Tobacco Screening 07/26/2026 07/26/2025 Dental X-Ray: Full Mouth 04/06/2027 04/05/2024 Colorectal [...] patient's age to complete this topic Meningococcal B Vaccine Aged Out No l onger eligible based on patient's age to complete [...] Procedure Name Priority Date/Time Associated Diagnosis Comments ECG 12-LEAD Routine 07/19/2025 1:46 PM EDT Dizziness PERIODIC ORAL EVALUATION - ESTABLISHED PATIENT Routine 07/01/2025 8:00 AM EDT CASE PRESENTATION, DETAILED AND EXTENSIVE TREATMENT PLANNING Routine 07/01/2025 8:00 AM EDT ORAL HYGIENE INSTRUCTIONS Routine 07/01/2025 8:00 AM EDT Dental calculus Impacted tooth Missing teeth, acquired PROPHYLAXIS - ADULT Routine 07/01/2025 8 :00 AM EDT Dental calculus INTRAORAL - PERIAPICAL EACH ADDITIONAL RADIOGRAPHIC IMAGE Routine 07/01/2025 8:00 AM EDT Dental calculus Impacted tooth Missing teeth, acquired INTRAORAL - PERIAPICAL FIRST RADIOGRAPHIC IMAGE Routine 07/01/2025 8:00 AM EDT Dental calculus Impacted tooth Missing teeth, acquired BITEWINGS - 4 RADIOGRAPHIC IMAGES Routine 07/01/2025 8:00 AM EDT Dental calculus Impacted tooth Missing teeth, acquired LAB COLOGUARD COLON CANCER SCREEN Routine 07/03/2024 12:00 PM [...] Hot flashes Healthcare maintenance Insomnia, unspecified type HEMOGLOBIN A1C Routine 06/22/2024 12:34 PM EDT Essential hypertension [...] Hot flashes Healthcare maintenance Insomnia, unspecified type INTRAORAL - COMPLETE SERIES OF RADIOGRAPHIC IMAGES Routine 04/05/2024 3:00 PM EDT Impacted tooth Dental calculus BI MAMMOGRAM SCREENING TOMOSYNTHESIS BILATERAL Routine 04/04/2024 8:45 AM EDT THINPREP PAP, HPV MRNA E6/E7 RFX HPV 16,18/45, CHLAMYDIA/N.GONORRHO EAE Routine 03/25/2023 12:00 AM EDT from Last 3 Months or Most Recently Relevant to Health Maintenance Results * ECG 12 lead (07/19/2025 1:46 PM EDT) Narrative Name, MD Barrera - 07/19/2025 1:46 PM EDT NSR, HR 75, no ischemic ST-T changes Barrera Name ECG ORDERABLES Final Result * Cologuard?? colon cancer screening (07/03/2024 12:00 PM EDT) Cologuard Result Negative Negative 07/08/20 6:12 PM EDT [facility] (CLIA #:[id number]) Comment: NEGATIVE TEST RESULT. A negative Cologuard result indicates a low likelihood that a colorectal cancer (CRC) or advanced adenoma (adenomatous polyps with more advanced pre-malignant features) is present. The chance that a person with a negative Cologuard test has a colorectal cancer is less than 1 in 1500 (negative predictive value >99.9%) or has an advanced adenoma is less than 5.3% (negative predictive value 94.7%). These data are based on a prospective cross-sectional study of 10,000 individuals at average risk for colorectal cancer who were screened with both Cologuard and colonoscopy. (Elana June al, N Engl J Med 2014;370(14):5658-0995) The normal value (reference range) for this assay is negative. COLOGUARD RE-SCREENING RECOMMENDATION: Periodic colorectal cancer screening is an important part of preventive healthcare for asymptomatic individuals at average risk for colorectal cancer. Following a negative Cologuard result, the [place] [employer] Society and U.S. Multi-Society Task Force screening guidelines recommend a Cologuard re-screening interval of 3 years. References: [place] [employer] Guideline for Colorectal Cancer Screening: https://www.cancer.org/cancer/wfykh-htfung-ikjmut/fiphapbwu-vqqvblzuq-pfesmoa/ac s-rec ommendations.html.; Kentrell DK, Tri CR, Adrianna CARRASQUILLO, Colorectal Cancer Screening: Recommendations for Physicians and Patients from the U.S. Multi-Society Task Force on Colorectal Cancer Screening , Am J Gastroenterology 2017; 112:7583-5844. TEST DESCRIPTION: Composite algorithmic analysis of stool DNA-biomarkers with hemoglobin immunoassay. Quantitative values of individual biomarkers are not [...] screened with both Cologuard and colonoscopy. (Elana Burt. et al, N Engl J Med 2014;370(14):6951-4629.) Cologuard may produce a false negative or false positive result (no colorectal cancer or precancerous polyp present at colonoscopy follow up). A negative Cologuard test result does not guarantee the absence of CRC or advanced adenoma (pre-cancer). The current Cologuard screening interval is every 3 years. ([place] [employer] Society and U.S. Multi-Society Task Force). Cologuard performance data in a 10,000 patient pivotal study using colonoscopy as the reference method can be accessed at the following location: www.[employer].com/results. Additional description of the Cologuard test process, warnings and precautions can be found at www.Agendizeoguard.com. Stool specimen (specimen) 07/03/2024 12:00 PM EDT 07/04/2024 4:04 PM EDT Zoe Cabrera DO LAB MOLECULAR DIAGNOSTICS OR DERABLES Final Result Performing Organization Address City/[facility]/ZIP Co de Phone Number [facility] (CLIA #:[id number]) [place] [address], * Hepatitis C Antibody with Reflex to HCV, RNA, Quantitative, Real-Time PCR (06/22/2024 12:34 PM EDT) Hepatitis C Antibody Nonreactive Nonreactive [facility] Comment:Antibodies to HCV no t detected; does not exclude early acuteHCV infection. Blood Venous blood specimen / Unknown 06/22/2024 12:34 PM EDT 06/22/2024 1:24 PM EDT us Zoe Cabrera DO LAB BLOOD ORDERABLES Final R esult Performing Organization Address [facility] Co de Phone Number [facility] [address] [place] [phone] * HIV-1/2 Antigen and Antibodies, Fourth Generation, with Reflexes (06/22/2024 12:34 PM EDT) HIV AB/AG Nonreactive Nonreactive [facility] Comment:HIV-1 p24 Ag and/or HIV-1/HIV-2 Ab not detected.A test result that is nonreactive does not exclude thepossibility of exposure to or infection with HIV-1 and/orHIV-2. Nonreactive results in this assay for individualswith prior exposure to HIV-1 and/or HIV-2 may be due toantigen and antibody levels that are below the limit ofdetection of this assay.The [employer] HIV Ag/Ab Combo assay result andsupplemental assay results should be interpreted inconjunction with the patient's clinical presentation,history and other laboratory results. If the results areinconsistent with clinical evidence, additional testing issuggested to confirm the result. Blood Venous blood specimen / Unknown 06/22/2024 12:34 PM EDT 06/22/2024 1:24 PM EDT us Kathleenfer Deborah DO LAB BLOOD ORDERABLES Final R esult [facility] [address] [place] [address] [phone] * (ABNORMAL) Lipid Panel, Standard (06/22/2024 12:34 PM EDT) Triglycerides 128 <150 mg/dL [facility] Comment:Desirable Triglyceri de: less than 150 mg/dLBorderline High Triglyceride 150-199 mg/dLHigh Triglyceride: 200-499 mg/dLVery High Triglyceride: greater than or equal to 5OO mg/dL Cholesterol 215(H) <200 mg/dL [facility] Comment:Desirable Cholestero l: less than 200 mg/dLBorderline High Cholesterol: 200-239 mg/dLHigh Cholesterol: greater than 239 mg/dL LDL Cholesterol Calculated 139(H) <100 mg/dL [facility] Comment:Desirable LDL: less than 100 mg/dLNear Optimal/Above Optimal LDL: 110- 129 mg/dLBorderline High LDL: 130-159 mg/dLHigh LDL: 160-189 mg/dLVery High LDL: greater than or equal to 190 mg/dL HDL Cholesterol 51 >40 mg/dL [facility] Comment:Desirable HDL: great er than 40 mg/dL Note: This HDL assay may give artificially low results in patients with liver disease. Blood Venous blood specimen / Unknown 06/22/2024 12:34 PM EDT 06/22/2024 1:24 PM EDT Zoe Deborah DO LAB BLOOD ORDERABLES Final R esult [facility] [address] [place] [address] [phone] * BI Mammogram Screening Tomosynthesis Bilateral (04/04/2024 8:45 AM EDT) Anatomical Region Laterality Modality Breast Bilateral Mammography 04/04/2024 8:45 AM EDT Narrative 04/30/2024 3:29 AM EDT [address] [place], [place] [address] Mammography Report Signed Patient: Radha Martinez MR#: [id number] : 1975 Acct:[id number] Age/Sex: 48 / F ADM Date: 04/04/24 Loc: HO.MAMMO Attending Dr: Zoe Cabrera DO Ordering Physician: Zoe Cabrera DO Results: 1N egative Date of Service: 04/04/24 Follow Up: 1 Year From Orig inal Mammogram Procedure(s): MM tomosynthesis screening BI Accession Number(s): [id number] cc: Zoe Cabrera DO EXAMINATION: MM SCREENING [...] Galvan MD in OV> 04/30/24 0326 DD/ 0845 TD/TT: Ferryboat Operator Cable: Procedure Note Donotuseinterpreter, Image - 04/30/[address] [place] [address] Mammography Report Signed Patient: Radha Martinez MR#: [id number] : 1975Acct:[id number] Age/Sex: 48 / FADM Date: 04/04/24 Loc: HO.MAMMO Attending Dr: Zoe Cabrera DO Ordering Physician: Zoe Cabreraults: 1N egative Date of Service: 04/04/24Follow Up: 1 Year From Orig ina Mammogram Procedure(s): MM tomosynthesis screening BI Accession Number(s): [id number] cc: Zoe Cabrera DO EXAMINATION: MM SCREENING [...] Galvan MD in OV> 04/30/24 0326 DD/ 0845 TD/TT: Ferryboat Operator Cable: Zoe Cabrera DO IMG BI PROCEDURES Final Resu lt * Thinprep PAP, HPV mRNA E6/E7 RFX HPV 16,18/45, Chlamydia/N. Gonorrhoeae (03/25/2023 12:00 AM EDT) Clinical Information: Postmenopausal [email or web address] LMP: NONE GIVEN [email or web address] Prev. PAP: YES [email or web address] Prev. BX: NO [email or web address] SOURCE: None given [facility] Statement Of Adequacy: [facility] Comment: Satisfactory for evaluation. Endocervical/transformation zone component absent. Interpretation/Re sult: Negative for intraepithelial lesion or malignancy. [facility] Button Bradder: Carole mc [facility] [employer] Comment: JNVANESSA Mccallum(ASCP) CT screening location: [place] [address] (Always Message) [facility] [employer] Comment: EXPLANATORY NOTE: The Pap is a [...] HPV nRNA E6/E7 Not Detected Not Detected [facility] [employer] [facility] Comment: Methodology: Senior Drafter-Mediated Amplification This assay detects E6/E7 viral messenger RNA (mRNA) from 14 high-risk HPV types (16,18,31,33,35,39,45,51,52,56,58,59,66,68). Cervical sources are required for HPV testing. If a vaginal source from a patient who has had a total hysterectomy with removal of cervix was submitted, please contact the testing laboratory for alternative testing options. For additional information, please refer to http://[employer]esta/faq/YEM753e4 (This link if provided for information/ educational purposes only.) Chlamydia trachomatis RNA, TMA, Urogenital NOT DETECTED NOT DETECTED [facility] [employer] [facility] Neisseria gonorrhoeae RNA, TMA, Urogenital NOT DETECTED NOT DETECTED [facility] [employer] [facility] (Always Message) [facility] [employer] Comment: The analytical performance characteristics of this assay, when used to test SurePath(TM) specimens have been determined by [facility]. The modifications have not been cleared or approved by the FDA. This assay has been validated pursuant to the CLIA regulations and is used for clinical purposes. For additional information, please refer to https://[employer]/faq/AYQ506 (This link is being provided for information/ educational purposes only.) 03/25/2023 03/28/2023 10: 00 AM EDT Narrative [facility] - 03/30/2023 11:47 AM EDT FASTING: UNKNOWN Zoe Cabrera DO LAB PATHOLOGY ORDERABLES Fin al Result [facility] [address], [place] [address] [facility] [address] [place] [phone] from Last 3 Months or Most Recently Relevant to Health Maintenance [place] [address] [place] [address] C3 [facility] MEDICAID STAND ADULT Care Teams Older Adult Social Work Specialist Relationship Specialty Start Date End Date Zoe Cabrera DO [address] [place] [phone] PCP - General Family Medicine 12/10/15
--- OUTSIDE RECORDS SUMMARY | 2025-07-26 16:08 | XMS_ITS | Clinical Summary ---
Author Organization [facility] Address [address] [place] [address] Care Team Providers Care Marketing Editor Name Role Phone Stormyfelishajasmine Zoe Primary Care Provider [phone]- [phone] Allergies No known active allergies Medications metoprolol tartrate (LOPRESSOR) 25 mg tablet [place] josseline tableta por via oral dos veces al juan Active flecainide (TAMBOCOR) 50 mg tablet TAKE 1 TABLET BY MOUTH EVERY TWELVE HOURS 11 8 Active meclizine (ANTIVERT) 25 mg tablet Take 1 tablet by mouth three times daily as needed for dizziness 4 Active melatonin 5 mg tablet SMARTSI Tablet(s) By Mouth Every Night 3 Active cetirizine (ZyrTEC) 10 mg tablet SMARTSI [...] are notable for Htn and female gender Encounters Date Type Department Care Team Description 05/28/2025 Telephone [facility] Obstetrics and Gynecology [address] [place] [address] Air Conditioning Sheet Metal Installer: Minda Pena Telephone Intake, Staff PAC Appt Request - New; PAC Urgent Appt Request 05/20/2025 Transcribe Orders [facility] Physician Referral Services [address] [place] [address] Zoe Cabrera Vaginal spotting (Primary Dx) from Last 3 Months Family History Medical History Relation Name Comments [...] 62 07/17/2024 4:29 PM EDT Temperature 36.6 C (97.8 F) 12/15/2020 11:36 AM EST Respiratory Rate - - Oxygen Saturation 96% 07/17/2024 4:29 PM EDT Inhaled Oxygen Concentration - - Weight 114.3 kg (252 lb) 07/17/2024 4:29 PM EDT Height 162.6 cm (5' 4 ) 03/04/2022 1:23 PM EDT Body Mass Index 43.26 03/04/2022 1:23 PM EDT Plan of Treatment Health Maintenance Due Date Last Done Comments Cervical Cancer Screening 1974 Colonoscopy 1974 HPV and Pap Smear 1974 Pap Smear 1974 Sigmoidoscopy 1974 Hepatitis B Vaccines (1 of 3 - 19+ 3-dose series) 1993 Mammogram 09/18/2020 09/18/2018 Zoster Vaccines (1 of 2) 2024 Alcohol/Substance Use Screening 11/07/2024 Depression Screening and Follow-Up 11/07/2024 Social Drivers of Health Dinora ual Screening 11/07/2024 FOBT / Fit Test 06/22/2025 06/22/2024 COVID-19 Vaccine (4 - 2024-2 6 season) 2025 12/03/2022, 04/22/2021, 03/25/2021 Influenza Vaccine (#1) 2025 , 12/03/2022, 12/01/2020, Additional history exists Cologuard 07/03/2027 07/03/2024 Colon Cancer Screening 07/03/2027 DTaP,Tdap,and Td Vaccines (3 - Td or Tdap) 10/03/2028 10/03/2018, 08/06/2016 RSV Vaccine (60+ years old a nd patients) (1 - 1-dose 75+ series) 2049 Pneumococcal Vaccine: 50+ Years Completed , 08/06/2016 HIV Screening Completed 06/22/2024, 06/07, 03/28/2023, Additional history exists Hepatitis C Screening Completed 06/22/2024 Insurance [employer] Care Teams Marketing Editor Relationship Specialty Start Date End Date Zoe Cabrera [address] [place] [address] PCP - General Family Medicine 04/11/18
[2025-07-26 21:15] LABS: Bacterial Vaginosis PCR NEGATIVE (Negative); Candida Group PCR DETECTED (Not Detect); Candida glab krusei PCR NOT DETECTED (Not Detect); Trichomonas vaginalis PCR NOT DETECTED (Not Detect)
[2025-07-26 21:52] LABS: CT PCR NOT DETECTED (Not Detect.); NG PCR NOT DETECTED (Not Detect.)
== END 2025-07-26 14:51 | disposition home or self-care (01) ==
LOC: HO.HHCLNP 14:50
PROVIDERS: Visit Provider Family Medicine
DX: Z11.3 Encounter for screening for infections with a predominantly sexual mode of transmission (principal); Z11.8 Encounter for screening for other infectious and parasitic diseases; N89.8 Other specified noninflammatory disorders of vagina
CPT/HCPCS: 81515; 87491; 87591

== ENCOUNTER 2025-10-10 10:33 | Outpatient (REF) | payer MEDICAID, SELFPAY ==
--- NOTE | ~2025-10-10 | US_ITS ---
EXAMINATION: US KIDNEY BILATERAL HISTORY: microscopic hematuria TECHNIQUE: Real-time grayscale ultrasound imaging of the kidneys was performed and images were reviewed. COMPARISON: Comparison is made with the prior examination dated 07/19/2024. FINDINGS: Right kidney: The right kidney measures 10.4 x 4.7 x 6.2 cm. Renal parenchymal echotexture and thickness are normal. There are no masses. There is no hydronephrosis or renal calculi. Left Kidney: The left kidney measures 10.7 x 4.9 x 4.9 cm. Renal parenchymal echotexture and thickness are normal. There are no masses. There is no hydronephrosis or renal calculi. US/US renal BI IMPRESSION: Unremarkable renal ultrasound. Electronically signed by: Dany Huertas MD 10/10/2025 11:30 AM THOMAS
--- NOTE | ~2025-10-10 | US_ITS ---
HISTORY: postmenopausal spotting COMPARISON: Pelvic ultrasound 01/01/2021. Correlation with report. Images not available for direct comparison. TECHNIQUE: Transabdominal and transvaginal evaluation. FINDINGS: LMP: Not documented Uterus: The uterus is anteverted and anteflexed, measuring 6 x 2.5 x 3.5 cm. Myometrium has a normal echotexture. A small 4 mm intramural fibroid near the fundus. Previously measuring 6 mm. Nabothian cysts and foci of nonspecific calcification in the cervix. Endometrium: The endometrial stripe measures 5 mm in thickness. Right ovary: The right ovary measures 1.7 x 0.6 x 1.2 cm. Volume 0.6 mL The right ovary is normal in size and echotexture. Left ovary: The left ovary measures 1.8 x 1 x 1.2 cm. Volume 1.1 mL. The left ovary is normal in size and echotexture. Pelvic fluid: Small free fluid in the cul-de-sac.. US/US pelvic and transvaginal IMPRESSION: 1. Tiny intramural fibroid. 2. Nabothian cysts and nonspecific foci of calcification the cervix. 3. Endometrial stripe measures 5 mm. Recommend clinical evaluation. Guidelines for postmenopausal patients the endometrial thicknesses limits are as follows: ? 8mm or less is normal if no bleeding (10mm is okay if on tamoxifen) ? 4mm max if bleeding Electronically signed by: Chadwick Harden MD 10/11/2025 12:26 PM [facility]
--- OUTSIDE RECORDS SUMMARY | 2025-10-10 13:04 | XMS_ITS | Clinical Summary ---
Author Organization [facility] Address [address] [place] [address] Care Team Providers Care Net Finisher Name Role Phone Deborah Zoe Rodríguez Primary Care Provider [phone]- [phone] Allergies No known active allergies Medications metoprolol tartrate (LOPRESSOR) 25 mg tablet [place] josseline tableta por via oral dos veces [...] Drivers of Health Dinora ual Screening 11/07/2024 Influenza Vaccine (#1) 2025 , 12/03/2022, 12/01/2020, Additional history exists FOBT / Fit Test 06/22/2025 06/22/2024 COVID-19 Vaccine (2024-2 6 season) 2025 12/03/2022, 04/22/2021, 03/25/2021 Cologuard 07/03/2027 07/03/2024 Colon Cancer Screening 07/03/2027 DTaP,Tdap,and Td Vaccines (3 - Td or Tdap) 10/03/2028 10/03/2018, 08/06/2016 Pneumococcal Vaccine: 50+ Years Completed , 08/06/2016 HIV Screening Completed 06/22/2024, 06/07, 03/28/2023, Additional history exists Hepatitis C Screening Completed 06/22/2024 Insurance [employer] Care Teams Net Finisher Relationship Specialty Start Date End Date Zoe Cabrera [address] [place] [id number] PCP - General Family Medicine 04/11/18
--- OUTSIDE RECORDS SUMMARY | 2025-10-10 13:04 | XMS_ITS | Clinical Summary ---
Author Organization [facility] Address [address] [address] Phone Care Team Providers Care Mine Laborer Name Role Phone Deborah Zoe Primary Care Provider [phone] Allergies No known active allergies Medications metoprolol [...] a day. 28 capsule 07/08/20 25 Active sulfamethoxazole -trimethoprim (BACTRIM DS) 800-160 mg per tabletIndication s:H. pylori infection Take 1 tablet (160 mg of trimethoprim total) by mouth 2 (two) times a day. 28 tablet 08/12/20 25 Active lansoprazole (PREVACID) 30 MG capsuleIndicatio ns:H. pylori infection Take 1 capsule (30 mg total) by mouth 2 (two) times a day. 28 capsule 08/12/20 25 Active metroNIDAZOLE (FLAGYL) 500 MG tablet Take 1 tablet (500 mg total) by mouth 2 (two) times a day. 28 tablet 08/12/20 25 Active Active Problems Problem Noted Date Diagnosed Date Morbid obesity with BMI of 40.0-44.9, adult 10/09 Assessment & Plan (09/03/2025 11:12 AM EDT): This a 49-year-old woman who is interested in a laparoscopic sleeve gastrectomy. She has gained 4.4 pounds and now has 17 pounds lose before being a surgical weight loss candidate. She was not following the eating plan. She was encouraged again to stick to the eating plan. She will continue current exercise and water intake. She will have her H. pylori test repeated. She has completed 2 out of 2 behavioral health assessments 5 out of 5 nutrition classes and all required testing. She will follow-up with me again in 6 weeks timeframe. She will continue current medications as reviewed. She is not stable and is considered morbidly obese. Assessment & Plan (08/05/2025 9:58 AM EDT): This is a 49-year-old woman who is Egyptian-speaking who is interested in a laparoscopic sleeve gastrectomy. She has lost 8.4 pounds and now has 12.6 pounds to lose. She has rescheduled her behavioral health assessment appointment which was rescheduled because there was no wood treating inspector available. She has an appoint with a dietitian which she will go over and complete the nutrition classes. She will have her repeat H. pylori study drawn to document clearance. She will continue current eating plan. She will start back at the gym starting tomorrow. She will follow- up with me again in 4 weeks timeframe. She has completed all of the required testing. She will continue current medications as reviewed. She is not stable and is considered morbidly obese. Assessment & Plan (07/01/2025 10:53 AM EDT): This is a 49-year-old Egyptian-speaking woman who is interested in undergoing laparoscopic [...] again and she will be sent the Egyptian nutrition classes. The patient will follow-up with [...] protein shake or a protein bar or Hungarian yogurt or cottage cheese to be consumed [...] Encounters Date Type Department Care Team Description 09/04/2025 8:20 AM EDT - 09/04/2025 11:59 PM EDT Hospital Encounter [facility] [address] [place] [address] Chitra Dennis MD Discharge Disposition: Home or Self Care 09/03/2025 10:30 AM EDT Office Visit [facility] General Surgical Care [address] [place] [address] Chitra Dennis MD Verea, Armando Morbid obesity with BMI of 40.0-44.9, adult (Primary Dx) 08/22/2025 8:00 AM EDT Nutrition [facility] General Surgical Care [address] [place] [address] Charito Gregg LDN Verea, Armando Morbid obesity with BMI of 40.0-44.9, adult (Primary Dx) 08/22/2025 Orders Only [facility] General Surgical Care [address] [place] [address] Chitra Dennis MD H. pylori infection (Primary Dx) 08/12/2025 9:00 AM EDT Telemedicine [facility] [address] [place] [address] Ashlie Richardson, [facility] Pre-bariatric surgery psychological evaluation (Primary Dx); Binge eating disorder in remission 08/12/2025 Orders Only [facility] Surgical Care [address] [place] [address] Chitra Dennis MD H. pylori infection (Primary Dx) 08/09/2025 1:41 PM EDT - 08/09/2025 11:59 PM EDT Hospital Encounter [facility] [address] [place] [address] Chitra Dennis MD Discharge Disposition: Home or Self Care 08/05/2025 9:30 AM EDT Office Visit [facility] Surgical [facility] [address] [place] [address] Chitra Dennis MD Morbid obesity with BMI of 40.0-44.9, adult (Primary Dx) 07/31/2025 9:00 AM EDT Telemedicine [facility] [address] [place] [address] Ashlie Richardson, [facility] Pre-bariatric surgery psychological evaluation (Primary Dx) 07/15/2025 11:30 AM EDT Nutrition [facility] General Surgical Care [address] [place] [address] Charito Gregg LDN Morbid obesity with BMI [...] Not Answered Alcohol Use Standard Drinks/Week Comments Not Currently [...] with a working camera? Not on file Intimate Partner Violence Answer Date R ecorded Are you denied basic needs s uch as food, clothing, or medical care? No 08/12/2025 In the past 12 months have y ou been in a relationship with a person who hurts, threatens, or tries to control you? No 08/12/2025 Are you denied basic needs s uch as food, clothing, or medical care? No 08/12/2025 In the past 12 months have y ou been in a relationship with a person who hurts, threatens, or tries to control you? No 08/12/2025 Comments Unknown Sex and Gender Information Value Date Recorded Sex Assigned at Female 11/25/2024 9:35 AM EST Legal Sex Female 2:12 PM EDT Gender Identity Female 11/25/2024 9:35 AM EST Sexual Orientation Straight 11/25/2024 9: 35 AM EST Last Filed Vital Signs Vital Sign Reading Time Taken Comments Blood Pressure 126/70 09/03/2025 10:00 AM EDT Pulse 82 09/03/2025 10:00 AM EDT Temperature 36.5 C (97.7 F) 09/03/2025 10:00 AM EDT Respiratory Rate - - Oxygen Saturation 99% 09/03/2025 10:00 AM EDT Inhaled Oxygen Concentration - - Weight 113.9 kg (251 lb) 09/03/2025 10:00 AM EDT Height 162.6 cm (5' 4.02 ) 09/03/2025 10:00 AM E DT Body Mass Index 43.06 09/03/2025 10:00 AM EDT Plan of Treatment Upcoming Encounters Date Type Department Care Team (Late st Contact Info) Description 10/18/2025 9:30 AM EST Office Visit [facility] General Surgical Care [address] [place] [address] Chitra Dennis MD [address] [facility], 2nd [place] [address] [email or web address] Breanne Bar [address] [place] [address] [email or web address] Health Maintenance Due Date Last Done Comments HEPATITIS C SCREENING 1992 HIV ONE-TIME SCREENING (18-65 YEARS) 1992 PAP SMEAR 1995 COLOGUARD 2019 COLONOSCOPY 2019 COLORECTAL CANCER SCREENING 2019 FIT TEST 2019 FOBT 2019 SIGMOIDOSCOPY 2019 VIRTUAL COLONOSCOPY 2019 PNEUMOCOCCAL VACCINES (50+ years) (1 of 1 - PCV) 2024 RSV VACCINE (1 - Risk 50-74 years 1-dose series) 2024 ZOSTER VACCINES (1 of 2) 2024 MAMMOGRAM 03/30/2025 03/30/2023, 09/18/2018 INFLUENZA VACCINE (#1) 2025 COVID-19 VACCINE ( - 2024- season) 2025 Adult Td,Tdap Booster 08/06/2026 08/06/2016 DEPRESSION SCREENING 08/12/2026 08/12/2025 SCREENING FOR DIABETES 07/05/2028 07/05/2025, 2024 LIPID PANEL 07/05/2030 07/05/2025, 11/07, 06/22/2024, Additional history exists SMOKING STATUS SCREENING (Once After 26 Yrs) Completed 09/03/2025 HEPATITIS A VACCINES Aged Out No long [...] Comments H PYLORI UREA BREATH TEST Routine 09/04/2025 8:55 AM EDT H. pylori infection H PYLORI UREA BREATH TEST Routine 08/09/2025 1:56 PM EDT H. pylori infection LIPID PANEL Routine 07/05/2025 8:33 AM EDT Morbid obesity with BMI of 40.0-44.9, adult from Last 3 Months or Most Recently Relevant to Health Maintenance Results * H PYLORI UREA BREATH TEST (09/04/2025 8:55 AM EDT) Only the most recent of2 resultswithin the time period is included. H.PYLORI C UREA BRTH Negative Negative [facility] Comment: (NOTE) Result indicates the absence of current Helicobacter pylori infection. Blood 09/04/2025 8:55 AM EDT 09/04/2025 9:10 AM EDT us Chitra Dennis MD LAB BLOOD ORDERABLES Final Result [facility] [address] [place] [address] * (ABNORMAL) Lipid panel (07/05/2025 8:33 AM EDT) HDL 56 mg/dL [facility] Comment: Interpretation <40 mg/dL: Low HDL cholesterol (major risk factor for CHD) Greater than or equal to 60 mg/dL: High HDL cholesterol ( negative risk factor for CHD) HDL - cholesterol is affected by a number of factors, e.g. smoking, excerise, hormones, sex and age. CHOLESTEROL 223 0 - 240 mg/dL [facility] TRIGLYCERIDES 91 30 - 160 mg/dL [facility] LDL 149(H) 50 - 129 mg/dL [facility] Comment: LDL levels in terms of risk for coronary heart disease: <100 mg/dL: Optimal 100-129 mg/dL: Near or above optimal 130-159 mg/dL: Borderline high 160-189 mg/dL: High >190 mg/dL: Very High CARDIAC RISK RATIO 4.0 3.3 - 4.4 C [facility] Blood 07/05/2025 8:33 AM EDT 07/05/2025 8:52 AM EDT us Chitra Dennis MD LAB BLOOD BKR ORDERABLES F inal Result [facility] [address] [place] [address] from Last 3 Months or Most Recently Relevant to Health Maintenance Insurance HEALTH SAFETY NET FULL [employer] NET FULL Member Subscriber Plan / Payer (Ef fective 2024-Present) Name:Radha Martinez Relation to Subscriber:Self Name:Radha Martinez Payer ID:Not on file Group ID:Not on file Type:Medicaid Address: [address] [employer] NET FULL Member Subscriber Plan / Payer (Ef fective 2024-Present) Name:Radha Martinez Relation to Subscriber:Self Name:Radha Martinez Payer ID:Not on file Group ID:Not on file Type:Medicaid Address: [address] [employer] NET FULL Member Subscriber Plan / Payer (Ef fective 2024-Present) Name:Radha Martinez Relation to Subscriber:Self Name:Radha Martinez Payer ID:Not on file Group ID:Not on file Type:Medicaid Address: [address] [employer] NET FULL Member Subscriber Plan / Payer (Ef fective 2024-Present) Name:Radha Martinez Relation to Subscriber:Self Name:Radha Martinez Payer ID:Not on file Group ID:Not on file Type:Medicaid Address: [address] C3 [employer] NET FULL [employer] Care Teams Mine Laborer Relationship Specialty Start Date End Date Zoe Cabrera DO [address] [place] [address] PCP - General Family Medicine 08/30/24 Additional Source Comments The information contained in this document represents components of the legal health record. It is not the complete legal health record.[facility]
--- OUTSIDE RECORDS SUMMARY | 2025-10-10 13:04 | XMS_ITS | Encounter Summary ---
Author Organization [facility] Address [address] [place] [address] Care Team Providers Care Sports Statistician Name Role Phone Zoe Cabrera Primary Care Provider +1- [phone] Reason for Referral * Consultation (Routine) - Authorized Specialty Diagnoses / Procedures Referred By Contkavya t Referred To Contact Obstetrics and Gynecology Diagnoses Vaginal spotting Zoe Cabrera [address] [place] [address] Phone: tel: fax: [facility] Obstetrics and Gynecology [address] [place] [address] Phone: tel: fax: Referral ID Status Reason Start Date Expiration Date Visits Requested Visits Authorized [id number] Authorized Specialty Services Required 05/20/2025 06/20/2026 6 6 Encounter Details Date Type Department Care Team (Late st Contact Info) Description 05/20/2025 Transcribe Orders [facility] Physician Referral Services [address] [place] [address] Zoe Cabrera [address] [place], [place] [phone] Vaginal spotting (Primary Dx) Social History Tobacco [...] vagina documented in this encounter Care Teams Sports Statistician Relationship Specialty Start Date End Date Zoe Cabrera [address] [place] [id number] PCP - General Family Medicine 04/11/18 documented as of this encounter
== END 2025-10-10 10:34 | disposition home or self-care (01) ==
LOC: HO.US 10:33
PROVIDERS: PCP Family Medicine; Visit Provider Family Medicine
DX: R31.29 Other microscopic hematuria (principal); N93.9 Abnormal uterine and vaginal bleeding, unspecified
CPT/HCPCS: 76775; 76830; 76856

== ENCOUNTER → 2025-10-10 10:38 | Outpatient (BNV) | payer MEDICAID, SELFPAY | PROVIDERS: PCP Family Medicine; Visit Provider Radiology Diagnostic Radiology | DX: R31.29 Other microscopic hematuria (principal) | CPT/HCPCS: 76775 ==

== ENCOUNTER 2025-10-23 08:08 | Outpatient (REF) | payer MEDICAID, SELFPAY ==
--- OUTSIDE RECORDS SUMMARY | 2025-10-23 15:54 | XMS_ITS | Encounter Summary ---
Author Organization [facility] [employer] Address [address] [place] [address] [place] [address] Care Team Providers Care Loading Dock Hand Name Role Phone DeborahZoe Primary Care Provider [phone]- [phone] Encounter Details Date Type Department Care Team ([facility] Contact Info) Description 03/30/2023 Abstract [facility] [address] [place] [address] Talisha Yates RN [address] [place] [address] Social History Tobacco Use Types Packs/Day Years [...] Upcoming Encounters Date Type Department Care Team ([facility] Contact Info) Description 01/03/2026 8:00 AM EST Office Visit [facility] [address] [place] [address] Sandra Oneal [address] [place] [address] documented as of this encounter Procedures Procedure [...] documented as of this encounter Care Teams Loading Dock Hand Relationship Specialty Start Date End Date Zoe Cabrera DO [address] [place] [address] PCP - General Family Medicine 12/10/15 documented as of this encounter
--- OUTSIDE RECORDS SUMMARY | 2025-10-23 15:54 | XMS_ITS | Clinical Summary ---
Author Organization [employer] Address [address] [facility] [address] [place] [address] Care Team Providers Care Hand Coremaker Name Role Phone DeborahZoe Primary Care Provider + [phone] Allergies No known active allergies Medications EPINEPHrine (Epipen) 0.3 MG/0.3ML injection syringe INJECT INTRAMUSCULARLY DIRECTED ON PACKAGE AND GO TO EMERGENCY ROOM 023 Active melatonin 5 MG tablet TAKE 2 TABLETS BY MOUTH 2 HOURS BEFORE BEDTIME. 023 Active hydrocortisone 1 % creamIndication s:Dermatitis APPLY TO THE AFFECTED AREA(S) TWICE DAILY NEEDED FOR RASH 28 g 2 023 Active acetaminophen (Tylenol 8 Hour) 650 MG ER tablet Take 2 tablets (1,300 mg) by mouth every 8 (eight) hours if needed for moderate pain or headaches. Do not crush, chew, or split. 30 tablet 024 Active clotrimazole (Lotrimin) 1 % cream APPLY TOPICALLY TO THE AFFECTED AREA(S) TWICE DAILY FOR 28 DAYS 60 g 2 10/21/20 25 5:12 PM EST 025 Active Ventolin HFA 108 (90 Base) MCG/ACT inhaler Inhale 2 puffs every 6 (six) hours. 024 Active lansoprazole (Prevacid) [address] capsule Take 30 mg by mouth 2 times daily. 025 Active traZODone (Desyrel) 50 MG tabletIndicatio ns:Insomnia, unspecified type TAKE 1 TABLET AT BEDTIME 30 tablet 5 12/15/20 25 5:12 PM EST Active venlafaxine XR (Effexor XR) 75 MG 24 hr capsule TAKE 1 CAPSULE ONCE DAILY. DO NOT BREAK, CRUSH, DISSOLVE OR CHEW 30 capsule 5 10/21/20 25 5:12 PM EST Active metoprolol tartrate (Lopressor) 50 MG tabletIndicatio ns:Essential hypertension TAKE 1 TABLET BY MOUTH TWICE DAILY WITH MEALS 180 tablet 3 Active flecainide (Tambocor) 50 MG tablet TAKE 1 TABLET BY MOUTH EVERY 12 HOURS 180 tablet 3 Active mineral oil-hydrophil petrolat ointment Topical Ointment APPLY TOPICALLY TO THE AFFECTED AREA(S) EVERY DAY NEEDED FOR DRY SKIN DIRECTED 454 g 3 Active naproxen (Naprosyn) 500 MG tablet Take 1 tablet (500 mg) by mouth if needed in the morning and at bedtime for headaches. 40 tablet Active Dulaglutide (Trulicity) 3 MG/0.5ML solution auto-injector Inject 3 mg under the skin 1 (one) time per week. 2 mL 3 10/21/20 5:12 PM EST Active cetirizine (ZyrTEC) 10 MG tablet Take 1 tablet (10 mg) by mouth Once per day. 90 tablet 3 025 2025 Active topiramate (Topamax) 25 MG tablet Take 1 tablet (25 mg) by mouth at bedtime. 90 tablet 025 2025 Active SUMAtriptan (Imitrex) 50 MG tablet TAKE 1 TABLET BY MOUTH AT ONSET OF MIGRAINE. MAY REPEAT ONCE AFTER 2 HOURS IF NO RELIEF. DO NOT EXCEED 2 DOSES IN 24 HOURS 9 tablet 3 10/21/20 25 5:12 PM EST Active meclizine (Antivert) 25 MG tabletIndicatio ns:Vertigo TAKE 1 TABLET BY MOUTH THREE TIMES DAILY NEEDED FOR DIZZINESS 30 tablet 3 10/21/20 25 5:12 PM EST Active Estradiol 0.01 % cream INSERT 1 GRAM VAGINALLY 3 TIMES A WEEK 42.5 g 2 09/20/20 9:02 AM EST 025 Active fluticasone (Flonase) 50 MCG/ACT nasal spray INSTILL 2 SPRAYS IN EACH NOSTRIL ONCE DAILY 48 g 10/21/20 5:12 PM EST 025 Active Brandi-Dryl 25 MG tablet TAKE 1 TABLET BY MOUTH EVERY 6 HOURS PTN FOR NAUSEA AND VOMITING 60 tablet 1 10/21/20 5:12 PM EST 025 Active fluticasone (Flonase) 50 MCG/ACT nasal spray SPRAY 2 SPRAYS INTO EACH NOSTRIL ONCE DAILY 48 g 025 2024 Discontinued diphenhydrAMINE (BENADryl) 25 MG tablet Take 1 tablet (25 mg) by mouth every 6 (six) hours if needed for nausea or vomiting. 60 tablet 1 09/20/20 9:02 AM EST 025 2024 Discontinued Active Problems Problem Noted Date Diagnosed Date History of Helicobacter pylori infection Missing teeth, acquired 07/01/2025 Vertigo 03/09/2024 Pre-diabetes 07/26/2023 BMI 40.0-44.9, adult ([facility]) 03/25/2023 Microscopic hematuria 03/25/2023 Chronic gastroesophageal reflux disease 12/03/19 Chronic migraine 12/03/2022 Chronic allergic rhinitis 04/17/2018 Essential hypertension 12/10/2015 Mild intermittent asthma 12/10/2015 Paroxysmal atrial fibrillation ([facility]) 016 Overview (11/29/2022): Last Assessment & Plan: PAF, [...] Pt agrees with the plan. Fractured dental [facility] with loss of material 05/16/2023 07/26/2025 Chronic gastroesophageal reflux disease 12/03/2022 12/03/2022 Hyperpigmentation of skin 05/19/2018 Gastroesophageal reflux disease 12/10/2015 12/03/2022 Migraine 12/10/2015 12/03/2022 Obesity (BMI 30-39.9) 12/10/20152022 Encounters Date Type Department Care Team Description 10/17/2025 Telephone [facility] [address] [place] [phone] Zoe Cabrera DO Results 09/25/[address] [facility] [address] [place] [address] Zoe Cabrera DO 09/04/2025 Refill [facility] [address] [place] [address] Zoe Cabrera DO 08/08/2025 9:30 AM EDT Clinical Support [address] [address] Usha Blevins RN Impacted cerumen of right ear 08/08/2025 Travel 07/29/[address] [address] Zoe Cabrera DO Results 07/27/2025 Refill [facility] [address] [place] [address] Zoe Cabrera DO Vertigo 07/26/2025 11:15 AM EDT Office Visit [address] [address] Zoe Cabrera DO Essential hypertension (Primary Dx); Paroxysmal atrial fibrillation (CMS/HCC); Pre-diabetes; Mild intermittent asthma without complication; Chronic gastroesophageal reflux disease; Chronic migraine; Hot flashes; Snoring; Microscopic hematuria; Chronic allergic rhinitis; Vertigo; Vaginal spotting; Vaginal itching; Impacted cerumen of right ear; BMI 40.0-44.9, adult ([facility]); Healthcare maintenance; Dietary counseling; Exercise counseling 07/26/2025 Travel 07/25/2025 Telephone [facility] [address] [place] [address] Zoe Cabrera DO Chart Prep from Last 3 Months Immunizations Immunization Administration [...] Description 01/03/2026 8:00 AM EST Office Visit [facility] [address] [place] [address] Kimmy, Sandra [address] [place] [address] Health Maintenance Due Date Last Done Comments CT Colonography 1975 Colonoscopy 1974 FIT 1975 Sigmoidoscopy 1975 Disability Screening 1974 Family Planning (PISQ) 1989 Hepatitis B Vaccines (1 of 3 - 19+ 3-dose series) 1993 RSV Patients and Patients Aged 60 years or older (1 - Risk 50-74 years 1-dose series) 2024 Zoster Vaccines (1 of 2) 2024 FOBT 07/03/2025 07/03/2024 COVID-19 Vaccine (4 - season) 2025 12/03/2022, 04/22/2021, 03/25/2021 Influenza Vaccine (#1) 2025 , 12/03/2022, 12/01/2020, Additional history exists Dental Oral Exam 01/02/2026 07/01/2025, , 12/08/2022 Dental Prophylaxis 01/02/2026 07/01/2025, 0 04/05/2024, 12/08/2022 Alcohol/Substance Use Screening 01/08/2026 01/08/2025 Depression Screening 01/08/2026 01/08/2025, 01/09/20 SDOH Screening 01/08/2026 01/08/2025 Pap Smear 03/25/2026 03/25/2023, 03/25/2023 Mammogram 04/04/2026 04/04/2024, 03/08, 03/30/2023, Additional history exists Dental X-Ray: Bitewings 07/02/2026 07/01/20 25, 04/05/2024, 12/08/2022 Diabetes: Hemoglobin A1C 07/05/2026 025, 11/20/2024, 06/22/2024, Additional history exists Tobacco Screening 07/26/2026 07/26/2025 Dental X-Ray: Full Mouth 04/06/2027 04/05/2024 Colorectal Cancer Screening 07/03/2027 FIT DNA/Cologuard 07/03/2027 07/03/2024 Cervical Cancer Screening 03/25/2028 HPV/Cotest 03/25/2028 03/25/2023, 04/06/2019 DTaP/Tdap/Td Vaccines (3 - Td or Tdap) 10/03/2028 10/03/2018, 08/06/2016 Lipid Panel 06/22/2029 06/22/2024, 07/08, 03/28/2023, Additional history exists Pneumococcal Vaccine: 50+ Years Completed 07/26/2023, 08/06/2016 [...] Procedure Name Priority Date/Time Associated Diagnosis Comments US PELVIS TRANSVAGINAL Routine 10/10/2025 11:03 AM EST Vaginal spotting US RENAL COMPLETE Routine 10/10/2025 10: 56 AM EST AL REMOVAL IMPACTED CERUMEN IRRIGATION/LVG UNILAT Routine 08/08/2025 9:51 AM EDT Impacted cerumen of right ear CHLAMYDIA/N. GONORRHOEAE RNA, TMA, UROGENITAL Routine 07/26/2025 2:50 PM EDT Vaginal itching BACTERIAL VAGINOSIS PANEL Routine 07/26/2025 2:50 PM EDT Vaginal itching PROPHYLAXIS - ADULT Routine 07/01/2025 8 :00 AM EDT Dental calculus BITEWINGS - 4 RADIOGRAPHIC IMAGES Routine 07/01/2025 8:00 AM EDT Dental calculus Impacted tooth Missing teeth, acquired PERIODIC ORAL EVALUATION - ESTABLISHED PATIENT Routine 07/01/2025 8:00 AM EDT LAB COLOGUARD COLON CANCER SCREEN Routine 07/03/2024 [...] Recently Relevant to Health Maintenance Results * US Pelvis Transvaginal (10/10/2025 11:03 AM EST) Anatomical Region Laterality Modality Pelvis Ultrasound 10/10/2025 11:0 3 AM EST Narrative 10/11/2025 12:29 PM EST [address] [address] Ultrasound Report Signed Patient: Radha Martinez MR#: [id number] : 1975 Acct:[id number] Age/Sex: 50 / F ADM Date: 10/10/25 Loc: .US Attending Dr: Zoe Cabrera DO Ordering Physician: Zoe Cabrera DO Date of Service: 10/10/25 Procedure(s): US pelvic and transvaginal Accession Number(s): [id number] cc: Zoe Cabrera DO Reason for Exam: postmenopausal spotting HISTORY: postmenopausal spotting COMPARISON: Pelvic ultrasound 01/01/2021. Correlation with report. Images not available for direct comparison. TECHNIQUE: Transabdominal and transvaginal evaluation. FINDINGS: LMP: Not documented Uterus: The uterus is anteverted and anteflexed, measuring 6 x 2.5 x 3.5 cm. Myometrium has a normal echotexture. A small 4 mm intramural fibroid near the fundus. Previously measuring 6 mm. Nabothian cysts and foci of nonspecific calcification in the cervix. Endometrium: The endometrial stripe measures 5 mm in thickness. Right ovary: The right ovary measures 1.7 x 0.6 x 1.2 cm. Volume 0.6 mL The right ovary is normal in size and echotexture. Left ovary: The left ovary measures 1.8 x 1 x 1.2 cm. Volume 1.1 mL. The left ovary is normal in size and echotexture. Pelvic fluid: Small free fluid in the cul-de-sac.. US/US pelvic and transvaginal IMPRESSION: 1. Tiny intramural fibroid. 2. Nabothian cysts and nonspecific foci of calcification the cervix. 3. Endometrial stripe measures 5 mm. Recommend clinical evaluation. Guidelines for postmenopausal patients the endometrial thicknesses limits are as follows: 8mm or less is normal if no bleeding (10mm is okay if on tamoxifen) 4mm max if bleeding Electronically signed by: Chadwick Harden MD 10/11/2025 12:26 PM [facility] Dictated By: Chadwick Harden MD Signed By: <Electronically signed by Chadwick Harden MD in OV> 10/11/25 1226 DD/ 1103 TD/TT: 10/10/25 1114 Canal Tender: CURTIS Procedure Note Donotuseinterpreter, Image - 10/11/2025 [place] [address] Ultrasound Report Signed Patient: Radha Martinez MR#: [id number] : 1975Acct:[id number] Age/Sex: 50 / FADM Date: 10/10/25 Loc: HO.US Attending Dr: Zoe Cabrera DO Ordering Physician: Zoe Cabrera DO Date of Service: 10/10/25 Procedure(s): US pelvic and transvaginal Accession Number(s): [id number] cc: Zoe Cabrera DO Reason for Exam: postmenopausal spotting HISTORY: postmenopausal spotting COMPARISON: Pelvic ultrasound 01/01/2021. Correlation with report. Images not available for direct comparison. TECHNIQUE: Transabdominal and transvaginal evaluation. FINDINGS: LMP: Not documented Uterus: The uterus is anteverted and anteflexed, measuring 6 x 2.5 x 3.5 cm. Myometrium has a normal echotexture. A small 4 mm intramural fibroid near the fundus. Previously measuring 6 mm. Nabothian cysts and foci of nonspecific calcification in the cervix. Endometrium: The endometrial stripe measures 5 mm in thickness. Right ovary: The right ovary measures 1.7 x 0.6 x 1.2 cm. Volume 0.6 mL The right ovary is normal in size and echotexture. Left ovary: The left ovary measures 1.8 x 1 x 1.2 cm. Volume 1.1 mL. The left ovary is normal in size and echotexture. Pelvic fluid: Small free fluid in the cul-de-sac.. US/US pelvic and transvaginal IMPRESSION: 1. Tiny intramural fibroid. 2. Nabothian cysts and nonspecific foci of calcification the cervix. 3. Endometrial stripe measures 5 mm. Recommend clinical evaluation. Guidelines for postmenopausal patients the endometrial thicknesses limits are as follows: 8mm or less is normal if no bleeding (10mm is okay if on tamoxifen) 4mm max if bleeding Electronically signed by: Chadwick Harden MD 10/11/2025 12:26 PM EST RP Dictated By: Chadwick Harden MD Signed By: <Electronically signed by Chadwick Harden MD in OV> 10/11/25 1226 DD/ 1103 TD/TT: 10/10/25 1114 Canal Tender: CURTIS us Zoe Cabrera DO IMG US PROCEDURES Final Resu lt * US Renal Complete (10/10/2025 10:56 AM EST) Anatomical Region Laterality Modality Kidney Ultrasound 10/10/2025 10:5 6 AM EST Narrative 10/10/2025 11:33 AM EST [place] [address] Ultrasound Report Signed Patient: Radha Martinez MR#: [id number] : 1975 Acct:[id number] Age/Sex: 50 / F ADM Date: 10/10/25 Loc: .US Attending Dr: Zoe Cabrera DO Ordering Physician: Zoe Cabrera DO Date of Service: 10/10/25 Procedure(s): US renal BI Accession Number(s): [id number] cc: Zoe Cabrera DO Reason for Exam: microscopic hematuria EXAMINATION: US KIDNEY BILATERAL HISTORY: microscopic hematuria TECHNIQUE: Real-time grayscale ultrasound imaging of the kidneys was performed and images were reviewed. COMPARISON: Comparison is made with the prior examination dated 07/19/2024. FINDINGS: Right kidney: The right kidney measures 10.4 x 4.7 x 6.2 cm. Renal parenchymal echotexture and thickness are normal. There are no masses. There is no hydronephrosis or renal calculi. Left Kidney: The left kidney measures 10.7 x 4.9 x 4.9 cm. Renal parenchymal echotexture and thickness are normal. There are no masses. There is no hydronephrosis or renal calculi. US/US renal BI IMPRESSION: Unremarkable renal ultrasound. Electronically signed by: Dany Huertas MD 10/10/2025 11:30 AM EST RP Dictated By: Dany Huertas MD Signed By: <Electronically signed by Dany Huertas MD in OV> 10/10/25 1130 DD/ 1056 TD/TT: 10/10/25 1059 Canal Tender: Procedure Note Donotuseinterpreter, Image - 10/10/2025 [place] [address] Ultrasound Report Signed Patient: Radha Martinez MR#: [id number] : 1975Acct:[id number] Age/Sex: 50 / FADM Date: 10/10/25 Loc: HO.US Attending Dr: Zoe Cabrera DO Ordering Physician: Zoe Cabrera DO Date of Service: 10/10/25 Procedure(s): US renal BI Accession Number(s): [id number] cc: Zoe Cabrera DO Reason for Exam: microscopic hematuria EXAMINATION: US KIDNEY BILATERAL HISTORY: microscopic hematuria TECHNIQUE: Real-time grayscale ultrasound imaging of the kidneys was performed and images were reviewed. COMPARISON: Comparison is made with the prior examination dated 07/19/2024. FINDINGS: Right kidney: The right kidney measures 10.4 x 4.7 x 6.2 cm. Renal parenchymal echotexture and thickness are normal. There are no masses. There is no hydronephrosis or renal calculi. Left Kidney: The left kidney measures 10.7 x 4.9 x 4.9 cm. Renal parenchymal echotexture and thickness are normal. There are no masses. There is no hydronephrosis or renal calculi. US/US renal BI IMPRESSION: Unremarkable renal ultrasound. Electronically signed by: aDny Huertas MD 10/10/2025 11:30 AM EST RP Dictated By: Dany Huertas MD Signed By: <Electronically signed by Dany Huertas MD in OV> 10/10/25 1130 DD/ 1056 TD/TT: 10/10/25 1059 Canal Tender: Zoe Cabrera DO IMG US PROCEDURES Edited Res ult - Final * AL REMOVAL IMPACTED CERUMEN IRRIGATION/LVG UNILAT (08/08/2025 9:51 AM EDT) Usha De Luna RN - 08/08/2025 9:51 AM EDT Usha Blevins RN 08/08/2025 9:54 AM Ear Cerumen Removal Date/Time: 08/08/2025 9:51 AM Performed by: Usha Blevins RN Authorized by: Zoe Cabrera DO Consent: Consent obtained: Verbal Consent given by: Patient Risks, benefits, and alternatives were discussed: yes Risks discussed: Dizziness, infection and pain Alternatives discussed: No treatment [place] protocol: Procedure explained and questions answered to patient or proxy's satisfaction: yes Relevant documents present and verified: no Test results available: no Imaging studies available: no Required blood products, implants, devices, and special equipment available: no Site/side marked: no Immediately prior to procedure, a time out was called: yes Patient identity confirmed: Verbally with patient Procedure details: Location: R ear Procedure type: irrigation Procedure outcomes: cerumen removed Post-procedure details: Inspection: No bleeding and ear canal clear Hearing quality: Improved Procedure completion: Tolerated Result [facility] Zoe Cabrera DO IN CLINIC/BEDSIDE ORDERABLES Final Result * (ABNORMAL) Bacterial Vaginosis Panel (07/26/2025 2:50 PM EDT) TRICHOMONAS VAGINALIS DETECTION BY PCR NOT DETECTED Not Detect [facility] BACTERIAL VAGINOSIS DETECTION BY PCR NEGATIVE Negative [facility] Comment:The BV organism targ ets of the Xpert Xpress MVP test can becommensal in women; Xpert Xpress MVP positive results forbacterial vaginosis should be considered in conjunction withother clinical and patient information to determine thedisease status. Organisms that are not detected by the XpertXpress MVP test have also been reported to be associatedwith BV and aerobic vaginitis.The Xpert Xpress MVP test performance has not been evaluatedin patients under the age of 14. HOLLY GROUP DETECTION BY PCR DETECTED(A) Not Detect [facility] Holly glab krusei PCR NOT DETECTED Not Detect [facility] Swab Vaginal structure / Unknown 07/26/2025 2:50 PM EDT 07/26/2025 4:08 PM EDT us Zoe Cabrera DO LAB MICROBIOLOGY - GENERAL O RDERABLES Final Result [facility] [address] [place] [phone] [phone] * Chlamydia/N. Gonorrhoeae RNA, TMA, Vaginal (07/26/2025 2:50 PM EDT) CT PCR NOT DETECTED Not Detect. [facility] Comment:A not detected test result does not exclude the possibilityof infection because test results can be affected byimproper specimen collection, concurrent antibiotic therapy,or the number of organisms in the specimen which may bebelow the sensitivity of the test. As with many diagnostictests, results from the Xpert CT/NG assay should beinterpreted in conjunction with other laboratory andclinical data available to the clinician.Xpert CT/NG performance has not been evaluated in patientsless than 14 years of age. The assay should not be used forthe evaluationof suspected sexual abuse or for other medico-legalindications. Additional testing is recommended in anycircumstance when false positive or false negative resultscould lead to adverse medical, social or psychologicalconsequences. NG PCR NOT DETECTED Not Detect. [facility] Comment:A not detected test result does not exclude the possibilityof infection because test results can be affected byimproper specimen collection, concurrent antibiotic therapy,or the number of organisms in the specimen which may bebelow the sensitivity of the test. As with many diagnostictests, results from the Xpert CT/NG assay should beinterpreted in conjunction with other laboratory andclinical data available to the clinician.Xpert CT/NG performance has not been evaluated in patientsless than 14 years of age. The assay should not be used forthe evaluationof suspected sexual abuse or for other medico-legalindications. Additional testing is recommended in anycircumstance when false positive or false negative resultscould lead to adverse medical, social or psychologicalconsequences. Swab (Vaginal Swab) 07/26/2025 2:50 PM EDT 07/26/2025 4:06 PM EDT us Zoe Cabrera DO LAB MICROBIOLOGY - GENERAL O RDERABLES Final Result [facility] [address] [place] [phone] * Cologuard?? colon cancer screening (07/03/2024 12:00 PM EDT) Cologuard Result Negative Negative 07/08/20 6:12 PM EDT [place] [employer] (CLIA #:[id number]) Comment: NEGATIVE TEST RESULT. A negative Cologuard [...] (Elana June al, N Engl J Med 2014;370(14):3161-1286) The normal value (reference range) for this assay is negative. COLOGUARD RE-SCREENING RECOMMENDATION: Periodic colorectal cancer screening is an important part of preventive healthcare for asymptomatic individuals at average risk for colorectal cancer. Following a negative Cologuard result, the [place] [employer] and U.S. Multi-Society Task Force screening guidelines recommend a Cologuard re-screening interval of 3 years. References: [place] [employer] Guideline for Colorectal Cancer Screening: https://www.cancer.org/cancer/nqkcq-unyqnl-grqlxr/fvkagiqma-wdjcvzyca-vkkejjv/ac s-rec ommendations.html.; Kentrell VERNON, Tri COWART, Adrianna CARRASQUILLO, Colorectal Cancer Screening: Recommendations for Physicians and Patients from the U.S. Multi-Society Task Force on Colorectal Cancer Screening , Am J Gastroenterology 2017; 112:1538-4920. TEST DESCRIPTION: Composite algorithmic analysis of stool [...] Burt. et al, N Engl J Med 2014;370(14):4836-4005.) Cologuard may produce a false negative or false positive result (no colorectal cancer or precancerous polyp present at colonoscopy follow up). A negative Cologuard test result does not guarantee the absence of CRC or advanced adenoma (pre-cancer). The current Cologuard screening interval is every 3 years. ([place] [employer] and U.S. Multi-Society Task Force). Cologuard performance data in a 10,000 patient pivotal study using colonoscopy as the reference method can be accessed at the following location: www.[employer]/results. Additional description of the Cologuard test process, warnings and precautions can be found at www.cologuard.com. Stool specimen (specimen) 07/03/2024 12:00 PM EDT 07/04/2024 4:04 PM EDT Zoe Cabrera DO LAB MOLECULAR DIAGNOSTICS OR DERABLES Final Result Performing Organization Address City/[facility]/ZIP Co de Phone Number [facility] (CLIA #:[id number]) [place] [address], * Hepatitis C Antibody with Reflex to HCV, RNA, Quantitative, Real-Time PCR (06/22/2024 12:34 PM EDT) Hepatitis C Antibody Nonreactive Nonreactive [facility] Comment:Antibodies to HCV no t detected; does not exclude early acuteHCV infection. Blood Venous blood specimen / Unknown 06/22/2024 12:34 PM EDT 06/22/2024 1:24 PM EDT Zoe Deborah ZACARIAS LAB BLOOD ORDERABLES Final R esult Performing Organization Address [facility] Co de Phone Number [facility] [address] [place] [phone] * HIV-1/2 Antigen and Antibodies, Fourth Generation, with Reflexes (06/22/2024 12:34 PM EDT) HIV AB/AG Nonreactive Nonreactive [facility] Comment:HIV-1 p24 Ag and/or HIV-1/HIV-2 Ab not detected.A test result that is nonreactive does not exclude thepossibility of exposure to or infection with HIV-1 and/orHIV-2. Nonreactive results in this assay for individualswith prior exposure to HIV-1 and/or HIV-2 may be due toantigen and antibody levels that are below the limit ofdetection of this assay.The [employer] HIV Ag/Ab Combo assay result andsupplemental assay results should be interpreted inconjunction with the patient's clinical presentation,history and other laboratory results. If the results areinconsistent with clinical evidence, additional testing issuggested to confirm the result. Blood Venous blood specimen / Unknown 06/22/2024 12:34 PM EDT 06/22/2024 1:24 PM EDT Zoe Cabrera LAB BLOOD ORDERABLES Final R esult Performing Organization Address City/[facility]/ZIP Co de Phone Number [facility] [address] [place] [phone] * Hemoglobin A1c (06/22/2024 12:34 PM EDT) Hemoglobin A1c 5.4 <6.0 % [facility] Comment:Hemoglobin A1C Refer ence Range Adults: 4.8 - 6.0 % Non diabetic: < 6.0 % Goal: < 7.0 %Additional Action Suggested: > 8.0 %Note: Hemoglobin A1c results are invalid for patients with abnormal amounts of HbF. Blood transfusions may impact the HbA1c concentration in the patient sample. Estimated Average Glucose 108 mg/dL [facility] Comment:eAG = Estimated ave rage glucose which is %A1C expressed asaverage glucose, using the formula of the M4L-PuuvjagUzngdge Glucose study (ADAG), Diabetes Care, Vol.31,#8,Jun. 2007 Blood Venous blood specimen / Unknown 06/22/2024 12:34 PM EDT 06/22/2024 1:24 PM EDT Zoe Burrowsfelishajasmine LAB BLOOD ORDERABLES Final R esult Performing Organization Address City/[facility]/ZIP Co de Phone Number [facility] [address] [place] [address] [phone] * (ABNORMAL) Lipid Panel, Standard (06/22/2024 12:34 PM EDT) Triglycerides 128 <150 mg/dL [facility] Comment:Desirable Triglyceri de: less than 150 mg/dLBorderline High Triglyceride 150-199 mg/dLHigh Triglyceride: 200-499 mg/dLVery High Triglyceride: greater than or equal to 5OO mg/dL Cholesterol 215(H) <200 mg/dL [facility] Comment:Desirable Cholestero l: less than 200 mg/dLBorderline High Cholesterol: 200-239 mg/dLHigh Cholesterol: greater than 239 mg/dL LDL Cholesterol Calculated 139(H) <100 mg/dL [facility] Comment:Desirable LDL: less than 100 mg/dLNear Optimal/Above Optimal LDL: 110- 129 mg/dLBorderline High LDL: 130-159 mg/dLHigh LDL: 160-189 mg/dLVery High LDL: greater than or equal to 190 mg/dL HDL Cholesterol 51 >40 mg/dL [facility] Comment:Desirable HDL: great er than 40 mg/dL Note: This HDL assay may give artificially low results in patients with liver disease. Blood Venous blood specimen / Unknown 06/22/2024 12:34 PM EDT 06/22/2024 1:24 PM EDT Zoe Cabrera DO LAB BLOOD ORDERABLES Final R esult [facility] [address] [place] [address] [phone] * BI Mammogram Screening Tomosynthesis Bilateral (04/04/2024 8:45 AM EDT) Anatomical Region Laterality Modality Breast Bilateral Mammography 04/04/2024 8:45 AM EDT Narrative 04/30/2024 3:29 AM EDT [facility] [address] [place] [address] Mammography Report Signed Patient: Radha Martinez MR#: [id number] : 1975 Acct:[id number] Age/Sex: 48 / F ADM Date: 04/04/24 Loc: HO.MAMMO Attending Dr: Zoe Cabrera DO Ordering Physician: Zoe Cabrera DO Results: 1N egative Date of Service: 04/04/24 Follow Up: 1 Year From Orig inal Mammogram Procedure(s): MM tomosynthesis screening BI Accession Number(s): [id number] cc: Zoe Cabrera DO EXAMINATION: MM SCREENING [...] in OV> 04/30/24 0326 DD/ 0845 TD/TT: Canal Tender: Procedure Note Donotuseinterpreter, Image - 04/30/2024 [facility] [address] [place], [place] [address] Mammography Report Signed Patient: Radha Martinez MR#: [id number] : 1975Acct:[id number] Age/Sex: 48 / FADM Date: 04/04/24 Loc: HO.MAMMO Attending Dr: Zoe Cabrera DO Ordering Physician: Zoe Cabreraults: 1N egative Date of Service: 04/04/24Follow Up: 1 Year From Orig inal Mammogram Procedure(s): MM tomosynthesis screening BI Accession Number(s): [id number] cc: Zoe Cabrera DO EXAMINATION: MM SCREENING [...] in OV> 04/30/24 0326 DD/ 0845 TD/TT: Canal Tender: Zoe Cabrera DO IMG BI PROCEDURES Final Resu lt * Thinprep PAP, HPV mRNA E6/E7 RFX HPV 16,18/45, Chlamydia/N. Gonorrhoeae (03/25/2023 12:00 AM EDT) Clinical Information: Postmenopausal [employer] LMP: NONE GIVEN [employer] Prev. PAP: YES [employer] Prev. BX: NO [employer] SOURCE: None given [employer] Statement Of Adequacy: [employer] Comment: Satisfactory for evaluation. Endocervical/transformation zone component absent. Interpretation/Re sult: Negative for intraepithelial lesion or malignancy. [employer] Supervisor Display Fabrication: Carole Wrightspeedt Comment: JNA, CT(ASCP) CT screening location: [place] [address] (Always Message) Que Take the Interview Comment: EXPLANATORY NOTE: The Pap is a [...] HPV nRNA E6/E7 Not Detected Not Detected [employer] Comment: Methodology: Collections Technician-Mediated Amplification This assay detects E6/E7 viral messenger RNA (mRNA) from 14 high-risk HPV types (16,18,31,33,35,39,45,51,52,56,58,59,66,68). Cervical sources are required for HPV testing. If a vaginal source from a patient who has had a total hysterectomy with removal of cervix was submitted, please contact the testing laboratory for alternative testing options. For additional information, please refer to http://[employer]/faq/RSW453m7 (This link if provided for information/ educational purposes only.) Chlamydia trachomatis RNA, TMA, Urogenital NOT DETECTED NOT DETECTED [employer] Neisseria gonorrhoeae RNA, TMA, Urogenital NOT DETECTED NOT DETECTED [employer] Comment [employer] Comment: The analytical performance characteristics of this assay, when used to test SurePath(TM) specimens have been determined by [employer]. The modifications have not been cleared or approved by the FDA. This assay has been validated pursuant to the CLIA regulations and is used for clinical purposes. For additional information, please refer to https://[employer]ikiRe[employer]/faq/MSR619 (This link is being provided for information/ educational purposes only.) 03/25/2023 03/28/2023 10: 00 AM EDT Narrative [facility] - 03/30/2023 11:47 AM EDT FASTING: UNKNOWN us Zoe Cabrera DO LAB PATHOLOGY ORDERABLES Fin al Result [facility] [address], [place] [address] [employer] [address] [place] [address] from Last 3 Months or Most Recently Relevant to Health Maintenance Insurance [place] [facility] MEDICAID STAND ADULT Care Teams Hand Coremaker Relationship Specialty Start Date End Date Zoe Cabrera DO [address] [place] [address] PCP - General Family Medicine 12/10/15
--- OUTSIDE RECORDS SUMMARY | 2025-10-23 15:54 | XMS_ITS | Encounter Summary ---
Author Organization [employer] Address [address] [facility] 7 [place] [address] Care Team Providers Care Hot Car Operator Name Role Phone StormyZoe cadena Primary Care Provider + [phone] Reason for Visit * Reason Comments Med Refill Encounter Details Date Type Department Care Team (Late Contact Info) Description 02/07/2023 Refill [facility] [address] [place] [address] Bertrand Dominguez MD [address] [place] [address] Onychomycosis Social History Tobacco Use Types Packs/Day [...] Description 01/03/2026 8:00 AM EST Office Visit [facility] [address] [place] [address] Sandra Oneal [address] [place] [address] documented as of this encounter Visit Diagnoses Diagnosis Onychomycosis Dermatophytosis of nail documented in this encounter Additional Health Concerns Assessment Noted Time PHQ-9 Depression Total Score: 0 12/03/19 23 8:57 AM EST documented as of this encounter Care Teams Hot Car Operator Relationship Specialty Start Date End Date Zoe Cabrera DO [address] [place] [address] PCP - General Family Medicine 12/10/15 documented as of this encounter
--- OUTSIDE RECORDS SUMMARY | 2025-10-23 15:54 | XMS_ITS | Encounter Summary ---
Author Organization [employer] Address [address] [facility] 7 [place] [address] Care Team Providers Care Folder And Notcher Name Role Phone StormyZoe cadena Primary Care Provider + [phone] Reason for Visit * Reason Comments Med Refill Encounter Details Date Type Department Care Team (Late Contact Info) Description 02/11/2023 Refill [facility] [address] [place] [address] Bertrand Dominguez MD [address] [place] [address] Onychomycosis Social History Tobacco Use Types Packs/Day [...] Description 01/03/2026 8:00 AM EST Office Visit [facility] [address] [place] [address] Sandra Oneal [address] [place] [address] documented as of this encounter Visit Diagnoses Diagnosis Onychomycosis Dermatophytosis of nail documented in this encounter Additional Health Concerns Assessment Noted Time PHQ-9 Depression Total Score: 0 12/03/19 23 8:57 AM EST documented as of this encounter Care Teams Folder And Notcher Relationship Specialty Start Date End Date Zoe Cabrera DO [address] [place] [address] PCP - General Family Medicine 12/10/15 documented as of this encounter
--- OUTSIDE RECORDS SUMMARY | 2025-10-23 15:54 | XMS_ITS | Encounter Summary ---
Author Organization [employer] Address [address] [facility] [address] [place] [address] Care Team Providers Care Hoop Punch And Coiler Operator Name Role Phone Zoe Cabrera DO Primary Care Provider + [phone] Reason for Visit * Reason Onset Date Comments Created In Error 08/23/2024 Encounter Details Date Type Department Care Team ([facility] st Contact Info) Description 08/23/2024 Telephone [facility] [address] [place] [address] Zoe Cabrera DO [address] [place], [place] [phone] Created In Error Social History Tobacco Use [...] Description 01/03/2026 8:00 AM EST Office Visit [facility] [address] [place] [address] Sandra Oneal [address] [place] [address] documented as of this encounter Visit Diagnoses Not on filedocumented in this encounter Additional Health Concerns Assessment Noted Time PHQ-9 Depression Total Score: 0 07/26/20 23 9:04 AM EDT documented as of this encounter Care Teams Hoop Punch And Coiler Operator Relationship Specialty Start Date End Date Zoe Cabrera DO [address] [place] [address] PCP - General Family Medicine 12/10/15 documented as of this encounter
--- OUTSIDE RECORDS SUMMARY | 2025-10-23 15:54 | XMS_ITS | Encounter Summary ---
Author Organization [employer] Address [address] [facility] 7t [place] [address] Care Team Providers Care Pick And Shovel Man Name Role Phone Zoe Cabrera DO Primary Care Provider + [phone] Reason for Visit * Reason Onset Date Comments Results 10/17/2025 Encounter Details Date Type Department Care Team ([facility] st Contact Info) Description 10/17/2025 Telephone [facility] [address] [place] [address] Zoe Cabrera DO [address] [place], [place] [phone] Results Social History Tobacco Use Types Packs/Day Years [...] your housing situation today? I have ary sing 03/09/[address] you li [...] Telephone Encounter - Keiko Mejía RN - 10/18/2025 12:14 PM EST Incoming call from the patient. Patient informed of US results as below and POC. Patient is aware of fibroid, nabothian cyst and endometrium lining being thicker than expected. PCP would like patientto f/u with OBGYN for further evaluation and treatment plan. Patient informed she was referred to OBGYN in 04/2025 and should contact their office to schedule an appointment. Patient reports she has not seen OBGYN yet. RN provided patient with phone number to OBGYN office for patient to call and schedule an appointment. Patient verbalized understanding and did not have any further questions. * Telephone Encounter - Keiko Mejía RN - 10/18/2025 10:34 AM EST RN reviewed pelvic US results from 10/10/25 with PCP which returned showing: IMPRESSION: 1. Tiny intramural fibroid. 2. Nabothian cysts and nonspecific foci of calcification the cervix. 3. Endometrial stripe measures 5 mm. PCP would like patient to f/u with OBGYN (was referred 04/2025). TC x2 placed to patient [phone] to notify patient of above message however received automated recording the person you are calling cannot accept calls at this time . TC x2 placed to [phone], spoke to who reports the patient is currently at an appointment. RN advised to have patient return call to [facility] when able. RN will re-attempt in PM. * Telephone Encounter - Keiko Mejía RN - 10/17/2025 3:49 PM EST RN reviewed pelvic US results from 10/10/25 with PCP which returned showing: IMPRESSION: 1. Tiny intramural fibroid. 2. Nabothian cysts and nonspecific foci of calcification the cervix. 3. Endometrial stripe measures 5 mm. PCP would like patient to f/u with OBGYN (was referred 04/2025). TC placed to patient [phone] to notify patient of above message however received automated recording the person you are calling cannot accept calls at this time . TC placed to [phone], spoke to and advised to have patient return call to [facility] when able. RN will re-attempt in AM. documented in this encounter Plan of Treatment Upcoming Encounters Date Type Department Care Team (Late st Contact Info) Description 01/03/2026 8:00 AM EST Office Visit [facility] [address] [place] [address] Kimmy, Sandra [address] [place] [address] documented as of this encounter Visit Diagnoses Not on filedocumented in this encounter Additional Health Concerns Assessment Noted Time PHQ-9 Depression Total Score: 0 01/09/20 25 9:08 AM EST documented as of this encounter Care Teams Pick And Shovel Man Relationship Specialty Start Date End Date Zoe Cabrera DO [address] [place] [address] PCP - General Family Medicine 12/10/15 documented as of this encounter
--- OUTSIDE RECORDS SUMMARY | 2025-10-23 15:54 | XMS_ITS | Encounter Summary ---
Author Organization [employer] Address [address] [facility] 7 [place] [address] Care Team Providers Care Dry Folder Cloth Name Role Phone Zoe Cabrera DO Primary Care Provider + [phone] Encounter Details Date Type Department Care Team (Latest Contact Info) Description 12/01/2020 Abstract [facility] CONVERSIONS Dental, Provider, DDS Social History Tobacco [...] Description 01/03/2026 8:00 AM EST Office Visit [facility] [address] [place] [address] Kimmy, Sandra [address] [place] [address] documented as of this encounter Visit Diagnoses Not on filedocumented in this encounter Care Teams Dry Folder Cloth Relationship Specialty Start Date End Date Zoe Cabrera DO [address] [place] [address] PCP - General Family Medicine 12/10/15 documented as of this encounter
== END 2025-10-23 08:09 | disposition home or self-care (01) ==
LOC: HO.LNP 08:08
PROVIDERS: PCP Family Medicine; Visit Provider Obstetrics & Gynecology
DX: N95.0 Postmenopausal bleeding (principal); D25.9 Leiomyoma of uterus, unspecified
CPT/HCPCS: 58100; 87626; 88175; 88305; 99212

== ENCOUNTER 2025-10-23 08:08 | Outpatient (AMB) | payer MEDICAID, SELFPAY ==
--- OUTSIDE RECORDS SUMMARY | 2025-10-18 09:30 | XMS_ITS | Encounter Summary ---
Author Organization [facility] Address [address] [facility] [address] [place] [address] Phone Care Team Providers Care Leasing Property Manager Name Role Phone Zoe Cabrera DO Primary Care Provider [phone] Reason for Visit * Consultation (Routine) - Authorized Specialty Diagnoses / Procedures Referred By Lisa lopez Referred To Contact General Surgery Procedures BARIATRIC FOLLOW UP Zoe Cabrera DO [address] [place] [address] Phone: tel: fax: Chitra Dennis MD [address] [place] [address] Phone: tel: fax: [email or web address] Referral ID Status Reason Start Date Expiration Date V isits Requested Visits Authorized [id number] Authorized 05/08/2025 05/08/2026 20 20 Encounter Details Date Type Department Care Team (Late st Contact Info) Description 10/18/2025 9:30 AM EST Office Visit [facility] [address] [place] [address] Chitra Dennis MD [address] [place] [id number] [email or web address] Morbid obesity with BMI of 40.0-44.9, adult (Primary Dx) Social History Tobacco Use Types [...] Orientation Straight 11/25/2024 9: 35 AM EST documented as of this encounter Last Filed Vital Signs Vital Sign Reading Time Taken Comments Blood Pressure 110/74 10/18/2025 9:00 AM EST Pulse 79 10/18/2025 9:00 AM EST Temperature 36.4 C (97.5 F) 10/18/2025 9:00 AM EST Respiratory Rate - - Oxygen Saturation 98% 10/18/2025 9:00 AM EST Inhaled Oxygen Concentration - - Weight 109.8 kg (242 lb) 10/18/2025 9:00 AM EST Height 162.6 cm (5' 4.02 ) 10/18/2025 9:00 AM ES T Body Mass Index 41.52 10/18/2025 9:00 AM EST documented in this encounter Progress Notes * Chitra Dennis MD - 10/18/2025 9:30 AM EST Subjective: Patient ID: This is a 50-year-old patient who is interested in the laparoscopic sleeve gastrectomy for weight management. Patient has lost 9 pounds since the last visit. Patient now needs to lose 8 pounds beforebeing a surgical weight loss candidate. Patient is consuming drinking well over a gallon of water on a daily basis. They are exercising 5 times weekly by performing 1 hour of 30 mins of strength and 30 mins cardio. They deny any fever, chills, shortness of breath, chest pain. Patient has completed 5 out of 5 nutrition classes, 2 out of 2 behavioral health visits, and he has completed required testing. 24-hour dietary recall: 915 am: protein shake 12 pm: broccoli with egg 3 pm: protein bar with 30 gm protein 530 pm: broccoli, chicken Vitals: 10/18/25 0900 BP: 110/74 Pulse: 79 Temp: 36.4 ??C (97.5 ??F) SpO2: 98% Height 5 foot 4 inches Weight 242 pounds Fat percentage 49.3% Fat mass 119.4 pounds Fat-free mass 122.6 pounds Muscle mass 116.4 pounds BMR 1749 kcal Visceral fat 15 BMI 41.5 Review of Systems Constitutional: Negative for chills, fatigue and fever. Eyes: Negative for wears glasses. Respiratory: Negative for cough, shortness of breath and wheezing. Cardiovascular: Negative for chest pain and leg swelling. Gastrointestinal: Negative for abdominal distention, abdominal pain, constipation, diarrhea, nauseaand vomiting. Genitourinary: Negative for problems with urination and dysuria. Neurological: Positive for dizziness and light-headedness. Negative for headaches. Psychiatric/Behavioral: Negative for dysphoric mood. The patient is not nervous/anxious. Musculoskeletal: Positive for joint pain and back pain. Objective: Physical Exam Vitals reviewed. Constitutional: Appearance: She is obese. HENT: Head: Normocephalic and atraumatic. Cardiovascular: Rate and Rhythm: Normal rate and regular rhythm. Heart sounds: No murmur heard. No gallop. Pulmonary: Effort: No respiratory distress. Breath sounds: No wheezing, rhonchi or rales. Abdominal: Palpations: Abdomen is soft. There is no mass. Tenderness: There is no abdominal tenderness. There is no guarding or rebound. Hernia: No hernia is present. Neurological: Mental Status: She is alert. Psychiatric: Mood and Affect: Mood normal. Behavior: Behavior normal. Thought Content: Thought content normal. Judgment: Judgment normal. Assessment/Plan: Problem List Items Addressed This Visit Endocrine Morbid obesity with BMI of 40.0-44.9, adult - Primary This is a 50-year-old woman who is doing extremely well with weight loss and is following the eating plan and exercise plan and water intake. She has lost 9 pounds and had to lose another 8 pounds before being a surgical weight loss candidate. She will continue current eating plan, exercise plan, water intake. She was told she may come in for a weight check if she reaches her weight loss goal prior to our next appointment. I recommended her following up with me in 4 weeks timeframe. She has completed all requirements including 5 out of 5 nutrition classes, 2 out of 2 behavioral health assessments, and all required testing. I believe she is a great surgical candidate. Patient has been counseled against and breast-feeding for 18 to 24 months postoperatively. I have answered all her questions regarding laparoscopic sleeve gastrectomy with possible hiatal hernia repair and intraoperative endoscopy. Once the patient reaches her weight loss goal we will submit her information to the insurance company for the above-noted procedure. documented in this encounter Miscellaneous Notes * Assessment & Plan Note - Chitra Dennis MD - 10/18/2025 10:23 AM EST Associated Problem(s): Morbid obesity with BMI of 40.0-44.9, adult This is a 50-year-old woman who is doing extremely well with weight loss and is following the eating plan and exercise plan and water intake. She has lost 9 pounds and had to lose another 8 pounds before being a surgical weight loss candidate. She will continue current eating plan, exercise plan, water intake. She was told she may come in for a weight check if she reaches her weight loss goal prior to our next appointment. I recommended her following up with me in 4 weeks timeframe. She has completed all requirements including 5 out of 5 nutrition classes, 2 out of 2 behavioral health assessments, and all required testing. I believe she is a great surgical candidate. Patient has been counseled against and breast-feeding for 18 to 24 months postoperatively. I have answered all her questions regarding laparoscopic sleeve gastrectomy with possible hiatal hernia repair and intraoperative endoscopy. Once the patient reaches her weight loss goal we will submit her information to the insurance company for the above-noted procedure. documented in this encounter Plan of Treatment Upcoming Encounters Date Type Department Care Team (Late st Contact Info) Description 11/15/2025 9:15 AM EST Office Visit [facility] [address] [place] [address] Chitra Dennis MD [address] [place] [address], [address] [place] [address] [email or web address] documented as of this encounter Visit Diagnoses Diagnosis Morbid obesity with BMI of 40.0-44.9, adult- Primary documented in this encounter Additional Health Concerns Assessment Noted Time PHQ-2 Depression Total Score: 0 08/12/20 25 9:55 AM EDT documented as of this encounter Care Teams Leasing Property Manager Relationship Specialty Start Date End Date Zoe Cabrera DO [address] [place] [phone] PCP - General Family Medicine 08/30/24 documented as of this encounter Additional Source Comments The information contained in this document represents components of the legal health record. It is not the complete legal health record.[facility]
--- OUTSIDE RECORDS SUMMARY | 2025-10-23 08:14 | XMS_ITS | Encounter Summary ---
Author Organization [facility] Address [address] [place] [address] Care Team Providers Care Business Office Assistant Name Role Phone Zoe Cabrera Primary Care Provider [phone] Reason for Referral * Consultation (Routine) - Authorized Specialty Diagnoses / Procedures Referred By Contkavya t Referred To Contact Obstetrics and Gynecology Diagnoses Vaginal spotting Zoe Cabrera [address] [place] [address] Phone: tel: fax: [facility]ne[facility] [address] [place] [address] Phone: tel: fax: Referral ID Status Reason Start Date Expiration Date Visits Requested Visits Authorized [id number] Authorized Specialty Services Required 05/20/2025 06/20/2026 6 6 Encounter Details Date Type Department Care Team (Late st Contact Info) Description 05/20/2025 Transcribe Orders [facility] [address] [place] [address] Zoe Cabrera [address] [place] [address] Vaginal spotting (Primary Dx) Social History Tobacco [...] vagina documented in this encounter Care Teams Business Office Assistant Relationship Specialty Start Date End Date Zoe Cabrera [address] [place] [phone] PCP - General Family Medicine 04/11/18 documented as of this encounter
--- OUTSIDE RECORDS SUMMARY | 2025-10-23 08:14 | XMS_ITS | Clinical Summary ---
Author Organization [facility] Address [address] [address] Phone Care Team Providers Care Liner Replacer Name Role Phone Deborah Zoe Primary Care Provider [phone] Allergies No known active allergies Medications metoprolol [...] EXCEED 2 DOSES IN 24 HOURS 11/12/19 Active topiramate (TOPAMAX) 25 MG tablet Take 25 mg by mouth nightly at bedtime. at bedtime. 11/12/19 25 Active traZODone (DESYREL) 50 MG tablet Take 50 mg by mouth nightly at bedtime. at bedtime. 11/12/19 Active venlafaxine (EFFEXOR-XR) 75 MG 24 hr capsule TAKE 1 CAPSULE ONCE DAILY. DO NOT BREAK, CRUSH, DISSOLVE OR CHEW 11/12/19 Active cholecalciferol (VITAMIN D3) 25 MCG (1,000 unit) tablet Take 1,000 Units by mouth daily. Active magnesium 250 mg Tab Take by mouth. Activ e ascorbic acid,sod/zinc gluc,ox (ZINC AND C ORAL) Take by mouth. Act rajat cyanocobalamin, vitamin B-12, 1000 MCG tablet Take 1,000 mcg by mouth daily. Active vitamin E 400 unit Cap Take by mouth daily. Active lansoprazole (PREVACID) 30 MG capsuleIndicatio ns:H. pylori infection Take 1 capsule (30 mg total) by mouth 2 (two) times a day. 28 capsule 08/12/20 25 Active estradioL (ESTRACE) 0.01 % (0.1 mg/gram) vaginal cream INSERT 1 GRAM VAGINALLY 3 TIMES A WEEK 09/05/20 Active amoxicillin (AMOXIL) 500 MG capsule Take 2 capsules (1,000 mg total) by mouth 2 (two) times a day. 28 capsule 07/08/20 25 025 Discontin ued(No longer taking) sulfamethoxazole -trimethoprim (BACTRIM DS) 800-160 mg per tabletIndication s:H. pylori infection Take 1 tablet (160 mg of trimethoprim total) by mouth 2 (two) times a day. 28 tablet 08/12/20 25 025 Discontin ued(No longer taking) metroNIDAZOLE (FLAGYL) 500 MG tablet Take 1 tablet (500 mg total) by mouth 2 (two) times a day. 28 tablet 08/12/20 25 025 Discontin ued(No longer taking) Active Problems Problem Noted Date Diagnosed Date Morbid obesity with BMI of 40.0-44.9, adult 10/09 Assessment & Plan (10/18/2025 10:23 AM EST): This is a 50-year-old woman who is [...] candidate. Patient has been counseled against and breast- feeding for 18 to 24 months postoperatively. I have answered all her questions regarding laparoscopic sleeve gastrectomy with possible hiatal hernia repair and intraoperative endoscopy. Once the patient reaches her weight loss goal we will submit her information to the insurance company for the above-noted procedure. Assessment & Plan (09/03/2025 11:12 AM EDT): [...] This is a 49-year-old woman who is Kazakh-speaking who is interested in a laparoscopic sleeve gastrectomy. She has lost 8.4 pounds and now has 12.6 pounds to lose. She has rescheduled her behavioral health assessment appointment which was rescheduled because there was no highway safety engineer available. She has an appoint with a [...] 10:53 AM EDT): This is a 49-year-old Kazakh-speaking woman who is interested in undergoing laparoscopic [...] again and she will be sent the Kazakh nutrition classes. The patient will follow-up with [...] protein shake or a protein bar or Beninese yogurt or cottage cheese to be consumed [...] Encounters Date Type Department Care Team Description 10/18/2025 9:30 AM EST Office Visit [address] [place] [address] Chitra Dennis MD Morbid obesity with BMI of 40.0-44.9, adult (Primary Dx) 09/04/2025 8:20 AM EDT - 09/04/2025 11:59 PM EDT Hospital Encounter [facility] [address] [place] [address] Chitra Dennis MD Discharge Disposition: Home or Self Care 09/03/2025 10:30 AM EDT Office Visit [address] [place] [address] Chitra Dennis MD Verea, Armando Morbid obesity with BMI of 40.0-44.9, adult (Primary Dx) 08/22/2025 8:00 AM EDT Nutrition [address] [place] [address] Charito Gregg LDN Verea, Armando Morbid obesity with BMI of 40.0-44.9, adult (Primary Dx) 08/22/2025 Orders Only [address] [place] [address] Chitra Dennis MD H. pylori infection (Primary Dx) 08/12/2025 9:00 AM EDT Telemedicine [facility] [address] [place] [address] Ashlie Richardson [facility] Pre-bariatric surgery psychological evaluation (Primary Dx); Binge eating disorder in remission 08/12/2025 Orders Only [facility] [address] [place] [address] Chitra Dennis MD H. pylori infection (Primary Dx) 08/09/2025 1:41 PM EDT - 08/09/2025 11:59 PM EDT Hospital Encounter [facility] [address] [place] [address] Chitra Dennis MD Discharge Disposition: Home or Self Care 08/05/2025 9:30 AM EDT Office Visit [facility] [address] [place] [address] Chitra Dennis MD Morbid obesity with BMI of 40.0-44.9, adult (Primary Dx) 07/31/2025 9:00 AM EDT Telemedicine [facility] [address] [place] [address] Ashlie Richardson [facility] Pre-bariatric surgery psychological evaluation (Primary Dx) from Last 3 Months Family [...] Mass Index 41.52 10/18/2025 9:00 AM EST Plan of Treatment Upcoming Encounters Date Type Department Care Team (Late st Contact Info) Description 11/15/2025 9:15 AM EST Office Visit [facility] General Surgery Clinic [address] [place] [address] Chitra Dennis MD [address] [facility], [address]nd [place] [address] Health Maintenance Due Date Last Done Comments [...] VACCINE (#1) 2025 COVID-19 VACCINE (1 - season) 2025 Adult Td,Tdap Booster 08/06/2026 08/06/2016 DEPRESSION SCREENING 08/12/2026 08/12/2025 SCREENING FOR DIABETES 07/05/2028 07/05/2025, 2024 LIPID PANEL 07/05/2030 07/05/2025, 11/07, 06/22/2024, Additional history exists SMOKING STATUS SCREENING (Once After 26 Yrs) Completed 10/18/2025 HEPATITIS A VACCINES Aged Out No long [...] included. H.PYLORI C UREA BRTH Negative Negative [facility] Comment: (NOTE) Result indicates the absence of current Helicobacter pylori infection. Blood 09/04/2025 8:55 AM EDT 09/04/2025 9:10 AM EDT us Chitra Dennis MD LAB BLOOD ORDERABLES Final Result [facility] [address] [place] [address] * (ABNORMAL) Lipid panel (07/05/2025 8:33 AM EDT) HDL 56 mg/dL [facility] Comment: Interpretation <40 mg/dL: Low HDL cholesterol (major risk factor for CHD) Greater than or equal to 60 mg/dL: High HDL cholesterol ( negative risk factor for CHD) HDL - cholesterol is affected by a number of factors, e.g. smoking, excerise, hormones, sex and age. CHOLESTEROL 223 0 - 240 mg/dL [facility] TRIGLYCERIDES 91 30 - 160 mg/dL [facility] LDL 149(H) 50 - 129 mg/dL [facility] Comment: LDL levels in terms of risk for coronary heart disease: <100 mg/dL: Optimal 100-129 mg/dL: Near or above optimal 130-159 mg/dL: Borderline high 160-189 mg/dL: High >190 mg/dL: Very High CARDIAC RISK RATIO 4.0 3.3 - 4.4 [facility] Blood 07/05/2025 8:33 AM EDT 07/05/2025 8:52 AM EDT us Chitra Dennis MD LAB BLOOD BKR ORDERABLES F inal Result [facility] [address] [place] [address] from Last 3 Months or Most Recently Relevant to Health Maintenance Insurance [employer] NET FULL Member Subscriber Plan / Payer (Ef fective 2024-Present) Name:Radha Martinez Relation to Subscriber:Self Name:Radha Martinez Payer ID:Not on file Group ID:Not on file Type:Medicaid Address: [address] [employer] FULL Member Subscriber Plan / Payer (Ef fective 2024-) Name:Radha Martinez Relation to Subscriber:Self Name:Radha Martinez Payer ID:Not on file Group ID:Not on file Type:Medicaid Address: [address] [employer] NET FULL Member Subscriber Plan / Payer (Ef fective 2024-Present) Name:Radha Martinez Relation to Subscriber:Self Name:Radha Martinez Payer ID:Not on file Group ID:Not on file Type:Medicaid Address: [address] [employer] NET FULL Member Subscriber Plan / Payer (Ef fective 2024-Present) Name:Radha Martinez Relation to Subscriber:Self Name:Radha Martinez Payer ID:Not on file Group ID:Not on file Type:Medicaid Address: [address] [employer] NET FULL Member Subscriber Plan / Payer (Ef fective 2024-Present) Name:Radha Martinez Relation to Subscriber:Self Name:Radha Martinez Payer ID:Not on file Group ID:Not on file Type:Medicaid Address: [address] [employer] NET FULL Member Subscriber Plan / Payer (Ef fective 2024-Present) Name:Radha Martinez Relation to Subscriber:Self Name:Radha Martinez Payer ID:Not on file Group ID:Not on file Type:Medicaid Address: [address] [employer] Care Teams Liner Replacer Relationship Specialty Start Date End Date Zoe Cabrera DO [address] [place] [address] PCP - General Family Medicine 08/30/24 Additional Source Comments The information contained in this document represents components of the legal health record. It is not the complete legal health record.[facility]
--- OUTSIDE RECORDS SUMMARY | 2025-10-23 08:14 | XMS_ITS | Clinical Summary ---
Author Organization [facility] Address [address] [place] [address] Care Team Providers Care Sweater Designer Name Role Phone Deborah Zoe Primary Care Provider [phone] Allergies No known active allergies Medications metoprolol tartrate (LOPRESSOR) 25 mg tablet [place] josseline tableta por via oral dos veces [...] 2024-2 6 season) 2025 12/03/2022, 04/22/2021, 03/25/2021 Cologuard 07/03/2027 07/03/2024 Colon Cancer Screening 07/03/2027 DTaP,Tdap,and Td Vaccines (3 - Td or Tdap) 10/03/2028 10/03/2018, 08/06/2016 Pneumococcal Vaccine: 50+ Years Completed , 08/06/2016 HIV Screening Completed 06/22/2024, 06/07, 03/28/2023, Additional history exists Hepatitis C Screening Completed 06/22/2024 Insurance [employer] Care Teams Sweater Designer Relationship Specialty Start Date End Date Zoe Cabrera [address] [place] [id number] PCP - General Family Medicine 04/11/18
--- NOTE | 2025-10-23 08:55 | A.OFFVIS_ITS ---
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 Myometrium has a normal echotexture. A small 4 mm intramural fibroid near the fundus. Previously measuring 6 mm. Nabothian cysts and foci of nonspecific calcification in the cervix. Endometrium: The endometrial stripe measures 5 mm in thickness. Right ovary: The right ovary measures 1.7 x 0.6 x 1.2 cm. Volume 0.6 mL The right ovary is normal in size and echotexture. Left ovary: The left ovary measures 1.8 x 1 x 1.2 cm. Volume 1.1 mL. The left ovary is normal in size and echotexture. Pelvic fluid: Small free fluid in the cul-de-sac.. [facility] Medical History Migraine Vertigo HTN (hypertension) Heart problem Surgical History Hx of section Hx of tonsillectomy Family History Mother Diabetes Father HTN (hypertension) Heart disease Sister Diabetes Social History (Updated 10/23/25 @ 09:01 by Penelope Perkins CMA) Household Members: Spouse Housing: Apartment Alcohol intake: current Alcohol intake frequency: does not drink Patient Tobacco Use Status: Never used Tobacco Second Hand Smoke Exposure: No Use of substances other than those prescribed or required for medical reasons: No service: No Current occupational status: employed 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 Sexually active: Yes Sexual orientation: Straight/Heterosexual Gender identity: Female Female Reproductive History Menstrual Menopause type: natural Total pregnancies: 1 Full term: 1 Number of Living Children: 1 Date of Mammogram: 04/04/24 Review of Systems Const All systems reviewed & are unremarkable except as noted in HPI and below Physical Exam Vital Signs: Last Vital Signs BP 122/84 10/23/25 08:57 BMI result Body Mass Index 41.9 General: Yes no CVA tenderness External Female Exam: normal external appearance and normal appearance of the urethra Speculum Exam - Vagina: normal appearance of the vagina, normal palpation, no lesions and no masses Speculum Exam - Cervix: normal appearance of the cervix, normal palpation, no lesions, no masses and nontender Bimanual exam- vagina & uterus: normal bimanual exam, normal palpation, uterine size normal, normal palpation, uterine shape normal, No Cervical tenderness present and non-tender Bimanual Exam- Adnexa, other: normal adnexae Back/Spine/Pelvis Back: no CVA tenderness Office Procedures Endometrial Biopsy Details: The patient was counseled regarding the indication and benefits of endometrial sampling to rule out endometrial pathology including not limited to endometrial hyperplasia or endometrial cancer and others; The alternatives (Either do nothing vs. hysteroscopy D&C) & the risks were discussed with the patient incl uding but not limited: pain, uterine perforation, bleeding, infection, possible injury to bladder, bowel, ureter, possible need for blood transfusion with all its possible risks. The patient verbalized understanding all questions answered and signed consent. The patient was placed into the dorsal lithotomy position; a speculum was inserted in the vagina. Using aseptic technique for the procedure, the cervix was cleansed with Betadine. The anterior lip of the cervix was grasped with a single tooth tenaculum. The uterus was sounded to 7 cm with a 4 mm Pipelle was used. Tissues samples were obtained and placed in formalin, in a patient labeled container and sent to the pathology department. At the end of the procedure, there was minimal bleeding noted The patient tolerated the procedure well and was discharged in good condition with the following instructions: Nothing in the vagina until the bleeding stops. No sex until the bleeding stops, to call if any of the following occurs: fever (>100.4), flu-like symptoms, abdominal pain, heavy bleeding, four smelling vaginal discharge. The patient was instructed to schedule a Follow up appointment in 2 weeks to discuss pathology results of the biopsy and treatment options. This note was generated with a voice recognition program. Some errors may have been overlooked during the review of this note. Sometimes these errors may affect the content or meaning of a given sentence. 43914-[id number] Biopsy Assessment & Plan Assessment & Plan (1) Postmenopausal bleeding: Code(s): N95.0 - Postmenopausal bleeding Category: Medical Plan: Co testing done. Discussed with the patient the pelvic ultrasound findings, the endometrial stripe thickenss measured by ultrasound was more than 4mm. The negative predictive value, positive predictive value, Sensitivity, specificity of using ultrasound measurement of endometrial stripe to detecting endometrial pathology including hyperplasia , polyp or cancer were discussed with the patient. Recommended to the patient that the next step is an endometrial sampling via hysteroscopy D&C possible polypectomy versus endometrial biopsy to r/o endometrial pathology including hyperplasia or cancer. All the pros and cons risks and benefits of each approach were discussed with the patient, endometrial biopsy being less invasive, office procedure with less sensitivity and inability diagnose a polyp and removal versus hysteroscopy done under anesthesia more invasive more sensitive to endometrial cancer and possibility of diagnosing and endometrial polyp with the possibility of polypectomy. All questions were answered pt verbalized understanding and decided to proceed with endometrial biopsy. EMB done, see procedure note (2) Uterine myoma: Code(s): D25.9 - Leiomyoma of uterus, unspecified Category: Medical Plan: Discussed with the patient the findings on pelvic ultrasound & the risk of myosarcoma; in addition reviewed with the patient that malignancy and pre malignancy cannot be ruled out without hysterectomy for pathological evaluation ; furthermore, explained to the patient the limitation of pelvic ultrasound and endometrial biopsy in the setting. Discussed with the patient the options of treatment including expectant man agement versus hysterectomy; the pros and cons, risks benefits of each approach were discussed with the patient including the fact that in cases of myosarcoma, surgical treatment can lead to early diagnosis and positively affects the prognosis; after further discussion, the patient decided to proceed with expectant management. Will repeat pelvic ultrasound periodically. Instructions given to patient to call in case any of the following occurs: pressure symptoms, abnormal uterine bleeding, pelvic pain; and to schedule a 12 months pelvic ultrasound (order placed) and a follow-up appointment . All questions answered, the patient verbalized understanding and agreed with the plan . Orders: Orders AMB Endometrial Biopsy Today N95.0 - Postmenopausal bleeding US pelvic and transvaginal Today D25.9 - Leiomyoma of uterus, unspecified Coding Level of Care Code Est Pt Level 3 (36888) Procedure Only Diagnoses Postmenopausal bleeding N95.0 Uterine myoma D25.9 CPT Codes Endometrial Biopsy - CPT: 46039-[id number] Biopsy ([id number])
[2025-10-23 08:57] VITALS: BP 122/84; BMI 41.9
== END 2025-10-23 09:38 | disposition home or self-care (01) ==
LOC: HO.HWS 08:08
PROVIDERS: PCP Family Medicine; Visit Provider Obstetrics & Gynecology
DX: N95.0 Postmenopausal bleeding (principal); D25.9 Leiomyoma of uterus, unspecified
CPT/HCPCS: 58100; 99213